=== PATIENT | female | born 1945 | race Two or more races ===

== ENCOUNTER → 2024-07-04 | Outpatient (CLI) | payer MEDICARE, OTHER ==
--- NOTE | 2024-07-04 12:31 | DVH ---
XY CHEST TWO VIEWS ROUTINE CLINICAL HISTORY: SOB COMPARISON: None TECHNIQUE: Frontal and lateral view of the chest was obtained FINDINGS: Lines and Tubes: None Lungs: No focal consolidation. Pleura: Small right pleural effusion. Cardiomediastinal contours: Unremarkable Bones: No acute osseous abnormality. IMPRESSION: Small right pleural effusion. Cardiomegaly with mild CHF.
== END | disposition home or self-care (01) ==
LOC: Rad HDHVI 11:09
PROVIDERS: ATTEND Internal Medicine Cardiovascular Disease
DX: I51.7 Cardiomegaly (principal); I50.9 Heart failure, unspecified; J90 Pleural effusion, not elsewhere classified; R06.02 Shortness of breath; R05.9 Cough, unspecified
CPT/HCPCS: 71046

== ENCOUNTER → 2024-07-30 | Outpatient (CLI) | payer MEDICARE, OTHER ==
[~2024-07-30] MED LIST: ACET1CAP14 PO; ALBU108A5 IN; APIX5TAB PO; B-COTAB19 OR; BUDE1AER4 IN; CETI10CA PO; DICY20TA PO; DULO60CA41 PO; EMPA1TAB3 PO; ESOM1CAP38 PO; FENO160T PO; FURO40TA4 PO; GUAI120018 PO; HYDR25TA5 PO; INSLANTI SC; LEV75T PO; LOSA-533 PO; PIOG1TAB36 PO; POTA-215 PO; PREG75CA PO; ROSU5TAB5 PO; TADA20TA33 PO; TRAM50TA2 PO; ZOLP5TAB5 PO
--- NOTE | 2024-07-30 12:16 | DVH ---
XY CHEST TWO VIEWS ROUTINE INDICATION: PRE OP TECHNIQUE: Two views of the chest COMPARISON: XY CHEST TWO VIEWS ROUTINE on DOS: 07/04/24 FINDINGS: LUNGS: Small right-sided pleural effusion. MEDIASTINUM: Unremarkable BONES: No acute osseous abnormality OTHER: None IMPRESSION: 1. Small right-sided pleural effusion.
--- NOTE | 2024-08-02 08:35 | DVHHP ---
ADMIT DATE: 08/01/2024 HISTORY OF PRESENT ILLNESS: The patient is a 78-year-old with history of: * Hypertension. * Hyperlipidemia. * History of tobacco use, quit in 1991 when she was discovered with a possible lung CA. She had right upper lobe resection. The patient now having lower extremity swelling. She has strong family history of coronary artery disease. No history of CVA. No history of peripheral vascular disease has been identified. No history of any renal insufficiency. Positive for heart failure and also positive for diabetes with diabetic neuropathy, vasculopathy, and nephropathy. Surgical history is also significant for one broken left ankle in 2006. CURRENT MEDICATIONS: Include Jardiance, losartan, lovastatin, hydrochlorothiazide, Eliquis, Lantus insulin, fenofibrate as well as Bumex. REVIEW OF SYSTEMS: She denies any syncopal episode. No melena or hematochezia. No bleeding diathesis. No hematemesis or hemoptysis. No hematuria. Denies any history of CVA. No any history of irritable bowel syndrome, mixed connective tissue, inflammatory bowel disease. PHYSICAL EXAMINATION: VITAL SIGNS: Blood pressure is 117/74, pulse 70, O2 saturation 98% on room air. HEENT: Pupils are reactive. Funduscopic exam shows no AV nicking, no exudates, no papilledema. Sclerae anicteric. Extraocular muscles are intact. Tympanic membranes negative. Oral mucosa moist. Posterior pharynx without exudate. NECK: No cervical adenopathy. No supraclavicular adenopathy. No axillary adenopathy. Carotid pulses are 2+ symmetrical. Normal upstroke and contour. PULMONARY: Some scattered rhonchi. Otherwise unremarkable. CARDIOVASCULAR: Regular rate without S3, without S4. PMI is nondisplaced. There is a 2/6 systolic murmur along the left sternal border. ABDOMEN: Soft. Nontender. Normal bowel sounds. Obese. Unable to appreciate organomegaly. Stool guaiac is negative. EXTREMITIES: 1+ edema. NEUROLOGIC: The patient is intact. Thus, the patient with hypertension, hyperlipidemia, now lower extremity swelling. Classic manifestation for possible diastolic heart failure. The patient is now to undergo coronary angiography to define coronary anatomy. Right and left heart catheterization will be performed as well. Further recommendations after the angiogram. Alin Guerra MD SA/BELEN TID: [id number] RECEIPT: [id number]
== END | disposition home or self-care (01) ==
LOC: Rad HDHVI 08:50
PROVIDERS: ATTEND Internal Medicine Cardiovascular Disease
DX: Z01.818 Encounter for other preprocedural examination (principal); J90 Pleural effusion, not elsewhere classified
CPT/HCPCS: 71046

== ENCOUNTER 2024-08-02 06:43 | Day surgery (SDC) | payer MEDICARE, OTHER ==
[2024-07-30 11:42] LABS: Basophils # (auto) 0.1 10 ^3/uL (0-0.2); Basophils % (auto) 0.6 % (0.0-2.0); Eosinophils # (auto) 0.2 10 ^3/uL (0-0.8); Hematocrit 26.7 % (36.0-46.0); Hemoglobin 8.2 g/dL (12.2-16.2); Lymphocytes # (auto) 2.3 10 ^3/uL (0.4-5.4); Lymphocytes % (auto) 29.1 % (10.0-50.0); Mean Corpuscular Hemoglobin 21.7 pg (28.0-32.0); Mean Corpuscular Hgb Conc. 30.9 g/dL (32.0-36.0); Mean Corpuscular Volume 70.2 fL (80.0-100.0); Monocytes # (auto) 0.7 10 ^3/uL (0-1.3); Monocytes % (auto) 9.3 % (0.0-12.0); Neutrophils # (auto) 4.7 10 ^3/uL (1.6-8.6); Platelet Count (auto) 358 10^3/uL (140-450); Red Blood Cells 3.81 10^6/uL (4.0-5.20); Red Cell Distribution Width 19.4 % (11.8-14.3)
[2024-07-30 12:10] LABS: INR 1.13 (0.9-1.15); Partial Thromboplastin Time 27.8 SEC (24.5-34.5); Prothrombin Time 11.8 sec (9.3-11.8)
[2024-07-30 12:20] LABS: Alanine Aminotransferase 16 U/L (7-40); Albumin 4.5 g/dL (3.2-4.8); Alkaline Phosphatase 69 U/L (46-116); Anion Gap 10 (5-15); Aspartate Aminotransferase 14 U/L (13-40); BUN/Creatinine Ratio 19.3 (10.0-20.0); Blood Urea Nitrogen 22 mg/dL (9-23); Calcium 10.2 mg/dL (8.7-10.4); Carbon Dioxide 28 mmol/L (20-31); Chloride 104 mmol/L (98-107); Potassium 3.6 mmol/L (3.5-5.1); Sodium 142 mmol/L (136-145); Total Protein 6.9 g/dL (5.7-8.2)
[2024-07-30 12:22] LABS: Bilirubin, Total 0.3 mg/dL (0.2-1.0); Glucose 140 mg/dL (74-106)
[~2024-08-02] VITALS: Ht 170.2 cm; Wt 102.1 kg
[2024-08-02] MEDS ORDERED: HEPARIN IN NS 1000Units/500mL 1,500 ML ONE (07:25)
[2024-08-02] MEDS ORDERED: IODIXANOL 320MG/ML 100ML BTL IV ONE (07:25)
[2024-08-02] MEDS ORDERED: IOHEXOL 350 MG/ML 100ML IJ ONE (07:49)
[2024-08-02] MEDS ORDERED: SODIUM CHL 0.9% 0 ML ONE (07:53)
[2024-08-02] MEDS ORDERED: MIDAZOLAM HCL 2MG/2ML 2ml VIAL (1mg/ml) ONE (07:53)
[2024-08-02] MEDS ORDERED: LIDOCAINE 2%HCL (LOCAL ANESTH.) INJ 20ML MDV ONE (07:53)
[2024-08-02] MEDS ORDERED: ANGIOMAX 250 MG VIAL IV ONE (07:53)
[2024-08-02] MEDS ORDERED: fentaNYL CITRATE 100 MCG/2 ML VL ONE (07:53)
--- NOTE | 2024-08-02 08:57 | DVHOP ---
DATE OF SURGERY: 08/02/2024 PROCEDURES PERFORMED: * Selective left and right coronary angiography. * Ventriculogram. * Right heart catheterization. * Westfir-Catrina catheterization. * Right iliac angiography. * Conscious sedation was given. DESCRIPTION OF PROCEDURE: The patient was prepped and draped in a sterile condition. A 1% Xylocaine was used to anesthetize the right groin. Using a Cook needle, right femoral artery was engaged with Seldinger technique, a 6-English sheath in the right femoral artery. Similarly, a 6-English sheath was introduced in the right femoral vein. Using 6-English balloon-tipped thermodilutional catheter, right-sided pressure tracings and cardiac output was performed. Westfir-Catrina bleeding was done as well. Using 6-English JL4 catheter and 6-English JR4 catheter, selective left and right coronary angiography was performed. Using 6-English pigtail catheter, ventriculogram was done. No complication. The patient tolerated the procedure well. Right femoral arteriotomy site was closed using the Angio-Seal device. RESULTS: * Left main normal. * Left anterior descending artery without any flow restrictive lesion. * Circumflex nondominant vessel without any flow restrictive lesion. * Right coronary artery, large dominant vessel without any flow restrictive lesion. * Left ventricular function was preserved with an estimated EF of greater than 65% with an LVEDP of 15 mmHg with no gradient across the aortic valve. Right heart catheterization showed LUIS F pressure of 10, RV pressure of 45/15, PA pressure of 45/12 and capillary wedge pressure of 15. The patient thus with mild pulmonary hypertension. However, no significant coronary artery disease nor any left ventricular dysfunction other than diastolic issues. The patient's blood pressure, however, was normal. There is no gradient across the aortic valve. At this time, the patient's lower extremity swelling is more consistent with mild diastolic dysfunction, mild pulmonary hypertension and possible venous insufficiency. There is no evidence of coronary artery disease or systolic heart failure or any valvular abnormality. We will continue to follow the patient. Alin Guerra MD SA/ROBERT TID: [id number] RECEIPT: [id number]
--- NOTE | 2024-08-02 09:25 | DVHDS ---
DATE OF DISCHARGE: 08/02/2024 DISCHARGE DIAGNOSES: * The patient with mild diastolic dysfunction. * Mild pulmonary hypertension, but there is no systolic dysfunction. HOSPITAL COURSE: The patient's coronary anatomy is within normal limits at this time. Aggressive risk modification, antihypertensive therapy should be considered. If the patient continues to experience lower extremity swelling, anti-pulmonary hypertension medication may be helpful. Low doses may be adequate. be initiated. Stable at the time of discharge. DISPOSITION: Home. ACTIVITY: As instructed. DIET: Will be 2 gram sodium diet. Alin Guerra MD SA/ROBERT/CHUYITA TID: [id number] RECEIPT: [id number]
== END 2024-08-02 10:50 | disposition home or self-care (01) ==
LOC: CATH 06:43
PROVIDERS: ATTEND Internal Medicine Cardiovascular Disease
DX: I25.10 Atherosclerotic heart disease of native coronary artery without angina pectoris (principal); I27.20 Pulmonary hypertension, unspecified; Z79.899 Other long term (current) drug therapy; Z88.2 Allergy status to sulfonamides
CPT/HCPCS: 36415; 80053; 85025; 85610; 85730; 93460; C1760; C1769; C1894; J1644; J2250; J3010; Q9967; 99152

== ENCOUNTER 2024-09-26 13:42 | Inpatient (IN) | payer MEDICARE, OTHER ==
[~2024-09-26] VITALS: Ht 170.2 cm; Wt 115.3 kg
--- NOTE | 2024-09-26 14:17 | ED.PDOC ---
GI ASSESSMENT HPI Comments 78 y/o F, with PMHx of lung cancer, HTN, CHF, DM and neuropathy presents to the ED for CC of abdominal pain. Patient states, she has been experiencing diffuse abdominal pain with associated diarrhea x4days. Patient reports, symptoms may be d/t possible spoiled food while eating out. Patient describes diarrhea to be water and mucousy in appearance. Patient relays, diarrhea to be so sever she has developed new onset bowel incontinence. Patient denies blood in stool, fever, nausea, or vomiting. No other symptoms or modifying factors present at this time. Time Seen by MD: 14:30 Reviewed Notes: Nurses Notes, Medications, Allergies Allergies: Coded Allergies: Sulfa Antibiotics (Verified Allergy, Unknown, itching, 07/30/24) Home Meds Reported Medications B-Complex Vitamins (Vitamin B Complex) Complex Tab, 1 OR DAILY for VITAMIN B50, TAB 08/01/24 Zolpidem Tartrate (Zolpidem Tartrate) 5 Mg Tab, 1 TAB PO HSPRN PRN for FOR INSOMNIA, #30 TAB 2 Refills 08/01/24 Fenofibrate (Fenofibrate) 160 Mg Tab, 1 TAB PO DAILY for HIGH CHOLESTEROL, #30 TAB 5 Refills 08/01/24 Tadalafil (Adcirca) 20 Mg Tab, 20 MG PO BID, TAB 08/01/24 Dicyclomine Hcl (Dicyclomine Hcl) 20 Mg Tab, 20 MG PO TID, MG 08/01/24 Furosemide (Furosemide) 40 Mg Tab, 40 MG PO DAILYP PRN for EDEMA 08/01/24 Budesonide-Formoterol Fumarate (Budesonide/Formoterol Fum 160-4.5 Mcg/Act) 1 Aer Aer, 2 AER IN BID for SOB, AER 08/01/24 Insulin Glargine (Lantus) 100 Unit/Ml Inj, 5 UNIT SC QPM for DIABETES, INJ 07/31/24 Insulin Glargine (Lantus) 100 Unit/Ml Inj, 10 UNIT SC QAM for DIABETES, INJ 07/31/24 Apixaban Base (ELIQUIS) 5 Mg Tab, 5 MG PO BID for PREVENT BLOOD CLOTS, TAB 07/31/24 Potassium Chloride (Klor-Con M10) 10 Meq Tab, 1 TAB PO DAILY for SUPPLEMENT, #30 TAB 5 Refills 07/31/24 Albuterol Sulfate (Albuterol Sulfate Hfa) 108 Mcg/Act Aer, 90 MCG IN PRN for SOB, AER 07/31/24 Guaifenesin (Mucinex Maximum Strength) 1,200 Mg Tab, 1200 MG PO 4-5X PER WEEK, TAB 07/31/24 Acetaminophen (Tylenol) 325 Mg Cap, 325 MG PO PRN for PAIN, CAP 07/31/24 Pioglitazone Hydrochloride (PIOGLITAZONE HCL) 15 Mg Tab, 15 MG PO BID for DIABETES, TAB 07/31/24 Rosuvastatin Calcium (Crestor) 5 Mg Tab, 1 TAB PO DAILY for HIGH CHOLESTEROL, #30 TAB 5 Refills 07/31/24 Esomeprazole Magnesium (Esomeprazole Magnesium) 40 Mg Cap, 40 MG PO DAILY for GERD, CAP 07/31/24 Losartan Potassium (Losartan Potassium) 25 Mg Tab, 25 MG PO DAILY for HTN for 30 Days, MG 07/31/24 Levothyroxine Sodium (Synthroid) 75 Mcg Tab, 1 TAB PO DAILY for LOW THYROID, #30 TAB 5 Refills 07/31/24 Hctz (Hydrochlorothiazide) 25 Mg Tab, 12.5 MG PO DAILY for EDEMA/HTN, TAB 07/31/24 Empagliflozin (Jardiance) 25 Mg Tab, 25 MG PO DAILY for DIABETES, TAB 07/31/24 Tramadol Hcl (Tramadol Hcl) 50 Mg Tab, 50 MG PO DAILY PRN for PAIN SCALE 7 THRU 10, MG 07/31/24 Pregabalin (Lyrica) 75 Mg Cap, 3 CAP PO BID for NERVE PAIN, #60 CAP 1 Refill 07/31/24 Duloxetine Hcl (Cymbalta) 60 Mg Cap, 1 CAP PO BID for DEPRESSION, #90 CAP 3 Refills 07/31/24 Cetirizine Hcl (Zyrtec Allergy) 10 Mg Cap, 10 MG PO HS for ALLERGIES, CAP 07/31/24 Information Source: Patient Mode of Arrival: Wheelchair Timing: Days Duration: Since onset Prehospital treatment: None Quality: None Vomitus: None Stool: Watery Severity: Moderate Recent: Possible spoiled food Recent Hx of: None Pain Location: Diffuse Modifying Factors: Nothing Associated sign and symptoms: Diarrhea, Abdominal Pain Past Medical History PAST MEDICAL HISTORY: Cancer, CHF, DM, HTN Past Medical History (Other): neuropathy Surgical History: Hysterectomy Surgical History (Other): left lobectomy 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 Hx Family History Family History: Unknown Social History Smoker: Non-Smoker Alcohol: Denies ETOH Use Drugs: Denies Drug Use Lives In: Home Constitutional: reports: chills; denies: diaphoresis, fatigue, fever, malaise, sweats, weakness, others EENTM: denies: blurred vision, double vision, ear bleeding, ear discharge, ear drainage, ear pain, ear ringing, eye pain, eye redness, hearing loss, mouth pain, mouth swelling, nasal discharge, nose bleeding, nose congestion, nose pain, photophobia, tearing, throat pain, throat swelling, voice changes, others Respiratory: denies: cough, hemoptysis, orthopnea, SOB at rest, shortness of breath, SOB with excertion, stridor, wheezing, others Cardiovascular: denies: chest pain, dizzy spells, diaphoresis, Dyspnea on exertion, edema, irregular heart beat, left arm pain, lightheadedness, palpitations, PND, syncope, others Gastrointestinal: reports: abdominal pain, diarrhea; denies: abdomen distended, blood streaked bowels, constipated, dysphagia, difficulty swallowing, hematemesis, melena, nausea, poor appetite, poor fluid intake, rectal bleeding, rectal pain, vomiting, others Genitourinary: denies: abnormal vagina bleeding, burning, dyspareunia, dysuria, flank pain, frequency, hematuria, incontinence, pain, , vagina discharge, urgency, others Neurological: denies: dizziness, fainting, headache, left sided numbness, left sided weakness, numbness, paresthesia, pre-existing deficit, right sided numbness, right sided weakness, seizure, speech problems, tingling, tremors, weakness, others Musculoskeletal: denies: back pain, gout, joint pain, joint swelling, muscle pain, muscle stiffness, neck pain, others Integumetry: denies: bruises, change in color, change in hair/nails, dryness, laceration, lesions, lumps, rash, wounds, others Allergic/Immunocompromised: denies: Difficulty Healing, Frequent Infections, Hives, Itching, others Hematologic/Lymphatic: denies: anemia, blood clots, easy bleeding, easy bruising, swollen glands, others Endocrine: denies: excessive hunger, excessive sweating, excessive thirst, excessive urination, flushing, intolerance to cold, intolerance to heat, unexplained weight gain, unexplained weight loss, others Psychiatric: denies: anxiety, bipolar disorder, depression, hopeless, panic disorder, schizophrenia, sleepless, suicidal, others All Other Systems: Reviewed and Negative Physical Exam General Appearance: Moderate Distress, Obese HEENT: Normal ENT Inspection, Pharynx Normal, TMs Normal Neck: Full Range of Motion, Non-Tender, Normal, Normal Inspection Respiratory: Chest Non-Tender, Lungs Clear, No Accessory Muscle Use, No Respiratory Distress, Normal Breath Sounds Cardiovascular: No Edema, No JVD, No Murmur, No Gallop, Normal Peripheral Pulses, Regular Rate/Rhythm Breast Exam: Deferred Gastrointestinal: No Organomegaly, Non Tender, No Pulsatile Mass, Normal Bowel Sounds, Soft Genitalia: Deferred Pelvic: Deferred Rectal: Deferred Extremities: Pedal edema, Swelling (Bilateral lower extremity) Musculoskeletal : Apperance: Normal Neurologic: Alert, No Motor Deficits, No Sensory Deficits Cerebellar Function: NOT DONE Reflexes: NOT DONE Skin: Normal Color Peripheral Pulses: 3+ Radial (R), 3+ Radial (L) Lymphatic: No Adenopathy EKG EKG : Pulse Rate (adult): 63 [place]: Normal Cardiac Rhythm: NSR Block: None Hypertrophy: None ST: Normal Was a procedure done? Was a procedure done?: No GI differential Dx Differential Diagnosis: Constipation, Diverticular disease, Esophagitis, Gastritis/PUD, Gastroenteritis, Inflammatory BD, Electrolyte Imbalance, Food Poisoning, Bacterial, Viral X-Ray, Labs, Meds, VS Vital Signs Date Time Temp Pulse Resp B/P (MAP) Pulse Ox O2 Delivery O2 Flow Rate FiO2 09/26/24 15:17 97.9 61 20 110/44 (66) 97 97.9 09/26/24 15:17 61 20 97 Nasal Cannula* 2 28 09/26/24 15:03 63 09/26/24 14:21 63 09/26/24 14:05 97.8 69 18 108/41 (63) 95 97.8 Lab Test 09/26/24 15:08 09/26/24 14:14 Range/Units White Blood Count 8.2 4.4-10.8 10^3/uL Red Blood Count 3.72 L 4.0-5.20 10^6/uL Hemoglobin 8.9 L 12.2-16.2 g/dL Hematocrit 27.8 L 36.0-46.0 % Mean Corpuscular Volume 74.6 L 80.0-100.0 fL Mean Corpuscular Hemoglobin 23.8 L 28.0-32.0 pg Mean Corpuscular Hemoglobin Concent 31.9 L 32.0-36.0 g/dL Red Cell Distribution Width 26.4 H 11.8-14.3 % Platelet Count 317 140-450 10^3/uL Mean Platelet Volume 8.3 6.9-10.8 fL Neutrophils (%) (Auto) 70.1 37.0-80.0 % Lymphocytes (%) (Auto) 19.5 10.0-50.0 % Monocytes (%) (Auto) 7.9 0.0-12.0 % Eosinophils (%) (Auto) 1.9 0.0-7.0 % Basophils (%) (Auto) 0.6 0.0-2.0 % Neutrophils # (Auto) 5.8 1.6-8.6 10 ^3/uL Lymphocytes # (Auto) 1.6 0.4-5.4 10 ^3/uL Monocytes # (Auto) 0.7 0-1.3 10 ^3/uL Eosinophils # (Auto) 0.2 0-0.8 10 ^3/uL Basophils # (Auto) 0.1 0-0.2 10 ^3/uL Nucleated Red Blood Cells 0.1 % Sodium Level 138 136-145 mmol/L Potassium Level 4.1 3.5-5.1 mmol/L Chloride Level 104 98-107 mmol/L Carbon Dioxide Level 25 20-31 mmol/L Anion Gap 9 5-15 Blood Urea Nitrogen 22 9-23 mg/dL Creatinine 1.15 H 0.550-1.02 mg/dL Glomerular Filtration Rate Calc 48 >90 mL/min BUN/Creatinine Ratio 19.1 10.0-20.0 Serum Glucose 130 H 74-106 mg/dL Calcium Level 9.7 8.7-10.4 mg/dL POC Glucose 130 H 70-106 mg/dl Current Medications Medications (Trade) Dose Ordered Sig/Layo Route Start Time Stop Time Status Last Admin Sodium Chloride 1,000 ml @ 1,000 mls/hr Q1H ONCE IVB 09/26/24 15:00 09/26/24 15:59 DC 09/26/24 15:29 [facility] [id number] [facility] [address] Ph: [phone] DIAGNOSTIC IMAGING Diagnostic Imaging Report : [id number] Signed PATIENT: VIRI HEAD ACCT: [id number] UNIT: [id number] : 1945 LOC: ER ROOM / BED: / AGE / SEX: 78 / F ADM STATUS: REG ER SERVICE 1500 ORDERING PHYSICIAN: LORRAINE OLIVERA MD PROCEDURE(s): ABPL - CT AB PEL WO CON-NO ORAL OR IV REASON: colitis ORDER NUMBER(s): [id number], ACCESSION NUMBER(s): [id number] Indication: colitis Technique: CT axial images of the abdomen and pelvis are obtained without contrast. Coronal and sagittal reformats were obtained. Radiation Dose Information: CTDI volume is 23 mGy. Dose-length product is 1284 mGy*cm Comparison: None FINDINGS: There is limited interpretation of the abdomen and pelvis without administration of intravenous contrast. The lung bases demonstrate atelectasis. Right lower lobe atelectasis and tiny right pleural effusion. Adrenal glands, spleen unremarkable in shape. Pancreatic calcifications. Liver unremarkable in shape. Possible cholelithiasis/sludge.. No hydronephrosis. Nonobstructing left renal calculi up to 2 mm. Stomach is partially distended. Small bowel loops are normal in caliber. Extensive colonic wall thickening of the descending and rectosigmoid colon most pronounced in the descending colon. Postsurgical changes of the descending colon. Surrounding inflammatory stranding. Moderate to large volume stool within the ascending and transverse colon. Colonic diverticular disease. Abdominal aortic atherosclerotic disease. Retroperitoneal lymph nodes measuring up to 13 mm. Bladder partially distended. Trace free pelvic fluid. Mild presacral edema. No inguinal lymphadenopathy. [id number] bilateral sacroiliac degenerative joint disease. Moderate to severe lumbar degenerative disc disease. IMPRESSION: Extensive bowel wall thickening of the descending and rectosigmoid colon most pronounced in the descending colon region. There is surrounding inflammatory stranding. Differential considerations include colitis, inflammatory bowel disease. Recommend colonoscopy once acute symptoms resolve exclude any type of colonic mass/ neoplasm especially in the descending colon region. Moderate to large volume stool within the ascending and transverse colon secondary to the underlying process within the descending and rectosigmoid colon. Right lower lobe atelectasis and tiny right pleural effusion. Atherosclerotic disease. Retroperitoneal lymphadenopathy. Other findings as described. ATED BY: CASIE GORDON MD DICTATED DATE/TIME: 09/26/241601 SIGNED BY: CASIE GORDON MD SIGNED DATE/TIME: 09/26/241601 CC: Patient alert. Complaining of diarrhea. Vitals stable. Answering questions. She is obese. CT scan of the abdomen does show colitis. She will need colonoscopy. GI consultation. Establish intravenous access. Was given fluids. Was given Zosyn. Was given Flagyl. Explained to the patient. Continue monitoring. Time of 1ST Reevaluation: 15:00 Reevaluation 1ST: Unchanged Patient Education/Counseling: Diagnosis, Treatment Family Education/Counseling: No Family Present SEPSIS Sepsis Screen Physician Orders Urinalysis (09/26/24 14:59) Sodium Chloride 0.9% (09/26/24 15:00) Ct Ab Pel Wo Con-No Oral Or Iv (09/26/24 15:00) Vital Signs Date Time Temp Pulse Resp B/P (MAP) Pulse Ox O2 Delivery O2 Flow Rate FiO2 09/26/24 15:17 97.9 61 20 110/44 (66) 97 97.9 09/26/24 15:17 61 20 97 Nasal Cannula* 2 28 09/26/24 15:03 63 09/26/24 14:21 63 09/26/24 14:05 97.8 69 18 108/41 (63) 95 97.8 Laboratory Tests Test 09/26/24 15:08 White Blood Count 8.2 10^3/uL (4.4-10.8) Medications Medications Dose Ordered Sig/Layo Route Start Time Stop Time Status Last Admin Dose Admin Sodium Chloride 1,000 ml @ 1,000 mls/hr Q1H ONCE IVB 09/26/24 15:00 09/26/24 15:59 DC 09/26/24 15:29 Departure 1 Departure Time of Disposition: 16:57 Impression: Primary Impression: Uncontrolled diabetes mellitus Qualified Codes: E13.65 - Other specified diabetes mellitus with hy perglycemia Additional Impression: Non-specific colitis Disposition: ADMITTED INPATIENT Admit to: Med Surg Condition: Guarded Critical Care Note Critical Care Time?: No Stability Stability form required: No Heart Score Heart Score: Heart Score Response (Comments) Value History N/A 0 EKG N/A 0 Age N/A 0 Risk Factors N/A 0 Troponin N/A 0 Total 0 I personally scribed for LORRAINE OLIVERA MD ([email or web address]) on 09/26/24 at 14:17. Electronically submitted by Ana Paula Winchester ([email or web address]). I personally scribed for LORRAINE OLIVERA MD ([email or web address]) on 09/26/24 at 15:01. Electronically submitted by Ana Paula Winchester ([email or web address]). I personally scribed for LORRAINE OLIVERA MD ([email or web address]) on 09/26/24 at 15:03. Electronically submitted by Ana Paula Winchester ([email or web address]). I personally scribed for LORRAINE OLIVERA MD ([email or web address]) on 09/26/24 at 16:21. Electronically submitted by Ana Paula Winchester ([email or web address]). LORRAINE OLIVERA MD Sep 26, 2024 14:17
[2024-09-26 15:17] VITALS: PULSE 61; RESP 20; O2SAT 97
[2024-09-26 15:24] LABS: Chloride 104 mmol/L (98-107); Hemoglobin 8.9 g/dL (12.2-16.2); Potassium 4.1 mmol/L (3.5-5.1); Sodium 138 mmol/L (136-145)
[2024-09-26 15:25] LABS: Anion Gap 9 (5-15); Carbon Dioxide 25 mmol/L (20-31)
[2024-09-26 15:26] LABS: Calcium 9.7 mg/dL (8.7-10.4); Hematocrit 27.8 % (36.0-46.0); Mean Corpuscular Hemoglobin 23.8 pg (28.0-32.0); Mean Corpuscular Volume 74.6 fL (80.0-100.0); Nucleated Red Blood Cells % 0.1 %
[2024-09-26] MEDS: SODIUM CHLORIDE 0.9% 1,000 ML IV ONE (15:29)
[2024-09-26] MEDS: SODIUM CHLORIDE 0.9% 1,000 ML IVB ONE (15:29)
[2024-09-26 15:31] LABS: BUN/Creatinine Ratio 19.1 (10.0-20.0); Blood Urea Nitrogen 22 mg/dL (9-23)
[2024-09-26 15:33] LABS: Glucose 130 mg/dL (74-106)
--- NOTE | 2024-09-26 16:04 | DVH ---
Indication: colitis Technique: CT axial images of the abdomen and pelvis are obtained without contrast. Coronal and sagit fay reformats were obtained. Radiation Dose Information: CTDI volume is 23 mGy. Dose-length product is 1284 mGy*cm Comparison: None FINDINGS: There is limited interpretation of the abdomen and pelvis without administration of intravenous contr ast. The lung bases demonstrate atelectasis. Right lower lobe atelectasis and tiny right pleural effusion. Adrenal glands, spleen unremarkable in shape. Pancreatic calcifications. Liver unremarkable in shap e. Possible cholelithiasis/sludge.. No hydronephrosis. Nonobstructing left renal calculi up to 2 mm. Stomach is partially distended. Small bowel loops are normal in caliber. Extensive colonic wall thickening of the descending and rectosigmoid colon most pronounced in the donovan cending colon. Postsurgical changes of the descending colon. Surrounding inflammatory stranding. Mo derate to large volume stool within the ascending and transverse colon. Colonic diverticular disease. Abdominal aortic atherosclerotic disease. Retroperitoneal lymph nodes measuring up to 13 mm. Bladder partially distended. Trace free pelvic fluid. Mild presacral edema. No inguinal lymphadenopathy. [id number] bilateral sacroiliac degenerative joint disease. Moderate to severe lumbar degenerat misti disc disease. IMPRESSION: Extensive bowel wall thickening of the descending and rectosigmoid colon most pronounced in the desce nding colon region. There is surrounding inflammatory stranding. Differential considerations includ e colitis, inflammatory bowel disease. Recommend colonoscopy once acute symptoms resolve exclude any type of colonic mass/ neoplasm especially in the descending colon region. Moderate to large volume stool within the ascending and transverse colon secondary to the underlying process within the descending and rectosigmoid colon. Right lower lobe atelectasis and tiny right pleural effusion. Atherosclerotic disease. Retroperitoneal lymphadenopathy. Other findings as described.
--- NOTE | 2024-09-26 16:16 | ECG ---
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
[2024-09-26 20:03] LABS: Urine Protein, UAD Negative (Negative)
[2024-09-27] VITALS (13 sets, daily range): BP systolic 94–156; BP diastolic 37–66; PULSE 55–95; RESP 16–20; TEMP 96.9–98.9; O2SAT 93–99
[2024-09-27] MEDS ORDERED: ALBUTEROL SULF 2.5 MG/0.5ML(0.5%) NEB SOLN NEB PRN
[2024-09-27] MEDS ORDERED: DEXTROSE (50%) 50ML SYRG IV PRN
[2024-09-27] MEDS ORDERED: ONDANSETRON HCL 4 MG/2 ML VIAL IV PRN
--- NOTE | 2024-09-27 00:17 | DVHHP2 ---
History of Present Illness Reason for Visit: Abdominal pain History of Present Illness 78-year-old female presents for evaluation of abdominal pain. Patient reports a four day history of diffuse abdominal pain with associated watery diarrhea. Denies fever or chills. No cardiac or respiratory symptoms. Review of Systems Review of Systems Review of systems are currently negative otherwise addressed in HPI. Allergies: Coded Allergies: Sulfa Antibiotics (Verified Allergy, Unknown, itching, 07/30/24) Medications Current Medications Medications Dose Ordered Sig/Layo Route Start Time Stop Time Status Last Admin Dose Admin Albuterol 2.5 mg Q6HPRN PRN NEB 09/27/24 00:00 Levothyroxine Sodium 75 mcg QAM@0600 PO 09/27/24 06:00 Empaglifozin 10 mg DAILY PO 09/27/24 10:00 Apixaban 5 mg BID PO 09/27/24 10:00 Losartan Potassium 25 mg DAILY PO 09/27/24 10:00 Furosemide 40 mg DAILY PO 09/27/24 10:00 Hydrochlorothiazide 12.5 mg DAILY PO 09/27/24 10:00 Ceftriaxone Sodium 50 ml @ 100 mls/hr DAILY@09 IV 09/27/24 09:00 Metronidazole 100 ml @ 100 mls/hr Q8HR IV 09/27/24 06:00 Diagnostic Test (Pha) 1 strip ACHS 09/27/24 07:00 Insulin Human Regular ACHS SC 09/27/24 07:00 UNV Dextrose 50 ml UD PRN IV 09/27/24 00:00 UNV Acetaminophen/ Hydrocodone Bitart 1 tab Q4HP PRN PO 09/27/24 00:00 UNV Ondansetron HCl 4 mg Q4HP PRN IV 09/27/24 00:00 UNV Acetaminophen 650 mg Q6HP PRN PO 09/27/24 00:00 UNV Exam Vital Signs Vital Signs Date Time Temp Pulse Resp B/P (MAP) Pulse Ox O2 Delivery O2 Flow Rate FiO2 09/26/24 22:58 97.5 64 16 118/60 (79) 95 97.5 09/26/24 15:17 Nasal Cannula* 2 28 Exam Gen: 78-year-old female in mild distress, obese Skin: Warm, dry, normal color and texture, no rash. HEENT: Normocephalic atraumatic, mucous membranes moist and pink. Neck: Cervical and supraclavicular nodes normal without enlargement, trachea is midline, thyroid gland is normal without masses. Pulmonary: Clear to auscultation and percussion bilaterally. Cardiac: Regular rate and rhythm. No murmur Abdomen: Soft, diffuse tenderness, nondistended, bowel sounds present all 4 quadrants, no guarding, no rigidity, no organomegaly. Extremities: No cyanosis, clubbing, no edema Neuro: Cranial nerves II through XII grossly intact, normal affect and speech, no focal motor deficits. Labs/Xrays ORDERING PHYSICIAN: LORRAINE OLIVERA MD PROCEDURE(s): ABPL - CT AB PEL WO CON-NO ORAL OR IV REASON: colitis ORDER NUMBER(s): [id number], ACCESSION NUMBER(s): [id number] Indication: colitis Technique: CT axial images of the abdomen and pelvis are obtained without contrast. Coronal and sagittal reformats were obtained. Radiation Dose Information: CTDI volume is 23 mGy. Dose-length product is 1284 mGy*cm Comparison: None FINDINGS: There is limited interpretation of the abdomen and pelvis without administration of intravenous contrast. The lung bases demonstrate atelectasis. Right lower lobe atelectasis and tiny right pleural effusion. Adrenal glands, spleen unremarkable in shape. Pancreatic calcifications. Liver unremarkable in shape. Possible cholelithiasis/sludge.. No hydronephrosis. Nonobstructing left renal calculi up to 2 mm. Stomach is partially distended. Small bowel loops are normal in caliber. Extensive colonic wall thickening of the descending and rectosigmoid colon most pronounced in the descending colon. Postsurgical changes of the descending colon. Surrounding inflammatory stranding. Moderate to large volume stool within the ascending and transverse colon. Colonic diverticular disease. Abdominal aortic atherosclerotic disease. Retroperitoneal lymph nodes measuring up to 13 mm. Bladder partially distended. Trace free pelvic fluid. Mild pres acral edema. No inguinal lymphadenopathy. [id number] bilateral sacroiliac degenerative joint disease. Moderate to severe lumbar degenerative disc disease. IMPRESSION: Extensive bowel wall thickening of the descending and rectosigmoid colon most p ronounced in the descending colon region. There is surrounding inflammatory stranding. Differential considerations include colitis, inflammatory bowel disease. Recommend colonoscopy once acute symptoms resolve exclude any type of colonic mass/ neoplasm especially in the descending colon region. Moderate to large volume stool within the ascending and transverse colon secondary to the underlying process within the descending and rectosigmoid colon. Right lower lobe atelectasis and tiny right pleural effusion. Atherosclerotic disease. Retroperitoneal lymphadenopathy. Other findings as described. Labs Test 09/26/24 20:18 09/26/24 15:08 09/26/24 14:11 Range/Units POC Glucose 129 H 70-106 mg/dl White Blood Count 8.2 4.4-10.8 10^3/uL Red Blood Count 3.72 L 4.0-5.20 10^6/uL Hemoglobin 8.9 L 12.2-16.2 g/dL Hematocrit 27.8 L 36.0-46.0 % Mean Corpuscular Volume 74.6 L 80.0-100.0 fL Mean Corpuscular Hemoglobin 23.8 L 28.0-32.0 pg Mean Corpuscular Hemoglobin Concent 31.9 L 32.0-36.0 g/dL Red Cell Distribution Width 26.4 H 11.8-14.3 % Platelet Count 317 140-450 10^3/uL Mean Platelet Volume 8.3 6.9-10.8 fL Neutrophils (%) (Auto) 70.1 37.0-80.0 % Lymphocytes (%) (Auto) 19.5 10.0-50.0 % Monocytes (%) (Auto) 7.9 0.0-12.0 % Eosinophils (%) (Auto) 1.9 0.0-7.0 % Basophils (%) (Auto) 0.6 0.0-2.0 % Neutrophils # (Auto) 5.8 1.6-8.6 10 ^3/uL Lymphocytes # (Auto) 1.6 0.4-5.4 10 ^3/uL Monocytes # (Auto) 0.7 0-1.3 10 ^3/uL Eosinophils # (Auto) 0.2 0-0.8 10 ^3/uL Basophils # (Auto) 0.1 0-0.2 10 ^3/uL Nucleated Red Blood Cells 0.1 % Sodium Level 138 136-145 mmol/L Potassium Level 4.1 3.5-5.1 mmol/L Chloride Level 104 98-107 mmol/L Carbon Dioxide Level 25 20-31 mmol/L Anion Gap 9 5-15 Blood Urea Nitrogen 22 9-23 mg/dL Creatinine 1.15 H 0.550-1.02 mg/dL Glomerular Filtration Rate Calc 48 >90 mL/min BUN/Creatinine Ratio 19.1 10.0-20.0 Serum Glucose 130 H 74-106 mg/dL Calcium Level 9.7 8.7-10.4 mg/dL Urine Color Light-yellow Yellow Urine Clarity Clear Clear Urine pH 5.0 5.0-9.0 Urine Specific [place] 1.012 1.001-1.035 Urine Protein Negative Negative Urine Ketones Negative Negative Urine Blood Negative Negative /uL Urine Nitrite Negative Negative Urine Bilirubin Negative Negative Urine Urobilinogen Normal Negative mg/dL Urine Leukocyte Esterase Negative Negative /uL Urine RBC None seen 0 - 4 /hpf Urine Microscopic WBC 2 0-5 /HPF Urine Squamous Epithelial Cells Few <5 /hpf Urine Bacteria Few H None Seen /hpf Urine Glucose 4+ H Normal mg/dL Assessment/Plan Assessment/Plan Assessment Acute abdominal pain Acute colitis Diabetes mellitus Hypertension Mild anemia Morbid obesity Chronic kidney disease Plan Admit the patient to [facility] to the hospitalist Sybil/Flagyl Stool bacterial culture pending GI consultation Clear liquid diet Pain management Continue treatment per orders. Plan discussed with: Patient My Orders Orders - RADHA HART Procedure Category Date Status Time Admit ADMIT 09/26/24 Transmitted 23:55 Stool Bacterial FREDRICK 09/26/24 Uncollected Culture 23:57 Clostridium Difficile FREDRICK 09/26/24 Uncollected Toxin 23:57 Albuterol Medneb PHA 09/27/24 In Process (Ventolin Medneb) 00:00 Levothyroxine Tablet PHA 09/27/24 In Process (Synthroid Tablet) 06:00 Empagliflozin PHA 09/27/24 In Process (Jardiance) 10:00 Apixaban (Eliquis) PHA 09/27/24 In Process 10:00 Losartan Tablet PHA 09/27/24 In Process (Cozaar Tablet) 10:00 Furosemide Tablet PHA 09/27/24 In Process (Lasix Tablet) 10:00 Hydrochlorothiazide PHA 09/27/24 In Process Tablet (Hydrochlorot 10:00 Ceftriaxone 1gm/50ml PHA 09/27/24 In Process D5w (Rocephin) 09:00 Metronidazole PHA 09/27/24 In Process 500mg/100ml (Flagyl 06:00 Glucose Blood PHA 09/27/24 In Process (Accu-Chek Comfort 07:00 Insulin R (Human) PHA 09/27/24 In Process (Insulin R) 07:00 Dextrose 50% Syringe PHA 09/27/24 Logged 00:00 Hydrocodone-Acet PHA 09/27/24 Logged 5/325mg Tab ([place] 00:00 Ondansetron Hcl PHA 09/27/24 Logged (Zofran) 00:00 Complete Blood Count LAB 09/27/24 Logged 04:00 Comprehensive LAB 09/27/24 Logged Metabolic Panel 04:00 Condition: Stable KEVIN 09/26/24 In Process 23:57 Acetaminophen Tablet PHA 09/27/24 Logged (Tylenol Tablet) 00:00 Clear Liq Diet DIET 09/27/24 Transmitted Breakfast Bedrest With Bathroom KEVIN 09/26/24 In Process Privileg 23:57 * Gi Dvh Trial Judge CONS 09/26/24 Transmitted 23:57 Date of Service: Sep 26, 2024 Billing Provider: RADHA HART Common Visit Codes: [id number] INP/OBS CARE (HIGH) RADHA HART Sep 27, 2024 00:17
[2024-09-27] MEDS: PIPERACILLIN-TAZOB 3.375GM 100 ML IV ONE ×2 (04:16→10:11)
[2024-09-27] MEDS: ACCU-CHEK COMFORT CURVE STRIP VI SCH (06:09)
[2024-09-27] MEDS: InsuLIN REG 1unit/0.01ml Soln (100units/ml) SC SCH (06:09)
[2024-09-27] MEDS: ACETAMINOPHEN 325 MG TAB PO PRN (06:10)
[2024-09-27] MEDS: LEVOTHYROXINE SODIUM 25 MCG TAB PO SCH (06:10)
[2024-09-27] MEDS: LOSARTAN POTASSIUM 25 MG TAB PO SCH (10:00)
[2024-09-27] MEDS: hydroCHLOROthiazide 25 MG TAB PO SCH (10:00)
[2024-09-27] MEDS: EMPAGLIFLOZIN 10 MG TAB PO SCH (10:11)
[2024-09-27] MEDS: APIXABAN 5 MG TAB PO SCH (10:11)
[2024-09-27] MEDS: cefTRIAXone 1GM/50ML D5W 50 ML IV SCH (10:11)
[2024-09-27] MEDS: FUROSEMIDE 40 MG TAB PO SCH (10:12)
[2024-09-27 10:58] LABS: Hemoglobin 10.1 g/dL (12.2-16.2)
--- NOTE | 2024-09-27 10:59 | DVHPN2 ---
Progress Note Date Seen: Sep 27, 2024 Medical Necessity Reason Pt with a Central, PICC or Fol: No Subjective Patient reports: No new complaints Review of Systems: HEENT:Normal, CVS:Normal, RESPIRATORY:Normal, GI:Normal, :Normal, MSK:Normal, NEURO:Normal Objective vital signs Vital Sign Date Time Temp Pulse Resp B/P (MAP) Pulse Ox O2 Delivery O2 Flow Rate FiO2 09/27/24 10:12 94/42 09/27/24 08:40 96.9 55 16 94 96.9 09/27/24 04:49 Nasal Cannula* 2 28 Total Intake and Output 09/26/24 09/26/24 09/27/24 15:00 23:00 07:00 Intake Total 0 ml Output Total 0 ml Balance 0 ml medications Current Medications Medications Dose Ordered Sig/Layo Route Start Time Stop Time Status Last Admin Dose Admin Albuterol 2.5 mg Q6HPRN PRN NEB 09/27/24 00:00 Levothyroxine Sodium 75 mcg QAM@0600 PO 09/27/24 06:00 09/27/24 06:10 75 MCG Empaglifozin 10 mg DAILY PO 09/27/24 10:00 09/27/24 10:11 10 MG Ceftriaxone Sodium 50 ml @ 100 mls/hr DAILY@09 IV 09/27/24 09:00 09/27/24 10:11 100 MLS/HR Metronidazole 100 ml @ 100 mls/hr Q8HR IV 09/27/24 06:00 09/27/24 06:10 100 MLS/HR Diagnostic Test (Pha) 1 strip ACHS 09/27/24 07:00 09/27/24 06:09 1 STRIP Insulin Human Regular ACHS SC 09/27/24 07:00 Dextrose 50 ml UD PRN IV 09/27/24 00:00 Acetaminophen/ Hydrocodone Bitart 1 tab Q4HP PRN PO 09/27/24 00:00 Ondansetron HCl 4 mg Q4HP PRN IV 09/27/24 00:00 Acetaminophen 650 mg Q6HP PRN PO 09/27/24 00:00 09/27/24 06:10 650 MG Bumetanide 1 mg DAILY PO 09/28/24 10:00 UNV Examination: GENERAL:Normal, HEENT:Normal, NECK:Normal, LUNGS:Normal, LUNGS:Abnormal (on oxygen), CVS:Normal, ABDOMEN:Normal, MSK:Normal, MSK:Abnormal (edema++), SKIN:Normal, NEURO:Normal, :Normal laboratory and microbiology Test 09/27/24 10:35 Range/Units Serum Glucose Pending Problem List/Assessment/Plan Problem List/Assessment/Plan #1 diarrhea/colitis: gi eval, stool study, iv antibiotics #2 acute on chronic diastolic heart failure: cont meds #3 severe PAH #4 chronic resp failure #5 dm: ssi #6 htn #7 obesity #8 hypothyroidism #9 anemia: hold eliquis advance care planning- full code- time spent 19 mins Plan discussed with: Patient My Orders My Orders Orders - RADHA RUTHERFORD MD Procedure Category Date Status Time * Cardiology Consult CONS 09/27/24 Transmitted 10:53 Bumetanide Tablet PHA 09/28/24 Transmitted (Bumex Tablet) 10:00 Complete Blood Count LAB 09/28/24 Verified 06:00 Comprehensive LAB 09/28/24 Verified Metabolic Panel 06:00 Thyroid Stimulating LAB 09/28/24 Verified Hormone 05:00 Hemoglobin A1c LAB 09/28/24 Verified 06:00 Chest Portable XY 09/27/24 Transmitted 10:53 Date of Service: Sep 27, 2024 Billing Provider: RADHA RUTHERFORD MD Common Visit Codes: [id number] INP/OBS CARE(HIGH) Secondary Visit Codes: [id number] CARE PLAN 30 MINUTES RADHA RUTHERFORD MD Sep 27, 2024 10:59
[2024-09-27 11:01] LABS: Hematocrit 32.6 % (36.0-46.0); Mean Corpuscular Hemoglobin 23.4 pg (28.0-32.0); Mean Corpuscular Volume 75.4 fL (80.0-100.0); Nucleated Red Blood Cells % 0.0 %
[2024-09-27 11:11] LABS: Alanine Aminotransferase 12 U/L (7-40); Albumin 4.4 g/dL (3.2-4.8); Alkaline Phosphatase 91 U/L (46-116); Anion Gap 11 (5-15); BUN/Creatinine Ratio 16.8 (10.0-20.0); Blood Urea Nitrogen 17 mg/dL (9-23); Calcium 9.9 mg/dL (8.7-10.4); Carbon Dioxide 22 mmol/L (20-31); Potassium 3.9 mmol/L (3.5-5.1); Sodium 141 mmol/L (136-145); Total Protein 6.9 g/dL (5.7-8.2)
[2024-09-27 11:15] LABS: Bilirubin, Total 0.2 mg/dL (0.2-1.0); Chloride 108 mmol/L (98-107); Glucose 113 mg/dL (74-106)
--- NOTE | 2024-09-27 12:03 | DVH ---
CHEST RADIOGRAPH Indication: CHF Technique: Single frontal view of the chest was obtained COMPARISON: None FINDINGS: Lines and Tubes: None Lungs: Increased interstitial prominence Pleura: No effusion. No pneumothorax. Cardiomediastinal contours: Cardiomegaly Bones: Unremarkable IMPRESSION: Pulmonary vascular congestion
[2024-09-27] MEDS ORDERED: FUROSEMIDE INJECTION 100 MG in SODIUM CHL 0.9% 100 ML IV SCH (12:15)
--- NOTE | 2024-09-27 12:26 | DVHPN2 ---
Progress Note - Dictate Date Seen: Sep 26, 2024 Medical Necessity Reason Pt with a Central, PICC or Fol: No Subjective PT WELL KNOWN TO ME WITH DIABETES VASCULOPATHY NEPHROPATHY NEUROPATHY SEVERE PAH SEVERE TR RIGHT SIDED HEART FAILURE NOW WITH SEVERE ABD PAIN CT CONSISTENT WITH COLITIS DIARRHEA ACUTE ONSET CONSISTENT WITH INFECTIOUS ETIOLOGY vital signs Vital Sign Date Time Temp Pulse Resp B/P (MAP) Pulse Ox O2 Delivery O2 Flow Rate FiO2 09/27/24 10:12 94/42 09/27/24 08:40 96.9 55 16 94 96.9 09/27/24 04:49 Nasal Cannula* 2 28 Total Intake and Output 09/26/24 09/26/24 09/27/24 15:00 23:00 07:00 Intake Total 0 ml Output Total 0 ml Balance 0 ml medications Current Medications Medications Dose Ordered Sig/Layo Route Start Time Stop Time Status Last Admin Dose Admin Albuterol 2.5 mg Q6HPRN PRN NEB 09/27/24 00:00 Levothyroxine Sodium 75 mcg QAM@0600 PO 09/27/24 06:00 09/27/24 06:10 75 MCG Empaglifozin 10 mg DAILY PO 09/27/24 10:00 09/27/24 10:11 10 MG Ceftriaxone Sodium 50 ml @ 100 mls/hr DAILY@09 IV 09/27/24 09:00 09/27/24 10:11 100 MLS/HR Metronidazole 100 ml @ 100 mls/hr Q8HR IV 09/27/24 06:00 09/27/24 06:10 100 MLS/HR Diagnostic Test (Pha) 1 strip ACHS 09/27/24 07:00 09/27/24 06:09 1 STRIP Insulin Human Regular ACHS SC 09/27/24 07:00 Dextrose 50 ml UD PRN IV 09/27/24 00:00 Acetaminophen/ Hydrocodone Bitart 1 tab Q4HP PRN PO 09/27/24 00:00 Ondansetron HCl 4 mg Q4HP PRN IV 09/27/24 00:00 Acetaminophen 650 mg Q6HP PRN PO 09/27/24 00:00 09/27/24 06:10 650 MG Bumetanide 1 mg DAILY PO 09/28/24 10:00 laboratory and microbiology Laboratory Tests 09/27/24 10:35 Test 09/27/24 10:35 Range/Units Serum Glucose 113 H 74-106 mg/dL Problem List DIABETES VASCULOPATHY NEPHROPATHY NEUROPATHY SEVERE PAH SEVERE TR RIGHT SIDED HEART FAILURE ANASARCA NOW WITH SEVERE ABD PAIN CT CONSISTENT WITH COLITIS DIARRHEA ACUTE ONSET CONSISTENT WITH INFECTIOUS ETIOLOGY Assessment/Plan LASIX DRIP DOBUTAMINE FOR AFTERLOAD AND PRELOAD REDUCTION TITRATE ON REVATIO CHOLESTYRAMINE ABX FOR COLITIS DC ROCEPHINE ZOSYN WITH FLAGYL FOR ENTEROCOCCUS AND ANAEROBIC COVERAGE Plan discussed with: Patient, Daughter, Son GLADYS BENSON MD Sep 27, 2024 12:26
--- NOTE | 2024-09-27 13:56 | DVHINCON2 ---
GI Consult Consult Note GI consult note Date of Consultation: 09/27/2024 Chief Complaint: Colitis Referring Physician: Ajith SHAH H&P: 78-year-old female presented for evaluation of abdominal pain. Patient was complaining of diffuse abdominal pain, now mostly pain in the lower abdomen. Also having watery diarrhea, which has been less frequent since being in the hospital. Patient has these symptoms start him on one-week ago. Now only having mucousy diarrhea. No melena. Admits to having some red blood with bowel movements. Status post colonoscopy 5-6 years ago with polyps removed, and was recommended to follow-up in three year for colonoscopy Patient was hospitalized twice at [facility] for pneumonia, and has been on multiple antibiotics Past Medical History: Cancer, CHF, DM, HTN neuropathy Past Surgical History: Hysterectomy, left lobectomy Social History: NO smoking, drinking ETOH and use of illegal drugs. Family History: Unknown per chart Review of Systems: Constitutional: no fever, chill, weight loss HEENT: no eye pain, no hearing loss, no oral lesion, no scleral icterus Heart: no chest pain, no chest pressure Lung: no cough, no dyspnea with exertion Abdomen: see HPI Physical exam: General: NAD, AAOX3 Chest: lung butts clear to auscultation Heart: RRR, no murmur Abdomen: non-distended, no tenderness to palpation, +BS Labs: Labs Test 09/27/24 10:35 09/26/24 20:18 09/26/24 14:11 Range/Units White Blood Count 6.2 4.4-10.8 10^3/uL Red Blood Count 4.33 4.0-5.20 10^6/uL Hemoglobin 10.1 L 12.2-16.2 g/dL Hematocrit 32.6 #L 36.0-46.0 % Mean Corpuscular Volume 75.4 L 80.0-100.0 fL Mean Corpuscular Hemoglobin 23.4 L 28.0-32.0 pg Mean Corpuscular Hemoglobin Concent 31.0 L 32.0-36.0 g/dL Red Cell Distribution Width 26.8 H 11.8-14.3 % Platelet Count 301 140-450 10^3/uL Mean Platelet Volume 8.3 6.9-10.8 fL Neutrophils (%) (Auto) 69.3 37.0-80.0 % Lymphocytes (%) (Auto) 20.1 10.0-50.0 % Monocytes (%) (Auto) 7.4 0.0-12.0 % Eosinophils (%) (Auto) 2.7 0.0-7.0 % Basophils (%) (Auto) 0.5 0.0-2.0 % Neutrophils # (Auto) 4.3 1.6-8.6 10 ^3/uL Lymphocytes # (Auto) 1.2 0.4-5.4 10 ^3/uL Monocytes # (Auto) 0.5 0-1.3 10 ^3/uL Eosinophils # (Auto) 0.2 0-0.8 10 ^3/uL Basophils # (Auto) 0 0-0.2 10 ^3/uL Nucleated Red Blood Cells 0.0 % Sodium Level 141 136-145 mmol/L Potassium Level 3.9 3.5-5.1 mmol/L Chloride Level 108 H 98-107 mmol/L Carbon Dioxide Level 22 20-31 mmol/L Anion Gap 11 5-15 Blood Urea Nitrogen 17 9-23 mg/dL Creatinine 1.01 0.550-1.02 mg/dL Glomerular Filtration Rate Calc 57 >90 mL/min BUN/Creatinine Ratio 16.8 10.0-20.0 Serum Glucose 113 H 74-106 mg/dL Calcium Level 9.9 8.7-10.4 mg/dL Total Bilirubin 0.2 0.2-1.0 mg/dL Aspartate Amino Transferase (AST) 25 <34 U/L Alanine Aminotransferase (ALT) 12 7-40 U/L Alkaline Phosphatase 91 46-116 U/L Total Protein 6.9 5.7-8.2 g/dL Albumin 4.4 3.2-4.8 g/dL POC Glucose 129 H 70-106 mg/dl Urine Color Light-yellow Yellow Urine Clarity Clear Clear Urine pH 5.0 5.0-9.0 Urine Specific [place] 1.012 1.001-1.035 Urine Protein Negative Negative Urine Ketones Negative Negative Urine Blood Negative Negative /uL Urine Nitrite Negative Negative Urine Bilirubin Negative Negative Urine Urobilinogen Normal Negative mg/dL Urine Leukocyte Esterase Negative Negative /uL Urine RBC None seen 0 - 4 /hpf Urine Microscopic WBC 2 0-5 /HPF Urine Squamous Epithelial Cells Few <5 /hpf Urine Bacteria Few H None Seen /hpf Urine Glucose 4+ H Normal mg/dL Imaging: CT abdomen pelvis IMPRESSION: Extensive bowel wall thickening of the descending and rectosigmoid colon most pronounced in the descending colon region. There is surrounding inflammatory stranding. Differential considerations include colitis, inflammatory bowel dis ease. Recommend colonoscopy once acute symptoms resolve exclude any type of colonic mass/ neoplasm especially in the descending colon region. Moderate to large volume stool within the ascending and transverse colon secondary to the underlying process within the descending and rectosigmoid colon. Right lower lobe atelectasis and tiny right pleural effusion. Atherosclerotic disease. Retroperitoneal lymphadenopathy. Assessment: Diarrhea Colitis Anemia Plan: Discussed with Dr. Bates Stool for C diff, bacterial culture and WBC Continue antibiotic treated Full liquid diet if tolerating We will continue to monitor patient Discussed plan with patient and family at bedside Thank you for this consult Date of Service: Sep 27, 2024 Billing Provider: GONZALO DIETRICH Common Visit Codes: CONSULT ONLY Consultation Codes: [id number] CONSULT <60MIN GONZALO DIETRICH Sep 27, 2024 13:56
[2024-09-27] MEDS: SILDENAFIL CITRATE 20 MG TAB PO SCH (14:06)
[2024-09-27] MEDS: DOBUTamine 1000MCG/ML 250 ML IV SCH (16:42)
[2024-09-27] MEDS: PIPERACILLIN-TAZOB 3.375GM 100 ML IV SCH (20:47)
[2024-09-27] MEDS: PREGABALIN CAPSULE 75 MG CAP ONE (22:28)
[2024-09-27] MEDS: PREGABALIN CAPSULE 75 MG CAP PO SCH (22:28)
[2024-09-27] MEDS: HYDROcodone-ACET 5/325MG TAB PO PRN (23:43)
[2024-09-28] VITALS (11 sets, daily range): BP systolic 109–134; BP diastolic 30–63; PULSE 77–87; RESP 16–20; TEMP 97.6–99; O2SAT 88–99
[2024-09-28 06:47] LABS: Hemoglobin 8.1 g/dL (12.2-16.2); Mean Corpuscular Volume 75.1 fL (80.0-100.0)
[2024-09-28 06:50] LABS: Hematocrit 25.8 % (36.0-46.0); Mean Corpuscular Hemoglobin 23.7 pg (28.0-32.0); Nucleated Red Blood Cells % 0.1 %
[2024-09-28 07:01] LABS: Alanine Aminotransferase < 9 U/L (7-40); Albumin 3.7 g/dL (3.2-4.8); Alkaline Phosphatase 80 U/L (46-116); Anion Gap 10 (5-15); BUN/Creatinine Ratio 15.7 (10.0-20.0); Bilirubin, Total 0.2 mg/dL (0.2-1.0); Blood Urea Nitrogen 18 mg/dL (9-23); Calcium 9.6 mg/dL (8.7-10.4); Carbon Dioxide 25 mmol/L (20-31); Chloride 105 mmol/L (98-107); Glucose 134 mg/dL (74-106); Potassium 3.4 mmol/L (3.5-5.1); Sodium 140 mmol/L (136-145); Total Protein 5.7 g/dL (5.7-8.2)
[2024-09-28] MEDS: BUMETANIDE 1 MG TAB PO SCH (08:55)
[2024-09-28] MEDS: POTASSIUM EFFERVESENT TAB 25 MEQ PO SCH (08:56)
[2024-09-28] MEDS: CHOLESTYRAMINE 4 GM POWDER GT SCH (11:22)
--- NOTE | 2024-09-28 13:42 | DVHPN2 ---
Reviewed: Care Plan, H&P, Labs, Medications, Previous Orders, Radiology Changes from previous H/P or p: No Changes Objective Vitals Vital Signs Date Time Temp Pulse Resp B/P (MAP) Pulse Ox O2 Delivery O2 Flow Rate FiO2 09/28/24 10:00 97 Nasal Cannula 2.0 09/28/24 10:00 28 09/28/24 08:55 119/30 09/28/24 08:00 78 20 09/28/24 05:00 98.3 98.3 Intake/Output Intake and Output 09/28/24 07:00 Intake Total 1500 ml Balance 1500 ml Intake Oral 1100 ml IV Total 400 ml # Voids 3 # Bowel Movements 2 Medications Current Medications Medications Dose Ordered Sig/Layo Route Start Time Stop Time Status Last Admin Dose Admin Albuterol 2.5 mg Q6HPRN PRN NEB 09/27/24 00:00 Levothyroxine Sodium 75 mcg QAM@0600 PO 09/27/24 06:00 09/28/24 05:38 75 MCG Empaglifozin 10 mg DAILY PO 09/27/24 10:00 09/28/24 08:55 10 MG Metronidazole 100 ml @ 100 mls/hr Q8HR IV 09/27/24 06:00 09/28/24 08:51 100 MLS/HR Diagnostic Test (Pha) 1 strip ACHS 09/27/24 07:00 09/28/24 11:30 1 STRIP Insulin Human Regular ACHS SC 09/27/24 07:00 09/28/24 06:14 2 UNITS Dextrose 50 ml UD PRN IV 09/27/24 00:00 Acetaminophen/ Hydrocodone Bitart 1 tab Q4HP PRN PO 09/27/24 00:00 09/28/24 11:18 1 TAB Ondansetron HCl 4 mg Q4HP PRN IV 09/27/24 00:00 Acetaminophen 650 mg Q6HP PRN PO 09/27/24 00:00 09/27/24 06:10 650 MG Bumetanide 1 mg DAILY PO 09/28/24 10:00 09/28/24 08:55 1 MG Dobutamine HCl/ Dextrose 250 ml @ 15.99 mls/ hr [id number] IV 09/27/24 12:15 09/27/24 16:42 15.99 MLS/HR Furosemide 100 mg/ Sodium Chloride 110 ml @ 11 mls/hr Q10H IV 09/27/24 12:15 Hold Sildenafil Citrate 40 mg TID@08,14,20 PO 09/27/24 14:00 09/28/24 08:52 40 MG Potassium Bicarbonate 50 meq DAILY PO 09/28/24 10:00 09/28/24 08:56 50 MEQ Cholestyramine Resin 4 gm DAILY@11 GT 09/28/24 11:00 09/28/24 11:22 4 GM Piperacillin Sod/ Tazobactam Sod 100 ml @ 25 mls/hr Q8H IV 09/27/24 18:00 09/28/24 08:51 25 MLS/HR Pregabalin 225 mg BID PO 09/27/24 22:00 09/28/24 08:52 225 MG Duloxetine HCl 60 mg DAILY PO 09/28/24 10:00 09/27/24 22:28 60 MG Laboratory Results Laboratory Tests 09/28/24 05:54 Chemistry Test 09/28/24 05:54 Albumin 3.7 g/dL (3.2-4.8) Calcium Level 9.6 mg/dL (8.7-10.4) Total Protein 5.7 g/dL (5.7-8.2) LFT Test 09/28/24 05:54 Alanine Aminotransferase (ALT) < 9 U/L (7-40) Alkaline Phosphatase 80 U/L (46-116) Aspartate Amino Transferase (AST) 14 U/L (<34) Total Bilirubin 0.2 mg/dL (0.2-1.0) HgA1c, TSH Test 09/28/24 05:54 Hemoglobin A1c 8.2 % A1C (<5.7) H Thyroid Stimulating Hormone (TSH) 2.63 uIU/mL (0.55-4.78) Urinalysis Test 09/26/24 14:11 Urine Color Light-yellow (Yellow) Urine Clarity Clear (Clear) Urine pH 5.0 (5.0-9.0) Urine Specific [place] 1.012 (1.001-1.035) Urine Protein Negative (Negative) Urine Ketones Negative (Negative) Urine Blood Negative /uL (Negative) Urine Nitrite Negative (Negative) Urine Bilirubin Negative (Negative) Urine Urobilinogen Normal mg/dL (Negative) Urine Leukocyte Esterase Negative /uL (Negative) Urine RBC None seen /hpf (0 - 4) Urine Microscopic WBC 2 /HPF (0-5) Urine Squamous Epithelial Cells Few /hpf (<5) Urine Bacteria Few /hpf (None Seen) H Urine Glucose 4+ mg/dL (Normal) H Microbiology Microbiology Date/Time Source Procedure Growth Status 09/27/24 12:19 Stool Stool Culture - Preliminary Resulted 09/27/24 12:19 Stool Shiga Toxin I & II - Final Resulted Labs and/or images reviewed: Labs reviewed by me, Image(s) reviewed by me Assessment/Plan Assessment/Plan Covering for Dr. Moreno #1 diarrhea/colitis: gi eval, stool study, iv antibiotics Zosyn Flagyl #2 acute on chronic diastolic heart failure: cont meds, Dr. John following , dobutamine #3 severe PAH #4 chronic resp failure #5 dm: ssi #6 htn #7 obesity #8 hypothyroidism #9 anemia: hold eliquis Time spent 55 minutes Plan discussed with: Patient Date of Service: Sep 28, 2024 Billing Provider: CHRIS DIETRICH MD Common Visit Codes: [id number] INP/OBS CARE(HIGH) Secondary Visit Codes: [id number] CARE PLAN 30 MINUTES CHRIS DIETRICH MD Sep 28, 2024 13:41
--- NOTE | 2024-09-28 14:04 | DVHPN2 ---
Progress Note - Dictate Date Seen: Sep 28, 2024 Medical Necessity Reason Pt with a Central, PICC or Fol: No Subjective PT WELL KNOWN TO ME WITH DIABETES VASCULOPATHY NEPHROPATHY NEUROPATHY SEVERE PAH SEVERE TR RIGHT SIDED HEART FAILURE NOW WITH SEVERE ABD PAIN CT CONSISTENT WITH COLITIS DIARRHEA ACUTE ONSET CONSISTENT WITH INFECTIOUS ETIOLOGY vital signs Vital Sign Date Time Temp Pulse Resp B/P (MAP) Pulse Ox O2 Delivery O2 Flow Rate FiO2 09/28/24 10:00 97 Nasal Cannula 2.0 09/28/24 10:00 28 09/28/24 08:55 119/30 09/28/24 08:00 78 20 09/28/24 05:00 98.3 98.3 Total Intake and Output 09/27/24 09/27/24 09/28/24 15:00 23:00 07:00 Intake Total 100 ml 400 ml 1000 ml Balance 100 ml 400 ml 1000 ml medications Current Medications Medications Dose Ordered Sig/Layo Route Start Time Stop Time Status Last Admin Dose Admin Albuterol 2.5 mg Q6HPRN PRN NEB 09/27/24 00:00 Levothyroxine Sodium 75 mcg QAM@0600 PO 09/27/24 06:00 09/28/24 05:38 75 MCG Empaglifozin 10 mg DAILY PO 09/27/24 10:00 09/28/24 08:55 10 MG Metronidazole 100 ml @ 100 mls/hr Q8HR IV 09/27/24 06:00 09/28/24 08:51 100 MLS/HR Diagnostic Test (Pha) 1 strip ACHS 09/27/24 07:00 09/28/24 13:57 1 STRIP Insulin Human Regular ACHS SC 09/27/24 07:00 09/28/24 06:14 2 UNITS Dextrose 50 ml UD PRN IV 09/27/24 00:00 Acetaminophen/ Hydrocodone Bitart 1 tab Q4HP PRN PO 09/27/24 00:00 09/28/24 11:18 1 TAB Ondansetron HCl 4 mg Q4HP PRN IV 09/27/24 00:00 Acetaminophen 650 mg Q6HP PRN PO 09/27/24 00:00 09/27/24 06:10 650 MG Bumetanide 1 mg DAILY PO 09/28/24 10:00 09/28/24 08:55 1 MG Dobutamine HCl/ Dextrose 250 ml @ 15.99 mls/ hr [id number] IV 09/27/24 12:15 09/27/24 16:42 15.99 MLS/HR Furosemide 100 mg/ Sodium Chloride 110 ml @ 11 mls/hr Q10H IV 09/27/24 12:15 Hold Sildenafil Citrate 40 mg TID@08,14,20 PO 09/27/24 14:00 09/28/24 08:52 40 MG Potassium Bicarbonate 50 meq DAILY PO 09/28/24 10:00 09/28/24 08:56 50 MEQ Cholestyramine Resin 4 gm DAILY@11 GT 09/28/24 11:00 09/28/24 11:22 4 GM Piperacillin Sod/ Tazobactam Sod 100 ml @ 25 mls/hr Q8H IV 09/27/24 18:00 09/28/24 08:51 25 MLS/HR Pregabalin 225 mg BID PO 09/27/24 22:00 09/28/24 08:52 225 MG Duloxetine HCl 60 mg DAILY PO 09/28/24 22:00 laboratory and microbiology Laboratory Tests 09/28/24 05:54 Test 09/28/24 05:54 Range/Units Serum Glucose 134 H 74-106 mg/dL Problem List DIABETES VASCULOPATHY NEPHROPATHY NEUROPATHY SEVERE PAH SEVERE TR RIGHT SIDED HEART FAILURE ANASARCA NOW WITH SEVERE ABD PAIN CT CONSISTENT WITH COLITIS DIARRHEA ACUTE ONSET CONSISTENT WITH INFECTIOUS ETIOLOGY Assessment/Plan LASIX DRIP DOBUTAMINE FOR AFTERLOAD AND PRELOAD REDUCTION TITRATE ON REVATIO CHOLESTYRAMINE FOR DIARRHEA ABX FOR COLITIS DC ROCEPHINE ZOSYN WITH FLAGYL FOR ENTEROCOCCUS AND ANAEROBIC COVERAGE PT IS DOWN BY 5 lbs Plan discussed with: Patient Critical Care Time(min): 35 GLADYS BENSON MD Sep 28, 2024 14:04
[2024-09-28] MEDS ORDERED: LOPERAMIDE HCL 2 MG CAP/TAB PO PRN (14:30)
--- NOTE | 2024-09-28 19:15 | DVHPN2 ---
Progress Note - Dictate Date Seen: Sep 28, 2024 Medical Necessity Reason Pt with a Central, PICC or Fol: No Subjective Patient seen at bedside complaints of ongoing diffuse abdominal cramping She is still had two loose bowel movements today Stool for C diff came back positive Bacterial culture was negative Stool for WBC showed many WBCs vital signs Vital Sign Date Time Temp Pulse Resp B/P (MAP) Pulse Ox O2 Delivery O2 Flow Rate FiO2 09/28/24 17:00 99.0 77 18 134/63 (86) 96 99.0 09/28/24 10:00 Nasal Cannula 2.0 09/28/24 10:00 28 Total Intake and Output 09/27/24 09/27/24 09/28/24 15:00 23:00 07:00 Intake Total 100 ml 400 ml 1000 ml Balance 100 ml 400 ml 1000 ml medications Current Medications Medications Dose Ordered Sig/Layo Route Start Time Stop Time Status Last Admin Dose Admin Albuterol 2.5 mg Q6HPRN PRN NEB 09/27/24 00:00 Levothyroxine Sodium 75 mcg QAM@0600 PO 09/27/24 06:00 09/28/24 05:38 75 MCG Empaglifozin 10 mg DAILY PO 09/27/24 10:00 09/28/24 08:55 10 MG Metronidazole 100 ml @ 100 mls/hr Q8HR IV 09/27/24 06:00 09/28/24 14:38 100 MLS/HR Diagnostic Test (Pha) 1 strip ACHS 09/27/24 07:00 09/28/24 13:57 1 STRIP Insulin Human Regular ACHS SC 09/27/24 07:00 09/28/24 18:07 2 UNITS Dextrose 50 ml UD PRN IV 09/27/24 00:00 Acetaminophen/ Hydrocodone Bitart 1 tab Q4HP PRN PO 09/27/24 00:00 09/28/24 11:18 1 TAB Ondansetron HCl 4 mg Q4HP PRN IV 09/27/24 00:00 Acetaminophen 650 mg Q6HP PRN PO 09/27/24 00:00 09/27/24 06:10 650 MG Bumetanide 1 mg DAILY PO 09/28/24 10:00 09/28/24 08:55 1 MG Dobutamine HCl/ Dextrose 250 ml @ 15.99 mls/ hr [id number] IV 09/27/24 12:15 09/27/24 16:42 15.99 MLS/HR Furosemide 100 mg/ Sodium Chloride 110 ml @ 11 mls/hr Q10H IV 09/27/24 12:15 Hold Sildenafil Citrate 40 mg TID@08,14,20 PO 09/27/24 14:00 09/28/24 14:15 40 MG Potassium Bicarbonate 50 meq DAILY PO 09/28/24 10:00 09/28/24 08:56 50 MEQ Cholestyramine Resin 4 gm DAILY@11 GT 09/28/24 11:00 09/28/24 11:22 4 GM Piperacillin Sod/ Tazobactam Sod 100 ml @ 25 mls/hr Q8H IV 09/27/24 18:00 09/28/24 17:58 25 MLS/HR Pregabalin 225 mg BID PO 09/27/24 22:00 09/28/24 08:52 225 MG Duloxetine HCl 60 mg DAILY PO 09/28/24 22:00 Loperamide HCl 2 mg PRN PRN PO 09/28/24 14:30 objective General: NAD, AAOX3 Chest: lung butts clear to auscultation Heart: RRR, no murmur Abdomen: non-distended, no tenderness to palpation, +BS laboratory and microbiology Laboratory Tests 09/28/24 05:54 Test 09/28/24 05:54 Range/Units Serum Glucose 134 H 74-106 mg/dL Problems(with codes): (1) C. difficile colitis (2) Uncontrolled diabetes mellitus (3) Non-specific colitis Prognosis Plan Patient will be started on vancomycin 125 mg p.o. q.6 hours Continue IV Flagyl but we may consider discontinuing the IV Zosyn Full liquid diet advance as tolerated Probiotics Imodium or Questran as needed Outpatient elective colonoscopy once C diff clears, patient has prior history of colon polyps and last colonoscopy was over five years ago Plan discussed with: Patient, Other (Darcy Hull) NOMAN OZUNA MD Sep 28, 2024 19:15
[2024-09-28] MEDS: VANCOMYCIN HCL 125 MG CAP PO SCH (22:00)
[2024-09-29] VITALS (12 sets, daily range): BP systolic 107–143; BP diastolic 43–59; PULSE 75–85; RESP 16–19; TEMP 97.6–98.8; O2SAT 95–99
[2024-09-29] MEDS: FLORASTOR (S. BOULARDII) 250 MG CAP PO SCH (08:58)
--- NOTE | 2024-09-29 09:59 | DVHPN2 ---
Reviewed: Care Plan, H&P, Labs, Medications, Previous Orders, Radiology Changes from previous H/P or p: No Changes Objective Vitals Vital Signs Date Time Temp Pulse Resp B/P (MAP) Pulse Ox O2 Delivery O2 Flow Rate FiO2 09/29/24 09:00 98.1 75 16 128/52 (77) 98 98.1 09/28/24 20:00 Nasal Cannula* 2 28 Intake/Output Intake and Output 09/29/24 07:00 Intake Total 2390 ml Balance 2390 ml Intake Oral 1640 ml IV Total 750 ml # Voids 2 # Bowel Movements 1 Medications Current Medications Medications Dose Ordered Sig/Layo Route Start Time Stop Time Status Last Admin Dose Admin Albuterol 2.5 mg Q6HPRN PRN NEB 09/27/24 00:00 Levothyroxine Sodium 75 mcg QAM@0600 PO 09/27/24 06:00 09/29/24 06:26 75 MCG Empaglifozin 10 mg DAILY PO 09/27/24 10:00 09/29/24 08:58 10 MG Metronidazole 100 ml @ 100 mls/hr Q8HR IV 09/27/24 06:00 09/29/24 06:24 100 MLS/HR Diagnostic Test (Pha) 1 strip ACHS 09/27/24 07:00 09/29/24 06:16 1 STRIP Insulin Human Regular ACHS SC 09/27/24 07:00 09/29/24 06:18 3 UNITS Dextrose 50 ml UD PRN IV 09/27/24 00:00 Acetaminophen/ Hydrocodone Bitart 1 tab Q4HP PRN PO 09/27/24 00:00 09/29/24 09:09 1 TAB Ondansetron HCl 4 mg Q4HP PRN IV 09/27/24 00:00 Acetaminophen 650 mg Q6HP PRN PO 09/27/24 00:00 09/27/24 06:10 650 MG Bumetanide 1 mg DAILY PO 09/28/24 10:00 09/29/24 08:57 1 MG Dobutamine HCl/ Dextrose 250 ml @ 15.99 mls/ hr [id number] IV 09/27/24 12:15 09/28/24 23:20 15.99 MLS/HR Furosemide 100 mg/ Sodium Chloride 110 ml @ 11 mls/hr Q10H IV 09/27/24 12:15 Hold Sildenafil Citrate 40 mg TID@08,14,20 PO 09/27/24 14:00 09/29/24 08:59 40 MG Potassium Bicarbonate 50 meq DAILY PO 09/28/24 10:00 09/29/24 08:58 50 MEQ Cholestyramine Resin 4 gm DAILY@11 GT 09/28/24 11:00 09/28/24 11:22 4 GM Piperacillin Sod/ Tazobactam Sod 100 ml @ 25 mls/hr Q8H IV 09/27/24 18:00 09/29/24 09:04 25 MLS/HR Pregabalin 225 mg BID PO 09/27/24 22:00 09/29/24 08:57 225 MG Loperamide HCl 2 mg PRN PRN PO 09/28/24 14:30 Vancomycin HCl 125 mg QID PO 09/28/24 22:00 09/29/24 06:26 125 MG Saccharomyces Boulardii 250 mg DAILY PO 09/29/24 10:00 09/29/24 08:58 250 MG Duloxetine HCl 60 mg HS PO 09/29/24 22:00 Laboratory Results Laboratory Tests 09/28/24 05:54 Urinalysis Test 09/26/24 14:11 Urine Color Light-yellow (Yellow) Urine Clarity Clear (Clear) Urine pH 5.0 (5.0-9.0) Urine Specific [place] 1.012 (1.001-1.035) Urine Protein Negative (Negative) Urine Ketones Negative (Negative) Urine Blood Negative /uL (Negative) Urine Nitrite Negative (Negative) Urine Bilirubin Negative (Negative) Urine Urobilinogen Normal mg/dL (Negative) Urine Leukocyte Esterase Negative /uL (Negative) Urine RBC None seen /hpf (0 - 4) Urine Microscopic WBC 2 /HPF (0-5) Urine Squamous Epithelial Cells Few /hpf (<5) Urine Bacteria Few /hpf (None Seen) H Urine Glucose 4+ mg/dL (Normal) H Microbiology Microbiology Date/Time Source Procedure Growth Status 09/27/24 12:19 Stool Clostridium difficile Toxin Assay - Final Complete Labs and/or images reviewed: Labs reviewed by me, Image(s) reviewed by me Assessment/Plan Assessment/Plan Covering for Dr. Moreno #1 diarrhea/colitis: gi eval, stool study, iv antibiotics continue Zosyn yl #2 acute on chronic diastolic heart failure: cont meds, John following , dobutamine #3 severe PAH #4 chronic resp failure #5 dm: ssi #6 htn #7 obesity #8 hypothyroidism #9 anemia: hold eliquis # 10. Positive C diff: Continue Flagyl IV add p.o. vancomycin Time spent 55 minutes Plan discussed with: Patient My Orders Orders - CHRIS DIETRICH MD Procedure Category Date Status Time Loperamide Capsule PHA 09/28/24 In Process (Imodium Capsule) 14:30 Duloxetine Hcl PHA 09/29/24 In Process Capsule (Cymbalta 22:00 Date of Service: Sep 29, 2024 Billing Provider: CHRIS DIETRICH MD Common Visit Codes: [id number] INP/OBS CARE(HIGH) CHRIS DIETRICH MD Sep 29, 2024 09:59
[2024-09-29] MEDS: PREGABALIN CAPSULE 75 MG CAP PO SCH (21:59)
[2024-09-30] VITALS (11 sets, daily range): BP systolic 113–149; BP diastolic 50–65; PULSE 74–93; RESP 17–18; TEMP 97–98.2; O2SAT 91–96
--- NOTE | 2024-09-30 09:48 | DVHPN2 ---
Reviewed: Care Plan, H&P, Labs, Medications, Previous Orders, Radiology Changes from previous H/P or p: No Changes Objective Vitals Vital Signs Date Time Temp Pulse Resp B/P (MAP) Pulse Ox O2 Delivery O2 Flow Rate FiO2 09/30/24 08:51 97.0 74 17 113/56 (75) 95 97.0 09/30/24 00:05 2.0 09/29/24 21:30 Nasal Cannula* 28 Intake/Output Intake and Output 09/30/24 07:00 Intake Total 1920 ml Balance 1920 ml Intake Oral 1620 ml IV Total 300 ml # Voids 7 # Bowel Movements 1 Medications Current Medications Medications Dose Ordered Sig/Layo Route Start Time Stop Time Status Last Admin Dose Admin Albuterol 2.5 mg Q6HPRN PRN NEB 09/27/24 00:00 Levothyroxine Sodium 75 mcg QAM@0600 PO 09/27/24 06:00 09/30/24 06:15 75 MCG Empaglifozin 10 mg DAILY PO 09/27/24 10:00 09/29/24 08:58 10 MG Metronidazole 100 ml @ 100 mls/hr Q8HR IV 09/27/24 06:00 09/30/24 06:13 100 MLS/HR Diagnostic Test (Pha) 1 strip ACHS 09/27/24 07:00 09/30/24 06:08 1 STRIP Insulin Human Regular ACHS SC 09/27/24 07:00 09/30/24 06:13 2 UNITS Dextrose 50 ml UD PRN IV 09/27/24 00:00 Acetaminophen/ Hydrocodone Bitart 1 tab Q4HP PRN PO 09/27/24 00:00 09/30/24 06:20 1 TAB Ondansetron HCl 4 mg Q4HP PRN IV 09/27/24 00:00 Acetaminophen 650 mg Q6HP PRN PO 09/27/24 00:00 09/27/24 06:10 650 MG Bumetanide 1 mg DAILY PO 09/28/24 10:00 09/29/24 08:57 1 MG Dobutamine HCl/ Dextrose 250 ml @ 15.99 mls/ hr [id number] IV 09/27/24 12:15 09/30/24 03:04 15.99 MLS/HR Furosemide 100 mg/ Sodium Chloride 110 ml @ 11 mls/hr Q10H IV 09/27/24 12:15 Hold Sildenafil Citrate 40 mg TID@08,14,20 PO 09/27/24 14:00 09/29/24 20:21 40 MG Potassium Bicarbonate 50 meq DAILY PO 09/28/24 10:00 09/29/24 08:58 50 MEQ Cholestyramine Resin 4 gm DAILY@11 GT 09/28/24 11:00 09/28/24 11:22 4 GM Piperacillin Sod/ Tazobactam Sod 100 ml @ 25 mls/hr Q8H IV 09/27/24 18:00 09/30/24 01:09 25 MLS/HR Loperamide HCl 2 mg PRN PRN PO 09/28/24 14:30 Vancomycin HCl 125 mg QID PO 09/28/24 22:00 09/30/24 06:15 125 MG Saccharomyces Boulardii 250 mg DAILY PO 09/29/24 10:00 09/29/24 08:58 250 MG Duloxetine HCl 60 mg HS PO 09/29/24 22:00 09/29/24 21:58 60 MG Pregabalin 150 mg BID PO 09/29/24 22:00 09/29/24 21:59 150 MG Laboratory Results Laboratory Tests 09/28/24 05:54 Urinalysis Test 09/26/24 14:11 Urine Color Light-yellow (Yellow) Urine Clarity Clear (Clear) Urine pH 5.0 (5.0-9.0) Urine Specific [place] 1.012 (1.001-1.035) Urine Protein Negative (Negative) Urine Ketones Negative (Negative) Urine Blood Negative /uL (Negative) Urine Nitrite Negative (Negative) Urine Bilirubin Negative (Negative) Urine Urobilinogen Normal mg/dL (Negative) Urine Leukocyte Esterase Negative /uL (Negative) Urine RBC None seen /hpf (0 - 4) Urine Microscopic WBC 2 /HPF (0-5) Urine Squamous Epithelial Cells Few /hpf (<5) Urine Bacteria Few /hpf (None Seen) H Urine Glucose 4+ mg/dL (Normal) H Microbiology Microbiology Date/Time Source Procedure Growth Status 09/27/24 12:19 Stool Clostridium difficile Toxin Assay - Final Complete Labs and/or images reviewed: Labs reviewed by me, Image(s) reviewed by me Assessment/Plan Assessment/Plan Covering for Dr. Moreno #1 diarrhea/colitis: gi eval, stool study, iv antibiotics continue Zosyn Flagyl #2 acute on chronic diastolic heart failure: cont meds, Dr. John following , dobutamine #3 severe PAH #4 chronic resp failure #5 dm: ssi #6 htn #7 obesity #8 hypothyroidism #9 anemia: hold eliquis # 10. Positive C diff: Continue Flagyl IV add p.o. vancomycin Time spent 55 minutes Plan discussed with: Patient Date of Service: Sep 30, 2024 Billing Provider: CHRIS DIETRICH MD Common Visit Codes: [id number] INP/OBS CARE(HIGH) CHRIS DIETRICH MD Sep 30, 2024 09:47
--- NOTE | 2024-09-30 23:56 | DVHPN2 ---
Progress Note - Dictate Date Seen: Sep 30, 2024 Medical Necessity Reason Pt with a Central, PICC or Fol: No Subjective Patient seen at bedside She had one or two loose bowel movements since yesteday Stool for C diff came back positive Patient had been on multiple antibiotics recently Bacterial culture was negative Stool for WBC showed many WBCs vital signs Vital Sign Date Time Temp Pulse Resp B/P (MAP) Pulse Ox O2 Delivery O2 Flow Rate FiO2 09/30/24 22:45 125/61 09/30/24 21:03 96 Nasal Cannula 2.0 09/30/24 21:03 28 09/30/24 21:00 98.2 80 18 98.2 Total Intake and Output 09/29/24 09/29/24 09/30/24 15:00 23:00 07:00 Intake Total 100 ml 620 ml 1200 ml Balance 100 ml 620 ml 1200 ml medications Current Medications Medications Dose Ordered Sig/Layo Route Start Time Stop Time Status Last Admin Dose Admin Albuterol 2.5 mg Q6HPRN PRN NEB 09/27/24 00:00 Levothyroxine Sodium 75 mcg QAM@0600 PO 09/27/24 06:00 09/30/24 06:15 75 MCG Empaglifozin 10 mg DAILY PO 09/27/24 10:00 09/30/24 10:01 10 MG Metronidazole 100 ml @ 100 mls/hr Q8HR IV 09/27/24 06:00 09/30/24 21:32 100 MLS/HR Diagnostic Test (Pha) 1 strip ACHS 09/27/24 07:00 09/30/24 21:24 1 STRIP Insulin Human Regular ACHS SC 09/27/24 07:00 09/30/24 21:27 4 UNITS Dextrose 50 ml UD PRN IV 09/27/24 00:00 Acetaminophen/ Hydrocodone Bitart 1 tab Q4HP PRN PO 09/27/24 00:00 09/30/24 18:02 1 TAB Ondansetron HCl 4 mg Q4HP PRN IV 09/27/24 00:00 Acetaminophen 650 mg Q6HP PRN PO 09/27/24 00:00 09/27/24 06:10 650 MG Bumetanide 1 mg DAILY PO 09/28/24 10:00 09/30/24 10:00 1 MG Dobutamine HCl/ Dextrose 250 ml @ 15.99 mls/ hr [id number] IV 09/27/24 12:15 09/30/24 22:45 15.99 MLS/HR Furosemide 100 mg/ Sodium Chloride 110 ml @ 11 mls/hr Q10H IV 09/27/24 12:15 Hold Sildenafil Citrate 40 mg TID@08,14,20 PO 09/27/24 14:00 09/30/24 19:47 40 MG Potassium Bicarbonate 50 meq DAILY PO 09/28/24 10:00 09/30/24 10:02 50 MEQ Cholestyramine Resin 4 gm DAILY@11 GT 09/28/24 11:00 09/30/24 18:03 4 GM Piperacillin Sod/ Tazobactam Sod 100 ml @ 25 mls/hr Q8H IV 09/27/24 18:00 09/30/24 19:47 25 MLS/HR Loperamide HCl 2 mg PRN PRN PO 09/28/24 14:30 Vancomycin HCl 125 mg QID PO 09/28/24 22:00 09/30/24 21:32 125 MG Saccharomyces Boulardii 250 mg DAILY PO 09/29/24 10:00 09/30/24 10:02 250 MG Duloxetine HCl 60 mg HS PO 09/29/24 22:00 09/30/24 21:31 60 MG Pregabalin 150 mg BID PO 09/29/24 22:00 09/30/24 21:32 150 MG objective General: NAD, AAOX3 Chest: lung butts clear to auscultation Heart: RRR, no murmur Abdomen: non-distended, no tenderness to palpation, +BS laboratory and microbiology Laboratory Tests 09/28/24 05:54 Test 09/28/24 05:54 Range/Units Serum Glucose 134 H 74-106 mg/dL Problems(with codes): (1) C. difficile colitis (2) Non-specific colitis (3) Uncontrolled diabetes mellitus Prognosis Plan Continue vancomycin 125 mg p.o. q.6 hours Continue probiotics, patient has Align at home She was encouraged to take her Questran 4 g packet p.o. with applesauce or apple juice There was no plan for an inpatient colonoscopy at this time Patient is stable for discharge from a GI point of view She will follow up in my office in 4-6 weeks to discuss elective colonoscopy once C diff is cleared Patient is concerned about family members getting exposed to C diff and hygienic precautions were discussed Dietary Evaluation Review Recommendations by RD: Dietary education by RD Comments: 1) Encourage optimal PO intake 2) Advance to 60g CCHO cardiac diet when medically feasible, pending ST approval 3) Refer to outpatient RD/[facility] for diabetes education 4) Follow-up with gastroenterology, cardiology, and pulmonology 5) Continue to monitor I&O, labs, and skin integrity Expected Outcomes/Goals: 1) appetite and labs to improve 2) diet to advance 3) GI symptoms to improve 4) f/u in 3-5 days Plan discussed with: Patient, Other (Nurse) NOMAN OZUNA MD Sep 30, 2024 23:56
[2024-10-01] VITALS (10 sets, daily range): BP systolic 117–128; BP diastolic 53–65; PULSE 70–81; RESP 16–18; TEMP 97.9–98.6; O2SAT 93–98
[2024-10-01 06:36] LABS: Hemoglobin 7.8 g/dL (12.2-16.2)
[2024-10-01 06:39] LABS: Hematocrit 24.3 % (36.0-46.0); Mean Corpuscular Hemoglobin 23.9 pg (28.0-32.0); Mean Corpuscular Volume 74.9 fL (80.0-100.0); Nucleated Red Blood Cells % 0.1 %
[2024-10-01 06:49] LABS: Anion Gap 10 (5-15); Carbon Dioxide 24 mmol/L (20-31); Chloride 102 mmol/L (98-107); Potassium 3.8 mmol/L (3.5-5.1)
[2024-10-01 06:50] LABS: Calcium 9.5 mg/dL (8.7-10.4)
[2024-10-01 06:53] LABS: Sodium 136 mmol/L (136-145)
[2024-10-01 06:55] LABS: BUN/Creatinine Ratio 13.0 (10.0-20.0); Blood Urea Nitrogen 13 mg/dL (9-23)
[2024-10-01 07:00] LABS: Glucose 161 mg/dL (74-106)
--- NOTE | 2024-10-01 10:54 | DVHPN2 ---
Progress Note Date Seen: Oct 01, 2024 Medical Necessity Reason Pt with a Central, PICC or Fol: No Subjective Patient reports: No new complaints Review of Systems: HEENT:Normal, CVS:Normal, RESPIRATORY:Normal, GI:Normal, :Normal, MSK:Normal, NEURO:Normal Objective vital signs Vital Sign Date Time Temp Pulse Resp B/P (MAP) Pulse Ox O2 Delivery O2 Flow Rate FiO2 10/01/24 09:20 128/58 10/01/24 09:00 97.9 78 18 98 97.9 10/01/24 08:07 Nasal Cannula 2.0 10/01/24 08:07 28 Total Intake and Output 09/30/24 09/30/24 10/01/24 15:00 23:00 07:00 Intake Total 200 ml 1350 ml 1000 ml Balance 200 ml 1350 ml 1000 ml medications Current Medications Medications Dose Ordered Sig/Layo Route Start Time Stop Time Status Last Admin Dose Admin Albuterol 2.5 mg Q6HPRN PRN NEB 09/27/24 00:00 Levothyroxine Sodium 75 mcg QAM@0600 PO 09/27/24 06:00 10/01/24 06:09 75 MCG Empaglifozin 10 mg DAILY PO 09/27/24 10:00 10/01/24 09:22 10 MG Metronidazole 100 ml @ 100 mls/hr Q8HR IV 09/27/24 06:00 10/01/24 06:08 100 MLS/HR Diagnostic Test (Pha) 1 strip ACHS 09/27/24 07:00 10/01/24 06:08 1 STRIP Insulin Human Regular ACHS SC 09/27/24 07:00 10/01/24 06:09 3 UNITS Dextrose 50 ml UD PRN IV 09/27/24 00:00 Acetaminophen/ Hydrocodone Bitart 1 tab Q4HP PRN PO 09/27/24 00:00 10/01/24 01:14 1 TAB Ondansetron HCl 4 mg Q4HP PRN IV 09/27/24 00:00 Acetaminophen 650 mg Q6HP PRN PO 09/27/24 00:00 09/27/24 06:10 650 MG Bumetanide 1 mg DAILY PO 09/28/24 10:00 10/01/24 09:20 1 MG Dobutamine HCl/ Dextrose 250 ml @ 15.99 mls/ hr [id number] IV 09/27/24 12:15 09/30/24 22:45 15.99 MLS/HR Furosemide 100 mg/ Sodium Chloride 110 ml @ 11 mls/hr Q10H IV 09/27/24 12:15 Hold Sildenafil Citrate 40 mg TID@08,14,20 PO 09/27/24 14:00 10/01/24 09:20 40 MG Potassium Bicarbonate 50 meq DAILY PO 09/28/24 10:00 10/01/24 09:20 50 MEQ Cholestyramine Resin 4 gm DAILY@11 GT 09/28/24 11:00 09/30/24 18:03 4 GM Piperacillin Sod/ Tazobactam Sod 100 ml @ 25 mls/hr Q8H IV 09/27/24 18:00 10/01/24 09:21 25 MLS/HR Loperamide HCl 2 mg PRN PRN PO 09/28/24 14:30 Vancomycin HCl 125 mg QID PO 09/28/24 22:00 10/01/24 06:08 125 MG Saccharomyces Boulardii 250 mg DAILY PO 09/29/24 10:00 10/01/24 09:22 250 MG Duloxetine HCl 60 mg HS PO 09/29/24 22:00 09/30/24 21:31 60 MG Pregabalin 150 mg BID PO 09/29/24 22:00 10/01/24 09:22 150 MG Examination: GENERAL:Normal, HEENT:Normal, NECK:Normal, LUNGS:Normal, CVS:Normal, ABDOMEN:Normal, MSK:Normal, MSK:Abnormal (edema++), SKIN:Normal, NEURO:Normal, :Normal laboratory and microbiology Laboratory Tests 10/01/24 06:06 Test 10/01/24 06:06 Range/Units Serum Glucose 161 H 74-106 mg/dL Microbiology Date/Time Source Procedure Growth Status 09/27/24 12:19 Stool Clostridium difficile Toxin Assay - Final Complete Problem List/Assessment/Plan Problem List/Assessment/Plan #1 diarrhea/colitis- c diff: flagyl, vanc #2 acute on chronic diastolic heart failure: cont meds #3 severe PAH #4 chronic resp failure #5 dm: ssi #6 htn #7 obesity #8 hypothyroidism #9 anemia: eliquis, iv iron advance care planning- full code- time spent 19 mins Plan discussed with: Patient Dietary Evaluation Review Recommendations by RD: Dietary education by RD Comments: 1) Encourage optimal PO intake 2) Advance to 60g CCHO cardiac diet when medically feasible, pending ST approval 3) Refer to outpatient RD/[facility] for diabetes education 4) Follow-up with gastroenterology, cardiology, and pulmonology 5) Continue to monitor I&O, labs, and skin integrity Expected Outcomes/Goals: 1) appetite and labs to improve 2) diet to advance 3) GI symptoms to improve 4) f/u in 3-5 days Date of Service: Oct 01, 2024 Billing Provider: RADHA RUTHERFORD MD Common Visit Codes: [id number] INP/OBS CARE(HIGH) RADHA RUTHERFORD MD Oct 01, 2024 10:54
[2024-10-01 11:32] LABS: Total Iron Binding Capacity 343.0 ug/dL (250-425)
[2024-10-01 11:39] LABS: Iron 18.0 ug/dL (50-170)
--- NOTE | 2024-10-01 11:52 | DVHPN2 ---
Progress Note - Dictate Date Seen: Oct 01, 2024 Medical Necessity Reason Pt with a Central, PICC or Fol: No Subjective PT WELL KNOWN TO ME WITH DIABETES VASCULOPATHY NEPHROPATHY NEUROPATHY SEVERE PAH SEVERE TR RIGHT SIDED HEART FAILURE NOW WITH SEVERE ABD PAIN CT CONSISTENT WITH COLITIS DIARRHEA ACUTE ONSET CONSISTENT WITH INFECTIOUS ETIOLOGY vital signs Vital Sign Date Time Temp Pulse Resp B/P (MAP) Pulse Ox O2 Delivery O2 Flow Rate FiO2 10/01/24 10:00 98 Nasal Cannula* 2 28 10/01/24 09:20 128/58 10/01/24 09:00 97.9 78 18 97.9 Total Intake and Output 09/30/24 09/30/24 10/01/24 15:00 23:00 07:00 Intake Total 200 ml 1350 ml 1000 ml Balance 200 ml 1350 ml 1000 ml medications Current Medications Medications Dose Ordered Sig/Layo Route Start Time Stop Time Status Last Admin Dose Admin Albuterol 2.5 mg Q6HPRN PRN NEB 09/27/24 00:00 Levothyroxine Sodium 75 mcg QAM@0600 PO 09/27/24 06:00 10/01/24 06:09 75 MCG Empaglifozin 10 mg DAILY PO 09/27/24 10:00 10/01/24 09:22 10 MG Diagnostic Test (Pha) 1 strip ACHS 09/27/24 07:00 10/01/24 06:08 1 STRIP Insulin Human Regular ACHS SC 09/27/24 07:00 10/01/24 06:09 3 UNITS Dextrose 50 ml UD PRN IV 09/27/24 00:00 Acetaminophen/ Hydrocodone Bitart 1 tab Q4HP PRN PO 09/27/24 00:00 10/01/24 01:14 1 TAB Ondansetron HCl 4 mg Q4HP PRN IV 09/27/24 00:00 Acetaminophen 650 mg Q6HP PRN PO 09/27/24 00:00 09/27/24 06:10 650 MG Bumetanide 1 mg DAILY PO 09/28/24 10:00 10/01/24 09:20 1 MG Sildenafil Citrate 40 mg TID@08,14,20 PO 09/27/24 14:00 10/01/24 09:20 40 MG Potassium Bicarbonate 50 meq DAILY PO 09/28/24 10:00 10/01/24 09:20 50 MEQ Loperamide HCl 2 mg PRN PRN PO 09/28/24 14:30 Vancomycin HCl 125 mg QID PO 09/28/24 22:00 10/01/24 06:08 125 MG Saccharomyces Boulardii 250 mg DAILY PO 09/29/24 10:00 10/01/24 09:22 250 MG Duloxetine HCl 60 mg HS PO 09/29/24 22:00 09/30/24 21:31 60 MG Pregabalin 150 mg BID PO 09/29/24 22:00 10/01/24 09:22 150 MG Apixaban 5 mg BID PO 10/01/24 22:00 Metronidazole 500 mg Q8HR PO 10/01/24 14:00 Iron Sucrose 110 ml @ 110 mls/hr DAILY@1200 IV 10/01/24 12:00 10/05/24 12:59 Cholestyramine Resin 4 gm DAILY@11 PO 10/01/24 11:30 laboratory and microbiology Laboratory Tests 10/01/24 06:06 Test 10/01/24 06:06 Range/Units Serum Glucose 161 H 74-106 mg/dL Problem List DIABETES VASCULOPATHY NEPHROPATHY NEUROPATHY SEVERE PAH SEVERE TR RIGHT SIDED HEART FAILURE ANASARCA NOW WITH SEVERE ABD PAIN CT CONSISTENT WITH PSEUDOMEMBRANOUS COLOTIS DIARRHEA ACUTE ONSET CONSISTENT WITH INFECTIOUS ETIOLOGY Assessment/Plan LASIX DRIP DOBUTAMINE FOR AFTERLOAD AND PRELOAD REDUCTION TITRATE ON REVATIO CHOLESTYRAMINE FOR DIARRHEA ABX FOR COLITIS DC ROCEPHINE ZOSYN WITH FLAGYL FOR ENTEROCOCCUS AND ANAEROBIC COVERAGE PT IS DOWN BY 5 lbs DC ZOSYN VANCO/ FLAGYL Dietary Evaluation Review Recommendations by RD: Dietary education by RD Comments: 1) Encourage optimal PO intake 2) Advance to 60g CCHO cardiac diet when medically feasible, pending ST approval 3) Refer to outpatient RD/[facility] for diabetes education 4) Follow-up with gastroenterology, cardiology, and pulmonology 5) Continue to monitor I&O, labs, and skin integrity Expected Outcomes/Goals: 1) appetite and labs to improve 2) diet to advance 3) GI symptoms to improve 4) f/u in 3-5 days Plan discussed with: Patient GLADYS BENSON MD Oct 01, 2024 11:52
[2024-10-01] MEDS: IRON SUCROSE COMPLEX 110 ML IV SCH (11:59)
[2024-10-01] MEDS: CHOLESTYRAMINE 4 GM POWDER PO SCH (13:08)
--- NOTE | 2024-10-01 16:33 | DVHPN2 ---
Progress Note - Dictate Date Seen: Oct 01, 2024 Medical Necessity Reason Pt with a Central, PICC or Fol: No Subjective She had one bowel movements since yesteday Stool for C diff came back positive Patient had been on multiple antibiotics recently Bacterial culture was negative Stool for WBC showed many WBCs vital signs Vital Sign Date Time Temp Pulse Resp B/P (MAP) Pulse Ox O2 Delivery O2 Flow Rate FiO2 10/01/24 13:00 98.6 70 16 117/58 (77) 97 98.6 10/01/24 10:00 Nasal Cannula* 2 28 Total Intake and Output 09/30/24 09/30/24 10/01/24 15:00 23:00 07:00 Intake Total 200 ml 1350 ml 1000 ml Balance 200 ml 1350 ml 1000 ml medications Current Medications Medications Dose Ordered Sig/Layo Route Start Time Stop Time Status Last Admin Dose Admin Levothyroxine Sodium 75 mcg QAM@0600 PO 09/27/24 06:00 10/01/24 06:09 75 MCG Empaglifozin 10 mg DAILY PO 09/27/24 10:00 10/01/24 09:22 10 MG Diagnostic Test (Pha) 1 strip ACHS 09/27/24 07:00 10/01/24 11:59 1 STRIP Insulin Human Regular ACHS SC 09/27/24 07:00 10/01/24 12:08 3 UNITS Dextrose 50 ml UD PRN IV 09/27/24 00:00 Acetaminophen/ Hydrocodone Bitart 1 tab Q4HP PRN PO 09/27/24 00:00 10/01/24 01:14 1 TAB Ondansetron HCl 4 mg Q4HP PRN IV 09/27/24 00:00 Acetaminophen 650 mg Q6HP PRN PO 09/27/24 00:00 09/27/24 06:10 650 MG Bumetanide 1 mg DAILY PO 09/28/24 10:00 10/01/24 09:20 1 MG Sildenafil Citrate 40 mg TID@08,,20 PO 09/27/24 14:00 10/01/24 09:20 40 MG Potassium Bicarbonate 50 meq DAILY PO 09/28/24 10:00 10/01/24 09:20 50 MEQ Loperamide HCl 2 mg PRN PRN PO 09/28/24 14:30 Vancomycin HCl 125 mg QID PO 09/28/24 22:00 10/01/24 11:59 125 MG Saccharomyces Boulardii 250 mg DAILY PO 09/29/24 10:00 10/01/24 09:22 250 MG Duloxetine HCl 60 mg HS PO 09/29/24 22:00 09/30/24 21:31 60 MG Pregabalin 150 mg BID PO 09/29/24 22:00 10/01/24 09:22 150 MG Apixaban 5 mg BID PO 10/01/24 22:00 Metronidazole 500 mg Q8HR PO 10/01/24 14:00 Iron Sucrose 110 ml @ 110 mls/hr DAILY@1200 IV 10/01/24 12:00 10/05/24 12:59 10/01/24 11:59 110 MLS/HR Cholestyramine Resin 4 gm DAILY@11 PO 10/01/24 11:30 10/01/24 13:08 4 GM objective General: NAD, AAOX3 Chest: lung butts clear to auscultation Heart: RRR, no murmur Abdomen: non-distended, no tenderness to palpation, +BS laboratory and microbiology Laboratory Tests 10/01/24 06:06 Test 10/01/24 06:06 Range/Units Serum Glucose 161 H 74-106 mg/dL Problems(with codes): (1) C. difficile colitis (2) Non-specific colitis (3) Uncontrolled diabetes mellitus Prognosis Plan Continue vancomycin 125 mg p.o. q.6 hours Continue probiotics, patient has Align at home She was encouraged to take her Questran 4 g packet p.o. with applesauce or apple juice There was no plan for an inpatient colonoscopy at this time Patient is stable for discharge from a GI point of view She will follow up in my office in 4-6 weeks to discuss elective colonoscopy once C diff is cleared Patient is concerned about family members getting exposed to C diff and hygienic precautions were discussed Dietary Evaluation Review Recommendations by RD: Dietary education by RD Comments: 1) Encourage optimal PO intake 2) Advance to 60g CCHO cardiac diet when medically feasible, pending ST approval 3) Refer to outpatient RD/[facility] for diabetes education 4) Follow-up with gastroenterology, cardiology, and pulmonology 5) Continue to monitor I&O, labs, and skin integrity Expected Outcomes/Goals: 1) appetite and labs to improve 2) diet to advance 3) GI symptoms to improve 4) f/u in 3-5 days Plan discussed with: Patient NOMAN OZUNA MD Oct 01, 2024 16:33
[2024-10-01] MEDS: metroNIDAZOLE 500 MG TAB PO SCH (16:41)
[2024-10-01] MEDS: APIXABAN 5 MG TAB PO SCH (21:21)
[2024-10-02] VITALS (7 sets, daily range): BP systolic 119–144; BP diastolic 51–69; PULSE 70–81; RESP 1–18; TEMP 97.9–98.3; O2SAT 95–97
--- NOTE | 2024-10-02 10:34 | DVHPN2 ---
Progress Note Date Seen: Oct 02, 2024 Medical Necessity Reason Pt with a Central, PICC or Fol: No Subjective Patient reports: No new complaints Review of Systems: HEENT:Normal, CVS:Normal, RESPIRATORY:Normal, GI:Normal, :Normal, MSK:Normal, NEURO:Normal Objective vital signs Vital Sign Date Time Temp Pulse Resp B/P (MAP) Pulse Ox O2 Delivery O2 Flow Rate FiO2 10/02/24 09:54 95 Nasal Cannula* 2 28 10/02/24 08:08 132/55 10/02/24 07:48 70 1 10/02/24 05:00 98.3 98.3 Total Intake and Output 10/01/24 10/01/24 10/02/24 15:00 23:00 07:00 Intake Total 436.88 ml 680 ml 1100 ml Output Total 4 ml 950 ml Balance 436.88 ml 676 ml 150 ml medications Current Medications Medications Dose Ordered Sig/Layo Route Start Time Stop Time Status Last Admin Dose Admin Levothyroxine Sodium 75 mcg QAM@0600 PO 09/27/24 06:00 10/02/24 05:53 75 MCG Empaglifozin 10 mg DAILY PO 09/27/24 10:00 10/02/24 08:08 10 MG Diagnostic Test (Pha) 1 strip ACHS 09/27/24 07:00 10/02/24 05:56 1 STRIP Insulin Human Regular ACHS SC 09/27/24 07:00 10/02/24 05:55 3 UNITS Dextrose 50 ml UD PRN IV 09/27/24 00:00 Acetaminophen/ Hydrocodone Bitart 1 tab Q4HP PRN PO 09/27/24 00:00 10/01/24 16:50 1 TAB Ondansetron HCl 4 mg Q4HP PRN IV 09/27/24 00:00 Acetaminophen 650 mg Q6HP PRN PO 09/27/24 00:00 09/27/24 06:10 650 MG Bumetanide 1 mg DAILY PO 09/28/24 10:00 10/02/24 08:08 1 MG Sildenafil Citrate 40 mg TID@08,14,20 PO 09/27/24 14:00 10/02/24 08:08 40 MG Potassium Bicarbonate 50 meq DAILY PO 09/28/24 10:00 10/01/24 09:20 50 MEQ Loperamide HCl 2 mg PRN PRN PO 09/28/24 14:30 Vancomycin HCl 125 mg QID PO 09/28/24 22:00 10/02/24 05:53 125 MG Saccharomyces Boulardii 250 mg DAILY PO 09/29/24 10:00 10/02/24 08:08 250 MG Duloxetine HCl 60 mg HS PO 09/29/24 22:00 10/01/24 21:21 60 MG Pregabalin 150 mg BID PO 09/29/24 22:00 10/02/24 08:08 150 MG Apixaban 5 mg BID PO 10/01/24 22:00 10/02/24 08:08 5 MG Metronidazole 500 mg Q8HR PO 10/01/24 14:00 10/02/24 05:53 500 MG Iron Sucrose 110 ml @ 110 mls/hr DAILY@1200 IV 10/01/24 12:00 10/05/24 12:59 10/01/24 11:59 110 MLS/HR Cholestyramine Resin 4 gm DAILY@11 PO 10/01/24 11:30 10/02/24 09:12 4 GM Examination: GENERAL:Normal, HEENT:Normal, NECK:Normal, LUNGS:Normal, CVS:Normal, ABDOMEN:Normal, MSK:Normal, SKIN:Normal, NEURO:Normal, :Normal laboratory and microbiology Laboratory Tests 10/01/24 06:06 Test 10/01/24 06:06 Range/Units Serum Glucose 161 H 74-106 mg/dL Microbiology Date/Time Source Procedure Growth Status 09/27/24 12:19 Stool Clostridium difficile Toxin Assay - Final Complete Problem List/Assessment/Plan Problem List/Assessment/Plan #1 diarrhea/colitis- c diff: flagyl, vanc #2 acute on chronic diastolic heart failure: cont meds #3 severe PAH/h/o pe #4 chronic resp failure #5 dm: ssi #6 htn #7 obesity #8 hypothyroidism #9 anemia: eliquis, iv iron #10 h/o lung cancer/lymphoma advance care planning- full code- time spent 19 mins Plan discussed with: Patient My Orders My Orders Orders - RADHA RUTHERFORD MD Procedure Category Date Status Time 2 Gm Sodium Diet DIET 10/01/24 Transmitted Lunch Apixaban (Eliquis) PHA 10/01/24 In Process 22:00 Metronidazole Tablet PHA 10/01/24 In Process (Flagyl Tablet) 14:00 Pt Request For Service PT 10/01/24 Logged 10:48 Iron Sucrose Complex PHA 10/01/24 In Process (Venofer) 12:00 Cholestyramine Powder PHA 10/01/24 In Process (Questran Powder) 11:30 Dietary Evaluation Review Recommendations by RD: Dietary education by RD Comments: 1) Encourage optimal PO intake 2) Advance to 60g CCHO cardiac diet when medically feasible, pending ST approval 3) Refer to outpatient RD/[facility] for diabetes education 4) Follow-up with gastroenterology, cardiology, and pulmonology 5) Continue to monitor I&O, labs, and skin integrity Expected Outcomes/Goals: 1) appetite and labs to improve 2) diet to advance 3) GI symptoms to improve 4) f/u in 3-5 days Date of Service: Oct 02, 2024 Billing Provider: RADHA RUTHERFORD MD Common Visit Codes: [id number] INP/OBS CARE(HIGH) RADHA RUTHERFORD MD Oct 02, 2024 10:34
--- NOTE | 2024-10-02 12:16 | DVHPN2 ---
Progress Note - Dictate Date Seen: Oct 02, 2024 Medical Necessity Reason Pt with a Central, PICC or Fol: No Subjective PT WELL KNOWN TO ME WITH DIABETES VASCULOPATHY NEPHROPATHY NEUROPATHY SEVERE PAH SEVERE TR RIGHT SIDED HEART FAILURE NOW WITH SEVERE ABD PAIN CT CONSISTENT WITH COLITIS DIARRHEA ACUTE ONSET CONSISTENT WITH INFECTIOUS ETIOLOGY vital signs Vital Sign Date Time Temp Pulse Resp B/P (MAP) Pulse Ox O2 Delivery O2 Flow Rate FiO2 10/02/24 09:54 95 Nasal Cannula* 2 28 10/02/24 08:08 132/55 10/02/24 07:48 70 1 10/02/24 05:00 98.3 98.3 Total Intake and Output 10/01/24 10/01/24 10/02/24 15:00 23:00 07:00 Intake Total 436.88 ml 680 ml 1100 ml Output Total 4 ml 950 ml Balance 436.88 ml 676 ml 150 ml medications Current Medications Medications Dose Ordered Sig/Layo Route Start Time Stop Time Status Last Admin Dose Admin Levothyroxine Sodium 75 mcg QAM@0600 PO 09/27/24 06:00 10/02/24 05:53 75 MCG Empaglifozin 10 mg DAILY PO 09/27/24 10:00 10/02/24 08:08 10 MG Diagnostic Test (Pha) 1 strip ACHS 09/27/24 07:00 10/02/24 11:07 1 STRIP Insulin Human Regular ACHS SC 09/27/24 07:00 10/02/24 11:23 4 UNITS Dextrose 50 ml UD PRN IV 09/27/24 00:00 Acetaminophen/ Hydrocodone Bitart 1 tab Q4HP PRN PO 09/27/24 00:00 10/02/24 11:07 1 TAB Ondansetron HCl 4 mg Q4HP PRN IV 09/27/24 00:00 Acetaminophen 650 mg Q6HP PRN PO 09/27/24 00:00 09/27/24 06:10 650 MG Bumetanide 1 mg DAILY PO 09/28/24 10:00 10/02/24 08:08 1 MG Sildenafil Citrate 40 mg TID@08,14,20 PO 09/27/24 14:00 10/02/24 08:08 40 MG Loperamide HCl 2 mg PRN PRN PO 09/28/24 14:30 Vancomycin HCl 125 mg QID PO 09/28/24 22:00 10/02/24 11:07 125 MG Saccharomyces Boulardii 250 mg DAILY PO 09/29/24 10:00 10/02/24 08:08 250 MG Duloxetine HCl 60 mg HS PO 09/29/24 22:00 10/01/24 21:21 60 MG Apixaban 5 mg BID PO 10/01/24 22:00 10/02/24 08:08 5 MG Metronidazole 500 mg Q8HR PO 10/01/24 14:00 10/02/24 05:53 500 MG Iron Sucrose 110 ml @ 110 mls/hr DAILY@1200 IV 10/01/24 12:00 10/05/24 12:59 10/02/24 11:07 110 MLS/HR Cholestyramine Resin 4 gm DAILY@11 PO 10/01/24 11:30 10/02/24 09:12 4 GM Pregabalin 225 mg BID PO 10/02/24 22:00 UNV Potassium Chloride 40 meq DAILY PO 10/03/24 10:00 laboratory and microbiology Laboratory Tests 10/01/24 06:06 Test 10/01/24 06:06 Range/Units Serum Glucose 161 H 74-106 mg/dL Problem List DIABETES VASCULOPATHY NEPHROPATHY NEUROPATHY SEVERE PAH SEVERE TR RIGHT SIDED HEART FAILURE ANASARCA NOW WITH SEVERE ABD PAIN CT CONSISTENT WITH PSEUDOMEMBRANOUS COLOTIS DIARRHEA ACUTE ONSET CONSISTENT WITH INFECTIOUS ETIOLOGY Assessment/Plan LASIX DRIP DOBUTAMINE FOR AFTERLOAD AND PRELOAD REDUCTION TITRATE ON REVATIO CHOLESTYRAMINE FOR DIARRHEA ABX FOR COLITIS DC ROCEPHINE ZOSYN WITH FLAGYL FOR ENTEROCOCCUS AND ANAEROBIC COVERAGE PT IS DOWN BY 5 lbs DC ZOSYN VANCO/ FLAGYL Dietary Evaluation Review Recommendations by RD: Dietary education by RD Comments: 1) Encourage optimal PO intake 2) [facility] when medically feasible, pending ST approval 3) Refer to outpatient RD/[facility] for diabetes education 4) Follow-up with gastroenterology, cardiology, and pulmonology 5) Continue to monitor I&O, labs, and skin integrity Expected Outcomes/Goals: 1) appetite and labs to improve 2) diet to advance 3) GI symptoms to improve 4) f/u in 3-5 days Plan discussed with: Patient GLADYS BENSON MD Oct 02, 2024 12:16
--- NOTE | 2024-10-02 13:48 | DVHPN2 ---
Progress Note - Dictate Date Seen: Oct 02, 2024 Medical Necessity Reason Pt with a Central, PICC or Fol: No Subjective No new complaints Patient is sleeping comfortably 1-2 bowel movements recorded vital signs Vital Sign Date Time Temp Pulse Resp B/P (MAP) Pulse Ox O2 Delivery O2 Flow Rate FiO2 10/02/24 09:54 95 Nasal Cannula* 2 28 10/02/24 08:08 132/55 10/02/24 07:48 70 1 10/02/24 05:00 98.3 98.3 Total Intake and Output 10/01/24 10/01/24 10/02/24 14:59 22:59 06:59 Intake Total 436.88 ml 680 ml 1100 ml Output Total 4 ml 950 ml Balance 436.88 ml 676 ml 150 ml medications Current Medications Medications Dose Ordered Sig/Layo Route Start Time Stop Time Status Last Admin Dose Admin Levothyroxine Sodium 75 mcg QAM@0600 PO 09/27/24 06:00 10/02/24 05:53 75 MCG Empaglifozin 10 mg DAILY PO 09/27/24 10:00 10/02/24 08:08 10 MG Diagnostic Test (Pha) 1 strip ACHS 09/27/24 07:00 10/02/24 11:07 1 STRIP Insulin Human Regular ACHS SC 09/27/24 07:00 10/02/24 11:23 4 UNITS Dextrose 50 ml UD PRN IV 09/27/24 00:00 Acetaminophen/ Hydrocodone Bitart 1 tab Q4HP PRN PO 09/27/24 00:00 10/02/24 11:07 1 TAB Ondansetron HCl 4 mg Q4HP PRN IV 09/27/24 00:00 Acetaminophen 650 mg Q6HP PRN PO 09/27/24 00:00 09/27/24 06:10 650 MG Bumetanide 1 mg DAILY PO 09/28/24 10:00 10/02/24 08:08 1 MG Sildenafil Citrate 40 mg TID@08,14,20 PO 09/27/24 14:00 10/02/24 08:08 40 MG Loperamide HCl 2 mg PRN PRN PO 09/28/24 14:30 Vancomycin HCl 125 mg QID PO 09/28/24 22:00 10/02/24 11:07 125 MG Saccharomyces Boulardii 250 mg DAILY PO 09/29/24 10:00 10/02/24 08:08 250 MG Duloxetine HCl 60 mg HS PO 09/29/24 22:00 10/01/24 21:21 60 MG Apixaban 5 mg BID PO 10/01/24 22:00 10/02/24 08:08 5 MG Metronidazole 500 mg Q8HR PO 10/01/24 14:00 10/02/24 05:53 500 MG Iron Sucrose 110 ml @ 110 mls/hr DAILY@1200 IV 10/01/24 12:00 10/05/24 12:59 10/02/24 11:07 110 MLS/HR Cholestyramine Resin 4 gm DAILY@11 PO 10/01/24 11:30 10/02/24 09:12 4 GM Pregabalin 225 mg BID PO 10/02/24 22:00 UNV Potassium Chloride 40 meq DAILY PO 10/03/24 10:00 objective General: NAD, AAOX3 Chest: lung butts clear to auscultation Heart: RRR, no murmur Abdomen: non-distended, no tenderness to palpation, +BS laboratory and microbiology Laboratory Tests 10/01/24 06:06 Test 10/01/24 06:06 Range/Units Serum Glucose 161 H 74-106 mg/dL Problems(with codes): (1) C. difficile colitis (2) Non-specific colitis Prognosis Plan Continue oral vancomycin 125 mg p.o. q.6 hours Add probiotics DC other IV antibiotics Advance diet as tolerated Outpatient follow up with GI Services for elective colonoscopy in 6-8 weeks Once again thank you for allowing me to participate in the care of this patient Dietary Evaluation Review Recommendations by RD: Dietary education by RD Comments: 1) Encourage optimal PO intake 2) Advance to 60g CCHO cardiac diet when medically feasible, pending ST approval 3) Refer to outpatient RD/[facility] for diabetes education 4) Follow-up with gastroenterology, cardiology, and pulmonology 5) Continue to monitor I&O, labs, and skin integrity Expected Outcomes/Goals: 1) appetite and labs to improve 2) diet to advance 3) GI symptoms to improve 4) f/u in 3-5 days Plan discussed with: Patient NOMAN OZUNA MD Oct 02, 2024 13:48
[2024-10-02] MEDS: PREGABALIN CAPSULE 75 MG CAP PO SCH (21:30)
[2024-10-03] VITALS (8 sets, daily range): BP systolic 116–140; BP diastolic 50–59; PULSE 68–73; RESP 15–20; TEMP 97.4–98.1; O2SAT 92–99
[2024-10-03 06:03] LABS: Chloride 104 mmol/L (98-107); Potassium 3.7 mmol/L (3.5-5.1); Sodium 140 mmol/L (136-145)
[2024-10-03 06:04] LABS: Anion Gap 11 (5-15); Carbon Dioxide 25 mmol/L (20-31)
[2024-10-03 06:05] LABS: Calcium 10.0 mg/dL (8.7-10.4)
[2024-10-03 06:10] LABS: BUN/Creatinine Ratio 16.0 (10.0-20.0); Blood Urea Nitrogen 15 mg/dL (9-23)
[2024-10-03 06:19] LABS: Glucose 157 mg/dL (74-106)
[2024-10-03 06:24] LABS: Hematocrit 26.6 % (36.0-46.0); Hemoglobin 8.3 g/dL (12.2-16.2); Mean Corpuscular Hemoglobin 23.7 pg (28.0-32.0); Mean Corpuscular Volume 76.0 fL (80.0-100.0); Nucleated Red Blood Cells % 0.3 %
[2024-10-03 07:53] LABS: Anisocytosis Moderate
[2024-10-03] MEDS: POTASSIUM CHL 20 Meq TABLET PO SCH (10:42)
--- NOTE | 2024-10-03 11:05 | DVHPN2 ---
Progress Note Date Seen: Oct 03, 2024 Medical Necessity Reason Pt with a Central, PICC or Fol: No Subjective Patient reports: No new complaints Review of Systems: HEENT:Normal, CVS:Normal, RESPIRATORY:Normal, GI:Normal, :Normal, MSK:Normal, NEURO:Normal Objective vital signs Vital Sign Date Time Temp Pulse Resp B/P (MAP) Pulse Ox O2 Delivery O2 Flow Rate FiO2 10/03/24 10:43 132/47 10/03/24 10:00 96 Nasal Cannula* 2 10/03/24 09:00 98.1 69 15 98.1 Total Intake and Output 10/02/24 10/02/24 10/03/24 15:00 23:00 07:00 Intake Total 110 ml 720 ml 550 ml Balance 110 ml 720 ml 550 ml medications Current Medications Medications Dose Ordered Sig/Layo Route Start Time Stop Time Status Last Admin Dose Admin Levothyroxine Sodium 75 mcg QAM@0600 PO 09/27/24 06:00 10/03/24 05:52 75 MCG Empaglifozin 10 mg DAILY PO 09/27/24 10:00 10/03/24 10:43 10 MG Diagnostic Test (Pha) 1 strip ACHS 09/27/24 07:00 10/03/24 05:55 1 STRIP Insulin Human Regular ACHS SC 09/27/24 07:00 10/03/24 05:55 3 UNITS Dextrose 50 ml UD PRN IV 09/27/24 00:00 Acetaminophen/ Hydrocodone Bitart 1 tab Q4HP PRN PO 09/27/24 00:00 10/02/24 11:07 1 TAB Ondansetron HCl 4 mg Q4HP PRN IV 09/27/24 00:00 Acetaminophen 650 mg Q6HP PRN PO 09/27/24 00:00 09/27/24 06:10 650 MG Bumetanide 1 mg DAILY PO 09/28/24 10:00 10/03/24 10:43 1 MG Sildenafil Citrate 40 mg TID@08,14,20 PO 09/27/24 14:00 10/03/24 08:09 40 MG Loperamide HCl 2 mg PRN PRN PO 09/28/24 14:30 Vancomycin HCl 125 mg QID PO 09/28/24 22:00 10/03/24 05:53 125 MG Saccharomyces Boulardii 250 mg DAILY PO 09/29/24 10:00 10/03/24 10:43 250 MG Duloxetine HCl 60 mg HS PO 09/29/24 22:00 10/02/24 21:30 60 MG Apixaban 5 mg BID PO 10/01/24 22:00 10/03/24 10:41 5 MG Metronidazole 500 mg Q8HR PO 10/01/24 14:00 10/03/24 05:52 500 MG Iron Sucrose 110 ml @ 110 mls/hr DAILY@1200 IV 10/01/24 12:00 10/05/24 12:59 10/02/24 11:07 110 MLS/HR Cholestyramine Resin 4 gm DAILY@11 PO 10/01/24 11:30 10/02/24 09:12 4 GM Pregabalin 225 mg BID PO 10/02/24 22:00 10/03/24 10:42 225 MG Potassium Chloride 40 meq DAILY PO 10/03/24 10:00 10/03/24 10:42 40 MEQ Examination: GENERAL:Normal, HEENT:Normal, NECK:Normal, LUNGS:Normal, CVS:Normal, ABDOMEN:Normal, MSK:Normal, SKIN:Normal, NEURO:Normal, :Normal laboratory and microbiology Laboratory Tests 10/03/24 05:33 Test 10/03/24 05:33 Range/Units Serum Glucose 157 H 74-106 mg/dL Microbiology Date/Time Source Procedure Growth Status 09/27/24 12:19 Stool Clostridium difficile Toxin Assay - Final Complete Problem List/Assessment/Plan Problem List/Assessment/Plan #1 diarrhea/colitis- c diff: flagyl, vanc #2 acute on chronic diastolic heart failure: cont meds #3 severe PAH/h/o pe #4 chronic resp failure #5 dm: ssi #6 htn #7 obesity #8 hypothyroidism #9 anemia: eliquis, iv iron #10 h/o lung cancer/lymphoma advance care planning- full code- time spent 19 mins Plan discussed with: Patient My Orders My Orders Orders - RADHA RUTHERFORD MD Procedure Category Date Status Time Vancomycin Po PHA 10/03/24 Verified 12:00 Dietary Evaluation Review Recommendations by RD: Dietary education by RD Comments: 1) Encourage optimal PO intake 2) Advance to 60g CCHO cardiac diet when medically feasible, pending ST approval 3) Refer to outpatient RD/[facility] for diabetes education 4) Follow-up with gastroenterology, cardiology, and pulmonology 5) Continue to monitor I&O, labs, and skin integrity Expected Outcomes/Goals: 1) appetite and labs to improve 2) diet to advance 3) GI symptoms to improve 4) f/u in 3-5 days Date of Service: Oct 03, 2024 Billing Provider: RADHA RUTHERFORD MD Common Visit Codes: [id number] INP/OBS CARE(HIGH) RADHA RUTHERFORD MD Oct 03, 2024 11:05
--- NOTE | 2024-10-03 12:12 | DVHPN2 ---
Progress Note - Dictate Date Seen: Oct 03, 2024 Medical Necessity Reason Pt with a Central, PICC or Fol: No Subjective PT WELL KNOWN TO ME WITH DIABETES VASCULOPATHY NEPHROPATHY NEUROPATHY SEVERE PAH SEVERE TR RIGHT SIDED HEART FAILURE NOW WITH SEVERE ABD PAIN CT CONSISTENT WITH COLITIS DIARRHEA ACUTE ONSET CONSISTENT WITH INFECTIOUS ETIOLOGY vital signs Vital Sign Date Time Temp Pulse Resp B/P (MAP) Pulse Ox O2 Delivery O2 Flow Rate FiO2 10/03/24 10:43 132/47 10/03/24 10:00 96 Nasal Cannula* 2 28 10/03/24 09:00 98.1 69 15 98.1 Total Intake and Output 10/02/24 10/02/24 10/03/24 15:00 23:00 07:00 Intake Total 110 ml 720 ml 550 ml Balance 110 ml 720 ml 550 ml medications Current Medications Medications Dose Ordered Sig/Layo Route Start Time Stop Time Status Last Admin Dose Admin Levothyroxine Sodium 75 mcg QAM@0600 PO 09/27/24 06:00 10/03/24 05:52 75 MCG Empaglifozin 10 mg DAILY PO 09/27/24 10:00 10/03/24 10:43 10 MG Diagnostic Test (Pha) 1 strip ACHS 09/27/24 07:00 10/03/24 11:30 1 STRIP Insulin Human Regular ACHS SC 09/27/24 07:00 10/03/24 05:55 3 UNITS Dextrose 50 ml UD PRN IV 09/27/24 00:00 Acetaminophen/ Hydrocodone Bitart 1 tab Q4HP PRN PO 09/27/24 00:00 10/02/24 11:07 1 TAB Ondansetron HCl 4 mg Q4HP PRN IV 09/27/24 00:00 Acetaminophen 650 mg Q6HP PRN PO 09/27/24 00:00 09/27/24 06:10 650 MG Bumetanide 1 mg DAILY PO 09/28/24 10:00 10/03/24 10:43 1 MG Sildenafil Citrate 40 mg TID@08,14,20 PO 09/27/24 14:00 10/03/24 08:09 40 MG Loperamide HCl 2 mg PRN PRN PO 09/28/24 14:30 Saccharomyces Boulardii 250 mg DAILY PO 09/29/24 10:00 10/03/24 10:43 250 MG Duloxetine HCl 60 mg HS PO 09/29/24 22:00 10/02/24 21:30 60 MG Apixaban 5 mg BID PO 10/01/24 22:00 10/03/24 10:41 5 MG Metronidazole 500 mg Q8HR PO 10/01/24 14:00 10/03/24 05:52 500 MG Iron Sucrose 110 ml @ 110 mls/hr DAILY@1200 IV 10/01/24 12:00 10/05/24 12:59 10/02/24 11:07 110 MLS/HR Cholestyramine Resin 4 gm DAILY@11 PO 10/01/24 11:30 10/02/24 09:12 4 GM Pregabalin 225 mg BID PO 10/02/24 22:00 10/03/24 10:42 225 MG Potassium Chloride 40 meq DAILY PO 10/03/24 10:00 10/03/24 10:42 40 MEQ Vancomycin HCl 250 mg QID PO 10/03/24 12:00 UNV laboratory and microbiology Laboratory Tests 10/03/24 05:33 Test 10/03/24 05:33 Range/Units Serum Glucose 157 H 74-106 mg/dL Problem List DIABETES VASCULOPATHY NEPHROPATHY NEUROPATHY SEVERE PAH SEVERE TR RIGHT SIDED HEART FAILURE ANASARCA NOW WITH SEVERE ABD PAIN CT CONSISTENT WITH PSEUDOMEMBRANOUS COLOTIS DIARRHEA ACUTE ONSET CONSISTENT WITH INFECTIOUS ETIOLOGY Assessment/Plan LASIX DRIP DOBUTAMINE FOR AFTERLOAD AND PRELOAD REDUCTION TITRATE ON REVATIO CHOLESTYRAMINE FOR DIARRHEA ABX FOR COLITIS DC ROCEPHINE ZOSYN WITH FLAGYL FOR ENTEROCOCCUS AND ANAEROBIC COVERAGE PT IS DOWN BY 5 lbs DC ZOSYN VANCO/ FLAGYL Dietary Evaluation Review Recommendations by RD: Dietary education by RD Comments: 1) Encourage optimal PO intake 2) [facility] when medically feasible, pending ST approval 3) Refer to outpatient RD/[facility] for diabetes education 4) Follow-up with gastroenterology, cardiology, and pulmonology 5) Continue to monitor I&O, labs, and skin integrity Expected Outcomes/Goals: 1) appetite and labs to improve 2) diet to advance 3) GI symptoms to improve 4) f/u in 3-5 days Plan discussed with: Patient GLADYS BENSON MD Oct 03, 2024 12:12
[2024-10-03] MEDS: VANCOMYCIN HCL 125 MG CAP PO SCH (12:30)
[2024-10-04 01:00] VITALS: BP 130/55; PULSE 71; RESP 17; TEMP 97.9; O2SAT 95
[2024-10-04 05:00] VITALS: BP 105/54; PULSE 71; RESP 20; TEMP 97.8; O2SAT 97
[2024-10-04 08:37] VITALS: BP 132/45; PULSE 69; RESP 20; TEMP 98.3; O2SAT 96
[2024-10-04 10:00] VITALS: O2SAT 96
[2024-10-04] MEDS ORDERED: MET500T PO (11:22)
[2024-10-04] MEDS ORDERED: VANC250PO PO (11:22)
--- NOTE | 2024-10-04 11:23 | DVHDS2 ---
Discharge Summary Date of Admission Sep 26, 2024 at 23:55 Date of Discharge: Oct 04, 2024 Labs/Diagnostic Data: Laboratory Results Test 10/03/24 17:55 10/03/24 05:33 10/01/24 06:06 09/28/24 05:54 POC Glucose 220 mg/dl (70-106) White Blood Count 9.0 10^3/uL (4.4-10.8) Red Blood Count 3.50 10^6/uL (4.0-5.20) Hemoglobin 8.3 g/dL (12.2-16.2) Hematocrit 26.6 % (36.0-46.0) Mean Corpuscular Volume 76.0 fL (80.0-100.0) Mean Corpuscular Hemoglobin 23.7 pg (28.0-32.0) Mean Corpuscular Hemoglobin Concent 31.1 g/dL (32.0-36.0) Red Cell Distribution Width 25.9 % (11.8-14.3) Platelet Count 362 10^3/uL (140-450) Mean Platelet Volume 8.3 fL (6.9-10.8) Neutrophils (%) (Auto) 73.6 % (37.0-80.0) Lymphocytes (%) (Auto) 14.8 % (10.0-50.0) Monocytes (%) (Auto) 8.1 % (0.0-12.0) Eosinophils (%) (Auto) 2.9 % (0.0-7.0) Basophils (%) (Auto) 0.6 % (0.0-2.0) Neutrophils # (Auto) 6.6 10 ^3/uL (1.6-8.6) Lymphocytes # (Auto) 1.3 10 ^3/uL (0.4-5.4) Monocytes # (Auto) 0.7 10 ^3/uL (0-1.3) Eosinophils # (Auto) 0.3 10 ^3/uL (0-0.8) Basophils # (Auto) 0.1 10 ^3/uL (0-0.2) Nucleated Red Blood Cells 0.3 % Platelet Estimate Adequate Hypochromasia (manual) Slight Anisocytosis (manual) Moderate Microcytosis Slight Sodium Level 140 mmol/L (136-145) Potassium Level 3.7 mmol/L (3.5-5.1) Chloride Level 104 mmol/L (98-107) Carbon Dioxide Level 25 mmol/L (20-31) Anion Gap 11 (5-15) Blood Urea Nitrogen 15 mg/dL (9-23) Creatinine 0.94 mg/dL (0.550-1.02) Glomerular Filtration Rate Calc 62 mL/min (>90) BUN/Creatinine Ratio 16.0 (10.0-20.0) Serum Glucose 157 mg/dL (74-106) Calcium Level 10.0 mg/dL (8.7-10.4) Iron Level 18 ug/dL (50-170) Total Iron Binding Capacity 343 ug/dL (250-425) Percent Iron Saturation 5.2 % (15-50) Hemoglobin A1c 8.2 % A1C (<5.7) Total Bilirubin 0.2 mg/dL (0.2-1.0) Aspartate Amino Transferase (AST) 14 U/L (<34) Alanine Aminotransferase (ALT) < 9 U/L (7-40) Alkaline Phosphatase 80 U/L (46-116) Total Protein 5.7 g/dL (5.7-8.2) Albumin 3.7 g/dL (3.2-4.8) Thyroid Stimulating Hormone (TSH) 2.63 uIU/mL (0.55-4.78) Test 09/27/24 12:19 09/26/24 14:11 Stool for White Cells Many Urine Color Light-yellow (Yellow) Urine Clarity Clear (Clear) Urine pH 5.0 (5.0-9.0) Urine Specific Calmar 1.012 (1.001-1.035) Urine Protein Negative (Negative) Urine Ketones Negative (Negative) Urine Blood Negative /uL (Negative) Urine Nitrite Negative (Negative) Urine Bilirubin Negative (Negative) Urine Urobilinogen Normal mg/dL (Negative) Urine Leukocyte Esterase Negative /uL (Negative) Urine RBC None seen /hpf (0 - 4) Urine Microscopic WBC 2 /HPF (0-5) Urine Squamous Epithelial Cells Few /hpf (<5) Urine Bacteria Few /hpf (None Seen) Urine Glucose 4+ mg/dL (Normal) Other Laboratory Tests 10/03/24 05:33 Brief Hx & Hospital Course: see dictated note Condition at Discharge: Fair Final Diagnosis/Problems List c diff Discharge Disposition: Home Discharge Instruct/Medications Diet: Cardiac 2g Na,low cholest Activity: No Restrictions, As Tolerated Follow Up/Referral: fu with pcp in 1 wk Medications: resume home meds script to pharmacy Scheduled Acetaminophen (Tylenol), 325 MG PO PRN, (Reported) Albuterol Sulfate (Albuterol Sulfate Hfa), 90 MCG IN PRN, (Reported) Apixaban Base (Eliquis), 5 MG PO BID, (Reported) B-Complex Vitamins (Vitamin B Complex), 1 OR DAILY, (Reported) Budesonide-Formoterol Fumarate (Budesonide/Formoterol Fum 160-4.5 Mcg/Act), 2 AER IN BID, (Reported) Cetirizine Hcl (Zyrtec Allergy), 10 MG PO HS, (Reported) Dicyclomine Hcl (Dicyclomine Hcl), 20 MG PO TID, (Reported) Duloxetine Hcl (Cymbalta), 1 CAP PO BID, (Reported) Empagliflozin (Jardiance), 25 MG PO DAILY, (Reported) Esomeprazole Magnesium (Esomeprazole Magnesium), 40 MG PO DAILY, (Reported) Fenofibrate (Fenofibrate), 1 TAB PO DAILY, (Reported) Guaifenesin (Mucinex Maximum Strength), 1,200 MG PO 4-5X PER WEEK, (Reported) Hctz (Hydrochlorothiazide), 12.5 MG PO DAILY, (Reported) Insulin Glargine (Lantus), 10 UNIT SC QAM, (Reported) Insulin Glargine (Lantus), 5 UNIT SC QPM, (Reported) Levothyroxine Sodium (Synthroid), 1 TAB PO DAILY, (Reported) Losartan Potassium (Losartan Potassium), 25 MG PO DAILY, (Reported) Metronidazole (Metronidazole), 500 MG PO TID Pioglitazone Hydrochloride (Pioglitazone Hcl), 15 MG PO BID, (Reported) Potassium Chloride (Klor-Con M10), 1 TAB PO DAILY, (Reported) Pregabalin (Lyrica), 3 CAP PO BID, (Reported) Rosuvastatin Calcium (Crestor), 1 TAB PO DAILY, (Reported) Tadalafil (Adcirca), 20 MG PO BID, (Reported) Vancomycin Hcl (Vancomycin Po), 250 MG PO QID Scheduled PRN Furosemide (Furosemide), 40 MG PO DAILYP PRN for EDEMA, (Reported) Tramadol Hcl (Tramadol Hcl), 50 MG PO DAILY PRN for PAIN SCALE 7 THRU 10, (Reported) Zolpidem Tartrate (Zolpidem Tartrate), 1 TAB PO HSPRN PRN for FOR INSOMNIA, (Reported) Discharge Statement: "Patient was advised to return to the ER or call 911 if any headaches, dizziness, shortness of breath, chest pain, abdominal pain, bleeding, fevers, or worsening of medical condition. Patient was counseled about treatment plan, medications, possible side effects, patientverbalized understanding. All questions were answered to the best of my ability. This discharge took greater then 30 minutes in planning, reviewing documentation, counseling the patient, and discussing with other team members." ASSESSMENT ASSESSMENT Assessment c diff Date of Service: Oct 04, 2024 Billing Provider: RADHA RUTHERFORD MD Common Visit Codes: 98427-ZYD/OBS DISCH DAY >30min RADHA RUTHERFORD MD Oct 04, 2024 11:23
--- NOTE | 2024-10-04 11:41 | DVHDS ---
DATE OF DISCHARGE: 10/04/2024 HISTORY OF PRESENT ILLNESS: The patient is a 78-year-old lady who is admitted with abdominal pain and watery diarrhea and has history of hypertension, diabetes, pulmonary embolism. HOSPITAL COURSE: The patient was seen in cardiology consult by Dr. Ogden. The patient had a CT of the abdomen and pelvis that showed evidence of extensive bowel wall thickening of the descending and rectosigmoid colon. The patient's stool for C. diff was positive. She was seen in GI consult by Dr. Bates. The patient's symptoms are now resolved and she will be discharged home to resume her home medications as well as to be on vancomycin 250 mg p.o. q.i.d. for 7 days and Flagyl 500 mg t.i.d. for 7 days. Follow up with the primary in 1 week. FINAL DIAGNOSES: * C. diff colitis. * Acute on chronic diastolic heart failure. * History of PE with severe pulmonary hypertension. * Chronic respiratory failure. * Diabetes mellitus. * Hypertension. * Obesity. * Hypothyroidism. * Anemia. * History of lung cancer and non-Hodgkin's lymphoma. Time spent in discharge planning and review of plan with the patient and nursing was 39 minutes. MD ALEXUS Altamirano/TOMER TID: [id number] RECEIPT: [id number]
[2024-10-04 12:19] VITALS: BP 120/33
--- NOTE | 2024-10-04 12:41 | DVHPN2 ---
Progress Note - Dictate Date Seen: Oct 04, 2024 Medical Necessity Reason Pt with a Central, PICC or Fol: No Subjective PT WELL KNOWN TO ME WITH DIABETES VASCULOPATHY NEPHROPATHY NEUROPATHY SEVERE PAH SEVERE TR RIGHT SIDED HEART FAILURE NOW WITH SEVERE ABD PAIN CT CONSISTENT WITH COLITIS DIARRHEA ACUTE ONSET CONSISTENT WITH INFECTIOUS ETIOLOGY vital signs Vital Sign Date Time Temp Pulse Resp B/P (MAP) Pulse Ox O2 Delivery O2 Flow Rate FiO2 10/04/24 10:12 120/33 10/04/24 10:00 96 Nasal Cannula 2.0 10/04/24 10:00 28 10/04/24 08:37 98.3 69 20 98.3 Total Intake and Output 10/03/24 10/03/24 10/04/24 15:00 23:00 07:00 Intake Total 110 ml 985 ml 600 ml Balance 110 ml 985 ml 600 ml medications Current Medications Medications Dose Ordered Sig/Layo Route Start Time Stop Time Status Last Admin Dose Admin Levothyroxine Sodium 75 mcg QAM@0600 PO 09/27/24 06:00 10/04/24 06:00 75 MCG Empaglifozin 10 mg DAILY PO 09/27/24 10:00 10/04/24 10:13 10 MG Diagnostic Test (Pha) 1 strip ACHS 09/27/24 07:00 10/04/24 11:30 1 STRIP Insulin Human Regular ACHS SC 09/27/24 07:00 10/04/24 06:06 2 UNITS Dextrose 50 ml UD PRN IV 09/27/24 00:00 Acetaminophen/ Hydrocodone Bitart 1 tab Q4HP PRN PO 09/27/24 00:00 10/02/24 11:07 1 TAB Ondansetron HCl 4 mg Q4HP PRN IV 09/27/24 00:00 Acetaminophen 650 mg Q6HP PRN PO 09/27/24 00:00 09/27/24 06:10 650 MG Bumetanide 1 mg DAILY PO 09/28/24 10:00 10/04/24 10:12 1 MG Sildenafil Citrate 40 mg TID@08,14,20 PO 09/27/24 14:00 10/04/24 08:17 40 MG Loperamide HCl 2 mg PRN PRN PO 09/28/24 14:30 Saccharomyces Boulardii 250 mg DAILY PO 09/29/24 10:00 10/04/24 10:12 250 MG Duloxetine HCl 60 mg HS PO 09/29/24 22:00 10/03/24 21:09 60 MG Apixaban 5 mg BID PO 10/01/24 22:00 10/04/24 10:12 5 MG Metronidazole 500 mg Q8HR PO 10/01/24 14:00 10/04/24 06:00 500 MG Iron Sucrose 110 ml @ 110 mls/hr DAILY@1200 IV 10/01/24 12:00 10/05/24 12:59 10/03/24 12:24 110 MLS/HR Cholestyramine Resin 4 gm DAILY@11 PO 10/01/24 11:30 10/02/24 09:12 4 GM Pregabalin 225 mg BID PO 10/02/24 22:00 10/04/24 10:13 225 MG Potassium Chloride 40 meq DAILY PO 10/03/24 10:00 10/04/24 10:12 40 MEQ Vancomycin HCl 250 mg QID PO 10/03/24 12:00 10/04/24 06:00 250 MG laboratory and microbiology Laboratory Tests 10/03/24 05:33 Test 10/03/24 05:33 Range/Units Serum Glucose 157 H 74-106 mg/dL Problem List DIABETES VASCULOPATHY NEPHROPATHY NEUROPATHY SEVERE PAH SEVERE TR RIGHT SIDED HEART FAILURE ANASARCA NOW WITH SEVERE ABD PAIN CT CONSISTENT WITH PSEUDOMEMBRANOUS COLOTIS DIARRHEA ACUTE ONSET CONSISTENT WITH INFECTIOUS ETIOLOGY Assessment/Plan LASIX DRIP DOBUTAMINE FOR AFTERLOAD AND PRELOAD REDUCTION TITRATE ON REVATIO CHOLESTYRAMINE FOR DIARRHEA ABX FOR COLITIS DC ROCEPHINE ZOSYN WITH FLAGYL FOR ENTEROCOCCUS AND ANAEROBIC COVERAGE PT IS DOWN BY 5 lbs DC ZOSYN VANCO/ FLAGYL DC HOME Dietary Evaluation Review Recommendations by RD: Dietary education by RD Comments: 1) Encourage optimal PO intake 2) Advance to 60g [facility] cardiac diet when medically feasible, pending ST approval 3) Refer to outpatient RD/[facility] for diabetes education 4) Follow-up with gastroenterology, cardiology, and pulmonology 5) Continue to monitor I&O, labs, and skin integrity Expected Outcomes/Goals: 1) appetite and labs to improve 2) diet to advance 3) GI symptoms to improve 4) f/u in 3-5 days Plan discussed with: Patient GLADYS BENSON MD Oct 04, 2024 12:41
[2024-10-04 12:47] VITALS: BP 123/45; PULSE 65; RESP 18; TEMP 97.6; O2SAT 97
== END 2024-10-04 15:55 | disposition home or self-care (01) | DRG 371 ==
LOC: ER 13:42 → OVERFLOW 23:55 → EAST 09-27 04:24
PROVIDERS: ADMIT Internal Medicine; ATTEND Internal Medicine
DX: A04.72 Enterocolitis due to Clostridium difficile, not specified as recurrent (principal); I50.33 Acute on chronic diastolic (congestive) heart failure; J96.10 Chronic respiratory failure, unspecified whether with hypoxia or hypercapnia; I13.0 Hypertensive heart and chronic kidney disease with heart failure and stage 1 through stage 4 chronic kidney disease, or unspecified chronic kidney disease; I27.21 Secondary pulmonary arterial hypertension; D64.9 Anemia, unspecified; E11.22 Type 2 diabetes mellitus with diabetic chronic kidney disease; E66.01 Morbid (severe) obesity due to excess calories; I07.1 Rheumatic tricuspid insufficiency; N18.9 Chronic kidney disease, unspecified; E03.9 Hypothyroidism, unspecified; E11.40 Type 2 diabetes mellitus with diabetic neuropathy, unspecified; Z68.36 Body mass index [BMI] 36.0-36.9, adult; Z86.711 Personal history of pulmonary embolism; Z88.2 Allergy status to sulfonamides; Z90.710 Acquired absence of both cervix and uterus; Z85.72 Personal history of non-Hodgkin lymphomas; Z85.118 Personal history of other malignant neoplasm of bronchus and lung; Z85.89 Personal history of malignant neoplasm of other organs and systems
CPT/HCPCS: 36415; 71045; 74176; 80048; 80053; 81001; 82962; 83036; 83540; 83550; 84443; 85025; 85048; 87045; 87427; 87493; 93005; 96360; G0378; J1756; J1815; J2543; J3490

== ENCOUNTER → 2025-01-04 | Outpatient (CLI) | payer MEDICARE, OTHER ==
[~2025-01-04] MED LIST changes: +MET500T PO; +VANC250PO PO
== END | disposition home or self-care (01) ==
LOC: Rad HDHVI 08:00
PROVIDERS: ATTEND Internal Medicine Cardiovascular Disease
DX: I07.1 Rheumatic tricuspid insufficiency (principal); I11.0 Hypertensive heart disease with heart failure; I50.33 Acute on chronic diastolic (congestive) heart failure
CPT/HCPCS: 93306

== ENCOUNTER 2025-02-18 11:53 | Inpatient (IN) | payer MEDICARE, OTHER ==
[~2025-02-18] VITALS: Ht 170.2 cm; Wt 112.6 kg
--- NOTE | 2025-02-18 12:21 | ED.PDOC ---
SOB-HPI HPI Comments 79 year old female with PMHx COPD, CHF, DM, HTN presents to the ED with a chief complaint of shortness of breath onset 3 days. Patient states she has been experiencing shortness of breath as well as dry cough for the past 3 days, is on home O2. Patient is also experiencing LT arm pain. Denies fever, chills, nausea, vomiting, diarrhea, chest pain, congestion, headache, dizziness, sore throat. No other symptoms or modifying factors present at this time. 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 History: Denies all ENTERPR[employer] ARCHITECT MANAGER Hx Family History Family History: Unknown Social History Smoker: Non-Smoker Alcohol: Denies ETOH Use Drugs: Denies Drug Use Lives In: Home Constitutional: denies: chills, diaphoresis, fatigue, fever, malaise, sweats, weakness, others EENTM: denies: blurred vision, double vision, ear bleeding, ear discharge, ear drainage, ear pain, ear ringing, eye pain, eye redness, hearing loss, mouth pain , mouth swelling, nasal discharge, nose bleeding, nose congestion, nose pain, photophobia, tearing, throat pain, throat swelling, voice changes, others Respiratory: reports: cough, shortness of breath; denies: hemoptysis, orthopnea, SOB at rest, SOB with excertion, stridor, wheezing, others Cardiovascular: denies: chest pain, dizzy spells, diaphoresis, Dyspnea on exertion, edema, irregular heart beat, left arm pain, lightheadedness, palpitations, PND, syncope, others Gastrointestinal: denies: abdomen distended, abdominal pain, blood streaked bowels, constipated, diarrhea, dysphagia, difficulty swallowing, hematemesis, melena, nausea, poor appetite, poor fluid intake, rectal bleeding, rectal pain, vomiting, others Genitourinary: denies: abnormal vagina bleeding, burning, dyspareunia, dysuria, flank pain, frequency, hematuria, incontinence, pain, , vagina discharge, urgency, others Neurological: denies: dizziness, fainting, headache, left sided numbness, left sided weakness, numbness, paresthesia, pre-existing deficit, right sided numbness, right sided weakness, seizure, speech problems, tingling, tremors, weakness, others Musculoskeletal: denies: back pain, gout, joint pain, joint swelling, muscle pain, muscle stiffness, neck pain, others Integumetry: denies: bruises, change in color, change in hair/nails, dryness, laceration, lesions, lumps, rash, wounds, others Allergic/Immunocompromised: denies: Difficulty Healing, Frequent Infections, Hives, Itching, others Hematologic/Lymphatic: denies: anemia, blood clots, easy bleeding, easy bruising, swollen glands, others Endocrine: denies: excessive hunger, excessive sweating, excessive thirst, excessive urination, flushing, intolerance to cold, intolerance to heat, unexplained weight gain, unexplained weight loss, others Psychiatric: denies: anxiety, bipolar disorder, depression, hopeless, panic disorder, schizophrenia, sleepless, suicidal, others All Other Systems: Reviewed and Negative Physical Exam General Appearance: Normal HEENT: Normal ENT Inspection, Pharynx Normal, TMs Normal Neck: Full Range of Motion, Non-Tender, Normal, Normal Inspection Respiratory: Chest Non-Tender, Lungs Clear, No Accessory Muscle Use, No Respiratory Distress, Normal Breath Sounds Cardiovascular: No Edema, No JVD, No Murmur, No Gallop, Normal Peripheral Pulses, Regular Rate/Rhythm Breast Exam: Deferred Gastrointestinal: No Organomegaly, Non Tender, No Pulsatile Mass, Normal Bowel Sounds, Soft Genitalia: Deferred Pelvic: Deferred Rectal: Deferred Extremities: No calf tenderness, Normal capillary refill, Normal inspection, Normal range of motion, Non-tender, No pedal edema Musculoskeletal : Apperance: Normal Neurologic: Alert, call center receptionist II-XII nml as Tested, No Motor Deficits, Normal Affect, Normal Mood, No Sensory Deficits Cerebellar Function: Normal Reflexes: Normal Skin: Dry, Normal Color, Warm Lymphatic: No Adenopathy Was a procedure done? Was a procedure done?: No Differential Dx Differential Diagnosis: Cardiogenic Shock, COPD, Dysrhythmia, Panic Attack, Pneumonia, PSVT X-Ray, Labs, Meds, VS Vital Signs Date Time Temp Pulse Resp B/P (MAP) Pulse Ox O2 Delivery O2 Flow Rate FiO2 02/18/25 13:57 16 100 Room Air* 0 N/A Nasal Cannula* 02/18/25 13:22 Room Air* 0 21 02/18/25 12:11 72 02/18/25 11:56 97.3 74 24 151/55 90 97.3 Lab Test 02/18/25 14:23 02/18/25 13:24 Range/Units Troponin I High Sensitivity 8 11 </=34 ng/L White Blood Count 9.7 4.4-10.8 10^3/uL Red Blood Count 3.44 L 4.0-5.20 10^6/uL Hemoglobin 9.3 L 12.2-16.2 g/dL Hematocrit 28.4 L 36.0-46.0 % Mean Corpuscular Volume 82.6 80.0-100.0 fL Mean Corpuscular Hemoglobin 27.2 L 28.0-32.0 pg Mean Corpuscular Hemoglobin Concent 32.9 32.0-36.0 g/dL Red Cell Distribution Width 19.8 H 11.8-14.3 % Platelet Count 256 140-450 10^3/uL Mean Platelet Volume 8.7 6.9-10.8 fL Neutrophils (%) (Auto) 80.1 H 37.0-80.0 % Lymphocytes (%) (Auto) 9.6 L 10.0-50.0 % Monocytes (%) (Auto) 8.9 0.0-12.0 % Eosinophils (%) (Auto) 1.0 0.0-7.0 % Basophils (%) (Auto) 0.4 0.0-2.0 % Neutrophils # (Auto) 7.8 1.6-8.6 10 ^3/uL Lymphocytes # (Auto) 0.9 0.4-5.4 10 ^3/uL Monocytes # (Auto) 0.9 0-1.3 10 ^3/uL Eosinophils # (Auto) 0.1 0-0.8 10 ^3/uL Basophils # (Auto) 0 0-0.2 10 ^3/uL Nucleated Red Blood Cells 0.1 % Sodium Level 136 136-145 mmol/L Potassium Level 3.5 3.5-5.1 mmol/L Chloride Level 102 98-107 mmol/L Carbon Dioxide Level 24 20-31 mmol/L Anion Gap 10 5-15 Blood Urea Nitrogen 34 H 9-23 mg/dL Creatinine 1.38 H 0.550-1.02 mg/dL Glomerular Filtration Rate Calc 39 >90 mL/min BUN/Creatinine Ratio 24.6 H 10.0-20.0 Serum Glucose 212 H 74-106 mg/dL Calcium Level 8.6 L 8.7-10.4 mg/dL Current Medications Medications (Trade) Dose Ordered Sig/Layo Route Start Time Stop Time Status Last Admin Albuterol (Ventolin Medneb) 5 mg ONCE ONCE NEB 02/18/25 12:45 02/18/25 12:46 DC 02/18/25 13:20 Ipratropium [place] (Atrovent Medneb) 0.5 mg ONCE ONCE NEB 02/18/25 12:45 02/18/25 12:46 DC 02/18/25 13:19 [place] [id number] Ph: [phone] DIAGNOSTIC IMAGING Diagnostic Imaging Report : [id number] Signed PATIENT: VIRI HEAD ACCT: [id number] UNIT: [id number] : 1945 LOC: ER ROOM / BED: / AGE / SEX: 79 / F ADM STATUS: REG ER SERVICE 1242 ORDERING PHYSICIAN: NARGIS PETERSON MD PROCEDURE(s): CXRP - CHEST PORTABLE REASON: cp, sob ORDER NUMBER(s): [id number], ACCESSION NUMBER(s): [id number] CHEST RADIOGRAPH Indication: cp, sob Technique: Single frontal view of the chest was obtained Comparison: XY CHEST PORTABLE on DOS: 09/27/24 FINDINGS: Lines and Tubes: None Lungs: Findings suggest pulmonary vascular congestion.. Pleura: No effusion. No pneumothorax. Cardiomediastinal contours: Marginal cardiomegaly. Bones: No acute osseous abnormality. IMPRESSION: 1. Marginal cardiomegaly with bilateral pulmonary vascular congestion. Correlate with the clinical setting. ATED BY: DELTA DIOR Jr. DO DICTATED DATE/TIME: 11/17/25 1323 SIGNED BY: DELTA DIOR Jr., DO SIGNED DATE/TIME: 02/18/251322 CC: Time of 1ST Reevaluation: 12:45 Reevaluation 1ST: Unchanged Patient Education/Counseling: Diagnosis, Treatment, Prognosis Family Education/Counseling: No Family Present SEPSIS Sepsis Screen Date sepsis recognized/suspect: Feb 18, 2025 Time Sepsis recognized/suspect: 1156 Recent Procedure: No On Antibiotic Therapy: No Respiratory Rate >20: No Heart Rate >90: No Temp<36 C (96.8 F) or >38.3 C: No SBP <90 or MAP <65 mmHG: No New Acute Mental Status Change: No Is the patient on CPAP, BIPAP,: No Physician Orders Electrocardigram (02/18/25 12:42) Chest Portable (02/18/25 12:42) Troponin-I Hs (02/18/25 15:42) Electrocardigram (02/18/25 13:42) Electrocardigram (02/18/25 15:42) Vital Signs Date Time Temp Pulse Resp B/P (MAP) Pulse Ox O2 Delivery O2 Flow Rate FiO2 02/18/25 13:57 16 100 Room Air* 0 N/A Nasal Cannula* 02/18/25 13:22 Room Air* 0 21 02/18/25 12:11 72 02/18/25 11:56 97.3 74 24 151/55 90 97.3 Laboratory Tests Test 02/18/25 13:24 White Blood Count 9.7 10^3/uL (4.4-10.8) Medications Medications Dose Ordered Sig/Layo Route Start Time Stop Time Status Last Admin Dose Admin Albuterol 5 mg ONCE ONCE NEB 02/18/25 12:45 02/18/25 12:46 DC 02/18/25 13:20 Ipratropium [place] 0.5 mg ONCE ONCE NEB 02/18/25 12:45 02/18/25 12:46 DC 02/18/25 13:19 Departure 1 Departure Time of Disposition: 16:06 (Patient presented with acute shortness of breath c oncerning for acute on chronic COPD Exacerbation, Pneumonia, ACS, CHF, Pneumothorax. Less likely PE, Dissection. Data: 1. I ordered and reviewed the result of at least 3 labs including a CBC, BMP, and Troponin. 2. I independently interpreted the following tests: Chest X-ray shows .Risk:This patient has a high risk of morbidity due to further diagnostic testing or tr eatment and may suffer from respiratory or cardiac etiology . Workup reveals a likely COPD Exacerbation and patient should be admitted for further workup. and possible expert consultation.) Impression: Primary Impression: Acute and chronic respiratory failure Additional Impressions: COPD exacerbation Shortness of breath Disposition: ADMITTED INPATIENT Admit to: Tele Condition: Guarded Critical Care Note Critical Care Time?: Yes Critical care comment: Acute on chronic respiratory failure Authorized and Performed by: Nargis Peterson MD Total critical care time: Approximately 39 minutes Due to a high probability of clinically significant, life threatening deterioration, the patient required my highest level of preparedness to intervene emergently and I personally spent this critical care time directly and personally managing the patient. This critical care time included obtaining a history; examining the patient; pulse oximetry; ordering and review of studies; arranging urgent treatment with development of a management plan; evaluation of patient's response to treatment; frequent reassessment; and, discussions with other providers. This critical care time was performed to assess and manage the high probability of imminent, life-threatening deterioration that could result in multi-organ failure. It was exclusive of separately billable procedures and treating other patients and teaching time. Please see my other sections and the rest of the note for further information on patient assessment and treatment. Stability Stability form required: No Heart Score Heart Score: Heart Score Response (Comments) Value History N/A 0 EKG N/A 0 Age N/A 0 Risk Factors N/A 0 Troponin N/A 0 Total 0 I personally scribed for NARGIS PETERSON MD ([email or web address]) on 02/18/25 at 12:21. Electronically submitted by Lianne Wesley ([email or web address]). I personally scribed for NARGIS PETERSON MD ([email or web address]) on 02/18/25 at 14:07. Electronically submitted by Lianne Wesley ([email or web address]). NARGIS PETERSON MD Feb 18, 2025 12:21
--- NOTE | 2025-02-18 12:35 | ECG ---
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
[2025-02-18] MEDS: IPRATROPIUM BROM 0.5 MG/2.5ML INH SOL NEB ONE (13:19)
[2025-02-18] MEDS: ALBUTEROL SULF 2.5 MG/0.5ML(0.5%) NEB SOLN NEB ONE (13:20)
--- NOTE | 2025-02-18 13:26 | DVH ---
CHEST RADIOGRAPH Indication: cp, sob Technique: Single frontal view of the chest was obtained Comparison: XY CHEST PORTABLE on DOS: 09/27/24 FINDINGS: Lines and Tubes: None Lungs: Findings suggest pulmonary vascular congestion.. Pleura: No effusion. No pneumothorax. Cardiomediastinal contours: Marginal cardiomegaly. Bones: No acute osseous abnormality. IMPRESSION: 1. Marginal cardiomegaly with bilateral pulmonary vascular congestion. Correlate with the clinical setting.
[2025-02-18 13:56] LABS: Hematocrit 28.4 % (36.0-46.0); Hemoglobin 9.3 g/dL (12.2-16.2); Mean Corpuscular Hemoglobin 27.2 pg (28.0-32.0); Mean Corpuscular Volume 82.6 fL (80.0-100.0); Nucleated Red Blood Cells % 0.1 %
[2025-02-18 13:58] LABS: Anion Gap 10 (5-15); Carbon Dioxide 24 mmol/L (20-31); Chloride 102 mmol/L (98-107); Potassium 3.5 mmol/L (3.5-5.1)
[2025-02-18 13:59] LABS: Sodium 136 mmol/L (136-145)
[2025-02-18 14:02] LABS: Calcium 8.6 mg/dL (8.7-10.4)
[2025-02-18 14:05] LABS: BUN/Creatinine Ratio 24.6 (10.0-20.0)
[2025-02-18 14:06] LABS: Blood Urea Nitrogen 34 mg/dL (9-23); Glucose 212 mg/dL (74-106)
[2025-02-18] MEDS: FUROSEMIDE 20 MG/2 ML VIAL IV ONE (17:30)
[2025-02-18] MEDS: methylPREDNISolone SOD SUCC 125 MG/2 ML VL IV ONE (17:30)
[2025-02-18] MEDS ORDERED: DEXTROSE (50%) 50ML SYRG IV PRN (19:45)
[2025-02-18] MEDS ORDERED: MORPHINE SULFATE INJ 2 MG/ml SYRG IV PRN (19:45)
[2025-02-18] MEDS ORDERED: NITROGLYCERIN 0.4 MG SL TAB SL PRN (19:45)
--- NOTE | 2025-02-18 20:24 | DVHHPRES ---
History of Present Illness Resident Creating Document: MAXWELLANNKAMRONALONZO RESIDENT History of Present Illness Patient is a 79-year-old female with a medical history of COPD on 2 L oxygen at home, congestive heart failure, insulin-dependent type 2 diabetes mellitus, hypertension, pulmonary artery hypertension, non-Hodgkin's lymphoma in remission since 1987, lung cancer status post right upper lobe resection in 2016 presented to the ED with a chief complaint of worsening shortness of breath for the last 3 days. Patient denied any fever, chills, expectoration, reported dry cough and has had worsening shortness of breath functional class 3-4 which prompted her to present to the hospital for further evaluation. Patient is also reporting lower extremity edema more on the right side. She denied any recent sick contacts, travel. Past Medical History As per HPI Past Surgical History Right upper lobectomy in 2016 Tonsillectomy Review of Systems Constitutional: Yes: Weakness Eyes: No: Pain, Vision change, Conjunctivae inflammation, Eyelid inflammation, Other, Redness ENT: No: Ear pain, Ear discharge, Nose pain, Nose discharge, Nose congestion, Mouth pain, Mouth swelling, Throat pain, Throat swelling, Other Respiratory: Cough, Dry, Shortness of breath, Wheezing Cardiovascular: Orthopnea, Edema Gastrointestinal: No: Nausea, Vomiting, Abdominal Pain, Diarrhea, Constipation, Melena, Hematochezia, Other Genitourinary: No Dysuria, No Frequency, No Incontinence, No Hematuria, No Retention, No Other Musculoskeletal: No: other, neck pain, shoulder pain, arm pain, back pain, hand pain, leg pain, foot pain Skin: No: Rash, Lesions, Jaundice, Bruising, Other Neurological: No: Weakness, Numbness, Incoordination, Change in speech, Confusion, Seizures, Other Allergies: Coded Allergies: Sulfa Antibiotics (Verified Allergy, Unknown, itching, 07/30/24) Exam Vital Signs Vital Signs Date Time Temp Pulse Resp B/P (MAP) Pulse Ox O2 Delivery O2 Flow Rate FiO2 02/18/25 17:31 99.4 79 20 167/61 (96) 95 99.4 02/18/25 13:57 Room Air* 0 N/A Nasal Cannula* Exam Gen - no pallor, no icterus, no cyanosis Skin - Patients skin is warm and dry. HEENT - normocephalic, atraumatic, moist mucous membranes. Neck - full ROM, no LAD, JVD could not be assessed because the patient was sitting in a chair Pulmonary - B/L slightly decreased breath sounds, no wheezing, minimal rales cardiovascular - regular S1,S2 heard, no added sounds, no murmurs heard. GI - soft, nontender abdomen. Bowel sounds normoactive Extremities- left lower extremity chronic swelling, right lower extremity pitting edema 1+ Neurological - Patient is A/O X 4 . Bilateral upper extremity strength 5/5, bilateral lower extremity strength 5/5, no facial droop, normal speech, no tremor, no sensory deficiets. Labs/Xrays Labs Test 02/18/25 14:52 02/18/25 13:24 Range/Units Troponin I High Sensitivity 10 </=34 ng/L White Blood Count 9.7 4.4-10.8 10^3/uL Red Blood Count 3.44 L 4.0-5.20 10^6/uL Hemoglobin 9.3 L 12.2-16.2 g/dL Hematocrit 28.4 L 36.0-46.0 % Mean Corpuscular Volume 82.6 80.0-100.0 fL Mean Corpuscular Hemoglobin 27.2 L 28.0-32.0 pg Mean Corpuscular Hemoglobin Concent 32.9 32.0-36.0 g/dL Red Cell Distribution Width 19.8 H 11.8-14.3 % Platelet Count 256 140-450 10^3/uL Mean Platelet Volume 8.7 6.9-10.8 fL Neutrophils (%) (Auto) 80.1 H 37.0-80.0 % Lymphocytes (%) (Auto) 9.6 L 10.0-50.0 % Monocytes (%) (Auto) 8.9 0.0-12.0 % Eosinophils (%) (Auto) 1.0 0.0-7.0 % Basophils (%) (Auto) 0.4 0.0-2.0 % Neutrophils # (Auto) 7.8 1.6-8.6 10 ^3/uL Lymphocytes # (Auto) 0.9 0.4-5.4 10 ^3/uL Monocytes # (Auto) 0.9 0-1.3 10 ^3/uL Eosinophils # (Auto) 0.1 0-0.8 10 ^3/uL Basophils # (Auto) 0 0-0.2 10 ^3/uL Nucleated Red Blood Cells 0.1 % Sodium Level 136 136-145 mmol/L Potassium Level 3.5 3.5-5.1 mmol/L Chloride Level 102 98-107 mmol/L Carbon Dioxide Level 24 20-31 mmol/L Anion Gap 10 5-15 Blood Urea Nitrogen 34 H 9-23 mg/dL Creatinine 1.38 H 0.550-1.02 mg/dL Glomerular Filtration Rate Calc 39 >90 mL/min BUN/Creatinine Ratio 24.6 H 10.0-20.0 Serum Glucose 212 H 74-106 mg/dL Calcium Level 8.6 L 8.7-10.4 mg/dL SEPSIS Sepsis Screen Date sepsis recognized/suspect: Feb 18, 2025 Time Sepsis recognized/suspect: 1155 Recent Procedure: No On Antibiotic Therapy: No Respiratory Rate >20: No Heart Rate >90: No Temp<36 C (96.8 F) or >38.3 C: No SBP <90 or MAP <65 mmHG: No New Acute Mental Status Change: No Is the patient on CPAP, BIPAP,: No Physician Orders Electrocardigram (02/18/25 12:42) Chest Portable (02/18/25 12:42) Electrocardigram (02/18/25 13:42) Electrocardigram (02/18/25 15:42) Admit (02/18/25 19:40) Nitroglycerin Sublingual (Ntrostat Subli (02/18/25 19:45) Morphine Sulfate Injection (02/18/25 19:45) Oxygen By Nasal Cannula (02/18/25 19:40) Stat Ekg For Chest Pain (02/18/25 19:40) Notify Md Of Changes From Base (02/18/25 19:40) Pt Sitter For 24 Hours (02/18/25 19:40) Emergency Dysrhythmia Protocol (02/18/25 19:40) Rapid Influenza A&B (02/18/25 19:40) Covid19 Antigen Carri (02/18/25 ) Urinalysis (02/18/25 19:40) Furosemide Injection (Lasix Injection) (02/19/25 06:00) Albuterol Medneb (Ventolin Medneb) (02/19/25 00:00) Ipratropium Medneb (Atrovent Medneb) (02/19/25 00:00) Apixaban (Eliquis) (02/18/25 22:00) Glucose Blood (Accu-Chek Comfort Curve T (02/18/25 22:00) Bedtime Insulin Scale (02/18/25 22:00) Moderate Insulin Ss (02/19/25 07:00) Dextrose 50% Syringe (02/18/25 19:45) Methylprednisolone Sod Succ (Solu Medrol (02/19/25 10:00) Acetaminophen Tablet (Tylenol Tablet) (02/18/25 19:45) Levothyroxine Tablet (Synthroid Tablet) (02/19/25 06:00) Empagliflozin (Jardiance) (02/19/25 10:00) Pantoprazole Tablet (Protonix Tablet) (02/19/25 06:00) Atorvastatin (Lipitor) (02/18/25 22:00) Losartan Tablet (Cozaar Tablet) (02/19/25 10:00) Patients Own Medication (02/19/25 10:00) Azithromycin Tablet (Zithromax Tablet) (02/19/25 10:00) Vital Signs Date Time Temp Pulse Resp B/P (MAP) Pulse Ox O2 Delivery O2 Flow Rate FiO2 02/18/25 17:31 99.4 79 20 167/61 (96) 95 99.4 02/18/25 17:30 160/72 02/18/25 17:28 97.9 78 16 160/72 (101) 92 97.9 02/18/25 13:57 16 100 Room Air* 0 N/A Nasal Cannula* 02/18/25 13:22 Room Air* 0 21 Laboratory Tests Test 02/18/25 13:24 White Blood Count 9.7 10^3/uL (4.4-10.8) Medications Medications Dose Ordered Sig/Layo Route Start Time Stop Time Status Last Admin Dose Admin Albuterol 5 mg ONCE ONCE NEB 02/18/25 12:45 02/18/25 12:46 DC 02/18/25 13:20 5 MG Furosemide 20 mg ONCE ONCE IV 02/18/25 16:15 02/18/25 16:16 DC 02/18/25 17:30 20 MG Ipratropium [place] 0.5 mg ONCE ONCE NEB 02/18/25 12:45 02/18/25 12:46 DC 02/18/25 13:19 0.5 MG Methylprednisolone Sodium Succinate 62.5 mg ONCE ONCE IV 02/18/25 12:45 02/18/25 12:46 DC 02/18/25 17:30 62.5 MG Assessment/Plan Assessment/Plan Acute on chronic hypoxic respiratory failure Acute on chronic HFpEF exacerbation COPD exacerbation with a possible viral pneumonia H/o pulmonary artery hypertension H/o PE H/o lung cancer status post right upper lobectomy in 2016 - Chest x-ray reviewed showed bilateral pulmonary vascular congestion - Lasix 40 IV b.i.d. - Duo nebs q.6 hours, Solu-Medrol and azithromycin for COPD exacerbation - Maintain SpO2 88-92% - COVID and influenza pending - Continue on - Continue on Eliquis., Opsumit 10 mg daily, Jardiance, losartan - Strict I&Os CLAUDIA on CKD likely prerenal due to VMN - Monitor urine output and kidney function Uncontrolled type 2 diabetes mellitus with hyperglycemia - Moderate insulin sliding scale a.c. HS Hypothyroidism - Continue on levothyroxine 75 mcg GERD - Continue on pantoprazole 40 mg Goals of care discussed with the patient for over 18 minutes Full code Time spent: 38 minutes Plan discussed with Dr. Mejia Plan discussed with: Patient, Other (RN) My Orders Orders - USMAN FINNEGAN RESIDENT Procedure Category Date Status Time Admit ADMIT 02/18/25 Transmitted 19:40 Nitroglycerin [facility] 02/18/25 Transmitted Sublingual (Ntrostat 19:45 Morphine Sulfate PH[facility] 02/18/25 Transmitted Injection 19:45 Oxygen By Nasal RT 02/18/25 Transmitted Cannula 19:40 Stat Ekg For Chest [facility] 02/18/25 Transmitted Pain 19:40 Notify Of Changes [facility] 02/18/25 Transmitted From Base 19:40 Pt Sitter For [facility] 02/18/25 Transmitted 24 Hours 19:40 Emergency Dysrhythmia [facility] 02/18/25 Transmitted Protocol 19:40 Rapid Influenza A&B LAB 02/18/25 Transmitted 19:40 Covid19 Antigen Carri LAB 02/18/25 Transmitted Urinalysis LAB 02/18/25 Transmitted 19:40 Furosemide Injection [facility] 02/19/25 Transmitted (Lasix Injection) 06:00 Albuterol Medneb PHA 02/19/25 Transmitted (Ventolin Medneb) 00:00 Ipratropium Medneb PHA 02/19/25 Transmitted (Atrovent Medneb) 00:00 Apixaban (Eliquis) PHA 02/18/25 Transmitted 22:00 Glucose Blood [facility] 02/18/25 Transmitted (Accu-Chek Comfort 22:00 Bedtime Insulin Scale PH[facility] 02/18/25 Transmitted 22:00 Moderate Insulin Ss [facility] 02/19/25 Transmitted 07:00 Dextrose 50% Syringe [facility] 02/18/25 Transmitted 19:45 Methylprednisolone PHA 02/19/25 Transmitted Sod Succ (Solu Medrol 10:00 Acetaminophen Tablet [facility] 02/18/25 Transmitted (Tylenol Tablet) 19:45 Levothyroxine Tablet PHA 02/19/25 Transmitted (Synthroid Tablet) 06:00 Empagliflozin PHA 02/19/25 Transmitted (Jardiance) 10:00 Pantoprazole Tablet PHA 02/19/25 Transmitted (Protonix Tablet) 06:00 Atorvastatin (Lipitor) PHA 02/18/25 Transmitted 22:00 Losartan Tablet PHA 02/19/25 Transmitted (Cozaar Tablet) 10:00 Patients Own PHA 02/19/25 Transmitted Medication 10:00 Azithromycin Tablet PHA 02/19/25 Transmitted (Zithromax Tablet) 10:00 Date of Service: Feb 18, 2025 Billing Provider: XENA MEJIA MD Common Visit Codes: [id number] INP/OBS CARE (HIGH) Secondary Visit Codes: [id number] CARE PLAN 30 MINUTES USMAN FINNEGAN RESIDENT Feb 18, 2025 20:24 XENA MEJIA MD Feb 19, 2025 17:35
[2025-02-18] MEDS: ACCU-CHEK COMFORT CURVE STRIP VI SCH (22:00)
[2025-02-18] MEDS: InsuLIN REG 1unit/0.01ml Soln (100units/ml) SC SCH (22:00)
[2025-02-18 23:20] VITALS: BP 160/61; PULSE 79; RESP 18; TEMP 99.4; O2SAT 95
[2025-02-18] MEDS: ALBUTEROL SULF 2.5 MG/0.5ML(0.5%) NEB SOLN NEB SCH (23:53)
[2025-02-18] MEDS: IPRATROPIUM BROM 0.5 MG/2.5ML INH SOL NEB SCH (23:54)
[2025-02-19] VITALS (16 sets, daily range): BP systolic 103–113; BP diastolic 44–60; PULSE 60–82; RESP 14–20; TEMP 97.9–98.1; O2SAT 96–100
[2025-02-19] MEDS: ATORVASTATIN 20 MG TAB PO SCH (02:45)
[2025-02-19] MEDS: APIXABAN 5 MG TAB PO SCH (02:46)
[2025-02-19 04:06] LABS: COVID19 ANTIGEN SOFIA FIA NEGATIVE (NEGATIVE)
[2025-02-19 04:35] LABS: Hematocrit 29.3 % (36.0-46.0); Hemoglobin 9.7 g/dL (12.2-16.2); Mean Corpuscular Hemoglobin 27.4 pg (28.0-32.0); Mean Corpuscular Volume 82.3 fL (80.0-100.0); Nucleated Red Blood Cells % 0.0 %
[2025-02-19 04:57] LABS: Anion Gap 14 (5-15); BUN/Creatinine Ratio 21.3 (10.0-20.0); Calcium 9.1 mg/dL (8.7-10.4); Carbon Dioxide 20 mmol/L (20-31); Chloride 102 mmol/L (98-107); Potassium 4.0 mmol/L (3.5-5.1); Total Protein 6.7 g/dL (5.7-8.2); Triglycerides 123 mg/dL (< 150)
[2025-02-19 04:58] LABS: Albumin 4.0 g/dL (3.2-4.8); Cholesterol 131 mg/dL (< 200)
[2025-02-19 04:59] LABS: Alanine Aminotransferase 53 U/L (7-40); Alkaline Phosphatase 194 U/L (46-116); Bilirubin, Total 0.4 mg/dL (0.2-1.0); Blood Urea Nitrogen 37 mg/dL (9-23); Glucose 268 mg/dL (74-106); HDL Cholesterol 37 mg/dL (40-59); Sodium 136 mmol/L (136-145)
[2025-02-19] MEDS ORDERED: INFLUENZA TRIVALENT 2024-2025 0.5 ML INJ IM ONE (05:15)
[2025-02-19] MEDS ORDERED: PNEUMOCOCCAL VACC POLYS 25 MCG/0.5 ML VIAL IM ONE (05:15)
[2025-02-19] MEDS: InsuLIN REG 1unit/0.01ml Soln (100units/ml) SC SCH (06:07)
[2025-02-19] MEDS: LEVOTHYROXINE SODIUM 25 MCG TAB PO SCH (06:09)
[2025-02-19] MEDS: PANTOPRAZOLE 40 MG TAB PO SCH (06:09)
[2025-02-19] MEDS: FUROSEMIDE 40 MG/4 ML VIAL IV SCH (06:09)
[2025-02-19] MEDS: EMPAGLIFLOZIN 10 MG TAB PO SCH (09:37)
[2025-02-19] MEDS: LOSARTAN POTASSIUM 25 MG TAB PO SCH (09:37)
[2025-02-19] MEDS: OPSUMIT 10 MG PO SCH (09:38)
--- NOTE | 2025-02-19 09:45 | DVH ---
EXAM: XY CHEST XRAY 1 VIEW Indication: SOB Technique: Single frontal view of the chest was obtained Comparison: XY CHEST PORTABLE on DOS: 02/18/25, XY CHEST PORTABLE on DOS: 09/27/24, XY CHEST TWO VIEWS ROUTINE on DOS: 07/30/24, XY CHEST TWO VIEWS ROUTINE on DOS: 07/04/24 FINDINGS: Lines and Tubes: None Lungs: Pulmonary vascular congestion. Pleura: No effusion. No pneumothorax. Cardiomediastinal contours: Cardiomegaly. Bones: No acute osseous abnormality. IMPRESSION: Cardiomegaly. Pulmonary vascular congestion.
[2025-02-19] MEDS ORDERED: methylPREDNISolone SOD SUCC 40 MG/ML VL IV SCH (10:00)
[2025-02-19] MEDS ORDERED: AZITHROMYCIN 250 MG TAB PO SCH (10:00)
[2025-02-19] MEDS ORDERED: ENOXAPARIN SOD 120 MG/0.8 ML SYRINGE SC ONE (10:15)
[2025-02-19] MEDS: INSULIN LANTUS (GLARGINE) 1 /0.01ml (100units/ml) SC ONE (11:57)
[2025-02-19 14:07] LABS: INR 1.19 (0.9-1.15); Partial Thromboplastin Time 39.3 SEC (24.5-34.5); Prothrombin Time 12.4 sec (9.3-11.8)
--- NOTE | 2025-02-19 14:23 | DVHPNRES ---
Progress Note Date Seen: Feb 19, 2025 Resident Creating Document: FINESSE VERMA RESIDENT Medical Necessity Reason Pt with a Central, PICC or Fol: No Subjective Review of Systems Brenda Daily is an 79-year-old female with past medical history of COPD on 2 L oxygen at home, CHF, insulin-dependent type 2 diabetes mellitus, hypertension, pulmonary artery hypertension, non-Hodgkin lymphoma in remission since 1987, lung cancer s/p right upper lobe resection in 2016 presented to the ED with the chief complaint of worsening shortness of breath for the last 3 days along with chills. The patient mentioned she tried to up titrate her oxygen at home, but that did not improve her shortness of breath. She mentioned she also had tightness in the chest along with a dry cough and lower extremity edema. She mentions having similar episodes of shortness of breath 3-4 times in the last 1 year. She denied any fever. Past medical history: COPD on 2 L oxygen at home, CHF, insulin-dependent type 2 diabetes mellitus, hypertension, pulmonary artery hypertension, non-Hodgkin lymphoma in remission since 1987, lung cancer s/p right upper lobe resection Past surgical history: right upper lobectomy in 2016, tonsillectomy Social & Personal history: Lives at home with family, she denies any smoking, alcohol and drugs Allergies: sulfa antibiotics Patient seen and examined at bedside. Patient is alert and oriented to time, place person and responding to all questions. Eyes: No Pain, No Vision change, No Conjunctivae inflammation, No Eyelid inflammation, No Redness ENT: No Ear pain, No Ear discharge, No Nose pain, No Nose discharge, No Nose congestion, No Mouth pain, No Mouth swelling, No Throat pain, No Throat swelling Cardiovascular: No Chest Pain, No Palpitations, Orthopnea, No Paroxysmal No Dyspnea, Edema, No Lt Headedness Respiratory: Cough, Dry, Shortness of breath, No SOB with exertion, No Wheezing, No Hemoptysis, No Pleuritic Pain, No Sputum Gastrointestinal: No Nausea, No Vomiting, No Abdominal Pain, No Diarrhea, No Constipation, No Melena, No Hematochezia Genitourinary: No Dysuria, No Frequency, No Incontinence, No Hematuria, No Retention Objective vital signs Vital Sign Date Time Temp Pulse Resp B/P (MAP) Pulse Ox O2 Delivery O2 Flow Rate FiO2 02/19/25 13:00 98.1 63 20 103/60 (96) 96 98.1 02/19/25 12:03 Nasal Cannula 2.0 02/19/25 12:03 28 medications Current Medications Medications Dose Ordered Sig/Layo Route Start Time Stop Time Status Last Admin Dose Admin Nitroglycerin 0.4 mg Q5MINP PRN SL 02/18/25 19:45 Morphine Sulfate 2 mg Q30M PRN IV 02/18/25 19:45 Furosemide 40 mg BIDD IV 02/19/25 06:00 02/19/25 06:09 40 MG Albuterol 2.5 mg Q6HR NEB 02/19/25 00:00 02/19/25 12:04 2.5 MG Ipratropium [place] 0.5 mg Q6HR NEB 02/19/25 00:00 02/19/25 12:04 0.5 MG Diagnostic Test (Pha) 1 strip ACHS 02/18/25 22:00 02/19/25 11:38 1 STRIP Insulin Human Regular HS SC 02/18/25 22:00 02/18/25 22:00 6 UNITS Insulin Human Regular AC SC 02/19/25 07:00 02/19/25 11:56 6 UNITS Dextrose 50 ml UD PRN IV 02/18/25 19:45 Acetaminophen 650 mg Q6HP PRN PO 02/18/25 19:45 Levothyroxine Sodium 75 mcg QAM@0600 PO 02/19/25 06:00 02/19/25 06:09 75 MCG Empaglifozin 10 mg DAILY PO 02/19/25 10:00 02/19/25 09:37 10 MG Pantoprazole Sodium 40 mg DAILY@0600 PO 02/19/25 06:00 02/19/25 06:09 40 MG Atorvastatin Calcium 40 mg HS PO 02/18/25 22:00 02/19/25 02:45 40 MG Losartan Potassium 25 mg DAILY PO 02/19/25 10:00 02/19/25 09:37 25 MG Patient Own Medication 1 DAILY PO 02/19/25 10:00 Enoxaparin Sodium 110 mg Q12HR SC 02/19/25 22:00 Insulin Glargine 10 units QAM SC 02/20/25 07:00 Examination General Appearance: Cooperative. Well developed. Well nourished. NAD Head Exam: Normal inspection Neck Exam: Normal inspection. Non-tender. Normal alignment Pulmonary/Respiratory: Chest non-tender. mildly reduced breath sounds bilaterally Cardiovascular/Chest: Regular rate and rhythm. No murmurs. No JVD. Peripheral Pulses: 2+ Radial (R). 2+ Radial (L). 2+ Pedal (R). 2+ Pedal (L) Abdominal Exam: Normal bowel sounds. Soft. normal abdomen, no visible veins, Nontender. No hepatospenomegaly. No masses Ankle Exam: Negative ankle edema Lower extremities: 1+ bilateral lower extremity pitting edema Neuro/Mental Status: A&O x4. Coherent. Thoughts/Psych: Normal thought pattern. Appropriate mood and affect. Good judgement and insight Skin Exam: Normal inspection. Normal color. Warm. Dry laboratory and microbiology Laboratory Tests 02/19/25 04:03 Test 02/19/25 04:03 Range/Units Serum Glucose 268 H 74-106 mg/dL Labs and/or images reviewed: Labs reviewed by me, Image(s) reviewed by me Problem List/Assessment/Plan Problem List/Assessment/Plan # Acute on chronic hypoxic respiratory failure # Acute on chronic HFpEF # Possible COPD exacerbation with pssible viral pneumonia # History of PE -Chest xray - Cardiomegaly and Pulmonary vascular congestion -old Echo 01/04- EF >55%, severe PAH -BNP 152.10 -covid, influenza negative -lasix 40mg iv bid -albuterol and ipratropium mednebs every 6 hours # CLAUDIA on CKD, likely due to VMN -avoid nephrotoxic agents -monitor BMP # Uncontrolled type 2 diabetes mellitus with hyperglycemia -HbA1c is 8 -Moderate insulin sliding scale a.c. HS -started lantus 10 units qam # Chronic hypochromic normocytic anemia -monitor H&H -stool occult blood ordered # Mild transmnitis # Hypothyroidism - Continue on levothyroxine 75 mcg # GERD - Continue on protonix 40 mg daily po PUD prophylaxis: Protonix 40 mg DVT prophylaxis: lovenox 110mg q12 hr sc Goals of care discussed with the patient for over 18 minutes ,Full code Plan discussed with Dr. Mejia Plan discussed with: Patient Date of Service: Feb 19, 2025 Billing Provider: XENA MEJIA MD Common Visit Codes: [id number] INP/OBS CARE(HIGH) FINESSE VERMA RESIDENT Feb 19, 2025 14:23 XENA MEJIA MD Feb 19, 2025 17:36
[2025-02-19] MEDS: ACETAMINOPHEN 325 MG TAB PO PRN (21:08)
[2025-02-19] MEDS: ENOXAPARIN SOD 120 MG/0.8 ML SYRINGE SC SCH (21:09)
[2025-02-20] VITALS (18 sets, daily range): BP systolic 96–138; BP diastolic 35–91; PULSE 72–112; RESP 15–24; TEMP 97.7–98.8; O2SAT 90–100
[2025-02-20 01:21] LABS: Urine Budding Yeast MANY /hpf (None Seen); Urine Protein, UAD Negative (Negative)
[2025-02-20] MEDS: INSULIN LANTUS (GLARGINE) 1 /0.01ml (100units/ml) SC SCH (06:31)
[2025-02-20 07:10] LABS: Hematocrit 28.0 % (36.0-46.0); Hemoglobin 9.3 g/dL (12.2-16.2); Mean Corpuscular Hemoglobin 27.2 pg (28.0-32.0); Mean Corpuscular Volume 81.6 fL (80.0-100.0)
[2025-02-20 07:11] LABS: Anion Gap 15 (5-15); Carbon Dioxide 20 mmol/L (20-31); Chloride 103 mmol/L (98-107); Sodium 138 mmol/L (136-145)
[2025-02-20 07:12] LABS: Calcium 9.4 mg/dL (8.7-10.4)
[2025-02-20 07:17] LABS: BUN/Creatinine Ratio 24.9 (10.0-20.0)
[2025-02-20 07:23] LABS: Blood Urea Nitrogen 57 mg/dL (9-23); Glucose 144 mg/dL (74-106); Potassium 3.0 mmol/L (3.5-5.1)
[2025-02-20 07:28] LABS: Giant Platelets Few; Total Cells Counted 100.0 (100)
[2025-02-20] MEDS ORDERED: MEROPENEM 1GM IVPB 50 ML IV SCH (10:00)
[2025-02-20] MEDS: FUROSEMIDE 40 MG/4 ML VIAL IV SCH (10:00)
[2025-02-20] MEDS ORDERED: MEROPENEM 1GM IVPB 50 ML IV ONE (10:00)
--- NOTE | 2025-02-20 11:27 | DVH ---
CHEST RADIOGRAPH Indication: sob Technique: Single frontal view of the chest was obtained Comparison: XY CHEST XRAY 1 VIEW on DOS: 02/19/25, XY CHEST PORTABLE on DOS: 02/18/25, XY CHEST PORTABLE on DOS: 09/27/24 FINDINGS: The cardiac silhouette is enlarged. The lungs demonstrate perihilar airspace opacities. The pulmonary vasculature is prominent. Small right pleural effusion. There is no pneumothorax. IMPRESSION: As above
[2025-02-20] MEDS: POTASSIUM EFFERVESENT TAB 25 MEQ PO ONE ×2 (11:45→15:09)
[2025-02-20] MEDS: SODIUM CHLORIDE 0.9% 250 ML IV ONE ×2 (11:48→13:01)
[2025-02-20] MEDS: HYDROcodone-ACET 5/325MG TAB PO PRN (14:53)
[2025-02-20] MEDS: MEROPENEM 500MG IVPB 50 ML IV ONE (14:53)
[2025-02-20] MEDS: FLUCONAZOLE 200MG/100ML 100 ML IV ONE (14:53)
--- NOTE | 2025-02-20 15:06 | DVH ---
Exam: CT CT AB PEL WO CON-NO ORAL OR IV History: Pyelonephritis Comparison Study: CT CT AB PEL WO CON-NO ORAL OR IV on DOS: 09/26/24 TECHNIQUE: Multidetector CT of the abdomen was performed from lung bases to pubic symphysis. Imaging was performed without IV contrast. Axial, coronal and sagittal multiplanar reformats were obtained from the axial data set by the technologist. Radiation Dose Information: CT Dose: CTDI volume is 23.43 mGy. Dose-length product is 1195.69 mGy*cm FINDINGS: Evaluation of solid organs is limited due to lack of intravenous contrast use. Findings: Lung Bases: Mild increase interstitial markings noted at the lung bases. Liver: The liver is normal in size. No focal lesions. Gallbladder and Biliary Tree: Unremarkable Spleen: Unremarkable Pancreas: The pancreas is grossly normal in appearance. Adrenal Glands: Unremarkable Kidneys: There is a 5 mm obstructing stone present within in the proximal left ureter causing moderate left hydronephrosis. Bladder: Grossly unremarkable for degree of distention. Bowel: The stomach is grossly normal in appearance. Small bowel and colon are normal in caliber and distribution. The appendix is not visualized; however, no secondary findings of acute appendicitis identified. Ascites: Absent Lymphadenopathy: No mesenteric, retroperitoneal or periportal lymphadenopathy. Abdominal Wall and Mesentery: Unremarkable. Vasculature: The visualized abdominal aorta is normal in size and caliber. Evaluation of abdominal and pelvic vessels is limited due to lack of intravenous contrast. Pelvic Organs: Unremarkable Musculoskeletal: No aggressive focal bony lesions, acute fractures or dislocation. Soft tissues: Unremarkable IMPRESSION: 1. Moderate left-sided hydronephrosis with a 5 mm obstructing stone in the proximal left ureter. Air is present within the left collecting system, findings consistent with pyelonephritis 2. Radiation optimization: All CT scans at this facility use at least one of these dose optimization techniques: automated exposure control? mA and/or kV adjustment per patient size (includes targeted exams where dose is matched to clinical indication)? or iterative reconstruction.
[2025-02-20] MEDS: MORPHINE SULFATE INJ 2 MG/ml SYRG IV PRN (17:30)
--- NOTE | 2025-02-20 18:16 | DVHPNRES ---
Progress Note Date Seen: Feb 20, 2025 Resident Creating Document: FINESSE VERMA RESIDENT Medical Necessity Reason Pt with a Central, PICC or Fol: No Subjective Review of Systems Brenda Daily is an 79-year-old female with past medical history of COPD on 2 L oxygen at home, CHF, insulin-dependent type 2 diabetes mellitus, hypertension, pulmonary artery hypertension, non-Hodgkin lymphoma in remission since 1987, lung cancer s/p right upper lobe resection in 2016 presented to the ED with the chief complaint of worsening shortness of breath for the last 3 days along with chills. The patient mentioned she tried to up titrate her oxygen at home, but that did not improve her shortness of breath. She mentioned she also had tightness in the chest along with a dry cough and lower extremity edema. She mentions having similar episodes of shortness of breath 3-4 times in the last 1 year. She denied any fever. Past medical history: COPD on 2 L oxygen at home, CHF, insulin-dependent type 2 diabetes mellitus, hypertension, pulmonary artery hypertension, non-Hodgkin lymphoma in remission since 1987, lung cancer s/p right upper lobe resection Past surgical history: right upper lobectomy in 2016, tonsillectomy Social & Personal history: Lives at home with family, she denies any smoking, alcohol and drugs Allergies: sulfa antibiotics Patient seen and examined at bedside. Patient is alert and oriented to time, place person and responding to all questions. Eyes: No Pain, No Vision change, No Conjunctivae inflammation, No Eyelid inflammation, No Redness ENT: No Ear pain, No Ear discharge, No Nose pain, No Nose discharge, No Nose congestion, No Mouth pain, No Mouth swelling, No Throat pain, No Throat swelling Cardiovascular: No Chest Pain, No Palpitations, Orthopnea, No Paroxysmal No Dyspnea, Edema, No Lt Headedness Respiratory: Cough, Dry, Shortness of breath, No SOB with exertion, No Wheezing, No Hemoptysis, No Pleuritic Pain, No Sputum Gastrointestinal: No Nausea, No Vomiting, No Abdominal Pain, No Diarrhea, No Constipation, No Melena, No Hematochezia Genitourinary: No Dysuria, No Frequency, No Incontinence, No Hematuria, No Retention 02/20/25- the patient was seen at bedside today. The patient complained of intense pain in the left flank radiating to the left groin area and mentioned of her history of kidney stones. Her white count had increased to 19.9 today and urinalysis was positive for UTI. Lactic acid was 1.5. She was started on meropenem and fluconazole for acute complicated cystitis. CT abdomen pelvis showed Moderate left-sided hydronephrosis with a 5 mm obstructing stone in the proximal left ureter. Urology consult was placed. Her potassium today was 3, which was repleted. We also ordered for blood culture and urine culture. We also started her on morphine 2 mg q.12 p.r.n. for severe pain and [place] 5q4 p.r.n.. EKG was done which was normal. A consult for Dr. Ogden was also placed as he is her PCP. Bedside pocus was done which showed a dilated IVC. Objective vital signs Vital Sign Date Time Temp Pulse Resp B/P (MAP) Pulse Ox O2 Delivery O2 Flow Rate FiO2 02/20/25 17:30 76 18 114/55 02/20/25 17:19 97.7 94 97.7 02/20/25 13:00 Nasal Cannula* 3 32 Total Intake and Output 02/19/25 02/19/25 02/20/25 15:00 23:00 07:00 Intake Total 500 ml 800 ml Output Total 2000 ml Balance 500 ml -1200 ml medications Current Medications Medications Dose Ordered Sig/Layo Route Start Time Stop Time Status Last Admin Dose Admin Albuterol 2.5 mg Q6HR NEB 02/19/25 00:00 02/20/25 13:00 2.5 MG Ipratropium [place] 0.5 mg Q6HR NEB 02/19/25 00:00 02/20/25 13:00 0.5 MG Diagnostic Test (Pha) 1 strip ACHS 02/18/25 22:00 02/20/25 17:50 1 STRIP Insulin Human Regular HS SC 02/18/25 22:00 02/19/25 21:20 10 UNITS Insulin Human Regular AC SC 02/19/25 07:00 02/20/25 12:58 6 UNITS Dextrose 50 ml UD PRN IV 02/18/25 19:45 Acetaminophen 650 mg Q6HP PRN PO 02/18/25 19:45 02/20/25 03:12 650 MG Levothyroxine Sodium 75 mcg QAM@0600 PO 02/19/25 06:00 02/20/25 06:09 75 MCG Empaglifozin 10 mg DAILY PO 02/19/25 10:00 02/20/25 11:45 10 MG Pantoprazole Sodium 40 mg DAILY@0600 PO 02/19/25 06:00 02/20/25 06:09 40 MG Atorvastatin Calcium 40 mg HS PO 02/18/25 22:00 02/19/25 21:07 40 MG Patient Own Medication 1 DAILY PO 02/19/25 10:00 Enoxaparin Sodium 110 mg Q12HR SC 02/19/25 22:00 02/20/25 11:47 110 MG Insulin Glargine 10 units QAM SC 02/20/25 07:00 02/20/25 06:31 10 UNITS Fluconazole 100 ml @ 100 mls/hr DAILY IV 02/21/25 10:00 Meropenem 50 ml @ 17 mls/hr Q12HR IV 02/20/25 22:00 Acetaminophen/ Hydrocodone Bitart 1 tab Q6HPRN PRN PO 02/20/25 14:00 02/20/25 14:53 1 TAB Morphine Sulfate 2 mg Q12HP PRN IV 02/20/25 16:30 02/20/25 17:30 2 MG Examination General Appearance: Cooperative. Well developed. Well nourished. NAD Head Exam: Normal inspection Neck Exam: Normal inspection. Non-tender. Normal alignment Pulmonary/Respiratory: Chest non-tender. mildly reduced breath sounds bilaterally Cardiovascular/Chest: Regular rate and rhythm. No murmurs. No JVD. Peripheral Pulses: 2+ Radial (R). 2+ Radial (L). 2+ Pedal (R). 2+ Pedal (L) Abdominal Exam: Normal bowel sounds. Soft. normal abdomen, no visible veins, t enderness in left flank, left CVA tenderness. No hepatospenomegaly. No masses Ankle Exam: Negative ankle edema Lower extremities: 1+ bilateral lower extremity pitting edema Neuro/Mental Status: A&O x4. Coherent. Thoughts/Psych: Normal thought pattern. Appropriate mood and affect. Good judgement and insight Skin Exam: Normal inspection. Normal color. Warm. Dry laboratory and microbiology Laboratory Tests 02/20/25 06:32 Test 02/20/25 06:32 Range/Units Serum Glucose 144 H 74-106 mg/dL Labs and/or images reviewed: Labs reviewed by me, Image(s) reviewed by me Problem List/Assessment/Plan Problem List/Assessment/Plan # Acute on chronic hypoxic respiratory failure # Acute on chronic HFpEF # Possible COPD exacerbation with pssible viral pneumonia # History of PE -Chest xray - Cardiomegaly and Pulmonary vascular congestion -old Echo 01/04- EF >55%, severe PAH -BNP 152.10 -covid, influenza negative -lasix 40mg iv bid -albuterol and ipratropium mednebs every 6 hours # Acute complicated cystitis # Acute left hydronephrosis # Acute left pyelonephritis -white count was 19.9 -UA positive for UTI -abdomen CT pelvis showed a 5 mm obstructive stone in the left ureter with moderate left hydronephrosis -urology consult placed -started on meropenem and fluconazole -blood culture ordered -lactic acid 1.5 -chest x-ray showed cardiomegaly and moderate pleural effusion with prominent pulmonary vasculature # CLAUDIA on CKD, likely due to VMN -avoid nephrotoxic agents -monitor BMP # Uncontrolled type 2 diabetes mellitus with hyperglycemia -HbA1c is 8 -Moderate insulin sliding scale a.c. HS -started lantus 10 units qam # Chronic hypochromic normocytic anemia -monitor H&H -stool occult blood ordered # Mild transmnitis # Hypothyroidism - Continue on levothyroxine 75 mcg # GERD - Continue on protonix 40 mg daily po # Hypokalemia -repleted PUD prophylaxis: Protonix 40 mg DVT prophylaxis: lovenox 110mg q12 hr sc Goals of care discussed with the patient for over 18 minutes ,Full code Plan discussed with Dr. Del Toro Plan discussed with: Patient, Other My Orders My Orders Orders - FINESSE VERMA RESIDENT Procedure Category Date Status Time Hydrocodone-Acet PHA 02/20/25 In Process 5/325mg Tab ([place] 14:00 * Urology Consult CONS 02/20/25 Transmitted 16:06 Morphine Sulfate PHA 02/20/25 In Process Injection 16:30 *Consult Dr. Ogden CONS 02/20/25 Transmitted [place] 16:17 Date of Service: Feb 20, 2025 Billing Provider: XENA DEL TORO MD Common Visit Codes: [id number] INP/OBS CARE(HIGH) FINESSE VERMA RESIDENT Feb 20, 2025 18:16 XENA DEL TORO MD Feb 20, 2025 20:43
--- NOTE | 2025-02-20 18:38 | DVHINCON2 ---
Date of service: Feb 20, 2025 Referring Physician Hospitalist Reason for Consultation Right hydronephrosis History of Present Illness Patient admitted for respiratory distress is noted to have moderate right hydronephrosis, elevated creatinine and rising white count. 79-year-old female with a medical history of COPD on 2 L oxygen at home, congestive heart failure, insulin-dependent type 2 diabetes mellitus, hypertension, pulmonary artery hypertension, non-Hodgkin's lymphoma in remission since 1987, lung cancer status post right upper lobe resection in 2016 presented to the ED with a chief complaint of worsening shortness of breath for the last 3 days. Patient denied any fever, chills, expectoration, reported dry cough and has had worsening shortness of breath functional class 3-4 which prompted her to present to the hospital for further evaluation. Patient is also reporting lower extremity edema more on the right side. She denied any recent sick contacts, travel. Past Surgical History Right upper lobectomy in 2016 Tonsillectomy Family History: Patient reports no known family medical history. Allergies: Coded Allergies: Sulfa Antibiotics (Verified Allergy, Unknown, itching, 07/30/24) Home Meds Active Scripts Vancomycin Hcl (Vancomycin Po) 250 Mg So, 250 MG PO QID for 7 Days, #120 ML Prov:RADHA RUTHERFORD MD 10/04/24 Metronidazole (Metronidazole) 500 Mg Tab, 500 MG PO TID for 7 Days, #21 TAB Prov:RADHA RUTHERFORD MD 10/04/24 Reported Medications B-Complex Vitamins (Vitamin B Complex) Complex Tab, 1 OR DAILY for VITAMIN B50, TAB 08/01/24 Zolpidem Tartrate (Zolpidem Tartrate) 5 Mg Tab, 1 TAB PO HSPRN PRN for FOR INSOMNIA, #30 TAB 2 Refills 08/01/24 Fenofibrate (Fenofibrate) 160 Mg Tab, 1 TAB PO DAILY for HIGH CHOLESTEROL, #30 TAB 5 Refills 08/01/24 Tadalafil (Adcirca) 20 Mg Tab, 20 MG PO BID, TAB 08/01/24 Dicyclomine Hcl (Dicyclomine Hcl) 20 Mg Tab, 20 MG PO TID, MG 08/01/24 Furosemide (Furosemide) 40 Mg Tab, 40 MG PO DAILYP PRN for EDEMA 08/01/24 Budesonide-Formoterol Fumarate (Budesonide/Formoterol Fum 160-4.5 Mcg/Act) 1 Aer Aer, 2 AER IN BID for SOB, AER 08/01/24 Insulin Glargine (Lantus) 100 Unit/Ml Inj, 5 UNIT SC QPM for DIABETES, INJ 07/31/24 Insulin Glargine (Lantus) 100 Unit/Ml Inj, 10 UNIT SC QAM for DIABETES, INJ 07/31/24 Apixaban Base (ELIQUIS) 5 Mg Tab, 5 MG PO BID for PREVENT BLOOD CLOTS, TAB 07/31/24 Potassium Chloride (Klor-Con M10) 10 Meq Tab, 1 TAB PO DAILY for SUPPLEMENT, #30 TAB 5 Refills 07/31/24 Albuterol Sulfate (Albuterol Sulfate Hfa) 108 Mcg/Act Aer, 90 MCG IN PRN for SOB, AER 07/31/24 Guaifenesin (Mucinex Maximum Strength) 1,200 Mg Tab, 1200 MG PO 4-5X PER WEEK, TAB 07/31/24 Acetaminophen (Tylenol) 325 Mg Cap, 325 MG PO PRN for PAIN, CAP 07/31/24 Pioglitazone Hydrochloride (PIOGLITAZONE HCL) 15 Mg Tab, 15 MG PO BID for JS BETES, TAB 07/31/24 Rosuvastatin Calcium (Crestor) 5 Mg Tab, 1 TAB PO DAILY for HIGH CHOLESTEROL, #30 TAB 5 Refills 07/31/24 Esomeprazole Magnesium (Esomeprazole Magnesium) 40 Mg Cap, 40 MG PO DAILY for GERD, CAP 07/31/24 Losartan Potassium (Losartan Potassium) 25 Mg Tab, 25 MG PO DAILY for HTN for 30 Days, MG 07/31/24 Levothyroxine Sodium (Synthroid) 75 Mcg Tab, 1 TAB PO DAILY for LOW THYROID, #30 TAB 5 Refills 07/31/24 Hctz (Hydrochlorothiazide) 25 Mg Tab, 12.5 MG PO DAILY for EDEMA/HTN, TAB 07/31/24 Empagliflozin (Jardiance) 25 Mg Tab, 25 MG PO DAILY for DIABETES, TAB 07/31/24 Tramadol Hcl (Tramadol Hcl) 50 Mg Tab, 50 MG PO DAILY PRN for PAIN SCALE 7 THRU 10, MG 07/31/24 Pregabalin (Lyrica) 75 Mg Cap, 3 CAP PO BID for NERVE PAIN, #60 CAP 1 Refill 07/31/24 Duloxetine Hcl (Cymbalta) 60 Mg Cap, 1 CAP PO BID for DEPRESSION, #90 CAP 3 Refills 07/31/24 Cetirizine Hcl (Zyrtec Allergy) 10 Mg Cap, 10 MG PO HS for ALLERGIES, CAP 07/31/24 Current Medications Current Medications Medications (Trade) Dose Ordered Sig/Layo Route PRN Reason Start Time Stop Time Status Last Admin Enoxaparin Sodium (Lovenox) 110 mg Q12HR SC 02/19/25 22:00 02/20/25 11:47 Insulin Glargine (Lantus) 10 units QAM SC 02/20/25 07:00 02/20/25 06:31 Ceftriaxone Sodium 50 ml @ 100 mls/hr DAILY@09 IV 02/20/25 09:00 02/20/25 10:03 DC Furosemide (Lasix Injection) 40 mg DAILY IV 02/20/25 10:00 02/20/25 13:47 DC Meropenem 50 ml @ 17 mls/hr DAILY IV 02/20/25 10:00 02/20/25 10:49 DC Fluconazole 100 ml @ 100 mls/hr DAILY IV 02/21/25 10:00 Meropenem 50 ml @ 17 mls/hr Q12HR IV 02/20/25 22:00 Acetaminophen/ Hydrocodone Bitart ([place] 5/325MG Tab) 1 tab Q6HPRN PRN PO MODERATE PAIN (4-6 PAIN SCALE) 02/20/25 14:00 02/20/25 14:53 Morphine Sulfate 2 mg Q12HP PRN IV SEVERE PAIN (7-10 PAIN SCALE) 02/20/25 16:30 02/20/25 17:30 Review of Systems Constitutional: Yes: Weakness Eyes: No: Pain, Vision change, Conjunctivae inflammation, Eyelid inflammation, Other, Redness ENT: No: Ear pain, Ear discharge, Nose pain, Nose discharge, Nose congestion, Mouth pain, Mouth swelling, Throat pain, Throat swelling, Other Respiratory: Cough, Dry, Shortness of breath, Wheezing Cardiovascular: Orthopnea, Edema Gastrointestinal: No: Nausea, Vomiting, Abdominal Pain, Diarrhea, Constipation, Melena, Hematochezia, Other Genitourinary: No Dysuria, No Frequency, No Incontinence, No Hematuria, No Retention, No Other Musculoskeletal: No: other, neck pain, shoulder pain, arm pain, back pain, hand pain, leg pain, foot pain Skin: No: Rash, Lesions, Jaundice, Bruising, Other Neurological: No: Weakness, Numbness, Incoordination, Change in speech, Confusion, Seizures, Other Allergies: Coded Allergies: Sulfa Antibiotics (Verified Allergy, Unknown, itching, 07/30/24) Vital Signs Vital Signs Date Time Temp Pulse Resp B/P (MAP) Pulse Ox O2 Delivery O2 Flow Rate FiO2 02/20/25 17:30 76 18 114/55 02/20/25 17:19 97.7 94 97.7 02/20/25 13:00 Nasal Cannula* 3 32 Physical Exam Vital Signs Date Time Temp Pulse Resp B/P (MAP) Pulse Ox O2 Delivery O2 Flow Rate FiO2 02/18/25 17:31 99.4 79 20 167/61 (96) 95 99.4 02/18/25 13:57 Room Air* 0 N/A Nasal Cannula* Exam Gen - no pallor, no icterus, no cyanosis Skin - Patients skin is warm and dry. HEENT - normocephalic, atraumatic, moist mucous membranes. Neck - full ROM, no LAD, JVD could not be assessed because the patient was sitting in a chair Pulmonary - B/L slightly decreased breath sounds, no wheezing, minimal rales cardiovascular - regular S1,S2 heard, no added sounds, no murmurs heard. GI - soft, nontender abdomen. Bowel sounds normoactive Extremities- left lower extremity chronic swelling, right lower extremity pitting edema 1+ Neurological - Patient is A/O X 4 . Bilateral upper extremity strength 5/5, bilateral lower extremity strength 5/5, no facial droop, normal speech, no tremor, no sensory deficiets. Labs/Diagnostic Data Labs Test 02/20/25 17:49 02/20/25 09:10 02/20/25 06:32 02/20/25 00:28 Range/Units POC Glucose 203 H 70-106 mg/dl Lactic Acid Level 1.5 0.4-2.0 mmol/L White Blood Count 19.9 #H 4.4-10.8 10^3/uL Red Blood Count 3.43 L 4.0-5.20 10^6/uL Hemoglobin 9.3 L 12.2-16.2 g/dL Hematocrit 28.0 L 36.0-46.0 % Mean Corpuscular Volume 81.6 80.0-100.0 fL Mean Corpuscular Hemoglobin 27.2 L 28.0-32.0 pg Mean Corpuscular Hemoglobin Concent 33.4 32.0-36.0 g/dL Red Cell Distribution Width 19.3 H 11.8-14.3 % Platelet Count 326 140-450 10^3/uL Mean Platelet Volume 8.8 6.9-10.8 fL Neutrophils (%) (Auto) 37.0-80.0 % Lymphocytes (%) (Auto) 10.0-50.0 % Monocytes (%) (Auto) 0.0-12.0 % Basophils (%) (Auto) 0.0-2.0 % Neutrophils # (Auto) 1.6-8.6 10 ^3/uL Lymphocytes # (Auto) 0.4-5.4 10 ^3/uL Monocytes # (Auto) 0-1.3 10 ^3/uL Differential Total Cells Counted 100.0 100 Neutrophils % (Manual) 82 H 37.0-80.0 Band Neutrophils % (Manual) 5 Lymphocytes % (Manual) 6 L 10.0-50.0 Monocytes % (Manual) 7 0-12 Eosinophils % (Manual) 0 0-7 Basophils % (Manual) 0 0.0-2.0 Metamyelocytes % (manual) 0 Myelocytes % (Manual) 0 Promyelocytes % (Manual) 0 Blast Cells % (Manual) 0 Reactive Lymphocytes 0 Platelet Estimate Adequate Giant Platelets Few Sodium Level 138 136-145 mmol/L Potassium Level 3.0 L 3.5-5.1 mmol/L Chloride Level 103 98-107 mmol/L Carbon Dioxide Level 20 20-31 mmol/L Anion Gap 15 5-15 Blood Urea Nitrogen 57 #H 9-23 mg/dL Creatinine 2.29 #H 0.550-1.02 mg/dL Glomerular Filtration Rate Calc 21 >90 mL/min BUN/Creatinine Ratio 24.9 H 10.0-20.0 Serum Glucose 144 H 74-106 mg/dL Calcium Level 9.4 8.7-10.4 mg/dL Urine Color Colorless Yellow Urine Clarity Clear Clear Urine pH 5.0 5.0-9.0 Urine Specific Guild 1.010 1.001-1.035 Urine Protein Negative Negative Urine Ketones Negative Negative Urine Blood Trace H Negative /uL Urine Nitrite Negative Negative Urine Bilirubin Negative Negative Urine Urobilinogen Normal Negative mg/dL Urine Leukocyte Esterase 2+ Negative /uL Urine RBC 2 0 - 4 /hpf Urine Microscopic WBC 55 H 0-5 /HPF Urine Squamous Epithelial Cells Few <5 /hpf Urine Bacteria None seen None Seen /hpf Urine Yeast (Budding) Many None Seen /hpf Urine Glucose 4+ H Normal mg/dL Test 02/19/25 11:26 02/19/25 04:03 02/19/25 03:20 02/18/25 14:52 Range/Units Prothrombin Time 12.4 H 9.3-11.8 sec Prothrombin Time INR 1.19 H 0.9-1.15 Activated Partial Thromboplast Time 39.3 H 24.5-34.5 SEC Eosinophils (%) (Auto) 0.0 0.0-7.0 % Eosinophils # (Auto) 0 0-0.8 10 ^3/uL Basophils # (Auto) 0 0-0.2 10 ^3/uL Nucleated Red Blood Cells 0.0 % Hemoglobin A1c 8.0 H <5.7 % A1C Total Bilirubin 0.4 0.2-1.0 mg/dL Aspartate Amino Transferase (AST) 54 H 13-40 U/L Alanine Aminotransferase (ALT) 53 H 7-40 U/L Alkaline Phosphatase 194 H 46-116 U/L B-Type Natriuretic Peptide 152.10 0-100 pg/mL Total Protein 6.7 5.7-8.2 g/dL Albumin 4.0 3.2-4.8 g/dL Triglycerides Level 123 < 150 mg/dL Cholesterol Level 131 < 200 mg/dL LDL Cholesterol 69 < 100 mg/dL HDL Cholesterol 37 L 40-59 mg/dL Thyroid Stimulating Hormone (TSH) 0.69 0.55-4.78 uIU/mL Influenza Type A Antigen Negative Negative Influenza Type B Antigen Negative Negative SARS-CoV-2 Antigen (Rapid) Negative NEGATIVE Troponin I High Sensitivity 10 </=34 ng/L PATIENT: VIRI HEAD ACCT: [id number] UNIT: [id number] : 1945 LOC: CENTRAL ROOM / BED: 0209 / A AGE / SEX: 79 / F ADM STATUS: ADM IN SERVICE 1002 ORDERING PHYSICIAN: CHRIS CABALLERO RESIDENT PROCEDURE(s): ABPL - CT AB PEL WO CON-NO ORAL OR IV REASON: Pyelonephritis ORDER NUMBER(s): [id number], ACCESSION NUMBER(s): [id number] Exam: CT CT AB PEL WO CON-NO ORAL OR IV History: Pyelonephritis Comparison Study: CT CT AB PEL WO CON-NO ORAL OR IV on DOS: 09/26/24 TECHNIQUE: Multidetector CT of the abdomen was performed from lung bases to pubic symphysis. Imaging was performed without IV contrast. Axial, coronal and sagittal multiplanar reformats were obtained from the axial data set by the technologist. Radiation Dose Information: CT Dose: CTDI volume is 23.43 mGy. Dose-length product is 1195.69 mGy*cm FINDINGS: Evaluation of solid organs is limited due to lack of intravenous contrast use. Findings: Lung Bases: Mild increase interstitial markings noted at the lung bases. Liver: The liver is normal in size. No focal lesions. Gallbladder and Biliary Tree: Unremarkable Spleen: Unremarkable Pancreas: The pancreas is grossly normal in appearance. Adrenal Glands: Unremarkable Kidneys: There is a 5 mm obstructing stone present within in the proximal left ureter causing moderate left hydronephrosis. Bladder: Grossly unremarkable for degree of distention. Bowel: The stomach is grossly normal in appearance. Small bowel and colon are normal in caliber and distribution. The appendix is not visualized; however, no secondary findings of acute appendicitis identified. Ascites: Absent Lymphadenopathy: No mesenteric, retroperitoneal or periportal lymphadenopathy. Abdominal Wall and Mesentery: Unremarkable. Vasculature: The visualized abdominal aorta is normal in size and caliber. Evaluation of abdominal and pelvic vessels is limited due to lack of intravenous contrast. Pelvic Organs: Unremarkable Musculoskeletal: No aggressive focal bony lesions, acute fractures or dislocation. Soft tissues: Unremarkable IMPRESSION: 1. Moderate left-sided hydronephrosis with a 5 mm obstructing stone in the proximal left ureter. Air is present within the left collecting system, findings consistent with pyelonephritis 2. Radiation optimization: All CT scans at this facility use at least one of these dose optimization techniques: automated exposure control? mA and/or kV adjustment per patient size (includes targeted exams where dose is matched to clinical indication)? or iterative reconstruction. ATED BY: NOMAN MCCAIN MD DICTATED DATE/TIME: 02/20/25 5332 SIGNED BY: NOMAN MCCAIN MD SIGNED DATE/TIME: 02/20/25 1132 CC: Assessment Right hydronephrosis, moderate Azotemia Right ureteral calculus Pyelonephritis Plan/Recommendation Right percutaneous nephrostomy tube placement per Interventional radiology service as soon as feasible Plan discussed with: Patient, Other JAE AMANDA MD Feb 20, 2025 18:38
[2025-02-20] MEDS: MEROPENEM 500MG IVPB 50 ML IV SCH (21:43)
[2025-02-21] VITALS (20 sets, daily range): BP systolic 107–130; BP diastolic 39–86; PULSE 53–94; RESP 15–20; TEMP 97.2–98.5; O2SAT 93–100
[2025-02-21] MEDS: LIDOCAINE 5% TOPICAL PATCH TOP ONE (04:21)
[2025-02-21 06:59] LABS: Anion Gap 13 (5-15); Carbon Dioxide 21 mmol/L (20-31); Chloride 105 mmol/L (98-107); Potassium 4.1 mmol/L (3.5-5.1); Sodium 139 mmol/L (136-145)
[2025-02-21 07:06] LABS: BUN/Creatinine Ratio 30.6 (10.0-20.0); Hematocrit 26.7 % (36.0-46.0); Hemoglobin 8.9 g/dL (12.2-16.2)
[2025-02-21 07:07] LABS: Mean Corpuscular Hemoglobin 27.1 pg (28.0-32.0); Mean Corpuscular Volume 81.5 fL (80.0-100.0)
[2025-02-21 07:10] LABS: Blood Urea Nitrogen 67 mg/dL (9-23); Calcium 8.4 mg/dL (8.7-10.4); Glucose 176 mg/dL (74-106)
[2025-02-21 08:19] LABS: Total Cells Counted 100.0 (100)
[2025-02-21] MEDS ORDERED: VANCOMYCIN PER PHARMACY 0 MG IV SCH (08:30)
[2025-02-21] MEDS: FLUCONAZOLE 200MG/100ML 100 ML IV SCH (09:12)
[2025-02-21] MEDS: SODIUM CHLORIDE 0.9% 250 ML IV ONE (09:14)
[2025-02-21] MEDS: VANCOMYCIN 1GM/250ML KIT 250 ML IV ONE (10:37)
--- NOTE | 2025-02-21 11:58 | ECG ---
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
[2025-02-21] MEDS: fentaNYL CITRATE 100 MCG/2 ML VL ONE (13:12)
[2025-02-21] MEDS: MIDAZOLAM HCL 2MG/2ML 2ml VIAL (1mg/ml) ONE (13:12)
[2025-02-21] MEDS: LIDOCAINE 2%HCL (LOCAL ANESTH.) INJ 20ML MDV ONE (13:12)
--- NOTE | 2025-02-21 16:54 | DVH ---
ULTRASOUND-GUIDED left-sided nephrostomy HISTORY: Nephrostomy PLACEMENT Informed consent was obtained. Risks versus benefits were discussed. Patient consents to the procedure. A time out was conducted confirming lab values, the correct patient, the correct procedure and site of procedure. The patient was prepped and draped in the usual sterile fashion. Local anesthesia was achieved using 1% lidocaine. Following standard prep and under ultrasound guidance a midpole calyx of the left renal collecting system was punctured with an Accustick needle. A guidewire was placed within it. Following serial exchange 8.5 Belgian nephrostomy tube was advanced. Tube was injected with contrast. was terminated. The patient tolerated the procedure well without any immediate complications and recovered for 2 hours. IMPRESSION: 1. Left nephrostomy tube placed as above
--- NOTE | 2025-02-21 17:26 | DVHPNRES ---
Progress Note Date Seen: Feb 21, 2025 Resident Creating Document: FINESSE VERMA RESIDENT Medical Necessity Reason Pt with a Central, PICC or Fol: No Subjective Review of Systems Brenda Daily is an 79-year-old female with past medical history of COPD on 2 L oxygen at home, CHF, insulin-dependent type 2 diabetes mellitus, hypertension, pulmonary artery hypertension, non-Hodgkin lymphoma in remission since 1987, lung cancer s/p right upper lobe resection in 2016 presented to the ED with the chief complaint of worsening shortness of breath for the last 3 days along with chills. The patient mentioned she tried to up titrate her oxygen at home, but that did not improve her shortness of breath. She mentioned she also had tightness in the chest along with a dry cough and lower extremity edema. She mentions having similar episodes of shortness of breath 3-4 times in the last 1 year. She denied any fever. Past medical history: COPD on 2 L oxygen at home, CHF, insulin-dependent type 2 diabetes mellitus, hypertension, pulmonary artery hypertension, non-Hodgkin lymphoma in remission since 1987, lung cancer s/p right upper lobe resection Past surgical history: right upper lobectomy in 2016, tonsillectomy Social & Personal history: Lives at home with family, she denies any smoking, alcohol and drugs Allergies: sulfa antibiotics Patient seen and examined at bedside. Patient is alert and oriented to time, place person and responding to all questions. Eyes: No Pain, No Vision change, No Conjunctivae inflammation, No Eyelid inflammation, No Redness ENT: No Ear pain, No Ear discharge, No Nose pain, No Nose discharge, No Nose congestion, No Mouth pain, No Mouth swelling, No Throat pain, No Throat swelling Cardiovascular: No Chest Pain, No Palpitations, Orthopnea, No Paroxysmal No Dyspnea, Edema, No Lt Headedness Respiratory: Cough, Dry, Shortness of breath, No SOB with exertion, No Wheezing, No Hemoptysis, No Pleuritic Pain, No Sputum Gastrointestinal: No Nausea, No Vomiting, No Abdominal Pain, No Diarrhea, No Constipation, No Melena, No Hematochezia Genitourinary: No Dysuria, No Frequency, No Incontinence, No Hematuria, No Retention 02/20/25- the patient was seen at bedside today. The patient complained of intense pain in the left flank radiating to the left groin area and mentioned of her history of kidney stones. Her white count had increased to 19.9 today and urinalysis was positive for UTI. Lactic acid was 1.5. She was started on meropenem and fluconazole for acute complicated cystitis. CT abdomen pelvis showed Moderate left-sided hydronephrosis with a 5 mm obstructing stone in the proximal left ureter. Urology consult was placed. Her potassium today was 3, which was repleted. We also ordered for blood culture and urine culture. We also started her on morphine 2 mg q.12 p.r.n. for severe pain and Wendell 5q4 p.r.n.. EKG was done which was normal. A consult for Dr. Ogden was also placed as he is her PCP. Bedside pocus was done which showed a dilated IVC. 02/21/25- The patient was seen at bedside today. White count today was 34.8. Lactic acid was 1.3. Patient looked tachypneic. Blood culture showed Gram- negative rods. The patient was started on vancomycin per pharmacy. IR placed left nephrostomy tube without any complications. Objective vital signs Vital Sign Date Time Temp Pulse Resp B/P (MAP) Pulse Ox O2 Delivery O2 Flow Rate FiO2 02/21/25 17:00 97.8 78 19 107/55 (72) 95 97.8 02/21/25 11:46 Nasal Cannula* 3 32 Total Intake and Output 02/20/25 02/20/25 02/21/25 15:00 23:00 07:00 Intake Total 950 ml 250 ml Output Total 350 ml 200 ml Balance 600 ml 50 ml medications Current Medications Medications Dose Ordered Sig/Layo Route Start Time Stop Time Status Last Admin Dose Admin Albuterol 2.5 mg Q6HR NEB 02/19/25 00:00 02/21/25 11:46 2.5 MG Ipratropium Lillie 0.5 mg Q6HR NEB 02/19/25 00:00 02/21/25 11:46 0.5 MG Diagnostic Test (Pha) 1 strip ACHS 02/18/25 22:00 02/21/25 16:24 1 STRIP Insulin Human Regular HS SC 02/18/25 22:00 02/20/25 21:39 2 UNITS Insulin Human Regular AC SC 02/19/25 07:00 02/21/25 16:27 3 UNITS Dextrose 50 ml UD PRN IV 02/18/25 19:45 Acetaminophen 650 mg Q6HP PRN PO 02/18/25 19:45 02/20/25 03:12 650 MG Levothyroxine Sodium 75 mcg QAM@0600 PO 02/19/25 06:00 02/21/25 06:15 75 MCG Empaglifozin 10 mg DAILY PO 02/19/25 10:00 02/21/25 09:10 10 MG Pantoprazole Sodium 40 mg DAILY@0600 PO 02/19/25 06:00 02/21/25 06:15 40 MG Atorvastatin Calcium 40 mg HS PO 02/18/25 22:00 02/20/25 21:10 40 MG Patient Own Medication 1 DAILY PO 02/19/25 10:00 Insulin Glargine 10 units QAM SC 02/20/25 07:00 02/21/25 06:17 10 UNITS Fluconazole 100 ml @ 100 mls/hr DAILY IV 02/21/25 10:00 02/21/25 09:12 100 MLS/HR Meropenem 50 ml @ 17 mls/hr Q12HR IV 02/20/25 22:00 02/21/25 10:01 17 MLS/HR Acetaminophen/ Hydrocodone Bitart 1 tab Q6HPRN PRN PO 02/20/25 14:00 02/21/25 16:13 1 TAB Vancomycin HCl 0 ml @ 0 mls/hr PER PHARMACY IV 02/21/25 08:30 Examination General Appearance: Cooperative. Well developed. Well nourished. NAD Head Exam: Normal inspection Neck Exam: Normal inspection. Non-tender. Normal alignment Pulmonary/Respiratory: Chest non-tender. mildly reduced breath sounds bilaterally Cardiovascular/Chest: Regular rate and rhythm. No murmurs. No JVD. Peripheral Pulses: 2+ Radial (R). 2+ Radial (L). 2+ Pedal (R). 2+ Pedal (L) Abdominal Exam: Normal bowel sounds. Soft. normal abdomen, no visible veins, tenderness in left flank, left CVA tenderness. No hepatospenomegaly. No masses Ankle Exam: Negative ankle edema Lower extremities: 1+ bilateral lower extremity pitting edema Neuro/Mental Status: A&O x4. Coherent. Thoughts/Psych: Normal thought pattern. Appropriate mood and affect. Good judgement and insight Skin Exam: Normal inspection. Normal color. Warm. Dry laboratory and microbiology Laboratory Tests 02/21/25 06:08 Test 02/21/25 06:08 Range/Units Serum Glucose 176 H 74-106 mg/dL Microbiology Date/Time Source Procedure Growth Status 02/21/25 09:30 Nose MRSA Screen - Final Complete 02/20/25 09:21 Blood Blood Culture - Preliminary Resulted 02/20/25 00:28 Voided Urine Urine Culture - Preliminary Resulted Labs and/or images reviewed: Labs reviewed by me, Image(s) reviewed by me Problem List/Assessment/Plan Problem List/Assessment/Plan # Acute on chronic hypoxic respiratory failure # Acute on chronic HFpEF # Possible COPD exacerbation with pssible viral pneumonia # History of PE -Chest xray - Cardiomegaly and Pulmonary vascular congestion -old Echo 01/04- EF >55%, severe PAH -BNP 152.10 -covid, influenza negative -lasix 40mg iv bid -albuterol and ipratropium mednebs every 6 hours # Acute complicated cystitis # Acute left hydronephrosis s/p left nephrostomy tube placement # Acute left pyelonephritis -white count was 34.8 -UA positive for UTI -abdomen CT pelvis showed a 5 mm obstructive stone in the left ureter with moderate left hydronephrosis -urology consult-recommended left nephrostomy tube placement -meropenem and fluconazole -started on vancomycin per pharmacy -blood culture Gram-negative rods -lactic acid 1.5.1.3 -chest x-ray showed cardiomegaly and moderate pleural effusion with prominent pulmonary vasculature # CLAUDIA on CKD, likely due to VMN -avoid nephrotoxic agents -monitor BMP # Uncontrolled type 2 diabetes mellitus with hyperglycemia -HbA1c is 8 -Moderate insulin sliding scale a.c. HS -lantus 10 units qam # Chronic hypochromic normocytic anemia -monitor H&H -stool occult blood ordered # Mild transmnitis # Hypothyroidism - Continue on levothyroxine 75 mcg # GERD - Continue on protonix 40 mg daily po # Hypokalemia -repleted PUD prophylaxis: Protonix 40 mg DVT prophylaxis: lovenox 110mg q12 hr sc Goals of care discussed with the patient for over 18 minutes ,Full code Plan discussed with Dr. Del Toro Plan discussed with: Patient My Orders My Orders Orders - IFNESSE VERMA RESIDENT Procedure Category Date Status Time Vancomycin Per PHA 02/21/25 In Process Pharmacy 08:30 Vancomycin,Random LAB 02/22/25 Verified 04:00 Vancomycin Per KEVIN 02/21/25 In Process Pharmacy Protoc 09:12 Complete Blood Count LAB 02/22/25 Verified 04:00 Creatinine LAB 02/22/25 Verified 04:00 Date of Service: Feb 21, 2025 Billing Provider: XENA DEL TORO MD Common Visit Codes: [id number] INP/OBS CARE(HIGH) FINESSE VERMA RESIDENT Feb 21, 2025 17:26 XENA DEL TORO MD Feb 21, 2025 23:03
--- NOTE | 2025-02-21 17:53 | DVH ---
DATE: 02/2025 PROCEDURE: Left NEPHROSTOMY TUBE PLACEMENT HISTORY: NEPHROTUBE OPERATORS: Dr. Elroy Mccain DOCUMENTATION: Informed consent was obtained and a procedural time out was performed. SEDATION: Moderate sedation was utilized during the procedure. The patient received benzodiazepines and opioids, the dosing of which was documented in the patients permanent medical record. Pre-sedation history and evaluation revealed no contraindications to sedation. The patients level of consciousness and physiologic status was monitored continuously by the physician and nursing staff throughout the procedure. Total intra-service moderate sedation time was 30 minutes. FLUORO TIME: 0.2 minutes TECHNIQUE: The skin over the patient's back was sterilely prepped, draped, and infiltrated with 1% lidocaine. An Accustick needle was advanced into the midpole of the left renal collecting system a wire was coiled within it. Owing serial exchange an 8.5 Bengali nephrostomy tube was placed. Port was tested for function. IMPRESSION: 1. SUCCESSFUL left NEPHROSTOMY TUBE PLACEMENT.
[2025-02-21] MEDS: HYDROcodone-ACET 5/325MG TAB PO PRN (21:03)
[2025-02-22] VITALS (18 sets, daily range): BP systolic 112–139; BP diastolic 49–64; PULSE 61–85; RESP 14–19; TEMP 97.5–98.5; O2SAT 91–100
[2025-02-22 07:09] LABS: Hemoglobin 8.7 g/dL (12.2-16.2)
[2025-02-22 07:11] LABS: Hematocrit 25.6 % (36.0-46.0); Mean Corpuscular Hemoglobin 27.6 pg (28.0-32.0); Mean Corpuscular Volume 81.0 fL (80.0-100.0)
[2025-02-22 07:16] LABS: Chloride 106 mmol/L (98-107); Potassium 4.2 mmol/L (3.5-5.1); Sodium 140 mmol/L (136-145)
[2025-02-22 07:17] LABS: Anion Gap 14 (5-15)
[2025-02-22 07:18] LABS: Calcium 8.3 mg/dL (8.7-10.4); Carbon Dioxide 20 mmol/L (20-31)
[2025-02-22 07:23] LABS: BUN/Creatinine Ratio 37.6 (10.0-20.0)
[2025-02-22 07:26] LABS: Blood Urea Nitrogen 76 mg/dL (9-23); Glucose 158 mg/dL (74-106)
[2025-02-22] MEDS ORDERED: MORPHINE SULFATE INJ 2 MG/ml SYRG IV ONE (07:30)
[2025-02-22] MEDS: MORPHINE SULFATE INJ 2 MG/ml SYRG ONE (08:24)
[2025-02-22] MEDS: MORPHINE SULFATE INJ 2 MG/ml SYRG IM ONE (08:27)
[2025-02-22 08:39] LABS: Anisocytosis Slight; Total Cells Counted 100.0 (100)
[2025-02-22] MEDS: MORPHINE SULFATE INJ 2 MG/ml SYRG IV ONE (08:47)
[2025-02-22] MEDS ORDERED: HYDROmorphone HCL 2 MG/ML VL/or syr IV PRN (14:45)
--- NOTE | 2025-02-22 15:24 | DVHPNRES ---
Progress Note Date Seen: Feb 22, 2025 Resident Creating Document: FINESSE VERMA RESIDENT Medical Necessity Reason Pt with a Central, PICC or Fol: No Subjective Review of Systems Brenda Daily is an 79-year-old female with past medical history of COPD on 2 L oxygen at home, CHF, insulin-dependent type 2 diabetes mellitus, hypertension, pulmonary artery hypertension, non-Hodgkin lymphoma in remission since 1987, lung cancer s/p right upper lobe resection in 2016 presented to the ED with the chief complaint of worsening shortness of breath for the last 3 days along with chills. The patient mentioned she tried to up titrate her oxygen at home, but that did not improve her shortness of breath. She mentioned she also had tightness in the chest along with a dry cough and lower extremity edema. She mentions having similar episodes of shortness of breath 3-4 times in the last 1 year. She denied any fever. Past medical history: COPD on 2 L oxygen at home, CHF, insulin-dependent type 2 diabetes mellitus, hypertension, pulmonary artery hypertension, non-Hodgkin lymphoma in remission since 1987, lung cancer s/p right upper lobe resection Past surgical history: right upper lobectomy in 2016, tonsillectomy Social & Personal history: Lives at home with family, she denies any smoking, alcohol and drugs Allergies: sulfa antibiotics Patient seen and examined at bedside. Patient is alert and oriented to time, place person and responding to all questions. Eyes: No Pain, No Vision change, No Conjunctivae inflammation, No Eyelid inflammation, No Redness ENT: No Ear pain, No Ear discharge, No Nose pain, No Nose discharge, No Nose congestion, No Mouth pain, No Mouth swelling, No Throat pain, No Throat swelling Cardiovascular: No Chest Pain, No Palpitations, Orthopnea, No Paroxysmal No Dyspnea, Edema, No Lt Headedness Respiratory: Cough, Dry, Shortness of breath, No SOB with exertion, No Wheezing, No Hemoptysis, No Pleuritic Pain, No Sputum Gastrointestinal: No Nausea, No Vomiting, No Abdominal Pain, No Diarrhea, No Constipation, No Melena, No Hematochezia Genitourinary: No Dysuria, No Frequency, No Incontinence, No Hematuria, No Retention 02/20/25- the patient was seen at bedside today. The patient complained of intense pain in the left flank radiating to the left groin area and mentioned of her history of kidney stones. Her white count had increased to 19.9 today and urinalysis was positive for UTI. Lactic acid was 1.5. She was started on meropenem and fluconazole for acute complicated cystitis. CT abdomen pelvis showed Moderate left-sided hydronephrosis with a 5 mm obstructing stone in the proximal left ureter. Urology consult was placed. Her potassium today was 3, which was repleted. We also ordered for blood culture and urine culture. We also started her on morphine 2 mg q.12 p.r.n. for severe pain and [place] 5q4 p.r.n.. EKG was done which was normal. A consult for Dr. Ogden was also placed as he is her PCP. Bedside pocus was done which showed a dilated IVC. 02/21/25- The patient was seen at bedside today. White count today was 34.8. Lactic acid was 1.3. Patient looked tachypneic. Blood culture showed Gram- negative rods. The patient was started on vancomycin per pharmacy. IR placed left nephrostomy tube without any complications. 02/22/25- The patient was seen at bedside today. White count today was 27.2. Patient is breathing comfortably on 2L oxygen by nasal canula. Patient complained of intense pain in her back as she has severe degenerative disc disease, for which she was given 1 dose of morphine 2 mg and started on dilaudid 1mg q4 prn. Left nephrostomy tube is in place with minimal drainage and no discharge or redness around the site. Creatinine improved from 2.19 to 2.02 today. Patient started on gabapentin 400 mg t.i.d. for neuropathy. She was started on MiraLax 17 g p.o. b.i.d. for constipation. Objective vital signs Vital Sign Date Time Temp Pulse Resp B/P (MAP) Pulse Ox O2 Delivery O2 Flow Rate FiO2 02/22/25 11:35 70 18 97 02/22/25 11:29 Nasal Cannula* 2 28 02/22/25 09:00 98.1 112/52 (72) 98.1 Total Intake and Output 02/21/25 02/21/25 02/22/25 15:00 23:00 07:00 Intake Total 1400 ml 450 ml 250 ml Output Total 675 ml 150 ml Balance 1400 ml -225 ml 100 ml medications Current Medications Medications Dose Ordered Sig/Layo Route Start Time Stop Time Status Last Admin Dose Admin Morphine Sulfate 2 mg Q30M PRN IV 02/18/25 19:45 Cancel Albuterol 2.5 mg Q6HR NEB 02/19/25 00:00 02/22/25 11:29 2.5 MG Ipratropium [place] 0.5 mg Q6HR NEB 02/19/25 00:00 02/22/25 11:29 0.5 MG Diagnostic Test (Pha) 1 strip ACHS 02/18/25 22:00 02/22/25 11:30 1 STRIP Insulin Human Regular HS SC 02/18/25 22:00 02/21/25 21:22 2 UNITS Insulin Human Regular AC SC 02/19/25 07:00 02/22/25 11:55 2 UNITS Dextrose 50 ml UD PRN IV 02/18/25 19:45 Acetaminophen 650 mg Q6HP PRN PO 02/18/25 19:45 02/20/25 03:12 650 MG Levothyroxine Sodium 75 mcg QAM@0600 PO 02/19/25 06:00 02/22/25 07:06 75 MCG Empaglifozin 10 mg DAILY PO 02/19/25 10:00 02/22/25 10:00 10 MG Pantoprazole Sodium 40 mg DAILY@0600 PO 02/19/25 06:00 02/22/25 07:06 40 MG Atorvastatin Calcium 40 mg HS PO 02/18/25 22:00 02/21/25 21:22 40 MG Patient Own Medication 1 DAILY PO 02/19/25 10:00 Insulin Glargine 10 units QAM SC 02/20/25 07:00 02/22/25 07:08 10 UNITS Fluconazole 100 ml @ 100 mls/hr DAILY IV 02/21/25 10:00 02/22/25 10:33 100 MLS/HR Meropenem 50 ml @ 17 mls/hr Q12HR IV 02/20/25 22:00 02/22/25 10:38 17 MLS/HR Vancomycin HCl 0 ml @ 0 mls/hr PER PHARMACY IV 02/21/25 08:30 Acetaminophen/ Hydrocodone Bitart 1 tab Q4HPRN PRN PO 02/21/25 20:00 Hold 02/22/25 07:07 1 TAB Hydromorphone HCl 0.5 mg Q4HPRN PRN IV 02/22/25 15:15 Examination General Appearance: Cooperative. Well developed. Well nourished. NAD. Left nephrostomy tube in place with no discharge or erythema, draining minima serosanguineous fluid collection. Head Exam: Normal inspectiona Neck Exam: Normal inspection. Non-tender. Normal alignment Pulmonary/Respiratory: Chest non-tender. mildly reduced breath sounds bilaterally Cardiovascular/Chest: Regular rate and rhythm. No murmurs. No JVD. Peripheral Pulses: 2+ Radial (R). 2+ Radial (L). 2+ Pedal (R). 2+ Pedal (L) Abdominal Exam: Normal bowel sounds. Soft. normal abdomen, no visible veins, tenderness in left flank, No hepatospenomegaly. No masses Ankle Exam: Negative ankle edema Lower extremities: 1+ bilateral lower extremity pitting edema Neuro/Mental Status: A&O x4. Coherent. Thoughts/Psych: Normal thought pattern. Appropriate mood and affect. Good judgement and insight Skin Exam: Normal inspection. Normal color. Warm. Dry laboratory and microbiology Laboratory Tests 02/22/25 06:38 Test 02/22/25 06:38 Range/Units Serum Glucose 158 H 74-106 mg/dL Microbiology Date/Time Source Procedure Growth Status 02/21/25 09:30 Nose MRSA Screen - Final Complete 02/20/25 09:21 Blood Blood Culture - Final Citrobacter koseri Complete 02/20/25 00:28 Voided Urine Urine Culture - Final Complete Labs and/or images reviewed: Labs reviewed by me, Image(s) reviewed by me Problem List/Assessment/Plan Problem List/Assessment/Plan # Acute on chronic hypoxic respiratory failure # Acute on chronic HFpEF # Possible COPD exacerbation with pssible viral pneumonia # History of PE -Chest xray - Cardiomegaly and Pulmonary vascular congestion -old Echo 01/04- EF >55%, severe PAH -BNP 152.10 -covid, influenza negative -lasix 40mg iv bid -albuterol and ipratropium mednebs every 6 hours # Acute complicated cystitis # Acute left hydronephrosis s/p left nephrostomy tube placement day 1 # Acute left pyelonephritis -white count was 34.8 -UA positive for UTI -abdomen CT pelvis showed a 5 mm obstructive stone in the left ureter with moderate left hydronephrosis -urology consult-recommended left nephrostomy tube placement -meropenem and fluconazole -started on vancomycin per pharmacy -blood culture Gram-negative rods -lactic acid 1.5.1.3 -chest x-ray showed cardiomegaly and moderate pleural effusion with prominent pulmonary vasculature # CLAUDIA on CKD, likely due to VMN -avoid nephrotoxic agents -monitor BMP # Uncontrolled type 2 diabetes mellitus with hyperglycemia -HbA1c is 8 -Moderate insulin sliding scale a.c. HS -lantus 10 units qam # Chronic back pain, multilevel degenerative disc disease - [place] 10 q.4 hours and Dilaudid 1 mg q.4 - gabapentin 400 mg p.o. t.i.d. # Chronic hypochromic normocytic anemia -monitor H&H -stool occult blood ordered # Mild transmnitis # Hypothyroidism - Continue on levothyroxine 75 mcg # GERD - Continue on protonix 40 mg daily po # Hypokalemia -repleted PUD prophylaxis: Protonix 40 mg DVT prophylaxis: lovenox 110mg q12 hr sc Goals of care discussed with the patient for over 18 minutes ,Full code Plan discussed with Dr. Del Toro Plan discussed with: Patient My Orders My Orders Orders - FINESSE VERMA RESIDENT Procedure Category Date Status Time Complete Blood Count LAB 02/23/25 Verified 04:00 Creatinine LAB 02/23/25 Verified 04:00 Vancomycin,Random LAB 02/23/25 Verified 04:00 Vancomycin Per KEVIN 02/22/25 In Process Pharmacy Protoc 14:00 Hydromorphone Hcl Inj PHA 02/22/25 In Process (Dilaudid Injectio 15:15 Date of Service: Feb 22, 2025 Billing Provider: XENA DEL TORO MD Common Visit Codes: [id number] INP/OBS CARE(HIGH) FINESSE VERMA RESIDENT Feb 22, 2025 15:24 XENA DEL TORO MD Feb 22, 2025 23:19
[2025-02-22] MEDS: HYDROMORPHONE HCL 1 MG/ML INJ IV PRN ×2 (15:25→20:38)
[2025-02-22] MEDS: VANCOMYCIN 1GM/250ML KIT 250 ML IV ONE (16:13)
[2025-02-22] MEDS ORDERED: HYDROMORPHONE HCL 1 MG/ML INJ IV PRN (19:00)
[2025-02-22] MEDS: POLYETHYLENE GLYCOL 17 GM PWDR ONE (19:03)
[2025-02-22] MEDS: GABAPENTIN 400 MG CAP ONE ×2 (19:03→22:48)
[2025-02-22] MEDS: POLYETHYLENE GLYCOL 17 GM PWDR PO ONE (19:05)
[2025-02-22] MEDS: GABAPENTIN 400 MG CAP PO ONE (19:05)
[2025-02-22] MEDS: HYDROMORPHONE HCL 1 MG/ML INJ ONE (20:24)
[2025-02-22] MEDS: GABAPENTIN 400 MG CAP PO SCH (22:00)
[2025-02-23] VITALS (18 sets, daily range): BP systolic 116–166; BP diastolic 61–78; PULSE 72–99; RESP 16–97; TEMP 97.6–98.8; O2SAT 90–100
[2025-02-23 06:45] LABS: Hematocrit 29.2 % (36.0-46.0); Hemoglobin 9.7 g/dL (12.2-16.2); Mean Corpuscular Hemoglobin 27.2 pg (28.0-32.0); Mean Corpuscular Volume 82.0 fL (80.0-100.0); Nucleated Red Blood Cells % 0.1 %
[2025-02-23 06:47] LABS: Anion Gap 13 (5-15); Carbon Dioxide 22 mmol/L (20-31); Chloride 106 mmol/L (98-107); Potassium 4.5 mmol/L (3.5-5.1); Sodium 141 mmol/L (136-145)
[2025-02-23 06:48] LABS: Calcium 9.1 mg/dL (8.7-10.4)
[2025-02-23 06:53] LABS: BUN/Creatinine Ratio 43.2 (10.0-20.0); Blood Urea Nitrogen 67 mg/dL (9-23); Glucose 138 mg/dL (74-106)
--- NOTE | 2025-02-23 12:32 | DVHPNRES ---
Progress Note Date Seen: Feb 23, 2025 Resident Creating Document: FINESSE VERMA RESIDENT Medical Necessity Reason Pt with a Central, PICC or Fol: No Subjective Review of Systems Brenda Daily is an 79-year-old female with past medical history of COPD on 2 L oxygen at home, CHF, insulin-dependent type 2 diabetes mellitus, hypertension, pulmonary artery hypertension, non-Hodgkin lymphoma in remission since 1987, lung cancer s/p right upper lobe resection in 2016 presented to the ED with the chief complaint of worsening shortness of breath for the last 3 days along with chills. The patient mentioned she tried to up titrate her oxygen at home, but that did not improve her shortness of breath. She mentioned she also had tightness in the chest along with a dry cough and lower extremity edema. She mentions having similar episodes of shortness of breath 3-4 times in the last 1 year. She denied any fever. Past medical history: COPD on 2 L oxygen at home, CHF, insulin-dependent type 2 diabetes mellitus, hypertension, pulmonary artery hypertension, non-Hodgkin lymphoma in remission since 1987, lung cancer s/p right upper lobe resection Past surgical history: right upper lobectomy in 2016, tonsillectomy Social & Personal history: Lives at home with family, she denies any smoking, alcohol and drugs Allergies: sulfa antibiotics Patient seen and examined at bedside. Patient is alert and oriented to time, place person and responding to all questions. Eyes: No Pain, No Vision change, No Conjunctivae inflammation, No Eyelid inflammation, No Redness ENT: No Ear pain, No Ear discharge, No Nose pain, No Nose discharge, No Nose congestion, No Mouth pain, No Mouth swelling, No Throat pain, No Throat swelling Cardiovascular: No Chest Pain, No Palpitations, Orthopnea, No Paroxysmal No Dyspnea, Edema, No Lt Headedness Respiratory: Cough, Dry, Shortness of breath, No SOB with exertion, No Wheezing, No Hemoptysis, No Pleuritic Pain, No Sputum Gastrointestinal: No Nausea, No Vomiting, No Abdominal Pain, No Diarrhea, No Constipation, No Melena, No Hematochezia Genitourinary: No Dysuria, No Frequency, No Incontinence, No Hematuria, No Retention 02/20/25- the patient was seen at bedside today. The patient complained of intense pain in the left flank radiating to the left groin area and mentioned of her history of kidney stones. Her white count had increased to 19.9 today and urinalysis was positive for UTI. Lactic acid was 1.5. She was started on meropenem and fluconazole for acute complicated cystitis. CT abdomen pelvis showed Moderate left-sided hydronephrosis with a 5 mm obstructing stone in the proximal left ureter. Urology consult was placed. Her potassium today was 3, which was repleted. We also ordered for blood culture and urine culture. We also started her on morphine 2 mg q.12 p.r.n. for severe pain and [place] 5q4 p.r.n.. EKG was done which was normal. A consult for Dr. Ogden was also placed as he is her PCP. Bedside pocus was done which showed a dilated IVC. 02/21/25- The patient was seen at bedside today. White count today was 34.8. Lactic acid was 1.3. Patient looked tachypneic. Blood culture showed Gram- negative rods. The patient was started on vancomycin per pharmacy. IR placed left nephrostomy tube without any complications. 02/22/25- The patient was seen at bedside today. White count today was 27.2. Patient is breathing comfortably on 2L oxygen by nasal canula. Patient complained of intense pain in her back as she has severe degenerative disc disease, for which she was given 1 dose of morphine 2 mg and started on dilaudid 1mg q4 prn. Left nephrostomy tube is in place with minimal drainage and no discharge or redness around the site. Creatinine improved from 2.19 to 2.02 today. Patient started on gabapentin 400 mg t.i.d. for neuropathy. She was started on MiraLax 17 g p.o. b.i.d. for constipation. 02/23/25- The patient seen at bedside today. She complained of pain in her lower abdomen. She was given 1 time dose of IV mannitol and started on Flomax 0.4 mg PO HS. Order to strain all urine was placed. Patient was started on Senokot q.h.s. and MiraLax p.r.n. for constipation. Repeat blood cultures were ordered. IV antibiotics were changed to IV ceftriaxone 1 g daily. Physical therapy evaluation was requested for the patient. Urology was consulted and they recommended outpatient follow-up in 3-4 weeks once patient is stable for discharge. Objective vital signs Vital Sign Date Time Temp Pulse Resp B/P (MAP) Pulse Ox O2 Delivery O2 Flow Rate FiO2 02/23/25 11:59 78 17 150/78 02/23/25 08:38 98.3 98 98.3 02/23/25 08:19 Room Air* 0 21 Total Intake and Output 02/22/25 02/22/25 02/23/25 15:00 23:00 07:00 Intake Total 150 ml 200 ml 450 ml Output Total 250 ml Balance 150 ml 200 ml 200 ml medications Current Medications Medications Dose Ordered Sig/Layo Route Start Time Stop Time Status Last Admin Dose Admin Morphine Sulfate 2 mg Q30M PRN IV 02/18/25 19:45 Cancel Albuterol 2.5 mg Q6HR NEB 02/19/25 00:00 02/23/25 08:17 2.5 MG Ipratropium [place] 0.5 mg Q6HR NEB 02/19/25 00:00 02/23/25 08:17 0.5 MG Diagnostic Test (Pha) 1 strip ACHS 02/18/25 22:00 02/23/25 11:30 1 STRIP Insulin Human Regular HS SC 02/18/25 22:00 02/22/25 22:50 2 UNITS Insulin Human Regular AC SC 02/19/25 07:00 02/23/25 12:01 3 UNITS Dextrose 50 ml UD PRN IV 02/18/25 19:45 Acetaminophen 650 mg Q6HP PRN PO 02/18/25 19:45 02/20/25 03:12 650 MG Levothyroxine Sodium 75 mcg QAM@0600 PO 02/19/25 06:00 02/23/25 06:40 75 MCG Empaglifozin 10 mg DAILY PO 02/19/25 10:00 02/23/25 09:57 10 MG Pantoprazole Sodium 40 mg DAILY@0600 PO 02/19/25 06:00 02/23/25 06:40 40 MG Atorvastatin Calcium 40 mg HS PO 02/18/25 22:00 02/21/25 21:22 40 MG Patient Own Medication 1 DAILY PO 02/19/25 10:00 Insulin Glargine 10 units QAM SC 02/20/25 07:00 02/23/25 06:39 10 UNITS Fluconazole 100 ml @ 100 mls/hr DAILY IV 02/21/25 10:00 02/23/25 09:57 100 MLS/HR Meropenem 50 ml @ 17 mls/hr Q12HR IV 02/20/25 22:00 02/23/25 09:57 17 MLS/HR Vancomycin HCl 0 ml @ 0 mls/hr PER PHARMACY IV 02/21/25 08:30 Acetaminophen/ Hydrocodone Bitart 1 tab Q4HPRN PRN PO 02/21/25 20:00 02/23/25 06:43 1 TAB Polyethylene Glycol 17 gm BID PO 02/23/25 10:00 Hydromorphone HCl 1 mg Q4HPRN PRN IV 02/22/25 19:00 02/23/25 11:59 1 MG Gabapentin 400 mg BID PO 02/22/25 22:00 Ceftriaxone Sodium 50 ml @ 100 mls/hr DAILY@09 IV 02/24/25 09:00 UNV Examination General Appearance: Cooperative. Well developed. Well nourished. NAD. Left nephrostomy tube in place with no discharge or erythema, draining minimal serosanguineous fluid. Head Exam: Normal inspection Neck Exam: Normal inspection. Non-tender. Normal alignment Pulmonary/Respiratory: Chest non-tender. mildly reduced breath sounds bilaterally Cardiovascular/Chest: Regular rate and rhythm. No murmurs. No JVD. Peripheral Pulses: 2+ Radial (R). 2+ Radial (L). 2+ Pedal (R). 2+ Pedal (L) Abdominal Exam: Normal bowel sounds. Soft. normal abdomen, no visible veins, tenderness in left flank, tenderness in lower abdomen on palpation, No hepatospenomegaly. No masses Ankle Exam: Negative ankle edema Lower extremities: 1+ bilateral lower extremity pitting edema Neuro/Mental Status: A&O x4. Coherent. Thoughts/Psych: Normal thought pattern. Appropriate mood and affect. Good judgement and insight Skin Exam: Normal inspection. Normal color. Warm. Dry laboratory and microbiology Laboratory Tests 02/23/25 05:41 Test 02/23/25 05:41 Range/Units Serum Glucose 138 H 74-106 mg/dL Microbiology Date/Time Source Procedure Growth Status 02/21/25 09:30 Nose MRSA Screen - Final Complete 02/20/25 09:21 Blood Blood Culture - Final Citrobacter koseri Complete 02/20/25 00:28 Voided Urine Urine Culture - Final Complete Labs and/or images reviewed: Labs reviewed by me, Image(s) reviewed by me Problem List/Assessment/Plan Problem List/Assessment/Plan # Acute on chronic hypoxic respiratory failure # Acute on chronic HFpEF # Possible COPD exacerbation with possible viral pneumonia # History of PE -Chest xray - Cardiomegaly and Pulmonary vascular congestion -old Echo 01/04- EF >55%, severe PAH -BNP 152.10 -covid, influenza negative -albuterol and ipratropium mednebs every 6 hours # Acute complicated cystitis # Acute left hydronephrosis s/p left nephrostomy tube placement day 2 # Acute left pyelonephritis -white count was 18.6 -UA positive for UTI -abdomen CT pelvis showed a 5 mm obstructive stone in the left ureter with moderate left hydronephrosis -urology consult-left nephrostomy tube placement- 50 mL output overnight, outpatient follow-up in 3-4 weeks -ceftriaxone 1 g IV daily -repeat blood culture ordered -blood culture Gram-negative rods -lactic acid 1.5>1.3 -chest x-ray showed cardiomegaly and moderate pleural effusion with prominent pulmonary vasculature -strain all urine -Flomax 0.4 mg q.p.m. p.o. -one time dose of IV mannitol # CLAUDIA on CKD, likely due to VMN -avoid nephrotoxic agents -monitor BMP # Uncontrolled type 2 diabetes mellitus with hyperglycemia -HbA1c is 8 -Moderate insulin sliding scale a.c. HS -lantus 10 units qam # Chronic back pain, multilevel degenerative disc disease - [place] 10 q.4 hours and Dilaudid 1 mg q.4 - gabapentin 400 mg p.o. t.i.d. # Chronic hypochromic normocytic anemia -monitor H&H -stool occult blood ordered # Mild transmnitis # Hypothyroidism - Continue on levothyroxine 75 mcg # GERD - Continue on protonix 40 mg daily po # Hypokalemia -repleted # Acute constipation -Senokot 8.6 mg HS p.o. and MiraLax 17 g daily p.r.n. p.o. PUD prophylaxis: Protonix 40 mg DVT prophylaxis: lovenox 110mg q12 hr sc Goals of care discussed with the patient for over 18 minutes ,Full code Plan discussed with Dr. Arango Plan discussed with: Patient My Orders My Orders Orders - FINESSE VERMA RESIDENT Procedure Category Date Status Time Vancomycin Per KEVIN 02/22/25 In Process Pharmacy Protoc 14:00 Hydromorphone Hcl Inj PHA 02/22/25 In Process (Dilaudid Injectio 19:00 Polyethylene Glycol PHA 02/23/25 In Process 17g Powder (Miralax 10:00 Electrocardigram EKG 02/22/25 Logged 20:30 Gabapentin Capsule PHA 02/22/25 In Process (Neurontin Capsule) 22:00 Ceftriaxone 1gm/50ml PHA 02/24/25 Pending (Rocephin) 09:00 Blood Culture FREDRICK 02/23/25 Logged 11:16 Pt Request For Service PT 02/23/25 Logged 11:16 Date of Service: Feb 23, 2025 Billing Provider: YANETH VICK MD Common Visit Codes: [id number] INP/OBS CARE(HIGH) FINESSE VERMA RESIDENT Feb 23, 2025 12:32
[2025-02-23] MEDS: POLYETHYLENE GLYCOL 17 GM PWDR PO SCH (13:51)
[2025-02-23] MEDS: MANNITOL 20% SOLN 100 gm/500ml 100 ML IV ONE (16:00)
[2025-02-23] MEDS: VANCOMYCIN 500mg/100mL 100 ML IV ONE (17:00)
--- NOTE | 2025-02-23 17:49 | ECG ---
[facility] Test Date: 2025-02-20 Test Time: 15:17:10 Pat Name: VIRI HEAD Department: Respiratoy Room: 0219T A Gender: F [employer]: LEAH : 1945 Requested By: FINESSE VERMA Order Number: [id number] Reading MD: Cliff Sanchez Measurements Intervals [place] Rate: 77 P: 47 NE: 157 QRS: 27 QRSD: 95 T: -12 QT: 424 QTc: 480 Interpretive Statements Sinus rhythm Consider anterior infarct Borderline T abnormalities, inferior leads Electronically Signed On 02-24-2025 14:43:15 PST by Cliff Sanchez Please click the below link to view image of tracing.
[2025-02-23] MEDS ORDERED: POLYETHYLENE GLYCOL 17 GM PWDR PO PRN (18:00)
[2025-02-23] MEDS: TAMSULOSIN HYDROCHLORIDE 0.4 MG CAP PO SCH (18:43)
[2025-02-23] MEDS: TAMSULOSIN HYDROCHLORIDE 0.4 MG CAP PO ONE (18:43)
[2025-02-23] MEDS: SENNA 8.6 MG TAB ONE (21:08)
[2025-02-23] MEDS: SENNA 8.6 MG TAB PO SCH (21:16)
[2025-02-23] MEDS ORDERED: MEROPENEM 1GM IVPB 50 ML IV SCH (22:00)
[2025-02-24] VITALS (18 sets, daily range): BP systolic 127–156; BP diastolic 46–155; PULSE 69–96; RESP 17–22; TEMP 97.7–100.1; O2SAT 92–99
[2025-02-24 06:59] LABS: Hematocrit 30.4 % (36.0-46.0); Hemoglobin 10.1 g/dL (12.2-16.2); Mean Corpuscular Hemoglobin 27.6 pg (28.0-32.0); Mean Corpuscular Volume 83.1 fL (80.0-100.0); Nucleated Red Blood Cells % 0.0 %
[2025-02-24 07:16] LABS: Chloride 105 mmol/L (98-107); Potassium 4.7 mmol/L (3.5-5.1); Sodium 143 mmol/L (136-145)
[2025-02-24 07:17] LABS: Anion Gap 16 (5-15); Calcium 9.3 mg/dL (8.7-10.4); Carbon Dioxide 22 mmol/L (20-31)
[2025-02-24 07:22] LABS: BUN/Creatinine Ratio 47.1 (10.0-20.0)
[2025-02-24 07:24] LABS: Blood Urea Nitrogen 56 mg/dL (9-23); Glucose 157 mg/dL (74-106)
[2025-02-24] MEDS: VANCOMYCIN 500mg/100mL 100 ML IV ONE (17:00)
--- NOTE | 2025-02-24 17:34 | DVHPN2 ---
Subjective Patient still complains of intermittent flank pain presumably from nephrostomy tube site with a renal stone. Patient continued to take IV Dilaudid. Patient is with a poor ambulatory status. Her leukocytosis has significantly improved. Changes from previous H/P or p: No Changes Eyes: No Pain, No Vision change, No Conjunctivae inflammation, No Eyelid inflammation, No Other, No Redness ENT: No Ear pain, No Ear discharge, No Nose pain, No Nose discharge, No Nose congestion, No Mouth pain, No Mouth swelling, No Throat pain, No Throat swelling, No Other Cardiovascular: Orthopnea, Edema Respiratory: Cough, Dry, Shortness of breath Gastrointestinal: No Nausea, No Vomiting, No Abdominal Pain, No Diarrhea, No Constipation, No Melena, No Hematochezia, No Other Genitourinary: No Dysuria, No Frequency, No Incontinence, No Hematuria, No Retention, No Other Musculoskeletal: No other, No neck pain, No shoulder pain, No arm pain, No back pain, No hand pain, No leg pain, No foot pain Skin: No Rash, No Lesions, No Jaundice, No Bruising, No Other Objective Vitals Vital Signs Date Time Temp Pulse Resp B/P (MAP) Pulse Ox O2 Delivery O2 Flow Rate FiO2 02/24/25 17:26 97.9 86 22 132/54 (80) 96 97.9 02/24/25 10:00 Room Air 0.0 02/24/25 10:00 21 Intake/Output Intake and Output 02/24/25 07:00 Intake Total 972 ml Output Total 350 ml Balance 622 ml Intake Oral 972 ml Output Urine Total 350 ml # Voids 4 Exam Alert awake oriented to place and person comfortable in bed. However complains of intermittent flank pain. Obese female without distress. HEENT neck supple no JVD. Heart regular rate and rhythm S1-S2. Lungs fair air movement without rales wheezes poor inspiratory effort. Abdomen obese soft positive bowel sounds. Extremities positive pulses. Medications Current Medications Medications Dose Ordered Sig/Layo Route Start Time Stop Time Status Last Admin Dose Admin Morphine Sulfate 2 mg Q30M PRN IV 02/18/25 19:45 Cancel Albuterol 2.5 mg Q6HR NEB 02/19/25 00:00 02/24/25 12:10 2.5 MG Ipratropium [place] 0.5 mg Q6HR NEB 02/19/25 00:00 02/24/25 12:10 0.5 MG Diagnostic Test (Pha) 1 strip ACHS 02/18/25 22:00 02/24/25 11:30 1 STRIP Insulin Human Regular HS SC 02/18/25 22:00 02/23/25 21:25 2 UNITS Insulin Human Regular AC SC 02/19/25 07:00 02/24/25 11:30 2 UNITS Dextrose 50 ml UD PRN IV 02/18/25 19:45 Acetaminophen 650 mg Q6HP PRN PO 02/18/25 19:45 02/20/25 03:12 650 MG Levothyroxine Sodium 75 mcg QAM@0600 PO 02/19/25 06:00 02/24/25 05:39 75 MCG Empaglifozin 10 mg DAILY PO 02/19/25 10:00 02/24/25 10:18 10 MG Pantoprazole Sodium 40 mg DAILY@0600 PO 02/19/25 06:00 02/24/25 05:39 40 MG Atorvastatin Calcium 40 mg HS PO 02/18/25 22:00 02/23/25 21:16 40 MG Patient Own Medication 1 DAILY PO 02/19/25 10:00 Insulin Glargine 10 units QAM SC 02/20/25 07:00 02/24/25 06:43 10 UNITS Vancomycin HCl 0 ml @ 0 mls/hr PER PHARMACY IV 02/21/25 08:30 Acetaminophen/ Hydrocodone Bitart 1 tab Q4HPRN PRN PO 02/21/25 20:00 02/24/25 13:28 1 TAB Hydromorphone HCl 1 mg Q4HPRN PRN IV 02/22/25 19:00 02/24/25 14:42 1 MG Gabapentin 400 mg BID PO 02/22/25 22:00 02/24/25 10:18 400 MG Ceftriaxone Sodium 50 ml @ 100 mls/hr DAILY@09 IV 02/24/25 09:00 02/24/25 09:00 100 MLS/HR Tamsulosin HCl 0.4 mg QPM PO 02/23/25 18:00 02/23/25 18:43 0.4 MG Polyethylene Glycol 17 gm DAILYPRN PRN PO 02/23/25 18:00 Sennosides 8.6 mg HS PO 02/23/25 22:00 02/23/25 21:16 8.6 MG Laboratory Results Laboratory Tests 02/24/25 05:22 Chemistry Test 02/24/25 05:22 Calcium Level 9.3 mg/dL (8.7-10.4) Urinalysis Test 02/20/25 00:28 Urine Color Colorless (Yellow) Urine Clarity Clear (Clear) Urine pH 5.0 (5.0-9.0) Urine Specific [place] 1.010 (1.001-1.035) Urine Protein Negative (Negative) Urine Ketones Negative (Negative) Urine Blood Trace /uL (Negative) H Urine Nitrite Negative (Negative) Urine Bilirubin Negative (Negative) Urine Urobilinogen Normal mg/dL (Negative) Urine Leukocyte Esterase 2+ /uL (Negative) Urine RBC 2 /hpf (0 - 4) Urine Microscopic WBC 55 /HPF (0-5) H Urine Squamous Epithelial Cells Few /hpf (<5) Urine Bacteria None seen /hpf (None Seen) Urine Yeast (Budding) Many /hpf (None Seen) Urine Glucose 4+ mg/dL (Normal) H Microbiology Microbiology Date/Time Source Procedure Growth Status 02/23/25 13:34 Blood Blood Culture - Preliminary NO GROWTH AFTER 24 HOURS OF INCUBATION. Resulted 02/21/25 09:30 Nose MRSA Screen - Final Complete 02/20/25 00:28 Voided Urine Urine Culture - Final Complete Labs and/or images reviewed: Labs reviewed by me Assessment/Plan Assessment/Plan Renal colic pain 5 mm left ureteral stone with hydronephrosis Status post left percutaneous nephrostomy tube placement Patient is clinically stable. Her repeat blood cultures negative for growth. Therefore we will DC the vancomycin. Continue Rocephin based on the sensitivities from prior blood cultures. Otherwise we will get physical therapy evaluation to ambulate her. Continue to strain the urine and pain management. Continue rest of medications and supportive care and treatment she is on. Follow the labs in the morning. Further clinical management per clinical course and recommendations of consultants. Discussed with the nurse regarding care plan at bedside. Plan discussed with: Patient, Other Problem List: (1) Uncontrolled diabetes mellitus (2) COPD exacerbation Date of Service: Feb 24, 2025 Billing Provider: YANETH VICK MD Common Visit Codes: [id number] INP/OBS CARE(MOD) YANETH VICK MD Feb 24, 2025 17:34
[2025-02-25] VITALS (11 sets, daily range): BP systolic 134–163; BP diastolic 44–95; PULSE 75–86; RESP 16–20; TEMP 97.6–98.2; O2SAT 97–99
[2025-02-25 06:20] LABS: Anion Gap 11 (5-15); Carbon Dioxide 24 mmol/L (20-31); Potassium 4.6 mmol/L (3.5-5.1); Sodium 145 mmol/L (136-145)
[2025-02-25 06:21] LABS: Calcium 8.8 mg/dL (8.7-10.4); Chloride 110 mmol/L (98-107)
[2025-02-25 06:26] LABS: BUN/Creatinine Ratio 48.5 (10.0-20.0); Blood Urea Nitrogen 50 mg/dL (9-23); Glucose 165 mg/dL (74-106)
[2025-02-25 06:44] LABS: Hematocrit 29.2 % (36.0-46.0); Hemoglobin 9.5 g/dL (12.2-16.2); Mean Corpuscular Hemoglobin 27.0 pg (28.0-32.0); Mean Corpuscular Volume 82.6 fL (80.0-100.0)
[2025-02-25] MEDS ORDERED: HYDROMORPHONE HCL 1 MG/ML INJ IV PRN (08:15)
[2025-02-25 08:20] LABS: Anisocytosis Slight; Total Cells Counted 100.0 (100)
[2025-02-25] MEDS: MORPHINE SULFATE INJ 2 MG/ml SYRG IV PRN (10:51)
--- NOTE | 2025-02-25 11:06 | DVHPN2 ---
Progress Note - Dictate Date Seen: Feb 21, 2025 Medical Necessity Reason Pt with a Central, PICC or Fol: No Subjective PT WITH SEVERE FLANK PAIN AND SOB OBSTRUCTIVE RENAL CALCULUS HYDRONEPHROSIS UTI S/P NEPHROSTOMY RENAL COLIC HEMATURIA PMH ORGANIC HD HF HTN DIABETES VASCULOPATHY NEPHROPATHY PAH NON HODGKIN LYMPHOMA LUNG CA S/P RIGHT UPPER LOBECTOMY vital signs Vital Sign Date Time Temp Pulse Resp B/P (MAP) Pulse Ox O2 Delivery O2 Flow Rate FiO2 02/25/25 10:51 82 18 136/52 02/25/25 09:00 97.7 97 97.7 02/25/25 06:13 Nasal Cannula* 3 32 Total Intake and Output 02/24/25 02/24/25 02/25/25 15:00 23:00 07:00 Intake Total 50 ml 1580 ml 1200 ml Balance 50 ml 1580 ml 1200 ml medications Current Medications Medications Dose Ordered Sig/Layo Route Start Time Stop Time Status Last Admin Dose Admin Morphine Sulfate 2 mg Q30M PRN IV 02/18/25 19:45 Cancel Albuterol 2.5 mg Q6HR NEB 02/19/25 00:00 02/25/25 06:17 2.5 MG Ipratropium [place] 0.5 mg Q6HR NEB 02/19/25 00:00 02/25/25 06:17 0.5 MG Diagnostic Test (Pha) 1 strip ACHS 02/18/25 22:00 02/25/25 07:18 1 STRIP Insulin Human Regular HS SC 02/18/25 22:00 02/24/25 22:55 3 UNITS Insulin Human Regular AC SC 02/19/25 07:00 02/25/25 07:18 2 UNITS Dextrose 50 ml UD PRN IV 02/18/25 19:45 Acetaminophen 650 mg Q6HP PRN PO 02/18/25 19:45 02/20/25 03:12 650 MG Levothyroxine Sodium 75 mcg QAM@0600 PO 02/19/25 06:00 02/25/25 06:18 75 MCG Empaglifozin 10 mg DAILY PO 02/19/25 10:00 02/25/25 10:22 10 MG Pantoprazole Sodium 40 mg DAILY@0600 PO 02/19/25 06:00 02/25/25 06:18 40 MG Atorvastatin Calcium 40 mg HS PO 02/18/25 22:00 02/24/25 22:39 40 MG Patient Own Medication 1 DAILY PO 02/19/25 10:00 Insulin Glargine 10 units QAM SC 02/20/25 07:00 02/25/25 07:17 10 UNITS Gabapentin 400 mg BID PO 02/22/25 22:00 02/25/25 10:24 400 MG Ceftriaxone Sodium 50 ml @ 100 mls/hr DAILY@09 IV 02/24/25 09:00 02/25/25 10:22 100 MLS/HR Tamsulosin HCl 0.4 mg QPM PO 02/23/25 18:00 02/24/25 18:14 0.4 MG Polyethylene Glycol 17 gm DAILYPRN PRN PO 02/23/25 18:00 Sennosides 8.6 mg HS PO 02/23/25 22:00 02/24/25 22:40 8.6 MG Tramadol HCl 50 mg Q6HP PRN PO 02/25/25 09:45 Morphine Sulfate 2 mg Q6HPRN PRN IV 02/25/25 09:45 02/25/25 10:51 2 MG laboratory and microbiology Laboratory Tests 02/25/25 05:30 Test 02/25/25 05:30 Range/Units Serum Glucose 165 H 74-106 mg/dL Problem List SEVERE FLANK PAIN AND SOB OBSTRUCTIVE RENAL CALCULUS HYDRONEPHROSIS UTI S/P NEPHROSTOMY RENAL COLIC HEMATURIA PMH ORGANIC HD HF HTN DIABETES VASCULOPATHY NEPHROPATHY PAH NON HODGKIN LYMPHOMA LUNG CA S/P RIGHT UPPER LOBECTOMY Assessment/Plan NEPHROSTOMY CARE IV ABC ECHO EF >55% ANISH SEVERE TR SEVERE PAH Dietary Evaluation Review Comments: Nutrition Recommendation: 1) Glucerna 240ml BID 2) Monitor PO intake, lab values, weight trend, and I/O Expected Outcomes/Goals: Intake to meet >75% estimated needs FU 3-5 days Plan discussed with: Patient GLADYS BENSON MD Feb 25, 2025 11:06
--- NOTE | 2025-02-25 11:08 | DVHPN2 ---
Progress Note - Dictate Date Seen: Feb 25, 2025 Medical Necessity Reason Pt with a Central, PICC or Fol: No Subjective PT WITH SEVERE FLANK PAIN AND SOB OBSTRUCTIVE RENAL CALCULUS HYDRONEPHROSIS UTI S/P NEPHROSTOMY RENAL COLIC HEMATURIA LEUKOCYTOSIS PMH ORGANIC HD HF HTN DIABETES VASCULOPATHY NEPHROPATHY PAH NON HODGKIN LYMPHOMA LUNG CA S/P RIGHT UPPER LOBECTOMY vital signs Vital Sign Date Time Temp Pulse Resp B/P (MAP) Pulse Ox O2 Delivery O2 Flow Rate FiO2 02/25/25 10:51 82 18 136/52 02/25/25 09:00 97.7 97 97.7 02/25/25 06:13 Nasal Cannula* 3 32 Total Intake and Output 02/24/25 02/24/25 02/25/25 15:00 23:00 07:00 Intake Total 50 ml 1580 ml 1200 ml Balance 50 ml 1580 ml 1200 ml medications Current Medications Medications Dose Ordered Sig/Layo Route Start Time Stop Time Status Last Admin Dose Admin Morphine Sulfate 2 mg Q30M PRN IV 02/18/25 19:45 Cancel Albuterol 2.5 mg Q6HR NEB 02/19/25 00:00 02/25/25 06:17 2.5 MG Ipratropium [place] 0.5 mg Q6HR NEB 02/19/25 00:00 02/25/25 06:17 0.5 MG Diagnostic Test (Pha) 1 strip ACHS 02/18/25 22:00 02/25/25 07:18 1 STRIP Insulin Human Regular HS SC 02/18/25 22:00 02/24/25 22:55 3 UNITS Insulin Human Regular AC SC 02/19/25 07:00 02/25/25 07:18 2 UNITS Dextrose 50 ml UD PRN IV 02/18/25 19:45 Acetaminophen 650 mg Q6HP PRN PO 02/18/25 19:45 02/20/25 03:12 650 MG Levothyroxine Sodium 75 mcg QAM@0600 PO 02/19/25 06:00 02/25/25 06:18 75 MCG Empaglifozin 10 mg DAILY PO 02/19/25 10:00 02/25/25 10:22 10 MG Pantoprazole Sodium 40 mg DAILY@0600 PO 02/19/25 06:00 02/25/25 06:18 40 MG Atorvastatin Calcium 40 mg HS PO 02/18/25 22:00 02/24/25 22:39 40 MG Patient Own Medication 1 DAILY PO 02/19/25 10:00 Insulin Glargine 10 units QAM SC 02/20/25 07:00 02/25/25 07:17 10 UNITS Gabapentin 400 mg BID PO 02/22/25 22:00 02/25/25 10:24 400 MG Ceftriaxone Sodium 50 ml @ 100 mls/hr DAILY@09 IV 02/24/25 09:00 02/25/25 10:22 100 MLS/HR Tamsulosin HCl 0.4 mg QPM PO 02/23/25 18:00 02/24/25 18:14 0.4 MG Polyethylene Glycol 17 gm DAILYPRN PRN PO 02/23/25 18:00 Sennosides 8.6 mg HS PO 02/23/25 22:00 02/24/25 22:40 8.6 MG Tramadol HCl 50 mg Q6HP PRN PO 02/25/25 09:45 Morphine Sulfate 2 mg Q6HPRN PRN IV 02/25/25 09:45 02/25/25 10:51 2 MG laboratory and microbiology Laboratory Tests 02/25/25 05:30 Test 02/25/25 05:30 Range/Units Serum Glucose 165 H 74-106 mg/dL Problem List SEVERE FLANK PAIN AND SOB OBSTRUCTIVE RENAL CALCULUS HYDRONEPHROSIS UTI S/P NEPHROSTOMY RENAL COLIC HEMATURIA LEUKOCYTOSIS ACUTE RENAL INSUFF PMH ORGANIC HD HF HTN DIABETES VASCULOPATHY NEPHROPATHY PAH NON HODGKIN LYMPHOMA LUNG CA S/P RIGHT UPPER LOBECTOMY Assessment/Plan NEPHROSTOMY CARE IV ABC ECHO EF >55% ANISH SEVERE TR SEVERE PAH LEUKOCYTOSIS RESOLVED RENAL INSUFF RESOLVED MONITOR HYDROMORPHONE HCL 1MG, IV. Dietary Evaluation Review Comments: Nutrition Recommendation: 1) Glucerna 240ml BID 2) Monitor PO intake, lab values, weight trend, and I/O Expected Outcomes/Goals: Intake to meet >75% estimated needs FU 3-5 days Plan discussed with: Patient, Spouse GLADYS BENSON MD Feb 25, 2025 11:08
--- NOTE | 2025-02-25 11:40 | DVHPNRES ---
Progress Note Date Seen: Feb 25, 2025 Resident Creating Document: FINESSE VERMA RESIDENT Medical Necessity Reason Pt with a Central, PICC or Fol: No Subjective Review of Systems Brenda Daily is an 79-year-old female with past medical history of COPD on 2 L oxygen at home, CHF, insulin-dependent type 2 diabetes mellitus, hypertension, pulmonary artery hypertension, non-Hodgkin lymphoma in remission since 1987, lung cancer s/p right upper lobe resection in 2016 presented to the ED with the chief complaint of worsening shortness of breath for the last 3 days along with chills. The patient mentioned she tried to up titrate her oxygen at home, but that did not improve her shortness of breath. She mentioned she also had tightness in the chest along with a dry cough and lower extremity edema. She mentions having similar episodes of shortness of breath 3-4 times in the last 1 year. She denied any fever. Past medical history: COPD on 2 L oxygen at home, CHF, insulin-dependent type 2 diabetes mellitus, hypertension, pulmonary artery hypertension, non-Hodgkin lymphoma in remission since 1987, lung cancer s/p right upper lobe resection Past surgical history: right upper lobectomy in 2016, tonsillectomy Social & Personal history: Lives at home with family, she denies any smoking, alcohol and drugs Allergies: sulfa antibiotics Patient seen and examined at bedside. Patient is alert and oriented to time, place person and responding to all questions. Eyes: No Pain, No Vision change, No Conjunctivae inflammation, No Eyelid inflammation, No Redness ENT: No Ear pain, No Ear discharge, No Nose pain, No Nose discharge, No Nose congestion, No Mouth pain, No Mouth swelling, No Throat pain, No Throat swelling Cardiovascular: No Chest Pain, No Palpitations, Orthopnea, No Paroxysmal No Dyspnea, Edema, No Lt Headedness Respiratory: Cough, Dry, Shortness of breath, No SOB with exertion, No Wheezing, No Hemoptysis, No Pleuritic Pain, No Sputum Gastrointestinal: No Nausea, No Vomiting, No Abdominal Pain, No Diarrhea, No Constipation, No Melena, No Hematochezia Genitourinary: No Dysuria, No Frequency, No Incontinence, No Hematuria, No Retention 02/20/25- the patient was seen at bedside today. The patient complained of intense pain in the left flank radiating to the left groin area and mentioned of her history of kidney stones. Her white count had increased to 19.9 today and urinalysis was positive for UTI. Lactic acid was 1.5. She was started on meropenem and fluconazole for acute complicated cystitis. CT abdomen pelvis showed Moderate left-sided hydronephrosis with a 5 mm obstructing stone in the proximal left ureter. Urology consult was placed. Her potassium today was 3, which was repleted. We also ordered for blood culture and urine culture. We also started her on morphine 2 mg q.12 p.r.n. for severe pain and [place] 5q4 p.r.n.. EKG was done which was normal. A consult for Dr. Ogden was also placed as he is her PCP. Bedside pocus was done which showed a dilated IVC. 02/21/25- The patient was seen at bedside today. White count today was 34.8. Lactic acid was 1.3. Patient looked tachypneic. Blood culture showed Gram- negative rods. The patient was started on vancomycin per pharmacy. IR placed left nephrostomy tube without any complications. 02/22/25- The patient was seen at bedside today. White count today was 27.2. Patient is breathing comfortably on 2L oxygen by nasal canula. Patient complained of intense pain in her back as she has severe degenerative disc disease, for which she was given 1 dose of morphine 2 mg and started on dilaudid 1mg q4 prn. Left nephrostomy tube is in place with minimal drainage and no discharge or redness around the site. Creatinine improved from 2.19 to 2.02 today. Patient started on gabapentin 400 mg t.i.d. for neuropathy. She was started on MiraLax 17 g p.o. b.i.d. for constipation. 02/23/25- The patient seen at bedside today. She complained of pain in her lower abdomen. She was given 1 time dose of IV mannitol and started on Flomax 0.4 mg PO HS. Order to strain all urine was placed. Patient was started on Senokot q.h.s. and MiraLax p.r.n. for constipation. Repeat blood cultures were ordered. IV antibiotics were changed to IV ceftriaxone 1 g daily. Physical therapy evaluation was requested for the patient. Urology was consulted and they recommended outpatient follow-up in 3-4 weeks once patient is stable for discharge. 02/24/25- Patient still complains of intermittent flank pain presumably from nephrostomy tube site with a renal stone. Patient continued to take IV Dilaudid. Patient is with a poor ambulatory status. Her leukocytosis has significantly improved. 02/25/25- Patient still complains of intermittent flank pain. Physical therapy recommended placement in SNF for the patient, which she refused. We will continue to try working with physical therapy to try and get her out of bed into a chair. For pain medication was changed to tramadol 100 mg p.o. q.6 hours Dilaudid 1 mg IV q.6 hours. Objective vital signs Vital Sign Date Time Temp Pulse Resp B/P (MAP) Pulse Ox O2 Delivery O2 Flow Rate FiO2 02/25/25 10:51 82 18 136/52 02/25/25 09:00 97.7 97 97.7 02/25/25 06:13 Nasal Cannula* 3 32 Total Intake and Output 02/24/25 02/24/25 02/25/25 15:00 23:00 07:00 Intake Total 50 ml 1580 ml 1200 ml Balance 50 ml 1580 ml 1200 ml medications Current Medications Medications Dose Ordered Sig/Layo Route Start Time Stop Time Status Last Admin Dose Admin Morphine Sulfate 2 mg Q30M PRN IV 02/18/25 19:45 Cancel Albuterol 2.5 mg Q6HR NEB 02/19/25 00:00 02/25/25 06:17 2.5 MG Ipratropium [place] 0.5 mg Q6HR NEB 02/19/25 00:00 02/25/25 06:17 0.5 MG Diagnostic Test (Pha) 1 strip ACHS 02/18/25 22:00 02/25/25 07:18 1 STRIP Insulin Human Regular HS SC 02/18/25 22:00 02/24/25 22:55 3 UNITS Insulin Human Regular AC SC 02/19/25 07:00 02/25/25 07:18 2 UNITS Dextrose 50 ml UD PRN IV 02/18/25 19:45 Acetaminophen 650 mg Q6HP PRN PO 02/18/25 19:45 02/20/25 03:12 650 MG Levothyroxine Sodium 75 mcg QAM@0600 PO 02/19/25 06:00 02/25/25 06:18 75 MCG Empaglifozin 10 mg DAILY PO 02/19/25 10:00 02/25/25 10:22 10 MG Pantoprazole Sodium 40 mg DAILY@0600 PO 02/19/25 06:00 02/25/25 06:18 40 MG Atorvastatin Calcium 40 mg HS PO 02/18/25 22:00 02/24/25 22:39 40 MG Patient Own Medication 1 DAILY PO 02/19/25 10:00 Insulin Glargine 10 units QAM SC 02/20/25 07:00 02/25/25 07:17 10 UNITS Gabapentin 400 mg BID PO 02/22/25 22:00 02/25/25 10:24 400 MG Ceftriaxone Sodium 50 ml @ 100 mls/hr DAILY@09 IV 02/24/25 09:00 02/25/25 10:22 100 MLS/HR Tamsulosin HCl 0.4 mg QPM PO 02/23/25 18:00 02/24/25 18:14 0.4 MG Polyethylene Glycol 17 gm DAILYPRN PRN PO 02/23/25 18:00 Sennosides 8.6 mg HS PO 02/23/25 22:00 02/24/25 22:40 8.6 MG Tramadol HCl 50 mg Q6HP PRN PO 02/25/25 09:45 Morphine Sulfate 2 mg Q6HPRN PRN IV 02/25/25 09:45 02/25/25 10:51 2 MG Examination General Appearance: Cooperative. Well developed. Well nourished. NAD. Left nephrostomy tube in place with no discharge or erythema, draining minimal serosanguineous fluid. Head Exam: Normal inspection Neck Exam: Normal inspection. Non-tender. Normal alignment Pulmonary/Respiratory: Chest non-tender. mildly reduced breath sounds bilaterally Cardiovascular/Chest: Regular rate and rhythm. No murmurs. No JVD. Peripheral Pulses: 2+ Radial (R). 2+ Radial (L). 2+ Pedal (R). 2+ Pedal (L) Abdominal Exam: Normal bowel sounds. Soft. normal abdomen, no visible veins, t enderness in left flank, tenderness in lower abdomen on palpation, No hepatospenomegaly. No masses Ankle Exam: Negative ankle edema Lower extremities: 1+ bilateral lower extremity pitting edema Neuro/Mental Status: A&O x4. Coherent. Thoughts/Psych: Normal thought pattern. Appropriate mood and affect. Good judgement and insight Skin Exam: Normal inspection. Normal color. Warm. Dry laboratory and microbiology Laboratory Tests 02/25/25 05:30 Test 02/25/25 05:30 Range/Units Serum Glucose 165 H 74-106 mg/dL Microbiology Date/Time Source Procedure Growth Status 02/23/25 13:34 Blood Blood Culture - Preliminary NO GROWTH AFTER 24 HOURS OF INCUBATION. Resulted 02/21/25 09:30 Nose MRSA Screen - Final Complete 02/20/25 00:28 Voided Urine Urine Culture - Final Complete Labs and/or images reviewed: Labs reviewed by me, Image(s) reviewed by me Problem List/Assessment/Plan Problem List/Assessment/Plan # Acute on chronic hypoxic respiratory failure # Acute on chronic HFpEF # Possible COPD exacerbation with possible viral pneumonia # History of PE -Chest xray - Cardiomegaly and Pulmonary vascular congestion -old Echo 01/04- EF >55%, severe PAH -BNP 152.10 -covid, influenza negative -albuterol and ipratropium mednebs every 6 hours # Acute complicated cystitis # Acute left hydronephrosis s/p left nephrostomy tube placement day 2 # Acute left pyelonephritis -white count was 18.6 -UA positive for UTI -abdomen CT pelvis showed a 5 mm obstructive stone in the left ureter with moderate left hydronephrosis -urology consult-left nephrostomy tube placement, outpatient follow-up in 3-4 weeks -ceftriaxone 1 g IV daily -repeat blood culture - for growth after 48 hours -blood culture Gram-negative rods 02/20/25 -lactic acid 1.5>1.3 -chest x-ray showed cardiomegaly and moderate pleural effusion with prominent pulmonary vasculature -strain all urine -Flomax 0.4 mg q.p.m. p.o. # CLAUDIA on CKD, likely due to VMN -avoid nephrotoxic agents -monitor BMP # Uncontrolled type 2 diabetes mellitus with hyperglycemia -HbA1c is 8 -Moderate insulin sliding scale a.c. HS -lantus 10 units qam # Chronic back pain, multilevel degenerative disc disease - tramadol 100 mg p.o. q.6 hours p.r.n. and Dilaudid 1 mg q.6 hours p.r.n. - gabapentin 400 mg p.o. t.i.d. - physical therapy on board, the patient refusing SNF placement, patient refusing to get out of bed onto a chair # Chronic hypochromic normocytic anemia -monitor H&H -stool occult blood ordered # Mild transmnitis # Hypothyroidism - Continue on levothyroxine 75 mcg # GERD - Continue on protonix 40 mg daily po # Hypokalemia -repleted # Acute constipation -Senokot 8.6 mg HS p.o. and MiraLax 17 g daily p.r.n. p.o. PUD prophylaxis: Protonix 40 mg DVT prophylaxis: lovenox 110mg q12 hr sc Goals of care discussed with the patient for over 18 minutes ,Full code Plan discussed with Dr. Del Toro Plan discussed with: Patient My Orders My Orders Orders - FINESSE VERMA Procedure Category Date Status Time * [place] CONS 02/25/25 Transmitted Consult Dietary Evaluation Review Comments: Nutrition Recommendation: 1) Glucerna 240ml BID 2) Monitor PO intake, lab values, weight trend, and I/O Expected Outcomes/Goals: Intake to meet >75% estimated needs FU 3-5 days Date of Service: Feb 25, 2025 Billing Provider: XENA DEL TORO MD Common Visit Codes: [id number] INP/OBS CARE(HIGH) FINESSE VERMA Feb 25, 2025 11:40 XENA DEL TORO MD Feb 25, 2025 17:39
[2025-02-25] MEDS: ACETAMINOPHEN 325 MG TAB PO ONE (13:15)
[2025-02-25] MEDS: HYDROmorphone HCL 2 MG/ML VL/or syr IV PRN (17:18)
[2025-02-26] VITALS (14 sets, daily range): BP systolic 141–166; BP diastolic 61–95; PULSE 75–95; RESP 16–20; TEMP 97.6–98.1; O2SAT 96–100
[2025-02-26 07:22] LABS: Hematocrit 29.6 % (36.0-46.0); Hemoglobin 9.6 g/dL (12.2-16.2); Mean Corpuscular Hemoglobin 27.0 pg (28.0-32.0); Mean Corpuscular Volume 83.1 fL (80.0-100.0); Nucleated Red Blood Cells % 0.0 %
[2025-02-26 07:32] LABS: Anion Gap 12 (5-15); Carbon Dioxide 24 mmol/L (20-31); Potassium 4.5 mmol/L (3.5-5.1); Sodium 144 mmol/L (136-145)
[2025-02-26 07:33] LABS: Calcium 9.0 mg/dL (8.7-10.4); Chloride 108 mmol/L (98-107)
[2025-02-26 07:38] LABS: BUN/Creatinine Ratio 41.1 (10.0-20.0)
[2025-02-26 07:39] LABS: Blood Urea Nitrogen 37 mg/dL (9-23); Glucose 147 mg/dL (74-106)
--- NOTE | 2025-02-26 12:44 | DVHPN2 ---
Progress Note - Dictate Date Seen: Feb 24, 2025 Medical Necessity Reason Pt with a Central, PICC or Fol: No Subjective PT WITH SEVERE FLANK PAIN AND SOB OBSTRUCTIVE RENAL CALCULUS HYDRONEPHROSIS UTI S/P NEPHROSTOMY RENAL COLIC HEMATURIA LEUKOCYTOSIS PMH ORGANIC HD HF HTN DIABETES VASCULOPATHY NEPHROPATHY PAH NON HODGKIN LYMPHOMA LUNG CA S/P RIGHT UPPER LOBECTOMY vital signs Vital Sign Date Time Temp Pulse Resp B/P (MAP) Pulse Ox O2 Delivery O2 Flow Rate FiO2 02/26/25 12:18 79 16 99 02/26/25 10:00 Nasal Cannula* 2 28 02/26/25 08:30 98.1 150/69 (96) 98.1 Total Intake and Output 02/25/25 02/25/25 02/26/25 15:00 23:00 07:00 Intake Total 100 ml 400 ml Output Total 320 ml Balance -220 ml 400 ml medications Current Medications Medications Dose Ordered Sig/Layo Route Start Time Stop Time Status Last Admin Dose Admin Morphine Sulfate 2 mg Q30M PRN IV 02/18/25 19:45 Cancel Albuterol 2.5 mg Q6HR NEB 02/19/25 00:00 02/26/25 12:18 2.5 MG Ipratropium [place] 0.5 mg Q6HR NEB 02/19/25 00:00 02/26/25 12:18 0.5 MG Diagnostic Test (Pha) 1 strip ACHS 02/18/25 22:00 02/26/25 05:53 1 STRIP Insulin Human Regular HS SC 02/18/25 22:00 02/25/25 21:28 2 UNITS Insulin Human Regular AC SC 02/19/25 07:00 02/26/25 05:53 3 UNITS Dextrose 50 ml UD PRN IV 02/18/25 19:45 Acetaminophen 650 mg Q6HP PRN PO 02/18/25 19:45 02/25/25 13:24 650 MG Levothyroxine Sodium 75 mcg QAM@0600 PO 02/19/25 06:00 02/26/25 05:51 75 MCG Empaglifozin 10 mg DAILY PO 02/19/25 10:00 02/26/25 09:24 10 MG Pantoprazole Sodium 40 mg DAILY@0600 PO 02/19/25 06:00 02/26/25 05:51 40 MG Atorvastatin Calcium 40 mg HS PO 02/18/25 22:00 02/25/25 21:24 40 MG Patient Own Medication 1 DAILY PO 02/19/25 10:00 Insulin Glargine 10 units QAM SC 02/20/25 07:00 02/26/25 05:53 10 UNITS Gabapentin 400 mg BID PO 02/22/25 22:00 02/26/25 09:24 400 MG Ceftriaxone Sodium 50 ml @ 100 mls/hr DAILY@09 IV 02/24/25 09:00 02/26/25 09:25 100 MLS/HR Tamsulosin HCl 0.4 mg QPM PO 02/23/25 18:00 02/25/25 17:18 0.4 MG Polyethylene Glycol 17 gm DAILYPRN PRN PO 02/23/25 18:00 Sennosides 8.6 mg HS PO 02/23/25 22:00 02/25/25 21:23 8.6 MG Hydromorphone HCl 1 mg Q6HP PRN IV 02/25/25 13:30 02/26/25 06:53 1 MG Tramadol HCl 100 mg Q6HP PRN PO 02/25/25 17:00 02/26/25 03:44 100 MG laboratory and microbiology Laboratory Tests 02/26/25 06:03 Test 02/26/25 06:03 Range/Units Serum Glucose 147 H 74-106 mg/dL Problem List SEVERE FLANK PAIN AND SOB OBSTRUCTIVE RENAL CALCULUS HYDRONEPHROSIS UTI S/P NEPHROSTOMY RENAL COLIC HEMATURIA LEUKOCYTOSIS ACUTE RENAL INSUFF PMH ORGANIC HD HF HTN DIABETES VASCULOPATHY NEPHROPATHY PAH NON HODGKIN LYMPHOMA LUNG CA S/P RIGHT UPPER LOBECTOMY Assessment/Plan NEPHROSTOMY CARE IV ABC ECHO EF >55% ANISH SEVERE TR SEVERE PAH LEUKOCYTOSIS RESOLVED RENAL INSUFF RESOLVED REVIEWED LABS: MCV, MCHC, AND MPV ARE NORMAL Dietary Evaluation Review Comments: Nutrition Recommendation: 1) Glucerna 240ml BID 2) Monitor PO intake, lab values, weight trend, and I/O Expected Outcomes/Goals: Intake to meet >75% estimated needs FU 3-5 days Plan discussed with: Patient GLADYS BENSON MD Feb 26, 2025 12:44
--- NOTE | 2025-02-26 12:46 | DVHPN2 ---
Progress Note - Dictate Date Seen: Feb 26, 2025 Medical Necessity Reason Pt with a Central, PICC or Fol: No Subjective PT WITH SEVERE FLANK PAIN AND SOB OBSTRUCTIVE RENAL CALCULUS HYDRONEPHROSIS UTI S/P NEPHROSTOMY RENAL COLIC HEMATURIA LEUKOCYTOSIS PMH ORGANIC HD HF HTN DIABETES VASCULOPATHY NEPHROPATHY PAH NON HODGKIN LYMPHOMA LUNG CA S/P RIGHT UPPER LOBECTOMY vital signs Vital Sign Date Time Temp Pulse Resp B/P (MAP) Pulse Ox O2 Delivery O2 Flow Rate FiO2 02/26/25 12:18 79 16 99 02/26/25 10:00 Nasal Cannula* 2 28 02/26/25 08:30 98.1 150/69 (96) 98.1 Total Intake and Output 02/25/25 02/25/25 02/26/25 15:00 23:00 07:00 Intake Total 100 ml 400 ml Output Total 320 ml Balance -220 ml 400 ml medications Current Medications Medications Dose Ordered Sig/Layo Route Start Time Stop Time Status Last Admin Dose Admin Morphine Sulfate 2 mg Q30M PRN IV 02/18/25 19:45 Cancel Albuterol 2.5 mg Q6HR NEB 02/19/25 00:00 02/26/25 12:18 2.5 MG Ipratropium [place] 0.5 mg Q6HR NEB 02/19/25 00:00 02/26/25 12:18 0.5 MG Diagnostic Test (Pha) 1 strip ACHS 02/18/25 22:00 02/26/25 05:53 1 STRIP Insulin Human Regular HS SC 02/18/25 22:00 02/25/25 21:28 2 UNITS Insulin Human Regular AC SC 02/19/25 07:00 02/26/25 05:53 3 UNITS Dextrose 50 ml UD PRN IV 02/18/25 19:45 Acetaminophen 650 mg Q6HP PRN PO 02/18/25 19:45 02/25/25 13:24 650 MG Levothyroxine Sodium 75 mcg QAM@0600 PO 02/19/25 06:00 02/26/25 05:51 75 MCG Empaglifozin 10 mg DAILY PO 02/19/25 10:00 02/26/25 09:24 10 MG Pantoprazole Sodium 40 mg DAILY@0600 PO 02/19/25 06:00 02/26/25 05:51 40 MG Atorvastatin Calcium 40 mg HS PO 02/18/25 22:00 02/25/25 21:24 40 MG Patient Own Medication 1 DAILY PO 02/19/25 10:00 Insulin Glargine 10 units QAM SC 02/20/25 07:00 02/26/25 05:53 10 UNITS Gabapentin 400 mg BID PO 02/22/25 22:00 02/26/25 09:24 400 MG Ceftriaxone Sodium 50 ml @ 100 mls/hr DAILY@09 IV 02/24/25 09:00 02/26/25 09:25 100 MLS/HR Tamsulosin HCl 0.4 mg QPM PO 02/23/25 18:00 02/25/25 17:18 0.4 MG Polyethylene Glycol 17 gm DAILYPRN PRN PO 02/23/25 18:00 Sennosides 8.6 mg HS PO 02/23/25 22:00 02/25/25 21:23 8.6 MG Hydromorphone HCl 1 mg Q6HP PRN IV 02/25/25 13:30 02/26/25 06:53 1 MG Tramadol HCl 100 mg Q6HP PRN PO 02/25/25 17:00 02/26/25 03:44 100 MG laboratory and microbiology Laboratory Tests 02/26/25 06:03 Test 02/26/25 06:03 Range/Units Serum Glucose 147 H 74-106 mg/dL Problem List SEVERE FLANK PAIN AND SOB OBSTRUCTIVE RENAL CALCULUS HYDRONEPHROSIS UTI S/P NEPHROSTOMY RENAL COLIC HEMATURIA LEUKOCYTOSIS ACUTE RENAL INSUFF PMH ORGANIC HD HF HTN DIABETES VASCULOPATHY NEPHROPATHY PAH NON HODGKIN LYMPHOMA LUNG CA S/P RIGHT UPPER LOBECTOMY Assessment/Plan NEPHROSTOMY CARE IV ABC ECHO EF >55% ANISH SEVERE TR SEVERE PAH LEUKOCYTOSIS RESOLVED RENAL INSUFF RESOLVED PT STILL WITH SEVERE FLANK AND SPINE PAIN CT OF ABD PELVIS UA CHANGE ABX SINCE INCREASE IN WBC MONITOR HYDROMORPHONE HCL, 1MG, IV Dietary Evaluation Review Comments: Nutrition Recommendation: 1) Glucerna 240ml BID 2) Monitor PO intake, lab values, weight trend, and I/O Expected Outcomes/Goals: Intake to meet >75% estimated needs FU 3-5 days Plan discussed with: Patient GLADYS BENSON MD Feb 26, 2025 12:46
--- NOTE | 2025-02-26 14:41 | DVHPNRES ---
Progress Note Date Seen: Feb 26, 2025 Resident Creating Document: FINESSE VERMA RESIDENT Medical Necessity Reason Pt with a Central, PICC or Fol: No Subjective Review of Systems Brenda Daily is an 79-year-old female with past medical history of COPD on 2 L oxygen at home, CHF, insulin-dependent type 2 diabetes mellitus, hypertension, pulmonary artery hypertension, non-Hodgkin lymphoma in remission since 1987, lung cancer s/p right upper lobe resection in 2016 presented to the ED with the chief complaint of worsening shortness of breath for the last 3 days along with chills. The patient mentioned she tried to up titrate her oxygen at home, but that did not improve her shortness of breath. She mentioned she also had tightness in the chest along with a dry cough and lower extremity edema. She mentions having similar episodes of shortness of breath 3-4 times in the last 1 year. She denied any fever. Past medical history: COPD on 2 L oxygen at home, CHF, insulin-dependent type 2 diabetes mellitus, hypertension, pulmonary artery hypertension, non-Hodgkin lymphoma in remission since 1987, lung cancer s/p right upper lobe resection Past surgical history: right upper lobectomy in 2016, tonsillectomy Social & Personal history: Lives at home with family, she denies any smoking, alcohol and drugs Allergies: sulfa antibiotics Patient seen and examined at bedside. Patient is alert and oriented to time, place person and responding to all questions. Eyes: No Pain, No Vision change, No Conjunctivae inflammation, No Eyelid inflammation, No Redness ENT: No Ear pain, No Ear discharge, No Nose pain, No Nose discharge, No Nose congestion, No Mouth pain, No Mouth swelling, No Throat pain, No Throat swelling Cardiovascular: No Chest Pain, No Palpitations, Orthopnea, No Paroxysmal No Dyspnea, Edema, No Lt Headedness Respiratory: Cough, Dry, Shortness of breath, No SOB with exertion, No Wheezing, No Hemoptysis, No Pleuritic Pain, No Sputum Gastrointestinal: No Nausea, No Vomiting, No Abdominal Pain, No Diarrhea, No Constipation, No Melena, No Hematochezia Genitourinary: No Dysuria, No Frequency, No Incontinence, No Hematuria, No Retention 02/20/25- the patient was seen at bedside today. The patient complained of intense pain in the left flank radiating to the left groin area and mentioned of her history of kidney stones. Her white count had increased to 19.9 today and urinalysis was positive for UTI. Lactic acid was 1.5. She was started on meropenem and fluconazole for acute complicated cystitis. CT abdomen pelvis showed Moderate left-sided hydronephrosis with a 5 mm obstructing stone in the proximal left ureter. Urology consult was placed. Her potassium today was 3, which was repleted. We also ordered for blood culture and urine culture. We also started her on morphine 2 mg q.12 p.r.n. for severe pain and [place] 5q4 p.r.n.. EKG was done which was normal. A consult for Dr. Ogden was also placed as he is her PCP. Bedside pocus was done which showed a dilated IVC. 02/21/25- The patient was seen at bedside today. White count today was 34.8. Lactic acid was 1.3. Patient looked tachypneic. Blood culture showed Gram- negative rods. The patient was started on vancomycin per pharmacy. IR placed left nephrostomy tube without any complications. 02/22/25- The patient was seen at bedside today. White count today was 27.2. Patient is breathing comfortably on 2L oxygen by nasal canula. Patient complained of intense pain in her back as she has severe degenerative disc disease, for which she was given 1 dose of morphine 2 mg and started on dilaudid 1mg q4 prn. Left nephrostomy tube is in place with minimal drainage and no discharge or redness around the site. Creatinine improved from 2.19 to 2.02 today. Patient started on gabapentin 400 mg t.i.d. for neuropathy. She was started on MiraLax 17 g p.o. b.i.d. for constipation. 02/23/25- The patient seen at bedside today. She complained of pain in her lower abdomen. She was given 1 time dose of IV mannitol and started on Flomax 0.4 mg PO HS. Order to strain all urine was placed. Patient was started on Senokot q.h.s. and MiraLax p.r.n. for constipation. Repeat blood cultures were ordered. IV antibiotics were changed to IV ceftriaxone 1 g daily. Physical therapy evaluation was requested for the patient. Urology was consulted and they recommended outpatient follow-up in 3-4 weeks once patient is stable for discharge. 02/24/25- Patient still complains of intermittent flank pain presumably from nephrostomy tube site with a renal stone. Patient continued to take IV Dilaudid. Patient is with a poor ambulatory status. Her leukocytosis has significantly improved. 02/25/25- Patient still complains of intermittent flank pain. Physical therapy recommended placement in SNF for the patient, which she refused. We will continue to try working with physical therapy to try and get her out of bed into a chair. For pain medication was changed to tramadol 100 mg p.o. q.6 hours Dilaudid 1 mg IV q.6 hours. 02/26/25- patient was seen at bedside today. He continues to complain of abdominal pain. White count today was 12.6. Urine analysis and urine culture was ordered. KUB and x-ray of lumbar spine were ordered. Dr Ogden, who is her PCP and is also following up regularly, continued ceftriaxone and started her on levofloxacin and vancomycin per pharmacy. Patient was encouraged to continue working with physical therapy and try to get out of bed into a chair today. Objective vital signs Vital Sign Date Time Temp Pulse Resp B/P (MAP) Pulse Ox O2 Delivery O2 Flow Rate FiO2 02/26/25 12:56 83 16 160/60 02/26/25 12:28 100 02/26/25 10:00 Nasal Cannula* 2 28 02/26/25 08:30 98.1 98.1 Total Intake and Output 02/25/25 02/25/25 02/26/25 15:00 23:00 07:00 Intake Total 100 ml 400 ml Output Total 320 ml Balance -220 ml 400 ml medications Current Medications Medications Dose Ordered Sig/Layo Route Start Time Stop Time Status Last Admin Dose Admin Morphine Sulfate 2 mg Q30M PRN IV 02/18/25 19:45 Cancel Albuterol 2.5 mg Q6HR NEB 02/19/25 00:00 02/26/25 12:18 2.5 MG Ipratropium [place] 0.5 mg Q6HR NEB 02/19/25 00:00 02/26/25 12:18 0.5 MG Diagnostic Test (Pha) 1 strip ACHS 02/18/25 22:00 02/26/25 12:56 1 STRIP Insulin Human Regular HS SC 02/18/25 22:00 02/25/25 21:28 2 UNITS Insulin Human Regular AC SC 02/19/25 07:00 02/26/25 13:05 3 UNITS Dextrose 50 ml UD PRN IV 02/18/25 19:45 Acetaminophen 650 mg Q6HP PRN PO 02/18/25 19:45 02/25/25 13:24 650 MG Levothyroxine Sodium 75 mcg QAM@0600 PO 02/19/25 06:00 02/26/25 05:51 75 MCG Empaglifozin 10 mg DAILY PO 02/19/25 10:00 02/26/25 09:24 10 MG Pantoprazole Sodium 40 mg DAILY@0600 PO 02/19/25 06:00 02/26/25 05:51 40 MG Atorvastatin Calcium 40 mg HS PO 02/18/25 22:00 02/25/25 21:24 40 MG Patient Own Medication 1 DAILY PO 02/19/25 10:00 Insulin Glargine 10 units QAM SC 02/20/25 07:00 02/26/25 05:53 10 UNITS Gabapentin 400 mg BID PO 02/22/25 22:00 02/26/25 09:24 400 MG Tamsulosin HCl 0.4 mg QPM PO 02/23/25 18:00 02/25/25 17:18 0.4 MG Polyethylene Glycol 17 gm DAILYPRN PRN PO 02/23/25 18:00 Sennosides 8.6 mg HS PO 02/23/25 22:00 02/25/25 21:23 8.6 MG Hydromorphone HCl 1 mg Q6HP PRN IV 02/25/25 13:30 02/26/25 12:56 1 MG Tramadol HCl 100 mg Q6HP PRN PO 02/25/25 17:00 02/26/25 03:44 100 MG Vancomycin HCl 250 ml @ 250 mls/hr DAILY IV 02/27/25 10:00 UNV Levofloxacin/ Dextrose 100 ml @ 100 mls/hr DAILY IV 02/27/25 10:00 Examination General Appearance: Cooperative. Well developed. Well nourished. NAD. Left nephrostomy tube in place with no discharge or erythema, draining minimal serosanguineous fluid. Head Exam: Normal inspection Neck Exam: Normal inspection. Non-tender. Normal alignment Pulmonary/Respiratory: Chest non-tender. mildly reduced breath sounds bilaterally Cardiovascular/Chest: Regular rate and rhythm. No murmurs. No JVD. Peripheral Pulses: 2+ Radial (R). 2+ Radial (L). 2+ Pedal (R). 2+ Pedal (L) Abdominal Exam: Normal bowel sounds. Soft. normal abdomen, no visible veins, tenderness in left flank, tenderness in lower abdomen on palpation, No hepatospenomegaly. No masses Ankle Exam: Negative ankle edema Lower extremities: 1+ bilateral lower extremity pitting edema Neuro/Mental Status: A&O x4. Coherent. Thoughts/Psych: Normal thought pattern. Appropriate mood and affect. Good judgement and insight Skin Exam: Normal inspection. Normal color. Warm. Dry laboratory and microbiology Laboratory Tests 02/26/25 06:03 Test 02/26/25 06:03 Range/Units Serum Glucose 147 H 74-106 mg/dL Microbiology Date/Time Source Procedure Growth Status 02/23/25 13:34 Blood Blood Culture - Preliminary NO GROWTH AFTER 72 HOURS OF INCUBATION. Resulted 02/21/25 09:30 Nose MRSA Screen - Final Complete 02/20/25 00:28 Voided Urine Urine Culture - Final Complete Labs and/or images reviewed: Labs reviewed by me, Image(s) reviewed by me Problem List/Assessment/Plan Problem List/Assessment/Plan # Acute on chronic hypoxic respiratory failure # Acute on chronic HFpEF # Possible COPD exacerbation with possible viral pneumonia # History of PE -Chest xray - Cardiomegaly and Pulmonary vascular congestion -old Echo 01/04- EF >55%, severe PAH -BNP 152.10 -covid, influenza negative -albuterol and ipratropium mednebs every 6 hours # Acute complicated cystitis # Acute left hydronephrosis s/p left nephrostomy tube placement day 2 # Acute left pyelonephritis -white count was 12.6 -UA positive for UTI, UA ordered on 02/26/2025, repeat urine culture ordered -abdomen CT pelvis showed a 5 mm obstructive stone in the left ureter with moderate left hydronephrosis -urology consult-left nephrostomy tube placement, outpatient follow-up in 3-4 weeks -vancomycin per pharmacy and IV levofloxacin -repeat blood culture - for growth after 48 hours -blood culture Gram-negative rods 02/20/25 -lactic acid 1.5>1.3 -chest x-ray showed cardiomegaly and moderate pleural effusion with prominent pulmonary vasculature -strain all urine -Flomax 0.4 mg q.p.m. p.o. -ordered KUB # CLAUDIA on CKD, likely due to VMN -avoid nephrotoxic agents -monitor BMP # Uncontrolled type 2 diabetes mellitus with hyperglycemia -HbA1c is 8 -Moderate insulin sliding scale a.c. HS -lantus 10 units qam # Chronic back pain, multilevel degenerative disc disease - tramadol 100 mg p.o. q.6 hours p.r.n. and Dilaudid 1 mg q.6 hours p.r.n. - gabapentin 400 mg p.o. t.i.d. - physical therapy on board, the patient refusing SNF placement, patient refusing to get out of bed onto a chair - ordered x-ray lumbar spine # Chronic hypochromic normocytic anemia -monitor H&H -stool occult blood ordered # Mild transmnitis # Hypothyroidism - Continue on levothyroxine 75 mcg # GERD - Continue on protonix 40 mg daily po # Hypokalemia -repleted # Acute constipation -Senokot 8.6 mg HS p.o. and MiraLax 17 g daily p.r.n. p.o. PUD prophylaxis: Protonix 40 mg DVT prophylaxis: lovenox 110mg q12 hr sc Goals of care discussed with the patient for over 18 minutes ,Full code Plan discussed with Dr. Del Toro ATTENDING NOTE: LEAH Arrington, Urology service. Per urology, no further urology procedure for now. Nephrostomy tube in, patient should have pain control then dc home. Follow up with urologist as outpatient. Plan discussed with: Patient My Orders My Orders Orders - FINESSE VERMA RESIDENT Procedure Category Date Status Time Discontinue Tele KEVIN 02/25/25 In Process 15:00 Transfer Orders XFER 02/25/25 Transmitted 15:00 Communication Order ORDERS 02/25/25 Transmitted 15:00 Tramadol Hcl (Ultram) PHA 02/25/25 In Process 17:00 Urine Bacterial FREDRICK 02/26/25 In Process Culture 09:27 Dietary Evaluation Review Comments: Nutrition Recommendation: 1) Glucerna 240ml BID 2) Monitor PO intake, lab values, weight trend, and I/O Expected Outcomes/Goals: Intake to meet >75% estimated needs FU 3-5 days Date of Service: Feb 26, 2025 Billing Provider: XENA DEL TORO MD Common Visit Codes: [id number] INP/OBS CARE(HIGH) FINESSE VERMA RESIDENT Feb 26, 2025 14:41 XENA DEL TORO MD Feb 26, 2025 22:08
[2025-02-26] MEDS: IOHEXOL 300 MG/ML 100ML BOTTLE IJ ONE (15:45)
[2025-02-26] MEDS: VANCOMYCIN 1GM/250ML KIT 250 ML IV SCH (17:59)
[2025-02-26] MEDS ORDERED: VANCOMYCIN 1GM/250ML KIT 250 ML IV SCH (18:00)
[2025-02-26] MEDS ORDERED: ZOLPIDEM TARTRATE 5 MG TAB PO PRN (19:00)
[2025-02-26] MEDS: HYDROmorphone HCL 2 MG/ML VL/or syr IV ONE (21:48)
[2025-02-26] MEDS ORDERED: BUDESONIDE FORMOTEROL FUMARATE IN SCH (22:00)
[2025-02-26] MEDS ORDERED: [UNRECOGNIZED DRUG - OTHER] IN SCH (22:00)
[2025-02-27] VITALS (16 sets, daily range): BP systolic 131–175; BP diastolic 53–79; PULSE 68–94; RESP 17–20; TEMP 97.7–98.7; O2SAT 94–100
[2025-02-27] MEDS: ENOXAPARIN SOD 100 MG/1 ML SYRINGE SC SCH (01:43)
[2025-02-27 06:02] LABS: Hematocrit 30.3 % (36.0-46.0); Hemoglobin 9.9 g/dL (12.2-16.2); Mean Corpuscular Hemoglobin 27.2 pg (28.0-32.0); Mean Corpuscular Volume 83.4 fL (80.0-100.0); Nucleated Red Blood Cells % 0.0 %
[2025-02-27] MEDS: hydroCHLOROthiazide 25 MG TAB PO SCH (06:16)
[2025-02-27 06:19] LABS: Anion Gap 16 (5-15); Carbon Dioxide 21 mmol/L (20-31); Chloride 106 mmol/L (98-107); Potassium 4.3 mmol/L (3.5-5.1); Sodium 143 mmol/L (136-145)
[2025-02-27 06:21] LABS: Calcium 9.3 mg/dL (8.7-10.4)
[2025-02-27 06:26] LABS: BUN/Creatinine Ratio 37.7 (10.0-20.0)
[2025-02-27 06:27] LABS: Blood Urea Nitrogen 29 mg/dL (9-23); Glucose 141 mg/dL (74-106)
[2025-02-27] MEDS: IOHEXOL 300 MG/ML 100ML BOTTLE IJ ONE (08:48)
[2025-02-27] MEDS: SODIUM CHLORIDE 0.9% 500 ML IV ONE (09:42)
--- NOTE | 2025-02-27 09:56 | DVH ---
CLINICAL HISTORY: SEVERE PAIN FOLLOWING NEPHROSTOMY TECHNIQUE: CT of the abdomen and pelvis was performed with IV contrast. This exam was performed according to our departmental dose optimization program. Up-to-date CT equipment and radiation dose reduction techniques are utilized as appropriate. CTDI 27 DLP 1400 64 COMPARISON: CT CT AB PEL WO CON-NO ORAL OR IV on DOS: 02/20/25, CT CT AB PEL WO CON-NO ORAL OR IV on DOS: 09/26/24 FINDINGS: Abdomen/Pelvis: The spleen, pancreas, adrenal glands, gallbladder, liver, right kidney, and bladder are unremarkable. The uterus is absent. There has been interval placement of a left nephrostomy tube. The tip appears within the left renal pelvis. There is no concerning fluid collection along its tract. Previous hydronephrosis appears resolved. The abdominal aorta is normal in course and caliber. There are mild aortic atherosclerotic calcifications. There is no free intraperitoneal air or fluid. There is no enlarged abdominal or pelvic lymph node. There is no bowel wall thickening or dilatation. The appendix is normal. There is mild body wall edema. Other: The imaged lower thorax demonstrates a miniscule right pleural effusion. There is mild interstitial edema. No acute osseous abnormality is evident. IMPRESSION: Interval placement of left nephrostomy tube. No hydronephrosis. No fluid collection along its tract. Hysterectomy. Mild interstitial edema. Miniscule right pleural effusion.
[2025-02-27] MEDS ORDERED: hydroCHLOROthiazide 25 MG TAB PO SCH (10:00)
[2025-02-27] MEDS: BUDESONIDE (INHALATION) 0.5 MG/2 ML NEB NEB SCH (11:38)
[2025-02-27] MEDS ORDERED: VANCOMYCIN 1.5GM/250ML 250 ML IV SCH (13:00)
[2025-02-27] MEDS ORDERED: VANCOMYCIN PER PHARMACY 0 MG IV SCH (14:30)
--- NOTE | 2025-02-27 15:14 | DVHPN2 ---
Progress Note - Dictate Date Seen: Feb 27, 2025 Medical Necessity Reason Pt with a Central, PICC or Fol: No Subjective PT WITH SEVERE FLANK PAIN AND SOB OBSTRUCTIVE RENAL CALCULUS HYDRONEPHROSIS UTI S/P NEPHROSTOMY RENAL COLIC HEMATURIA LEUKOCYTOSIS PMH ORGANIC HD HF HTN DIABETES VASCULOPATHY NEPHROPATHY PAH NON HODGKIN LYMPHOMA LUNG CA S/P RIGHT UPPER LOBECTOMY vital signs Vital Sign Date Time Temp Pulse Resp B/P (MAP) Pulse Ox O2 Delivery O2 Flow Rate FiO2 02/27/25 13:13 98.6 80 17 146/57 (86) 97 98.6 02/27/25 11:38 Nasal Cannula 3.0 02/27/25 11:38 32 Total Intake and Output 02/26/25 02/26/25 02/27/25 15:00 23:00 07:00 Intake Total 230 ml 1229 ml 1600 ml Balance 230 ml 1229 ml 1600 ml medications Current Medications Medications Dose Ordered Sig/Layo Route Start Time Stop Time Status Last Admin Dose Admin Morphine Sulfate 2 mg Q30M PRN IV 02/18/25 19:45 Cancel Albuterol 2.5 mg Q6HR NEB 02/19/25 00:00 02/27/25 11:38 2.5 MG Ipratropium [place] 0.5 mg Q6HR NEB 02/19/25 00:00 02/27/25 11:38 0.5 MG Diagnostic Test (Pha) 1 strip ACHS 02/18/25 22:00 02/27/25 12:23 1 STRIP Insulin Human Regular HS SC 02/18/25 22:00 02/26/25 21:22 2 UNITS Insulin Human Regular AC SC 02/19/25 07:00 02/27/25 12:36 2 UNITS Dextrose 50 ml UD PRN IV 02/18/25 19:45 Acetaminophen 650 mg Q6HP PRN PO 02/18/25 19:45 02/25/25 13:24 650 MG Levothyroxine Sodium 75 mcg QAM@0600 PO 02/19/25 06:00 02/27/25 06:09 75 MCG Pantoprazole Sodium 40 mg DAILY@0600 PO 02/19/25 06:00 02/27/25 06:09 40 MG Atorvastatin Calcium 40 mg HS PO 02/18/25 22:00 02/26/25 21:20 40 MG Patient Own Medication 1 DAILY PO 02/19/25 10:00 Insulin Glargine 10 units QAM SC 02/20/25 07:00 02/27/25 06:11 10 UNITS Gabapentin 400 mg BID PO 02/22/25 22:00 02/27/25 09:40 400 MG Tamsulosin HCl 0.4 mg QPM PO 02/23/25 18:00 02/26/25 17:59 0.4 MG Polyethylene Glycol 17 gm DAILYPRN PRN PO 02/23/25 18:00 Sennosides 8.6 mg HS PO 02/23/25 22:00 02/26/25 21:21 8.6 MG Hydromorphone HCl 1 mg Q6HP PRN IV 02/25/25 13:30 02/27/25 12:31 1 MG Tramadol HCl 100 mg Q6HP PRN PO 02/25/25 17:00 02/26/25 03:44 100 MG Levofloxacin/ Dextrose 100 ml @ 100 mls/hr DAILY IV 02/27/25 10:00 02/27/25 09:40 100 MLS/HR Enoxaparin Sodium 100 mg Q12HR SC 02/26/25 22:00 02/27/25 09:45 100 MG Zolpidem Tartrate 5 mg HSPRN PRN PO 02/26/25 19:00 Patient Own Medication 1 tab DAILY PO 02/27/25 10:00 Duloxetine HCl 60 mg BID PO 02/27/25 10:00 02/27/25 09:40 60 MG Patient Own Medication 20 mg BID PO 02/26/25 22:00 Hydrochlorothiazide 25 mg DAILY PO 02/27/25 05:15 02/27/25 06:16 25 MG Budesonide 0.5 mg BID NEB 02/27/25 10:00 02/27/25 11:38 0.5 MG Vancomycin HCl 250 ml @ 166.667 mls/hr Q24H IV 02/27/25 13:00 UNV Vancomycin HCl 0 ml @ 0 mls/hr PER PHARMACY IV 02/27/25 14:30 Vancomycin HCl 250 ml @ 166.667 mls/hr Q24H IV 02/27/25 16:00 Future Hold laboratory and microbiology Laboratory Tests 02/27/25 05:03 Test 02/27/25 05:03 Range/Units Serum Glucose 141 H 74-106 mg/dL Problem List SEVERE FLANK PAIN AND SOB OBSTRUCTIVE RENAL CALCULUS HYDRONEPHROSIS UTI S/P NEPHROSTOMY RENAL COLIC HEMATURIA LEUKOCYTOSIS ACUTE RENAL INSUFF PMH ORGANIC HD HF HTN DIABETES VASCULOPATHY NEPHROPATHY PAH NON HODGKIN LYMPHOMA LUNG CA S/P RIGHT UPPER LOBECTOMY Assessment/Plan NEPHROSTOMY CARE IV ABC ECHO EF >55% ANISH SEVERE TR SEVERE PAH LEUKOCYTOSIS RESOLVED RENAL INSUFF RESOLVED PT STILL WITH SEVERE FLANK AND SPINE PAIN CT OF ABD PELVIS UA CHANGE ABX SINCE INCREASE IN WBC STARTED LEVAQUIN VANCOMYCIN CT OF ABD PELVIS UNREMARKABLE MONITOR HYDROMORPHONE HCL, 1MG, IV Dietary Evaluation Review Comments: Nutrition Recommendation: 1) Glucerna 240ml BID 2) Monitor PO intake, lab values, weight trend, and I/O Expected Outcomes/Goals: Intake to meet >75% estimated needs FU 3-5 days Plan discussed with: Patient GLADYS BENSON MD Feb 27, 2025 15:14
[2025-02-27] MEDS: VANCOMYCIN 1.5GM/250ML 250 ML IV ONE (16:08)
--- NOTE | 2025-02-27 18:25 | DVHPNRES ---
Progress Note Date Seen: Feb 27, 2025 Resident Creating Document: FINESSE VERMA RESIDENT Medical Necessity Reason Pt with a Central, PICC or Fol: No Subjective Review of Systems Brenda Daily is an 79-year-old female with past medical history of COPD on 2 L oxygen at home, CHF, insulin-dependent type 2 diabetes mellitus, hypertension, pulmonary artery hypertension, non-Hodgkin lymphoma in remission since 1987, lung cancer s/p right upper lobe resection in 2016 presented to the ED with the chief complaint of worsening shortness of breath for the last 3 days along with chills. The patient mentioned she tried to up titrate her oxygen at home, but that did not improve her shortness of breath. She mentioned she also had tightness in the chest along with a dry cough and lower extremity edema. She mentions having similar episodes of shortness of breath 3-4 times in the last 1 year. She denied any fever. Past medical history: COPD on 2 L oxygen at home, CHF, insulin-dependent type 2 diabetes mellitus, hypertension, pulmonary artery hypertension, non-Hodgkin lymphoma in remission since 1987, lung cancer s/p right upper lobe resection Past surgical history: right upper lobectomy in 2016, tonsillectomy Social & Personal history: Lives at home with family, she denies any smoking, alcohol and drugs Allergies: sulfa antibiotics Patient seen and examined at bedside. Patient is alert and oriented to time, place person and responding to all questions. Eyes: No Pain, No Vision change, No Conjunctivae inflammation, No Eyelid inflammation, No Redness ENT: No Ear pain, No Ear discharge, No Nose pain, No Nose discharge, No Nose congestion, No Mouth pain, No Mouth swelling, No Throat pain, No Throat swelling Cardiovascular: No Chest Pain, No Palpitations, Orthopnea, No Paroxysmal No Dyspnea, Edema, No Lt Headedness Respiratory: Cough, Dry, Shortness of breath, No SOB with exertion, No Wheezing, No Hemoptysis, No Pleuritic Pain, No Sputum Gastrointestinal: No Nausea, No Vomiting, No Abdominal Pain, No Diarrhea, No Constipation, No Melena, No Hematochezia Genitourinary: No Dysuria, No Frequency, No Incontinence, No Hematuria, No Retention 02/20/25- the patient was seen at bedside today. The patient complained of intense pain in the left flank radiating to the left groin area and mentioned of her history of kidney stones. Her white count had increased to 19.9 today and urinalysis was positive for UTI. Lactic acid was 1.5. She was started on meropenem and fluconazole for acute complicated cystitis. CT abdomen pelvis showed Moderate left-sided hydronephrosis with a 5 mm obstructing stone in the proximal left ureter. Urology consult was placed. Her potassium today was 3, which was repleted. We also ordered for blood culture and urine culture. We also started her on morphine 2 mg q.12 p.r.n. for severe pain and [place] 5q4 p.r.n.. EKG was done which was normal. A consult for Dr. Ogden was also placed as he is her PCP. Bedside pocus was done which showed a dilated IVC. 02/21/25- The patient was seen at bedside today. White count today was 34.8. Lactic acid was 1.3. Patient looked tachypneic. Blood culture showed Gram- negative rods. The patient was started on vancomycin per pharmacy. IR placed left nephrostomy tube without any complications. 02/22/25- The patient was seen at bedside today. White count today was 27.2. Patient is breathing comfortably on 2L oxygen by nasal canula. Patient complained of intense pain in her back as she has severe degenerative disc disease, for which she was given 1 dose of morphine 2 mg and started on dilaudid 1mg q4 prn. Left nephrostomy tube is in place with minimal drainage and no discharge or redness around the site. Creatinine improved from 2.19 to 2.02 today. Patient started on gabapentin 400 mg t.i.d. for neuropathy. She was started on MiraLax 17 g p.o. b.i.d. for constipation. 02/23/25- The patient seen at bedside today. She complained of pain in her lower abdomen. She was given 1 time dose of IV mannitol and started on Flomax 0.4 mg PO HS. Order to strain all urine was placed. Patient was started on Senokot q.h.s. and MiraLax p.r.n. for constipation. Repeat blood cultures were ordered. IV antibiotics were changed to IV ceftriaxone 1 g daily. Physical therapy evaluation was requested for the patient. Urology was consulted and they recommended outpatient follow-up in 3-4 weeks once patient is stable for discharge. 02/24/25- Patient still complains of intermittent flank pain presumably from nephrostomy tube site with a renal stone. Patient continued to take IV Dilaudid. Patient is with a poor ambulatory status. Her leukocytosis has significantly improved. 02/25/25- Patient still complains of intermittent flank pain. Physical therapy recommended placement in SNF for the patient, which she refused. We will continue to try working with physical therapy to try and get her out of bed into a chair. For pain medication was changed to tramadol 100 mg p.o. q.6 hours Dilaudid 1 mg IV q.6 hours. 02/26/25- patient was seen at bedside today. She continues to complain of abdominal pain. White count today was 12.6. Urine analysis and urine culture was ordered. KUB and x-ray of lumbar spine were ordered. Dr Ogden, who is her PCP and is also following up regularly, continued ceftriaxone and started her on levofloxacin and vancomycin per pharmacy. Patient was encouraged to continue working with physical therapy and try to get out of bed into a chair today. 02/27/25- the patient was seen at bedside today. Repeat CT abdomen/pelvis was done today, which was unremarkable. White count today was 16.6. Lactic acid today was 0.7. An Infectious Disease consult was requested, as the white count is trending up again. Patient was encouraged to work with physical therapy. A detailed discussion was held with the patient and family, and our recommendation of sending the patient was SNF on discharge was discussed and they agreed with the same. Objective vital signs Vital Sign Date Time Temp Pulse Resp B/P (MAP) Pulse Ox O2 Delivery O2 Flow Rate FiO2 02/27/25 16:45 97.8 68 18 131/63 (85) 97 97.8 02/27/25 11:38 Nasal Cannula 3.0 02/27/25 11:38 32 Total Intake and Output 02/26/25 02/26/25 02/27/25 15:00 23:00 07:00 Intake Total 230 ml 1229 ml 1600 ml Balance 230 ml 1229 ml 1600 ml medications Current Medications Medications Dose Ordered Sig/Layo Route Start Time Stop Time Status Last Admin Dose Admin Morphine Sulfate 2 mg Q30M PRN IV 02/18/25 19:45 Cancel Albuterol 2.5 mg Q6HR NEB 02/19/25 00:00 02/27/25 11:38 2.5 MG Ipratropium [place] 0.5 mg Q6HR NEB 02/19/25 00:00 02/27/25 11:38 0.5 MG Diagnostic Test (Pha) 1 strip ACHS 02/18/25 22:00 02/27/25 17:00 1 STRIP Insulin Human Regular HS SC 02/18/25 22:00 02/26/25 21:22 2 UNITS Insulin Human Regular AC SC 02/19/25 07:00 02/27/25 17:10 6 UNITS Dextrose 50 ml UD PRN IV 02/18/25 19:45 Acetaminophen 650 mg Q6HP PRN PO 02/18/25 19:45 02/25/25 13:24 650 MG Levothyroxine Sodium 75 mcg QAM@0600 PO 02/19/25 06:00 02/27/25 06:09 75 MCG Pantoprazole Sodium 40 mg DAILY@0600 PO 02/19/25 06:00 02/27/25 06:09 40 MG Atorvastatin Calcium 40 mg HS PO 02/18/25 22:00 02/26/25 21:20 40 MG Patient Own Medication 1 DAILY PO 02/19/25 10:00 Insulin Glargine 10 units QAM SC 02/20/25 07:00 02/27/25 06:11 10 UNITS Gabapentin 400 mg BID PO 02/22/25 22:00 02/27/25 09:40 400 MG Tamsulosin HCl 0.4 mg QPM PO 02/23/25 18:00 02/27/25 17:07 0.4 MG Polyethylene Glycol 17 gm DAILYPRN PRN PO 02/23/25 18:00 Sennosides 8.6 mg HS PO 02/23/25 22:00 02/26/25 21:21 8.6 MG Hydromorphone HCl 1 mg Q6HP PRN IV 02/25/25 13:30 02/27/25 12:31 1 MG Tramadol HCl 100 mg Q6HP PRN PO 02/25/25 17:00 02/26/25 03:44 100 MG Levofloxacin/ Dextrose 100 ml @ 100 mls/hr DAILY IV 02/27/25 10:00 02/27/25 09:40 100 MLS/HR Enoxaparin Sodium 100 mg Q12HR SC 02/26/25 22:00 02/27/25 09:45 100 MG Zolpidem Tartrate 5 mg HSPRN PRN PO 02/26/25 19:00 Patient Own Medication 1 tab DAILY PO 02/27/25 10:00 Duloxetine HCl 60 mg BID PO 02/27/25 10:00 Hold 02/27/25 09:40 60 MG Patient Own Medication 20 mg BID PO 02/26/25 22:00 Hydrochlorothiazide 25 mg DAILY PO 02/27/25 05:15 02/27/25 06:16 25 MG Budesonide 0.5 mg BID NEB 02/27/25 10:00 02/27/25 11:38 0.5 MG Vancomycin HCl 250 ml @ 166.667 mls/hr Q24H IV 02/27/25 13:00 UNV Vancomycin HCl 0 ml @ 0 mls/hr PER PHARMACY IV 02/27/25 14:30 Examination General Appearance: Cooperative. Well developed. Well nourished. NAD. Left nephrostomy tube in place with no discharge or erythema, draining minimal serosanguineous fluid. Head Exam: Normal inspection Neck Exam: Normal inspection. Non-tender. Normal alignment Pulmonary/Respiratory: Chest non-tender. mildly reduced breath sounds bilaterally Cardiovascular/Chest: Regular rate and rhythm. No murmurs. No JVD. Peripheral Pulses: 2+ Radial (R). 2+ Radial (L). 2+ Pedal (R). 2+ Pedal (L) Abdominal Exam: Normal bowel sounds. Soft. normal abdomen, no visible veins, tenderness in left flank, tenderness in lower abdomen on palpation, No hepatospenomegaly. No masses Ankle Exam: Negative ankle edema Lower extremities: 1+ bilateral lower extremity pitting edema Neuro/Mental Status: A&O x4. Coherent. Thoughts/Psych: Normal thought pattern. Appropriate mood and affect. Good judgement and insight Skin Exam: Normal inspection. Normal color. Warm. Dry laboratory and microbiology Laboratory Tests 02/27/25 05:03 Test 02/27/25 05:03 Range/Units Serum Glucose 141 H 74-106 mg/dL Microbiology Date/Time Source Procedure Growth Status 02/26/25 11:30 Voided Urine Urine Culture - Preliminary Resulted 02/23/25 13:34 Blood Blood Culture - Preliminary NO GROWTH AFTER 72 HOURS OF INCUBATION. Resulted 02/21/25 09:30 Nose MRSA Screen - Final Complete Labs and/or images reviewed: Labs reviewed by me, Image(s) reviewed by me Problem List/Assessment/Plan Problem List/Assessment/Plan # Acute on chronic hypoxic respiratory failure # Acute on chronic HFpEF # Possible COPD exacerbation with possible viral pneumonia # History of PE -Chest xray - Cardiomegaly and Pulmonary vascular congestion -old Echo 01/04- EF >55%, severe PAH -BNP 152.10 -covid, influenza negative -albuterol and ipratropium mednebs every 6 hours # Acute complicated cystitis # Acute left hydronephrosis s/p left nephrostomy tube placement day 2 # Acute left pyelonephritis -white count was 16.6, lactic acid today was 0.7 -UA positive for UTI, UA ordered on 02/26/2025, repeat urine culture ordered -abdomen CT pelvis showed a 5 mm obstructive stone in the left ureter with moderate left hydronephrosis -urology consult-left nephrostomy tube placement, outpatient follow-up in 3-4 weeks -vancomycin per pharmacy and IV levofloxacin -repeat blood culture - no growth after 48 hours -blood culture Gram-negative rods 02/20/25 -chest x-ray showed cardiomegaly and moderate pleural effusion with prominent pulmonary vasculature -strain all urine -Flomax 0.4 mg q.p.m. p.o. -CT abdomen/pelvis on 02/27/2025-unremarkable -infectious diseases consult placed # CLAUDIA on CKD, likely due to VMN -avoid nephrotoxic agents -monitor BMP # Uncontrolled type 2 diabetes mellitus with hyperglycemia -HbA1c is 8 -Moderate insulin sliding scale a.c. HS -lantus 10 units qam # Chronic back pain, multilevel degenerative disc disease - tramadol 100 mg p.o. q.6 hours p.r.n. and Dilaudid 1 mg q.6 hours p.r.n. - gabapentin 400 mg p.o. t.i.d. - physical therapy on board, the patient and family agreed to SNF placement # Chronic hypochromic normocytic anemia -monitor H&H -stool occult blood ordered # Mild transmnitis # Hypothyroidism - Continue on levothyroxine 75 mcg # GERD - Continue on protonix 40 mg daily po # Hypokalemia -repleted # Acute constipation -Senokot 8.6 mg HS p.o. and MiraLax 17 g daily p.r.n. p.o. PUD prophylaxis: Protonix 40 mg DVT prophylaxis: lovenox 110mg q12 hr sc Goals of care discussed with the patient for over 18 minutes, Full code Plan discussed with Dr. Del Toro Plan discussed with: Patient, Daughter, Other My Orders My Orders Orders - FINESSE VERMA RESIDENT Procedure Category Date Status Time * Infectious Mary- Dr. ELENA 02/27/25 Transmitted Mayank Wade 11:01 Dietary Evaluation Review Comments: Nutrition Recommendation: 1) Glucerna 240ml BID 2) Monitor PO intake, lab values, weight trend, and I/O Expected Outcomes/Goals: Intake to meet >75% estimated needs FU 3-5 days Date of Service: Feb 27, 2025 Billing Provider: XENA DEL TORO MD Common Visit Codes: [id number] INP/OBS CARE(HIGH) FINESSE VERMA RESIDENT Feb 27, 2025 18:25 XENA DEL TORO MD Feb 27, 2025 22:55
[2025-02-28] VITALS (16 sets, daily range): BP systolic 108–154; BP diastolic 48–63; PULSE 63–92; RESP 16–21; TEMP 97.7–98.6; O2SAT 94–99
[2025-02-28 06:49] LABS: Hematocrit 27.8 % (36.0-46.0); Hemoglobin 9.1 g/dL (12.2-16.2); Mean Corpuscular Hemoglobin 27.5 pg (28.0-32.0); Mean Corpuscular Volume 83.6 fL (80.0-100.0); Nucleated Red Blood Cells % 0.0 %
[2025-02-28 06:52] LABS: Anion Gap 11 (5-15); Calcium 9.0 mg/dL (8.7-10.4); Carbon Dioxide 26 mmol/L (20-31); Chloride 102 mmol/L (98-107); Potassium 3.8 mmol/L (3.5-5.1); Sodium 139 mmol/L (136-145)
[2025-02-28 06:55] LABS: INR 1.09 (0.9-1.15); Partial Thromboplastin Time 33.8 SEC (24.5-34.5); Prothrombin Time 11.5 sec (9.3-11.8)
[2025-02-28 06:58] LABS: BUN/Creatinine Ratio 33.3 (10.0-20.0)
[2025-02-28 07:02] LABS: Blood Urea Nitrogen 28 mg/dL (9-23); Glucose 226 mg/dL (74-106)
[2025-02-28] MEDS: INFLUENZA TRIVALENT 2024-2025 0.5 ML INJ IM ONE (07:15)
[2025-02-28] MEDS: PNEUMOCOCCAL VACC POLYS 25 MCG/0.5 ML VIAL IM ONE (07:16)
[2025-02-28] MEDS: VANCOMYCIN 750MG KIT 100 ML IV SCH (14:31)
[2025-02-28 16:00] LABS: Hemoglobin 8.7 g/dL (12.2-16.2)
[2025-02-28 16:02] LABS: Hematocrit 26.2 % (36.0-46.0)
--- NOTE | 2025-02-28 16:53 | DVHPNRES ---
Progress Note Date Seen: Feb 28, 2025 Resident Creating Document: FINESSE VERMA RESIDENT Medical Necessity Reason Pt with a Central, PICC or Fol: No Subjective Review of Systems Brenda Daily is an 79-year-old female with past medical history of COPD on 2 L oxygen at home, CHF, insulin-dependent type 2 diabetes mellitus, hypertension, pulmonary artery hypertension, non-Hodgkin lymphoma in remission since 1987, lung cancer s/p right upper lobe resection in 2016 presented to the ED with the chief complaint of worsening shortness of breath for the last 3 days along with chills. The patient mentioned she tried to up titrate her oxygen at home, but that did not improve her shortness of breath. She mentioned she also had tightness in the chest along with a dry cough and lower extremity edema. She mentions having similar episodes of shortness of breath 3-4 times in the last 1 year. She denied any fever. Past medical history: COPD on 2 L oxygen at home, CHF, insulin-dependent type 2 diabetes mellitus, hypertension, pulmonary artery hypertension, non-Hodgkin lymphoma in remission since 1987, lung cancer s/p right upper lobe resection Past surgical history: right upper lobectomy in 2016, tonsillectomy Social & Personal history: Lives at home with family, she denies any smoking, alcohol and drugs Allergies: sulfa antibiotics Patient seen and examined at bedside. Patient is alert and oriented to time, place person and responding to all questions. Eyes: No Pain, No Vision change, No Conjunctivae inflammation, No Eyelid inflammation, No Redness ENT: No Ear pain, No Ear discharge, No Nose pain, No Nose discharge, No Nose congestion, No Mouth pain, No Mouth swelling, No Throat pain, No Throat swelling Cardiovascular: No Chest Pain, No Palpitations, Orthopnea, No Paroxysmal No Dyspnea, Edema, No Lt Headedness Respiratory: Cough, Dry, Shortness of breath, No SOB with exertion, No Wheezing, No Hemoptysis, No Pleuritic Pain, No Sputum Gastrointestinal: No Nausea, No Vomiting, No Abdominal Pain, No Diarrhea, No Constipation, No Melena, No Hematochezia Genitourinary: No Dysuria, No Frequency, No Incontinence, No Hematuria, No Retention 02/20/25- the patient was seen at bedside today. The patient complained of intense pain in the left flank radiating to the left groin area and mentioned of her history of kidney stones. Her white count had increased to 19.9 today and urinalysis was positive for UTI. Lactic acid was 1.5. She was started on meropenem and fluconazole for acute complicated cystitis. CT abdomen pelvis showed Moderate left-sided hydronephrosis with a 5 mm obstructing stone in the proximal left ureter. Urology consult was placed. Her potassium today was 3, which was repleted. We also ordered for blood culture and urine culture. We also started her on morphine 2 mg q.12 p.r.n. for severe pain and [place] 5q4 p.r.n.. EKG was done which was normal. A consult for Dr. Ogden was also placed as he is her PCP. Bedside pocus was done which showed a dilated IVC. 02/21/25- The patient was seen at bedside today. White count today was 34.8. Lactic acid was 1.3. Patient looked tachypneic. Blood culture showed Gram- negative rods. The patient was started on vancomycin per pharmacy. IR placed left nephrostomy tube without any complications. 02/22/25- The patient was seen at bedside today. White count today was 27.2. Patient is breathing comfortably on 2L oxygen by nasal canula. Patient complained of intense pain in her back as she has severe degenerative disc disease, for which she was given 1 dose of morphine 2 mg and started on dilaudid 1mg q4 prn. Left nephrostomy tube is in place with minimal drainage and no discharge or redness around the site. Creatinine improved from 2.19 to 2.02 today. Patient started on gabapentin 400 mg t.i.d. for neuropathy. She was started on MiraLax 17 g p.o. b.i.d. for constipation. 02/23/25- The patient seen at bedside today. She complained of pain in her lower abdomen. She was given 1 time dose of IV mannitol and started on Flomax 0.4 mg PO HS. Order to strain all urine was placed. Patient was started on Senokot q.h.s. and MiraLax p.r.n. for constipation. Repeat blood cultures were ordered. IV antibiotics were changed to IV ceftriaxone 1 g daily. Physical therapy evaluation was requested for the patient. Urology was consulted and they recommended outpatient follow-up in 3-4 weeks once patient is stable for discharge. 02/24/25- Patient still complains of intermittent flank pain presumably from nephrostomy tube site with a renal stone. Patient continued to take IV Dilaudid. Patient is with a poor ambulatory status. Her leukocytosis has significantly improved. 02/25/25- Patient still complains of intermittent flank pain. Physical therapy recommended placement in SNF for the patient, which she refused. We will continue to try working with physical therapy to try and get her out of bed into a chair. For pain medication was changed to tramadol 100 mg p.o. q.6 hours Dilaudid 1 mg IV q.6 hours. 02/26/25- patient was seen at bedside today. She continues to complain of abdominal pain. White count today was 12.6. Urine analysis and urine culture was ordered. KUB and x-ray of lumbar spine were ordered. Dr Ogden, who is her PCP and is also following up regularly, continued ceftriaxone and started her on levofloxacin and vancomycin per pharmacy. Patient was encouraged to continue working with physical therapy and try to get out of bed into a chair today. 02/27/25- the patient was seen at bedside today. Repeat CT abdomen/pelvis was done today, which was unremarkable. White count today was 16.6. Lactic acid today was 0.7. An Infectious Disease consult was requested, as the white count is trending up again. Patient was encouraged to work with physical therapy. A detailed discussion was held with the patient and family, and our recommendation of sending the patient was SNF on discharge was discussed and they agreed with the same. 02/28/25- the patient was seen at bedside today. The patient started having rosalee bleeding from the nephrostomy tube last night, Lovenox was stopped. The patient was also having rosalee hematuria from the urethra. Her hemoglobin this morning was 9.1 and repeat in the evening was 8.7. Repeat IR consult was placed for evaluation of the nephrostomy tube. Repeat CT abdomen/pelvis was ordered Objective vital signs Vital Sign Date Time Temp Pulse Resp B/P (MAP) Pulse Ox O2 Delivery O2 Flow Rate FiO2 02/28/25 13:14 72 18 125/65 02/28/25 12:47 97.9 94 97.9 02/28/25 09:57 Nasal Cannula 2.0 02/28/25 09:56 28 Total Intake and Output 02/27/25 02/27/25 02/28/25 15:00 23:00 07:00 Intake Total 600 ml 750 ml 474 ml Output Total 450 ml Balance 600 ml 300 ml 474 ml medications Current Medications Medications Dose Ordered Sig/Layo Route Start Time Stop Time Status Last Admin Dose Admin Morphine Sulfate 2 mg Q30M PRN IV 02/18/25 19:45 Cancel Albuterol 2.5 mg Q6HR NEB 02/19/25 00:00 02/28/25 07:02 2.5 MG Ipratropium [place] 0.5 mg Q6HR NEB 02/19/25 00:00 02/28/25 07:02 0.5 MG Diagnostic Test (Pha) 1 strip ACHS 02/18/25 22:00 02/28/25 12:05 1 STRIP Insulin Human Regular HS SC 02/18/25 22:00 02/27/25 21:35 2 UNITS Insulin Human Regular AC SC 02/19/25 07:00 02/28/25 12:05 3 UNITS Dextrose 50 ml UD PRN IV 02/18/25 19:45 Acetaminophen 650 mg Q6HP PRN PO 02/18/25 19:45 02/25/25 13:24 650 MG Levothyroxine Sodium 75 mcg QAM@0600 PO 02/19/25 06:00 02/28/25 05:56 75 MCG Pantoprazole Sodium 40 mg DAILY@0600 PO 02/19/25 06:00 02/28/25 05:56 40 MG Atorvastatin Calcium 40 mg HS PO 02/18/25 22:00 02/27/25 21:34 40 MG Patient Own Medication 1 DAILY PO 02/19/25 10:00 02/28/25 08:45 1 Insulin Glargine 10 units QAM SC 02/20/25 07:00 02/28/25 05:58 10 UNITS Gabapentin 400 mg BID PO 02/22/25 22:00 02/28/25 10:04 400 MG Tamsulosin HCl 0.4 mg QPM PO 02/23/25 18:00 02/27/25 17:07 0.4 MG Polyethylene Glycol 17 gm DAILYPRN PRN PO 02/23/25 18:00 Sennosides 8.6 mg HS PO 02/23/25 22:00 02/27/25 21:34 8.6 MG Hydromorphone HCl 1 mg Q6HP PRN IV 02/25/25 13:30 02/28/25 12:44 1 MG Tramadol HCl 100 mg Q6HP PRN PO 02/25/25 17:00 02/26/25 03:44 100 MG Levofloxacin/ Dextrose 100 ml @ 100 mls/hr DAILY IV 02/27/25 10:00 02/28/25 10:04 100 MLS/HR Zolpidem Tartrate 5 mg HSPRN PRN PO 02/26/25 19:00 Patient Own Medication 1 tab DAILY PO 02/27/25 10:00 Patient Own Medication 20 mg BID PO 02/26/25 22:00 Hydrochlorothiazide 25 mg DAILY PO 02/27/25 05:15 02/28/25 10:05 25 MG Budesonide 0.5 mg BID NEB 02/27/25 10:00 02/28/25 07:02 0.5 MG Vancomycin HCl 250 ml @ 166.667 mls/hr Q24H IV 02/27/25 13:00 UNV Vancomycin HCl 0 ml @ 0 mls/hr PER PHARMACY IV 02/27/25 14:30 Vancomycin HCl 100 ml @ 100 mls/hr Q8H IV 02/28/25 14:00 02/28/25 14:31 100 MLS/HR Duloxetine HCl 60 mg DAILY PO 03/01/25 10:00 Examination General Appearance: Cooperative. Well developed. Well nourished. NAD. Left nephrostomy tube in place with no discharge or erythema, draining minimal serosanguineous fluid. Head Exam: Normal inspection Neck Exam: Normal inspection. Non-tender. Normal alignment Pulmonary/Respiratory: Chest non-tender. mildly reduced breath sounds bilaterally Cardiovascular/Chest: Regular rate and rhythm. No murmurs. No JVD. Peripheral Pulses: 2+ Radial (R). 2+ Radial (L). 2+ Pedal (R). 2+ Pedal (L) Abdominal Exam: Normal bowel sounds. Soft. normal abdomen, no visible veins, tenderness in left flank, tenderness in lower abdomen on palpation, No hepatospenomegaly. No masses Ankle Exam: Negative ankle edema Lower extremities: 1+ bilateral lower extremity pitting edema Neuro/Mental Status: A&O x4. Coherent. Thoughts/Psych: Normal thought pattern. Appropriate mood and affect. Good judgement and insight Skin Exam: Normal inspection. Normal color. Warm. Dry laboratory and microbiology Laboratory Tests 02/28/25 15:46 02/28/25 05:15 Test 02/28/25 05:15 Range/Units Serum Glucose 226 H 74-106 mg/dL Microbiology Date/Time Source Procedure Growth Status 02/26/25 11:30 Voided Urine Urine Culture - Final Complete 02/23/25 13:34 Blood Blood Culture - Final NO GROWTH AFTER 5 DAYS OF INCUBATION. Complete 02/21/25 09:30 Nose MRSA Screen - Final Complete Labs and/or images reviewed: Labs reviewed by me, Image(s) reviewed by me Problem List/Assessment/Plan Problem List/Assessment/Plan # Acute on chronic hypoxic respiratory failure # Acute on chronic HFpEF # Possible COPD exacerbation with possible viral pneumonia # History of PE -Chest xray - Cardiomegaly and Pulmonary vascular congestion -old Echo 01/04- EF >55%, severe PAH -BNP 152.10 -covid, influenza negative -albuterol and ipratropium mednebs every 6 hours # Acute complicated cystitis # Acute left hydronephrosis s/p left nephrostomy tube placement day 2 # Acute left pyelonephritis # Hematuria -white count was 14.7 -UA positive for UTI, UA ordered on 02/26/2025, repeat urine culture > 07490 CFU, mixed aleksandar -abdomen CT pelvis showed a 5 mm obstructive stone in the left ureter with moderate left hydronephrosis -urology consult-left nephrostomy tube placement, outpatient follow-up in 3-4 weeks -vancomycin per pharmacy and IV levofloxacin -repeat blood culture - no growth after 5 days -blood culture Gram-negative rods 02/20/25 -chest x-ray showed cardiomegaly and moderate pleural effusion with prominent pulmonary vasculature -strain all urine -Flomax 0.4 mg q.p.m. p.o. -CT abdomen/pelvis on 02/27/2025-unremarkable -infectious diseases consult placed -rosalee bleeding from nephrostomy tube and urethra- hemoglobin 8.7, abdomen/pelvic CT ordered, pending report # CLAUDIA on CKD, likely due to VMN -avoid nephrotoxic agents -monitor BMP # Uncontrolled type 2 diabetes mellitus with hyperglycemia -HbA1c is 8 -Moderate insulin sliding scale a.c. HS -lantus 10 units qam # Chronic back pain, multilevel degenerative disc disease - tramadol 100 mg p.o. q.6 hours p.r.n. and Dilaudid 1 mg q.6 hours p.r.n. - gabapentin 400 mg p.o. t.i.d. - physical therapy on board, the patient and family agreed to SNF placement # Chronic hypochromic normocytic anemia -monitor H&H -stool occult blood ordered # Mild transmnitis # Hypothyroidism - Continue on levothyroxine 75 mcg # GERD - Continue on protonix 40 mg daily po # Hypokalemia -repleted # Acute constipation -Senokot 8.6 mg HS p.o. and MiraLax 17 g daily p.r.n. p.o. PUD prophylaxis: Protonix 40 mg DVT prophylaxis: lovenox 110mg q12 hr sc, discontinued due to rosalee hematuria Goals of care discussed with the patient for over 18 minutes, Full code Plan discussed with Dr. Del Toro Plan discussed with: Patient My Orders My Orders Orders - FINESSE VERMA RESIDENT Procedure Category Date Status Time * Radiologist Consult CONS 02/28/25 Transmitted 16:04 Dietary Evaluation Review Comments: Nutrition Recommendation: 1) Glucerna 240ml BID 2) Monitor PO intake, lab values, weight trend, and I/O Expected Outcomes/Goals: Intake to meet >75% estimated needs FU 3-5 days Date of Service: Feb 28, 2025 Billing Provider: XENA DEL TORO MD Common Visit Codes: [id number] INP/OBS CARE(HIGH) FINESSE VERMA RESIDENT Feb 28, 2025 16:52 XENA DEL TORO MD Mar 01, 2025 18:00
[2025-02-28 23:32] LABS: Hematocrit 27.0 % (36.0-46.0); Hemoglobin 8.7 g/dL (12.2-16.2)
[2025-03-01] VITALS (17 sets, daily range): BP systolic 122–162; BP diastolic 54–60; PULSE 72–85; RESP 16–20; TEMP 97.6–98.2; O2SAT 95–99
[2025-03-01 07:07] LABS: Hematocrit 23.5 % (36.0-46.0); Hemoglobin 7.8 g/dL (12.2-16.2)
[2025-03-01 07:11] LABS: Mean Corpuscular Hemoglobin 27.7 pg (28.0-32.0); Mean Corpuscular Volume 83.2 fL (80.0-100.0); Nucleated Red Blood Cells % 0.1 %
[2025-03-01 07:18] LABS: Chloride 104 mmol/L (98-107); Potassium 3.9 mmol/L (3.5-5.1); Sodium 139 mmol/L (136-145)
[2025-03-01 07:19] LABS: Anion Gap 8 (5-15); Calcium 8.8 mg/dL (8.7-10.4); Carbon Dioxide 27 mmol/L (20-31)
[2025-03-01 07:24] LABS: BUN/Creatinine Ratio 29.0 (10.0-20.0)
[2025-03-01 07:27] LABS: Blood Urea Nitrogen 31 mg/dL (9-23); Glucose 191 mg/dL (74-106)
--- NOTE | 2025-03-01 14:44 | DVH ---
INDICATION: bleeding from nephrostomy tube TECHNIQUE: Multiple real-time sonographic images of the kidneys and bladder were obtained. COMPARISON: None FINDINGS: The right kidney measures 11.48 cm in length, which is normal in size. There is normal echogenicity of the right kidney. No hydronephrosis. The left kidney measures 11.93 cm in length, which is normal in size. There is normal echogenicity of the left kidney. No hydronephrosis. Nephrostomy tube is visualized. No large intraluminal masses are seen in the bladder. Prior to voiding the bladder volume measures volume 5 prevoid bladder residual is 596.45 mL cc. Bladder wall measures 1.93 mm. There is echogenic debris in the dependent portion of the bladder measuring 4.6 x 2.7 by 9.7 cm No postvoid bladder residual study received. IMPRESSION: 1. Normal sonographic appearance of the kidneys. No hydronephrosis. 2. Right kidney measures 11.48 cm in length. Left kidney measures 11.93 cm in length. 3. Bladder volume is 596.45mL. No postvoid bladder volume given.
--- NOTE | 2025-03-01 14:50 | DVH ---
Date: 03/01/2025 02:25 PM Examination: XY KUB ABDOMEN SINGLE VIEW History: nephrostomy bleed Comparison: None TECHNIQUE: Frontal views of the abdomen was obtained. FINDINGS: Bowel gas pattern is unremarkable. Left-sided nephrostomy tube visualized. The lung bases are unremarkable. No acute osseous abnormality identified. IMPRESSION: 1. Left-sided nephrostomy tube in place. 2. Nonobstructive bowel gas pattern.
--- NOTE | 2025-03-01 14:52 | DVHPNRES ---
Progress Note Date Seen: Mar 01, 2025 Resident Creating Document: FINESSE VERMA RESIDENT Medical Necessity Reason Pt with a Central, PICC or Fol: No Subjective Review of Systems Brenda Daily is an 79-year-old female with past medical history of COPD on 2 L oxygen at home, CHF, insulin-dependent type 2 diabetes mellitus, hypertension, pulmonary artery hypertension, non-Hodgkin lymphoma in remission since 1987, lung cancer s/p right upper lobe resection in 2016 presented to the ED with the chief complaint of worsening shortness of breath for the last 3 days along with chills. The patient mentioned she tried to up titrate her oxygen at home, but that did not improve her shortness of breath. She mentioned she also had tightness in the chest along with a dry cough and lower extremity edema. She mentions having similar episodes of shortness of breath 3-4 times in the last 1 year. She denied any fever. Past medical history: COPD on 2 L oxygen at home, CHF, insulin-dependent type 2 diabetes mellitus, hypertension, pulmonary artery hypertension, non-Hodgkin lymphoma in remission since 1987, lung cancer s/p right upper lobe resection Past surgical history: right upper lobectomy in 2016, tonsillectomy Social & Personal history: Lives at home with family, she denies any smoking, alcohol and drugs Allergies: sulfa antibiotics Patient seen and examined at bedside. Patient is alert and oriented to time, place person and responding to all questions. Eyes: No Pain, No Vision change, No Conjunctivae inflammation, No Eyelid inflammation, No Redness ENT: No Ear pain, No Ear discharge, No Nose pain, No Nose discharge, No Nose congestion, No Mouth pain, No Mouth swelling, No Throat pain, No Throat swelling Cardiovascular: No Chest Pain, No Palpitations, Orthopnea, No Paroxysmal No Dyspnea, Edema, No Lt Headedness Respiratory: Cough, Dry, Shortness of breath, No SOB with exertion, No Wheezing, No Hemoptysis, No Pleuritic Pain, No Sputum Gastrointestinal: No Nausea, No Vomiting, No Abdominal Pain, No Diarrhea, No Constipation, No Melena, No Hematochezia Genitourinary: No Dysuria, No Frequency, No Incontinence, No Hematuria, No Retention 02/20/25- the patient was seen at bedside today. The patient complained of intense pain in the left flank radiating to the left groin area and mentioned of her history of kidney stones. Her white count had increased to 19.9 today and urinalysis was positive for UTI. Lactic acid was 1.5. She was started on meropenem and fluconazole for acute complicated cystitis. CT abdomen pelvis showed Moderate left-sided hydronephrosis with a 5 mm obstructing stone in the proximal left ureter. Urology consult was placed. Her potassium today was 3, which was repleted. We also ordered for blood culture and urine culture. We also started her on morphine 2 mg q.12 p.r.n. for severe pain and Avinger 5q4 p.r.n.. EKG was done which was normal. A consult for Dr. Ogden was also placed as he is her PCP. Bedside pocus was done which showed a dilated IVC. 02/21/25- The patient was seen at bedside today. White count today was 34.8. Lactic acid was 1.3. Patient looked tachypneic. Blood culture showed Gram- negative rods. The patient was started on vancomycin per pharmacy. IR placed left nephrostomy tube without any complications. 02/22/25- The patient was seen at bedside today. White count today was 27.2. Patient is breathing comfortably on 2L oxygen by nasal canula. Patient complained of intense pain in her back as she has severe degenerative disc disease, for which she was given 1 dose of morphine 2 mg and started on dilaudid 1mg q4 prn. Left nephrostomy tube is in place with minimal drainage and no discharge or redness around the site. Creatinine improved from 2.19 to 2.02 today. Patient started on gabapentin 400 mg t.i.d. for neuropathy. She was started on MiraLax 17 g p.o. b.i.d. for constipation. 02/23/25- The patient seen at bedside today. She complained of pain in her lower abdomen. She was given 1 time dose of IV mannitol and started on Flomax 0.4 mg PO HS. Order to strain all urine was placed. Patient was started on Senokot q.h.s. and MiraLax p.r.n. for constipation. Repeat blood cultures were ordered. IV antibiotics were changed to IV ceftriaxone 1 g daily. Physical therapy evaluation was requested for the patient. Urology was consulted and they recommended outpatient follow-up in 3-4 weeks once patient is stable for discharge. 02/24/25- Patient still complains of intermittent flank pain presumably from nephrostomy tube site with a renal stone. Patient continued to take IV Dilaudid. Patient is with a poor ambulatory status. Her leukocytosis has significantly improved. 02/25/25- Patient still complains of intermittent flank pain. Physical therapy recommended placement in SNF for the patient, which she refused. We will continue to try working with physical therapy to try and get her out of bed into a chair. For pain medication was changed to tramadol 100 mg p.o. q.6 hours Dilaudid 1 mg IV q.6 hours. 02/26/25- patient was seen at bedside today. She continues to complain of abdominal pain. White count today was 12.6. Urine analysis and urine culture was ordered. KUB and x-ray of lumbar spine were ordered. Dr Ogden, who is her PCP and is also following up regularly, continued ceftriaxone and started her on levofloxacin and vancomycin per pharmacy. Patient was encouraged to continue working with physical therapy and try to get out of bed into a chair today. 02/27/25- the patient was seen at bedside today. Repeat CT abdomen/pelvis was done today, which was unremarkable. White count today was 16.6. Lactic acid today was 0.7. An Infectious Disease consult was requested, as the white count is trending up again. Patient was encouraged to work with physical therapy. A detailed discussion was held with the patient and family, and our recommendation of sending the patient was SNF on discharge was discussed and they agreed with the same. 02/28/25- the patient was seen at bedside today. The patient started having rosalee bleeding from the nephrostomy tube last night, Lovenox was stopped. The patient was also having rosalee hematuria from the urethra. Her hemoglobin this morning was 9.1 and repeat in the evening was 8.7. Repeat IR consult was placed for evaluation of the nephrostomy tube. Repeat CT abdomen/pelvis was ordered. 03/01/25- the patient was seen at bedside today. CT abdomen/pelvis was ordered for the patient yesterday to evaluate for bleeding from the nephrostomy tube and urethra, but the patient refused CT yesterday and this morning. The patient's family requested for transfer to [facility], a social science professor request for facilitating the lateral transfer per the family request was placed. The patient and family were explained at length about the evaluation and the need for the CT today and they demonstrated understanding of the same. Renal ultrasound was done which showed echogenic debris in the dependent portion of the bladder measuring 4.6 x 2.7 by 9.7 cm. KUB showed left-sided nephrostomy tube in place and nonobstructive bowel gas pattern. Urology was consulted and they recommended IR evaluation for possible replacement of nephrostomy tube and Jason if patient is unable to void. Objective vital signs Vital Sign Date Time Temp Pulse Resp B/P (MAP) Pulse Ox O2 Delivery O2 Flow Rate FiO2 03/01/25 13:38 70 18 125/65 03/01/25 12:55 98.2 96 98.2 03/01/25 09:36 Nasal Cannula 2.0 03/01/25 09:35 28 Total Intake and Output 02/28/25 02/28/25 03/01/25 15:00 23:00 07:00 Intake Total 0 ml 500 ml 400 ml Balance 0 ml 500 ml 400 ml medications Current Medications Medications Dose Ordered Sig/Layo Route Start Time Stop Time Status Last Admin Dose Admin Morphine Sulfate 2 mg Q30M PRN IV 02/18/25 19:45 Cancel Albuterol 2.5 mg Q6HR NEB 02/19/25 00:00 03/01/25 06:29 2.5 MG Ipratropium [place] 0.5 mg Q6HR NEB 02/19/25 00:00 03/01/25 06:32 0.5 MG Diagnostic Test (Pha) 1 strip ACHS 02/18/25 22:00 03/01/25 11:19 1 STRIP Insulin Human Regular HS SC 02/18/25 22:00 02/28/25 21:52 4 UNITS Insulin Human Regular AC SC 02/19/25 07:00 03/01/25 11:19 6 UNITS Dextrose 50 ml UD PRN IV 02/18/25 19:45 Acetaminophen 650 mg Q6HP PRN PO 02/18/25 19:45 03/01/25 04:40 650 MG Levothyroxine Sodium 75 mcg QAM@0600 PO 02/19/25 06:00 03/01/25 06:16 75 MCG Pantoprazole Sodium 40 mg DAILY@0600 PO 02/19/25 06:00 03/01/25 06:16 40 MG Atorvastatin Calcium 40 mg HS PO 02/18/25 22:00 02/28/25 21:45 40 MG Patient Own Medication 1 DAILY PO 02/19/25 10:00 03/01/25 09:29 1 Insulin Glargine 10 units QAM SC 02/20/25 07:00 03/01/25 06:18 10 UNITS Gabapentin 400 mg BID PO 02/22/25 22:00 03/01/25 10:02 400 MG Tamsulosin HCl 0.4 mg QPM PO 02/23/25 18:00 02/28/25 17:28 0.4 MG Polyethylene Glycol 17 gm DAILYPRN PRN PO 02/23/25 18:00 Sennosides 8.6 mg HS PO 02/23/25 22:00 02/27/25 21:34 8.6 MG Hydromorphone HCl 1 mg Q6HP PRN IV 02/25/25 13:30 03/01/25 13:08 1 MG Tramadol HCl 100 mg Q6HP PRN PO 02/25/25 17:00 02/26/25 03:44 100 MG Levofloxacin/ Dextrose 100 ml @ 100 mls/hr DAILY IV 02/27/25 10:00 03/01/25 10:01 100 MLS/HR Zolpidem Tartrate 5 mg HSPRN PRN PO 02/26/25 19:00 Patient Own Medication 1 tab DAILY PO 02/27/25 10:00 Patient Own Medication 20 mg BID PO 02/26/25 22:00 Hydrochlorothiazide 25 mg DAILY PO 02/27/25 05:15 03/01/25 10:03 25 MG Budesonide 0.5 mg BID NEB 02/27/25 10:00 03/01/25 06:29 0.5 MG Vancomycin HCl 250 ml @ 166.667 mls/hr Q24H IV 02/27/25 13:00 UNV Vancomycin HCl 0 ml @ 0 mls/hr PER PHARMACY IV 02/27/25 14:30 Vancomycin HCl 100 ml @ 100 mls/hr Q8H IV 02/28/25 14:00 03/01/25 06:16 100 MLS/HR Duloxetine HCl 60 mg DAILY PO 03/01/25 10:00 03/01/25 10:02 60 MG Examination General Appearance: Cooperative. Well developed. Well nourished. NAD. Left nephrostomy tube in place with no discharge or erythema, with dark clotted blood. The patient has bleeding from urethra. She is currently on 2 L oxygen via nasal cannula. Head Exam: Normal inspection Neck Exam: Normal inspection. Non-tender. Normal alignment Pulmonary/Respiratory: Chest non-tender. mildly reduced breath sounds bilaterally Cardiovascular/Chest: Regular rate and rhythm. No murmurs. No JVD. Peripheral Pulses: 2+ Radial (R). 2+ Radial (L). 2+ Pedal (R). 2+ Pedal (L) Abdominal Exam: Normal bowel sounds. Soft. normal abdomen, no visible veins, tenderness in left flank, tendernessn all over abdomen on palpation, No hepatospenomegaly. No masses Ankle Exam: Negative ankle edema Lower extremities: 1+ bilateral lower extremity pitting edema Neuro/Mental Status: A&O x4. Coherent. Thoughts/Psych: Normal thought pattern. Appropriate mood and affect. Good judgement and insight Skin Exam: Normal inspection. Normal color. Warm. Dry laboratory and microbiology Laboratory Tests 03/01/25 06:00 Test 03/01/25 06:00 Range/Units Serum Glucose 191 H 74-106 mg/dL Microbiology Date/Time Source Procedure Growth Status 02/26/25 11:30 Voided Urine Urine Culture - Final Complete 02/23/25 13:34 Blood Blood Culture - Final NO GROWTH AFTER 5 DAYS OF INCUBATION. Complete 02/21/25 09:30 Nose MRSA Screen - Final Complete Labs and/or images reviewed: Labs reviewed by me, Image(s) reviewed by me Problem List/Assessment/Plan Problem List/Assessment/Plan # Acute on chronic hypoxic respiratory failure # Acute on chronic HFpEF # Possible COPD exacerbation with possible viral pneumonia # History of PE -Chest xray - Cardiomegaly and Pulmonary vascular congestion -old Echo 01/04- EF >55%, severe PAH -BNP 152.10 -covid, influenza negative -albuterol and ipratropium mednebs every 6 hours # Acute complicated cystitis # Acute left hydronephrosis s/p left nephrostomy tube placement day 2 # Acute left pyelonephritis # Hematuria -white count was 14.0 -UA positive for UTI, UA ordered on 02/26/2025, repeat urine culture > 20215 CFU, mixed aleksandar -abdomen CT pelvis showed a 5 mm obstructive stone in the left ureter with moderate left hydronephrosis -urology consult-left nephrostomy tube placement, outpatient follow-up in 3-4 weeks -vancomycin per pharmacy and IV levofloxacin -repeat blood culture on 02/23/25- no growth after 5 days -blood culture Gram-negative rods 02/20/25 -chest x-ray showed cardiomegaly and moderate pleural effusion with prominent pulmonary vasculature -strain all urine -Flomax 0.4 mg q.p.m. p.o. -CT abdomen/pelvis on 02/27/2025- unremarkable -infectious diseases consult placed, pending -bleeding from nephrostomy tube and urethra- hemoglobin 7.8>7.9, abdomen/pelvic CT ordered, patient refused -Renal US- echogenic debris in the dependent portion of the bladder measuring 4.6 x 2.7 by 9.7 cm -KUB- Left-sided nephrostomy tube in place and nonobstructive bowel gas pattern -pending IR re-evaluation of left nephrostomy tube -place jason if patient is unable to void # CLAUDIA on CKD, likely due to VMN -avoid nephrotoxic agents -monitor BMP # Uncontrolled type 2 diabetes mellitus with hyperglycemia -HbA1c is 8 -Moderate insulin sliding scale a.c. HS -lantus 10 units qam # Chronic back pain, multilevel degenerative disc disease - tramadol 100 mg p.o. q.6 hours p.r.n. and Dilaudid 1 mg q.6 hours p.r.n. - gabapentin 400 mg p.o. t.i.d. - physical therapy on board, the patient and family agreed to SNF placement - duloxetine 60 mg daily # Chronic hypochromic normocytic anemia -monitor H&H -stool occult blood ordered # Mild transmnitis # Hypothyroidism - Continue on levothyroxine 75 mcg # GERD - Continue on protonix 40 mg daily po # Hypokalemia -repleted # Acute constipation -Senokot 8.6 mg HS p.o. and MiraLax 17 g daily p.r.n. p.o. PUD prophylaxis: Protonix 40 mg DVT prophylaxis: lovenox 110mg q12 hr sc, discontinued due to hematuria Goals of care discussed with the patient for over 18 minutes, Full code Plan discussed with Dr. Del Toro Plan discussed with: Patient My Orders My Orders Orders - FINESSE VERMA RESIDENT Procedure Category Date Status Time * Radiologist Consult CONS 02/28/25 Transmitted 16:04 * Diabetes Physician CONS 03/01/25 Transmitted Consult Dietary Evaluation Review Comments: Nutrition Recommendation: 1) Glucerna 240ml BID 2) Monitor PO intake, lab values, weight trend, and I/O Expected Outcomes/Goals: Intake to meet >75% estimated needs FU 3-5 days Date of Service: Mar 01, 2025 Billing Provider: XENA DEL TORO MD Common Visit Codes: [id number] INP/OBS CARE(HIGH) FINESSE VERMA RESIDENT Mar 01, 2025 14:52
[2025-03-01 15:23] LABS: Hematocrit 24.3 % (36.0-46.0); Hemoglobin 7.9 g/dL (12.2-16.2)
[2025-03-02] VITALS (12 sets, daily range): BP systolic 102–132; BP diastolic 42–62; PULSE 78–84; RESP 16–18; TEMP 97–98.1; O2SAT 94–98
[2025-03-02 05:46] LABS: Hematocrit 24.9 % (36.0-46.0); Hemoglobin 8.1 g/dL (12.2-16.2); Mean Corpuscular Hemoglobin 27.1 pg (28.0-32.0); Mean Corpuscular Volume 83.7 fL (80.0-100.0); Nucleated Red Blood Cells % 0.0 %
[2025-03-02 06:03] LABS: Anion Gap 9 (5-15); Carbon Dioxide 27 mmol/L (20-31); Chloride 103 mmol/L (98-107); Potassium 3.9 mmol/L (3.5-5.1); Sodium 139 mmol/L (136-145)
[2025-03-02 06:05] LABS: Calcium 8.7 mg/dL (8.7-10.4)
[2025-03-02 06:10] LABS: BUN/Creatinine Ratio 29.2 (10.0-20.0)
[2025-03-02 06:13] LABS: Blood Urea Nitrogen 31 mg/dL (9-23); Glucose 195 mg/dL (74-106)
--- NOTE | 2025-03-02 13:09 | DVHPN2 ---
Subjective The patient seen and examined at bedside. The patient still complains of pain. Hematuria is minimal. It all dark blood now. Reviewed: Care Plan, H&P, Labs, Medications, Previous Orders, Radiology Changes from previous H/P or p: No Changes Eyes: No Pain, No Vision change, No Conjunctivae inflammation, No Eyelid inflammation, No Other, No Redness ENT: No Ear pain, No Ear discharge, No Nose pain, No Nose discharge, No Nose congestion, No Mouth pain, No Mouth swelling, No Throat pain, No Throat swelling, No Other Cardiovascular: Orthopnea, Edema Respiratory: Cough, Dry, Shortness of breath Gastrointestinal: No Nausea, No Vomiting, No Abdominal Pain, No Diarrhea, No Constipation, No Melena, No Hematochezia, No Other Genitourinary: No Dysuria, No Frequency, No Incontinence, No Hematuria, No Retention, No Other Musculoskeletal: No other, No neck pain, No shoulder pain, No arm pain, No back pain, No hand pain, No leg pain, No foot pain Skin: No Rash, No Lesions, No Jaundice, No Bruising, No Other Objective Vitals Vital Signs Date Time Temp Pulse Resp B/P (MAP) Pulse Ox O2 Delivery O2 Flow Rate FiO2 03/02/25 11:32 82 18 129/62 03/02/25 09:35 96 Nasal Cannula* 2 28 03/02/25 09:00 97.6 97.6 Intake/Output Intake and Output 03/02/25 07:00 Intake Total 886 ml Output Total 450 ml Balance 436 ml Intake Oral 886 ml Output Urine Total 450 ml # Voids 2 General Appearance: Alert, Oriented X3, Cooperative, No acute distress HEENT: Atraumatic, PERRLA, EOMI, Mucous membr. moist/pink Neck: Supple Lungs: Clear to auscultation, Normal air movement Cardiovascular: Regular rate, Normal S1, Normal S2, No murmurs, Gallops, Rubs Abdomen: Normal bowel sounds, Soft, No tenderness Neuro: Cranial nerves 3-12 NL Psych/Mental Status: Mental status NL Medications Current Medications Medications Dose Ordered Sig/Layo Route Start Time Stop Time Status Last Admin Dose Admin Morphine Sulfate 2 mg Q30M PRN IV 02/18/25 19:45 Cancel Albuterol 2.5 mg Q6HR NEB 02/19/25 00:00 03/02/25 07:13 2.5 MG Ipratropium [place] 0.5 mg Q6HR NEB 02/19/25 00:00 03/02/25 07:13 0.5 MG Diagnostic Test (Pha) 1 strip ACHS 02/18/25 22:00 03/02/25 11:10 1 STRIP Insulin Human Regular HS SC 02/18/25 22:00 03/01/25 22:30 3 UNITS Insulin Human Regular AC SC 02/19/25 07:00 03/02/25 11:12 3 UNITS Dextrose 50 ml UD PRN IV 02/18/25 19:45 Acetaminophen 650 mg Q6HP PRN PO 02/18/25 19:45 03/02/25 13:04 650 MG Levothyroxine Sodium 75 mcg QAM@0600 PO 02/19/25 06:00 03/02/25 06:15 75 MCG Pantoprazole Sodium 40 mg DAILY@0600 PO 02/19/25 06:00 03/02/25 06:15 40 MG Atorvastatin Calcium 40 mg HS PO 02/18/25 22:00 03/01/25 22:19 40 MG Patient Own Medication 1 DAILY PO 02/19/25 10:00 03/02/25 10:30 1 Insulin Glargine 10 units QAM SC 02/20/25 07:00 03/02/25 06:21 10 UNITS Gabapentin 400 mg BID PO 02/22/25 22:00 03/02/25 10:34 400 MG Tamsulosin HCl 0.4 mg QPM PO 02/23/25 18:00 03/01/25 17:30 0.4 MG Polyethylene Glycol 17 gm DAILYPRN PRN PO 02/23/25 18:00 Sennosides 8.6 mg HS PO 02/23/25 22:00 02/27/25 21:34 8.6 MG Hydromorphone HCl 1 mg Q6HP PRN IV 02/25/25 13:30 03/02/25 11:02 1 MG Tramadol HCl 100 mg Q6HP PRN PO 02/25/25 17:00 02/26/25 03:44 100 MG Levofloxacin/ Dextrose 100 ml @ 100 mls/hr DAILY IV 02/27/25 10:00 03/02/25 10:37 100 MLS/HR Zolpidem Tartrate 5 mg HSPRN PRN PO 02/26/25 19:00 Patient Own Medication 1 tab DAILY PO 02/27/25 10:00 Patient Own Medication 20 mg BID PO 02/26/25 22:00 Hydrochlorothiazide 25 mg DAILY PO 02/27/25 05:15 03/01/25 10:03 25 MG Budesonide 0.5 mg BID NEB 02/27/25 10:00 03/02/25 07:13 0.5 MG Vancomycin HCl 250 ml @ 166.667 mls/hr Q24H IV 02/27/25 13:00 UNV Vancomycin HCl 0 ml @ 0 mls/hr PER PHARMACY IV 02/27/25 14:30 Duloxetine HCl 60 mg DAILY PO 03/01/25 10:00 03/02/25 10:38 60 MG Laboratory Results Laboratory Tests 03/02/25 05:26 Chemistry Test 03/02/25 05:26 Calcium Level 8.7 mg/dL (8.7-10.4) Urinalysis Test 02/20/25 00:28 Urine Color Colorless (Yellow) Urine Clarity Clear (Clear) Urine pH 5.0 (5.0-9.0) Urine Specific [place] 1.010 (1.001-1.035) Urine Protein Negative (Negative) Urine Ketones Negative (Negative) Urine Blood Trace /uL (Negative) H Urine Nitrite Negative (Negative) Urine Bilirubin Negative (Negative) Urine Urobilinogen Normal mg/dL (Negative) Urine Leukocyte Esterase 2+ /uL (Negative) Urine RBC 2 /hpf (0 - 4) Urine Microscopic WBC 55 /HPF (0-5) H Urine Squamous Epithelial Cells Few /hpf (<5) Urine Bacteria None seen /hpf (None Seen) Urine Yeast (Budding) Many /hpf (None Seen) Urine Glucose 4+ mg/dL (Normal) H Microbiology Microbiology Date/Time Source Procedure Growth Status 02/26/25 11:30 Voided Urine Urine Culture - Final Complete 02/23/25 13:34 Blood Blood Culture - Final NO GROWTH AFTER 5 DAYS OF INCUBATION. Complete 02/21/25 09:30 Nose MRSA Screen - Final Complete Assessment/Plan Assessment/Plan # Acute on chronic hypoxic respiratory failure # Acute on chronic HFpEF # Possible COPD exacerbation with possible viral pneumonia # History of PE -Chest xray - Cardiomegaly and Pulmonary vascular congestion -old Echo 01/04- EF >55%, severe PAH -BNP 152.10 -covid, influenza negative -albuterol and ipratropium mednebs every 6 hours # Acute complicated cystitis # Acute left hydronephrosis s/p left nephrostomy tube placement day 2 # Acute left pyelonephritis # Hematuria -white count was 14.0 -UA positive for UTI, UA ordered on 02/26/2025, repeat urine culture > 03241 CFU, mixed aleksandar -abdomen CT pelvis showed a 5 mm obstructive stone in the left ureter with moderate left hydronephrosis -urology consult-left nephrostomy tube placement, outpatient follow-up in 3-4 weeks -vancomycin per pharmacy and IV levofloxacin -repeat blood culture on 02/23/25- no growth after 5 days -blood culture Gram-negative rods 02/20/25 -chest x-ray showed cardiomegaly and moderate pleural effusion with prominent pulmonary vasculature -strain all urine -Flomax 0.4 mg q.p.m. p.o. -CT abdomen/pelvis on 02/27/2025- unremarkable -infectious diseases consult placed, pending -bleeding from nephrostomy tube and urethra- hemoglobin 7.8>7.9, abdomen/pelvic CT ordered, patient refused -Renal US- echogenic debris in the dependent portion of the bladder measuring 4.6 x 2.7 by 9.7 cm -KUB- Left-sided nephrostomy tube in place and nonobstructive bowel gas pattern -pending IR re-evaluation of left nephrostomy tube -place jason if patient is unable to void # CLAUDIA on CKD, likely due to VMN -avoid nephrotoxic agents -monitor BMP # Uncontrolled type 2 diabetes mellitus with hyperglycemia -HbA1c is 8 -Moderate insulin sliding scale a.c. HS -lantus 10 units qam # Chronic back pain, multilevel degenerative disc disease - tramadol 100 mg p.o. q.6 hours p.r.n. and Dilaudid 1 mg q.6 hours p.r.n. - gabapentin 400 mg p.o. t.i.d. - physical therapy on board, the patient and family agreed to SNF placement - duloxetine 60 mg daily # Chronic hypochromic normocytic anemia -monitor H&H -stool occult blood ordered # Mild transmnitis # Hypothyroidism - Continue on levothyroxine 75 mcg # GERD - Continue on protonix 40 mg daily po # Hypokalemia -repleted # Acute constipation -Senokot 8.6 mg HS p.o. and MiraLax 17 g daily p.r.n. p.o. PUD prophylaxis: Protonix 40 mg DVT prophylaxis: lovenox 110mg q12 hr sc, discontinued due to hematuria Continue current management. The patient complains of diarrhea, and will get immodium 2mg PO q6h PRN for diarrhea Continue pain meds: Dilaudid and norco. waiting for transfer to [facility] per patient request. DW with her regarding to IR evaluation and if Nephrostomy tube intact and hematuria improve, anticipate to DC home. Patient however, adamant that she want to transfer to [facility], where her urologist there. CM already consult for lateral transfer per patient request. No answer from [facility] yet. Plan discussed with: Patient Date of Service: Mar 02, 2025 Billing Provider: XENA DEL TORO MD Common Visit Codes: [id number] INP/OBS CARE(HIGH) XENA DEL TORO MD Mar 02, 2025 13:09
[2025-03-02] MEDS: LOPERAMIDE HCL 2 MG CAP/TAB PO PRN (15:35)
[2025-03-03] VITALS (13 sets, daily range): BP systolic 119–136; BP diastolic 40–60; PULSE 76–94; RESP 16–20; TEMP 97–98.6; O2SAT 95–100
[2025-03-03 06:34] LABS: Hematocrit 22.0 % (36.0-46.0); Hemoglobin 7.2 g/dL (12.2-16.2); Mean Corpuscular Hemoglobin 27.6 pg (28.0-32.0); Mean Corpuscular Volume 83.9 fL (80.0-100.0); Nucleated Red Blood Cells % 0.0 %
--- NOTE | 2025-03-03 08:50 | DVHPN2 ---
Progress Note - Dictate Date Seen: Feb 28, 2025 Medical Necessity Reason Pt with a Central, PICC or Fol: No Subjective PT WITH SEVERE FLANK PAIN AND SOB OBSTRUCTIVE RENAL CALCULUS HYDRONEPHROSIS UTI S/P NEPHROSTOMY RENAL COLIC HEMATURIA LEUKOCYTOSIS PMH ORGANIC HD HF HTN DIABETES VASCULOPATHY NEPHROPATHY PAH NON HODGKIN LYMPHOMA LUNG CA S/P RIGHT UPPER LOBECTOMY vital signs Vital Sign Date Time Temp Pulse Resp B/P (MAP) Pulse Ox O2 Delivery O2 Flow Rate FiO2 03/03/25 06:18 72 18 142/68 03/03/25 05:56 100 03/03/25 05:46 Nasal Cannula* 2 28 03/03/25 05:00 98.1 98.1 Total Intake and Output 03/02/25 03/02/25 03/03/25 15:00 23:00 07:00 Intake Total 480 ml 300 ml Output Total 100 ml Balance -100 ml 480 ml 300 ml medications Current Medications Medications Dose Ordered Sig/Layo Route Start Time Stop Time Status Last Admin Dose Admin Morphine Sulfate 2 mg Q30M PRN IV 02/18/25 19:45 Cancel Albuterol 2.5 mg Q6HR NEB 02/19/25 00:00 03/03/25 05:45 2.5 MG Ipratropium [place] 0.5 mg Q6HR NEB 02/19/25 00:00 03/03/25 05:46 0.5 MG Diagnostic Test (Pha) 1 strip ACHS 02/18/25 22:00 03/03/25 06:25 1 STRIP Insulin Human Regular HS SC 02/18/25 22:00 03/02/25 21:35 3 UNITS Insulin Human Regular AC SC 02/19/25 07:00 03/03/25 06:24 6 UNITS Dextrose 50 ml UD PRN IV 02/18/25 19:45 Acetaminophen 650 mg Q6HP PRN PO 02/18/25 19:45 03/03/25 03:09 650 MG Levothyroxine Sodium 75 mcg QAM@0600 PO 02/19/25 06:00 03/03/25 05:46 75 MCG Pantoprazole Sodium 40 mg DAILY@0600 PO 02/19/25 06:00 03/03/25 05:46 40 MG Atorvastatin Calcium 40 mg HS PO 02/18/25 22:00 03/02/25 21:31 40 MG Patient Own Medication 1 DAILY PO 02/19/25 10:00 03/02/25 10:30 1 Insulin Glargine 10 units QAM SC 02/20/25 07:00 03/03/25 06:23 10 UNITS Gabapentin 400 mg BID PO 02/22/25 22:00 03/02/25 21:31 400 MG Tamsulosin HCl 0.4 mg QPM PO 02/23/25 18:00 03/02/25 18:04 0.4 MG Polyethylene Glycol 17 gm DAILYPRN PRN PO 02/23/25 18:00 Sennosides 8.6 mg HS PO 02/23/25 22:00 02/27/25 21:34 8.6 MG Hydromorphone HCl 1 mg Q6HP PRN IV 02/25/25 13:30 03/03/25 05:48 1 MG Tramadol HCl 100 mg Q6HP PRN PO 02/25/25 17:00 02/26/25 03:44 100 MG Levofloxacin/ Dextrose 100 ml @ 100 mls/hr DAILY IV 02/27/25 10:00 03/02/25 10:37 100 MLS/HR Zolpidem Tartrate 5 mg HSPRN PRN PO 02/26/25 19:00 Patient Own Medication 1 tab DAILY PO 02/27/25 10:00 Patient Own Medication 20 mg BID PO 02/26/25 22:00 Hydrochlorothiazide 25 mg DAILY PO 02/27/25 05:15 03/01/25 10:03 25 MG Budesonide 0.5 mg BID NEB 02/27/25 10:00 03/03/25 05:45 0.5 MG Vancomycin HCl 250 ml @ 166.667 mls/hr Q24H IV 02/27/25 13:00 UNV Duloxetine HCl 60 mg DAILY PO 03/01/25 10:00 03/02/25 10:38 60 MG Loperamide HCl 2 mg PRN PRN PO 03/02/25 15:00 03/02/25 19:27 2 MG laboratory and microbiology Laboratory Tests 03/03/25 06:09 03/02/25 05:26 Test 03/02/25 05:26 Range/Units Serum Glucose 195 H 74-106 mg/dL Problem List SEVERE FLANK PAIN AND SOB OBSTRUCTIVE RENAL CALCULUS HYDRONEPHROSIS UTI S/P NEPHROSTOMY RENAL COLIC HEMATURIA LEUKOCYTOSIS ACUTE RENAL INSUFF PMH ORGANIC HD HF HTN DIABETES VASCULOPATHY NEPHROPATHY PAH NON HODGKIN LYMPHOMA LUNG CA S/P RIGHT UPPER LOBECTOMY Assessment/Plan NEPHROSTOMY CARE IV ABC ECHO EF >55% ANISH SEVERE TR SEVERE PAH LEUKOCYTOSIS RESOLVED RENAL INSUFF RESOLVED PT STILL WITH SEVERE FLANK AND SPINE PAIN CT OF ABD PELVIS UA CHANGE ABX SINCE INCREASE IN WBC STARTED LEVAQUIN VANCOMYCIN CT OF ABD PELVIS UNREMARKABLE LEUKOCYTOSIS RESOLVED STILL WITH SEVERE ANEMIA CHECK RETIC IRON STUDIES IRON REPLACEMENT EPOGEN REVIEWED LAB: MCV, MCHC, AND MPV ARE NORMAL Dietary Evaluation Review Comments: Nutrition Recommendation: 1) Glucerna 240ml BID 2) Monitor PO intake, lab values, weight trend, and I/O Expected Outcomes/Goals: Intake to meet >75% estimated needs FU 3-5 days Plan discussed with: Patient GLADYS BENSON MD Mar 03, 2025 08:50
--- NOTE | 2025-03-03 08:51 | DVHPN2 ---
Progress Note - Dictate Date Seen: Mar 03, 2025 Medical Necessity Reason Pt with a Central, PICC or Fol: No Subjective PT WITH SEVERE FLANK PAIN AND SOB OBSTRUCTIVE RENAL CALCULUS HYDRONEPHROSIS UTI S/P NEPHROSTOMY RENAL COLIC HEMATURIA LEUKOCYTOSIS PMH ORGANIC HD HF HTN DIABETES VASCULOPATHY NEPHROPATHY PAH NON HODGKIN LYMPHOMA LUNG CA S/P RIGHT UPPER LOBECTOMY vital signs Vital Sign Date Time Temp Pulse Resp B/P (MAP) Pulse Ox O2 Delivery O2 Flow Rate FiO2 03/03/25 06:18 72 18 142/68 03/03/25 05:56 100 03/03/25 05:46 Nasal Cannula* 2 28 03/03/25 05:00 98.1 98.1 Total Intake and Output 03/02/25 03/02/25 03/03/25 15:00 23:00 07:00 Intake Total 480 ml 300 ml Output Total 100 ml Balance -100 ml 480 ml 300 ml medications Current Medications Medications Dose Ordered Sig/Layo Route Start Time Stop Time Status Last Admin Dose Admin Morphine Sulfate 2 mg Q30M PRN IV 02/18/25 19:45 Cancel Albuterol 2.5 mg Q6HR NEB 02/19/25 00:00 03/03/25 05:45 2.5 MG Ipratropium [place] 0.5 mg Q6HR NEB 02/19/25 00:00 03/03/25 05:46 0.5 MG Diagnostic Test (Pha) 1 strip ACHS 02/18/25 22:00 03/03/25 06:25 1 STRIP Insulin Human Regular HS SC 02/18/25 22:00 03/02/25 21:35 3 UNITS Insulin Human Regular AC SC 02/19/25 07:00 03/03/25 06:24 6 UNITS Dextrose 50 ml UD PRN IV 02/18/25 19:45 Acetaminophen 650 mg Q6HP PRN PO 02/18/25 19:45 03/03/25 03:09 650 MG Levothyroxine Sodium 75 mcg QAM@0600 PO 02/19/25 06:00 03/03/25 05:46 75 MCG Pantoprazole Sodium 40 mg DAILY@0600 PO 02/19/25 06:00 03/03/25 05:46 40 MG Atorvastatin Calcium 40 mg HS PO 02/18/25 22:00 03/02/25 21:31 40 MG Patient Own Medication 1 DAILY PO 02/19/25 10:00 03/02/25 10:30 1 Insulin Glargine 10 units QAM SC 02/20/25 07:00 03/03/25 06:23 10 UNITS Gabapentin 400 mg BID PO 02/22/25 22:00 03/02/25 21:31 400 MG Tamsulosin HCl 0.4 mg QPM PO 02/23/25 18:00 03/02/25 18:04 0.4 MG Polyethylene Glycol 17 gm DAILYPRN PRN PO 02/23/25 18:00 Sennosides 8.6 mg HS PO 02/23/25 22:00 02/27/25 21:34 8.6 MG Hydromorphone HCl 1 mg Q6HP PRN IV 02/25/25 13:30 03/03/25 05:48 1 MG Tramadol HCl 100 mg Q6HP PRN PO 02/25/25 17:00 02/26/25 03:44 100 MG Levofloxacin/ Dextrose 100 ml @ 100 mls/hr DAILY IV 02/27/25 10:00 03/02/25 10:37 100 MLS/HR Zolpidem Tartrate 5 mg HSPRN PRN PO 02/26/25 19:00 Patient Own Medication 1 tab DAILY PO 02/27/25 10:00 Patient Own Medication 20 mg BID PO 02/26/25 22:00 Hydrochlorothiazide 25 mg DAILY PO 02/27/25 05:15 03/01/25 10:03 25 MG Budesonide 0.5 mg BID NEB 02/27/25 10:00 03/03/25 05:45 0.5 MG Vancomycin HCl 250 ml @ 166.667 mls/hr Q24H IV 02/27/25 13:00 UNV Duloxetine HCl 60 mg DAILY PO 03/01/25 10:00 03/02/25 10:38 60 MG Loperamide HCl 2 mg PRN PRN PO 03/02/25 15:00 03/02/25 19:27 2 MG Iron Sucrose 110 ml @ 110 mls/hr DAILY@1200 IV 03/03/25 12:00 03/07/25 11:59 UNV laboratory and microbiology Laboratory Tests 03/03/25 06:09 03/02/25 05:26 Test 03/02/25 05:26 Range/Units Serum Glucose 195 H 74-106 mg/dL Problem List SEVERE FLANK PAIN AND SOB OBSTRUCTIVE RENAL CALCULUS HYDRONEPHROSIS UTI S/P NEPHROSTOMY RENAL COLIC HEMATURIA LEUKOCYTOSIS ACUTE RENAL INSUFF PMH ORGANIC HD HF HTN DIABETES VASCULOPATHY NEPHROPATHY PAH NON HODGKIN LYMPHOMA LUNG CA S/P RIGHT UPPER LOBECTOMY Assessment/Plan NEPHROSTOMY CARE IV ABC ECHO EF >55% ANISH SEVERE TR SEVERE PAH LEUKOCYTOSIS RESOLVED RENAL INSUFF RESOLVED PT STILL WITH SEVERE FLANK AND SPINE PAIN CT OF ABD PELVIS UA CHANGE ABX SINCE INCREASE IN WBC STARTED LEVAQUIN VANCOMYCIN CT OF ABD PELVIS UNREMARKABLE LEUKOCYTOSIS RESOLVED STILL WITH SEVERE ANEMIA CHECK RETIC IRON STUDIES IRON REPLACEMENT EPOGEN MONITOR HYDROMORPHONE HCL 1MG, IV Dietary Evaluation Review Comments: Nutrition Recommendation: 1) Glucerna 240ml BID 2) Monitor PO intake, lab values, weight trend, and I/O Expected Outcomes/Goals: Intake to meet >75% estimated needs FU 3-5 days Plan discussed with: Patient GLADYS BENSON MD Mar 03, 2025 08:50
[2025-03-03 10:09] LABS: Iron 10.0 ug/dL (50-170); Total Iron Binding Capacity 214.0 ug/dL (250-425)
[2025-03-03] MEDS: EPOETIN ALFA-EPBX 10,000 UNIT/1ML VIAL SC ONE (12:09)
[2025-03-03] MEDS: IRON SUCROSE COMPLEX 110 ML IV SCH (12:10)
--- NOTE | 2025-03-03 15:32 | DVHPNRES ---
Progress Note Date Seen: Mar 03, 2025 Resident Creating Document: FINESSE VERMA RESIDENT Medical Necessity Reason Pt with a Central, PICC or Fol: No Subjective Review of Systems Brenda Daily is an 79-year-old female with past medical history of COPD on 2 L oxygen at home, CHF, insulin-dependent type 2 diabetes mellitus, hypertension, pulmonary artery hypertension, non-Hodgkin lymphoma in remission since 1987, lung cancer s/p right upper lobe resection in 2016 presented to the ED with the chief complaint of worsening shortness of breath for the last 3 days along with chills. The patient mentioned she tried to up titrate her oxygen at home, but that did not improve her shortness of breath. She mentioned she also had tightness in the chest along with a dry cough and lower extremity edema. She mentions having similar episodes of shortness of breath 3-4 times in the last 1 year. She denied any fever. Past medical history: COPD on 2 L oxygen at home, CHF, insulin-dependent type 2 diabetes mellitus, hypertension, pulmonary artery hypertension, non-Hodgkin lymphoma in remission since 1987, lung cancer s/p right upper lobe resection Past surgical history: right upper lobectomy in 2016, tonsillectomy Social & Personal history: Lives at home with family, she denies any smoking, alcohol and drugs Allergies: sulfa antibiotics Patient seen and examined at bedside. Patient is alert and oriented to time, place person and responding to all questions. Eyes: No Pain, No Vision change, No Conjunctivae inflammation, No Eyelid inflammation, No Redness ENT: No Ear pain, No Ear discharge, No Nose pain, No Nose discharge, No Nose congestion, No Mouth pain, No Mouth swelling, No Throat pain, No Throat swelling Cardiovascular: No Chest Pain, No Palpitations, Orthopnea, No Paroxysmal No Dyspnea, Edema, No Lt Headedness Respiratory: Cough, Dry, Shortness of breath, No SOB with exertion, No Wheezing, No Hemoptysis, No Pleuritic Pain, No Sputum Gastrointestinal: No Nausea, No Vomiting, No Abdominal Pain, No Diarrhea, No Constipation, No Melena, No Hematochezia Genitourinary: No Dysuria, No Frequency, No Incontinence, No Hematuria, No Retention 02/20/25- the patient was seen at bedside today. The patient complained of intense pain in the left flank radiating to the left groin area and mentioned of her history of kidney stones. Her white count had increased to 19.9 today and urinalysis was positive for UTI. Lactic acid was 1.5. She was started on meropenem and fluconazole for acute complicated cystitis. CT abdomen pelvis showed Moderate left-sided hydronephrosis with a 5 mm obstructing stone in the proximal left ureter. Urology consult was placed. Her potassium today was 3, which was repleted. We also ordered for blood culture and urine culture. We also started her on morphine 2 mg q.12 p.r.n. for severe pain and [place] 5q4 p.r.n.. EKG was done which was normal. A consult for Dr. Ogden was also placed as he is her PCP. Bedside pocus was done which showed a dilated IVC. 02/21/25- The patient was seen at bedside today. White count today was 34.8. Lactic acid was 1.3. Patient looked tachypneic. Blood culture showed Gram- negative rods. The patient was started on vancomycin per pharmacy. IR placed left nephrostomy tube without any complications. 02/22/25- The patient was seen at bedside today. White count today was 27.2. Patient is breathing comfortably on 2L oxygen by nasal canula. Patient complained of intense pain in her back as she has severe degenerative disc disease, for which she was given 1 dose of morphine 2 mg and started on dilaudid 1mg q4 prn. Left nephrostomy tube is in place with minimal drainage and no discharge or redness around the site. Creatinine improved from 2.19 to 2.02 today. Patient started on gabapentin 400 mg t.i.d. for neuropathy. She was started on MiraLax 17 g p.o. b.i.d. for constipation. 02/23/25- The patient seen at bedside today. She complained of pain in her lower abdomen. She was given 1 time dose of IV mannitol and started on Flomax 0.4 mg PO HS. Order to strain all urine was placed. Patient was started on Senokot q.h.s. and MiraLax p.r.n. for constipation. Repeat blood cultures were ordered. IV antibiotics were changed to IV ceftriaxone 1 g daily. Physical therapy evaluation was requested for the patient. Urology was consulted and they recommended outpatient follow-up in 3-4 weeks once patient is stable for discharge. 02/24/25- Patient still complains of intermittent flank pain presumably from nephrostomy tube site with a renal stone. Patient continued to take IV Dilaudid. Patient is with a poor ambulatory status. Her leukocytosis has significantly improved. 02/25/25- Patient still complains of intermittent flank pain. Physical therapy recommended placement in SNF for the patient, which she refused. We will continue to try working with physical therapy to try and get her out of bed into a chair. For pain medication was changed to tramadol 100 mg p.o. q.6 hours Dilaudid 1 mg IV q.6 hours. 02/26/25- patient was seen at bedside today. She continues to complain of abdominal pain. White count today was 12.6. Urine analysis and urine culture was ordered. KUB and x-ray of lumbar spine were ordered. Dr Ogden, who is her PCP and is also following up regularly, continued ceftriaxone and started her on levofloxacin and vancomycin per pharmacy. Patient was encouraged to continue working with physical therapy and try to get out of bed into a chair today. 02/27/25- the patient was seen at bedside today. Repeat CT abdomen/pelvis was done today, which was unremarkable. White count today was 16.6. Lactic acid today was 0.7. An Infectious Disease consult was requested, as the white count is trending up again. Patient was encouraged to work with physical therapy. A detailed discussion was held with the patient and family, and our recommendation of sending the patient was SNF on discharge was discussed and they agreed with the same. 02/28/25- the patient was seen at bedside today. The patient started having rosalee bleeding from the nephrostomy tube last night, Lovenox was stopped. The patient was also having rosalee hematuria from the urethra. Her hemoglobin this morning was 9.1 and repeat in the evening was 8.7. Repeat IR consult was placed for evaluation of the nephrostomy tube. Repeat CT abdomen/pelvis was ordered. 03/01/25- the patient was seen at bedside today. CT abdomen/pelvis was ordered for the patient yesterday to evaluate for bleeding from the nephrostomy tube and urethra, but the patient refused CT yesterday and this morning. The patient's family requested for transfer to [facility], a social media manager request for facilitating the lateral transfer per the family request was placed. The patient and family were explained at length about the evaluation and the need for the CT today and they demonstrated understanding of the same. Renal ultrasound was done which showed echogenic debris in the dependent portion of the bladder measuring 4.6 x 2.7 by 9.7 cm. KUB showed left-sided nephrostomy tube in place and nonobstructive bowel gas pattern. Urology was consulted and they recommended IR evaluation for possible replacement of nephrostomy tube and Jason if patient is unable to void. 03/02/25- was seen and evaluated at bedside. The patient complained of multiple episodes of diarrhea, for which he was started on Imodium 2 mg p.o. q.6 p.r.n. for diarrhea. Discussion held with her regarding IR evaluation and if Nephrostomy tube intact and hematuria improve, anticipate to DC home. Patient however, adamant that she want to transfer to [facility], where her urologist there. CM already consulted for lateral transfer per patient request. No answer from [facility] yet. 03/03/25- patient was seen and evaluated at bedside today. [facility] mentioned and no longer accepting lateral transfers. This was communicated to the patient and she mentioned that her coupon clerk at that hospital we will send paperwork to facilitate the transfer. Bedside bladder scan was done which revealed postvoid urine volume of 41 mL. Bedside pocus was done, showed more than 50% compressibility of IVC with size of 1.9 cm. 500 cc bolus of NS was given. Nephrology was consulted for up trending creatinine. The patient was started on IV Flagyl. All updates were shared with the patient, her son and daughter and all their questions and concerns were addressed. Objective vital signs Vital Sign Date Time Temp Pulse Resp B/P (MAP) Pulse Ox O2 Delivery O2 Flow Rate FiO2 03/03/25 13:00 98.6 86 16 126/48 (74) 95 98.6 03/03/25 10:00 Nasal Cannula 2.0 03/03/25 10:00 28 Total Intake and Output 03/02/25 03/02/25 03/03/25 15:00 23:00 07:00 Intake Total 480 ml 300 ml Output Total 100 ml Balance -100 ml 480 ml 300 ml medications Current Medications Medications Dose Ordered Sig/Layo Route Start Time Stop Time Status Last Admin Dose Admin Morphine Sulfate 2 mg Q30M PRN IV 02/18/25 19:45 Cancel Albuterol 2.5 mg Q6HR NEB 02/19/25 00:00 03/03/25 12:04 2.5 MG Ipratropium [place] 0.5 mg Q6HR NEB 02/19/25 00:00 03/03/25 12:04 0.5 MG Diagnostic Test (Pha) 1 strip ACHS 02/18/25 22:00 03/03/25 12:09 1 STRIP Insulin Human Regular HS SC 02/18/25 22:00 03/02/25 21:35 3 UNITS Insulin Human Regular AC SC 02/19/25 07:00 03/03/25 12:26 6 UNITS Dextrose 50 ml UD PRN IV 02/18/25 19:45 Acetaminophen 650 mg Q6HP PRN PO 02/18/25 19:45 03/03/25 09:48 650 MG Levothyroxine Sodium 75 mcg QAM@0600 PO 02/19/25 06:00 03/03/25 05:46 75 MCG Pantoprazole Sodium 40 mg DAILY@0600 PO 02/19/25 06:00 03/03/25 05:46 40 MG Atorvastatin Calcium 40 mg HS PO 02/18/25 22:00 03/02/25 21:31 40 MG Patient Own Medication 1 DAILY PO 02/19/25 10:00 03/03/25 12:09 1 Insulin Glargine 10 units QAM SC 02/20/25 07:00 03/03/25 06:23 10 UNITS Gabapentin 400 mg BID PO 02/22/25 22:00 03/02/25 21:31 400 MG Tamsulosin HCl 0.4 mg QPM PO 02/23/25 18:00 03/02/25 18:04 0.4 MG Polyethylene Glycol 17 gm DAILYPRN PRN PO 02/23/25 18:00 Sennosides 8.6 mg HS PO 02/23/25 22:00 02/27/25 21:34 8.6 MG Hydromorphone HCl 1 mg Q6HP PRN IV 02/25/25 13:30 03/03/25 12:14 1 MG Tramadol HCl 100 mg Q6HP PRN PO 02/25/25 17:00 02/26/25 03:44 100 MG Levofloxacin/ Dextrose 100 ml @ 100 mls/hr DAILY IV 02/27/25 10:00 03/03/25 09:52 100 MLS/HR Zolpidem Tartrate 5 mg HSPRN PRN PO 02/26/25 19:00 Patient Own Medication 1 tab DAILY PO 02/27/25 10:00 Patient Own Medication 20 mg BID PO 02/26/25 22:00 Hydrochlorothiazide 25 mg DAILY PO 02/27/25 05:15 03/01/25 10:03 25 MG Budesonide 0.5 mg BID NEB 02/27/25 10:00 03/03/25 05:45 0.5 MG Vancomycin HCl 250 ml @ 166.667 mls/hr Q24H IV 02/27/25 13:00 UNV Duloxetine HCl 60 mg DAILY PO 03/01/25 10:00 03/03/25 09:49 60 MG Iron Sucrose 110 ml @ 110 mls/hr DAILY@1200 IV 03/03/25 12:00 03/07/25 11:59 03/03/25 12:10 110 MLS/HR Metronidazole 100 ml @ 100 mls/hr Q8HR IV 03/03/25 14:00 03/03/25 13:52 100 MLS/HR Examination General Appearance: Cooperative. Well developed. Well nourished. NAD. Left nephrostomy tube in place with no discharge or erythema, with dark clotted blood. She is currently on 2 L oxygen via nasal cannula. Head Exam: Normal inspection Neck Exam: Normal inspection. Non-tender. Normal alignment Pulmonary/Respiratory: Chest non-tender. mildly reduced breath sounds bilaterally Cardiovascular/Chest: Regular rate and rhythm. No murmurs. No JVD. Peripheral Pulses: 2+ Radial (R). 2+ Radial (L). 2+ Pedal (R). 2+ Pedal (L) Abdominal Exam: Normal bowel sounds. Soft. normal abdomen, no visible veins, tenderness in left flank, tendernessn all over abdomen on palpation, No hepatospenomegaly. No masses Ankle Exam: Negative ankle edema Lower extremities: 1+ bilateral lower extremity pitting edema Neuro/Mental Status: A&O x4. Coherent. Thoughts/Psych: Normal thought pattern. Appropriate mood and affect. Good judgement and insight Skin Exam: Normal inspection. Normal color. Warm. Dry laboratory and microbiology Laboratory Tests 03/03/25 06:09 03/02/25 05:26 Test 03/02/25 05:26 Range/Units Serum Glucose 195 H 74-106 mg/dL Microbiology Date/Time Source Procedure Growth Status 02/26/25 11:30 Voided Urine Urine Culture - Final Complete 02/23/25 13:34 Blood Blood Culture - Final NO GROWTH AFTER 5 DAYS OF INCUBATION. Complete 02/21/25 09:30 Nose MRSA Screen - Final Complete Labs and/or images reviewed: Labs reviewed by me, Image(s) reviewed by me Problem List/Assessment/Plan Problem List/Assessment/Plan # Acute on chronic hypoxic respiratory failure # Acute on chronic HFpEF # Possible COPD exacerbation with possible viral pneumonia # History of PE -Chest xray - Cardiomegaly and Pulmonary vascular congestion -old Echo 01/04- EF >55%, severe PAH -BNP 152.10 -covid, influenza negative -albuterol and ipratropium mednebs every 6 hours # Acute complicated cystitis # Acute left hydronephrosis s/p left nephrostomy tube placement day 2 # Acute left pyelonephritis # Hematuria # left obstructive ureteral stone -white count was 13.1 -UA positive for UTI, UA ordered on 02/26/2025, repeat urine culture > 19186 CFU, mixed aleksandar -abdomen CT pelvis showed a 5 mm obstructive stone in the left ureter with moderate left hydronephrosis -urology consult-left nephrostomy tube placement, outpatient follow-up in 3-4 weeks -vancomycin per pharmacy and IV levofloxacin -repeat blood culture on 02/23/25- no growth after 5 days -blood culture Gram-negative rods 02/20/25 -chest x-ray showed cardiomegaly and moderate pleural effusion with prominent pulmonary vasculature -strain all urine -Flomax 0.4 mg q.p.m. p.o. -CT abdomen/pelvis on 02/27/2025- unremarkable -infectious diseases consult placed, pending -bleeding from nephrostomy tube and urethra- hemoglobin 7.8>7.9, abdomen/pelvic CT ordered, patient refused -Renal US- echogenic debris in the dependent portion of the bladder measuring 4.6 x 2.7 by 9.7 cm -KUB- Left-sided nephrostomy tube in place and nonobstructive bowel gas pattern -pending IR re-evaluation of left nephrostomy tube -place jason if patient is unable to void, postvoid volume on bladder scan today 41 mL # CLAUDIA on CKD, likely due to VMN -avoid nephrotoxic agents -monitor BMP -nephrology consult placed, pending evaluation -ordered urine studies -given 500 cc bolus of NS # Uncontrolled type 2 diabetes mellitus with hyperglycemia -HbA1c is 8 -Moderate insulin sliding scale a.c. HS -lantus 10 units qam # Chronic back pain, multilevel degenerative disc disease - tramadol 100 mg p.o. q.6 hours p.r.n. and Dilaudid 1 mg q.6 hours p.r.n. - gabapentin 400 mg p.o. t.i.d. - physical therapy on board, the patient and family agreed to SNF placement - duloxetine 60 mg daily # Chronic hypochromic normocytic anemia -monitor H&H -stool occult blood ordered -transfuse if hemoglobin less than 7 # Mild transmnitis # Hypothyroidism - Continue on levothyroxine 75 mcg # GERD - Continue on protonix 40 mg daily po # Hypokalemia -repleted # Acute constipation -Senokot 8.6 mg HS p.o. and MiraLax 17 g daily p.r.n. p.o. PUD prophylaxis: Protonix 40 mg DVT prophylaxis: lovenox 110mg q12 hr sc, discontinued due to hematuria Goals of care discussed with the patient for over 18 minutes, Full code Plan discussed with Dr. Del Toro Plan discussed with: Patient, Daughter, Son My Orders My Orders Orders - FINESSE VERMA Procedure Category Date Status Time Bladder Scan ORDERS 03/03/25 Transmitted 11:26 Metronidazole PHA 03/03/25 In Process 500mg/100ml (Flagyl 14:00 *Dr. [facility] CONS 03/03/25 Transmitted -[place] 11:53 Dietary Evaluation Review Comments: Nutrition Recommendation: 1) Glucerna 240ml BID 2) Monitor PO intake, lab values, weight trend, and I/O Expected Outcomes/Goals: Intake to meet >75% estimated needs FU 3-5 days Date of Service: Mar 03, 2025 Billing Provider: XENA DEL TORO MD Common Visit Codes: [id number] INP/OBS CARE(HIGH) FINESSE VERMA RESIDENT Mar 03, 2025 15:32 XENA DEL TORO MD Mar 03, 2025 22:07
[2025-03-03] MEDS: SODIUM CHLORIDE 0.9% 500 ML IV ONE (17:00)
[2025-03-03] MEDS: LOPERAMIDE HCL 2 MG CAP/TAB PO PRN (19:38)
[2025-03-04] VITALS (17 sets, daily range): BP systolic 123–158; BP diastolic 47–68; PULSE 74–94; RESP 16–19; TEMP 97.2–101.9; O2SAT 91–100
[2025-03-04] MEDS: LOPERAMIDE HCL 2 MG CAP/TAB PO ONE (00:19)
[2025-03-04 06:35] LABS: Hematocrit 22.0 % (36.0-46.0); Hemoglobin 7.2 g/dL (12.2-16.2); Mean Corpuscular Hemoglobin 27.7 pg (28.0-32.0); Mean Corpuscular Volume 84.2 fL (80.0-100.0); Nucleated Red Blood Cells % 0.0 %
[2025-03-04 06:47] LABS: Anion Gap 6 (5-15); Carbon Dioxide 28 mmol/L (20-31); Chloride 105 mmol/L (98-107); Potassium 4.0 mmol/L (3.5-5.1); Sodium 139 mmol/L (136-145)
[2025-03-04 06:48] LABS: Calcium 9.0 mg/dL (8.7-10.4)
[2025-03-04 06:53] LABS: BUN/Creatinine Ratio 22.9 (10.0-20.0)
[2025-03-04 07:07] LABS: Blood Urea Nitrogen 35 mg/dL (9-23); Glucose 171 mg/dL (74-106)
--- NOTE | 2025-03-04 11:23 | DVH ---
Indication: Evaluate Nephro Tube Placement Technique: CT axial images of the abdomen and pelvis are obtained without contrast. Coronal and sagittal reformats were obtained. Radiation Dose Information: CTDI volume is 25.34 mGy. Dose-length product is 1253.62 mGy*cm Comparison: 02/27/2025 FINDINGS: There is limited interpretation of the abdomen and pelvis without administration of intravenous contrast. Lung bases demonstrate bibasilar atelectasis. Tiny bilateral pleural effusions. Adrenal glands, spleen unremarkable in shape. Pancreatic parenchymal fatty infiltration / atrophy. Liver capsule nodular morphology. No CT evidence for cholelithiasis. Right kidney demonstrates no hydronephrosis, nephrolithiasis. The left kidney demonstrates moderate left hydroureteronephrosis secondary to proximal left ureteral hyperdensity/ calculus 12 mm. There is a left nephrostomy tube which appears to be positioned within a mid to upper pole calyx. Stomach is partially distended. Small bowel loops are normal in caliber. Moderate volume stool in the colon. Postsurgical changes in the region of the hepatic flexure of the colon. Air-fluid level in the large bowel diffusely. Abdominal aortic atherosclerotic disease. Periaortic/retroperitoneal lymph nodes measuring up to 8 mm. Bladder partially distended. Hyperdensity along the dependent bladder. No free pelvic fluid. No inguinal lymphadenopathy. No acute osseous abnormality. Moderate to advanced lumbar degenerative disc disease most pronounced at L5-S1. Endplate irregularity changes at L5-S1. IMPRESSION: Limited evaluation without contrast. Left nephrostomy tube appears to be positioned within a mid to upper pole calyx. There is moderate left hydroureteronephrosis secondary to a proximal left ureteral hyperdensity/ calculus measuring 12 mm. Recommend urology consultation for further evaluation, management. Tiny bilateral pleural effusions. Diffuse colonic distention with air-fluid level may represent ileus, diarrheal state. Soft tissue edema/ anasarca. Hyperdensity in the dependent bladder lateralized towards the left, indeterminate. Recommend urology consultation to further evaluate. Liver capsule nodular morphology may represent sequela of cirrhosis. Correlate clinically. Endplate irregularity changes at L5-S1 which may represent sequela of degenerative disc disease. If there is concern for infection recommend obtaining MRI lumbar spine with and without contrast. Other findings as described.
--- NOTE | 2025-03-04 11:40 | DVHINCON2 ---
Date of service: Mar 04, [address] Robles Reason for Consultation Acute kidney injury History of Present Illness Patient is a 79-year-old obese female with past medical history significant for lungs cancer, non-Hodgkin lymphoma, CHF, COPD, DM, HTN is admitted for shortness of breath. On admission patient found to have elevated BUN creatinine nephrology is consulted for acute kidney injury Past Medical History Lung cancer, non-Hodgkin lymphoma CHF, COPD, DM, HTN Past Surgical History Right lung surgery Hysterectomy Allergies: Coded Allergies: Sulfa Antibiotics (Verified Allergy, Unknown, itching, 07/30/24) Home Meds Active Scripts Vancomycin Hcl (Vancomycin Po) 250 Mg So, 250 MG PO QID for 7 Days, #120 ML Prov:RADHA RUTHERFORD MD 10/04/24 Metronidazole (Metronidazole) 500 Mg Tab, 500 MG PO TID for 7 Days, #21 TAB Prov:RADHA RUTHERFORD MD 10/04/24 Reported Medications Apixaban Base (ELIQUIS) 5 Mg Tab, 5 MG PO BID, TAB 02/25/25 B-Complex Vitamins (Vitamin B Complex) Complex Tab, 1 OR DAILY for VITAMIN B50, TAB 08/01/24 Zolpidem Tartrate (Zolpidem Tartrate) 5 Mg Tab, 1 TAB PO HSPRN PRN for FOR INSOMNIA, #30 TAB 2 Refills 08/01/24 Fenofibrate (Fenofibrate) 160 Mg Tab, 1 TAB PO DAILY for HIGH CHOLESTEROL, #30 TAB 5 Refills 08/01/24 Tadalafil (Adcirca) 20 Mg Tab, 20 MG PO BID, TAB 08/01/24 Dicyclomine Hcl (Dicyclomine Hcl) 20 Mg Tab, 20 MG PO TID, MG 08/01/24 Furosemide (Furosemide) 40 Mg Tab, 40 MG PO DAILYP PRN for EDEMA 08/01/24 Budesonide-Formoterol Fumarate (Budesonide/Formoterol Fum 160-4.5 Mcg/Act) 1 Aer Aer, 2 AER IN BID for SOB, AER 08/01/24 Insulin Glargine (Lantus) 100 Unit/Ml Inj, 5 UNIT SC QPM for DIABETES, INJ 07/31/24 Insulin Glargine (Lantus) 100 Unit/Ml Inj, 10 UNIT SC QAM for DIABETES, INJ 07/31/24 Apixaban Base (ELIQUIS) 5 Mg Tab, 5 MG PO BID for PREVENT BLOOD CLOTS, TAB 07/31/24 Potassium Chloride (Klor-Con M10) 10 Meq Tab, 1 TAB PO DAILY for SUPPLEMENT, #30 TAB 5 Refills 07/31/24 Albuterol Sulfate (Albuterol Sulfate Hfa) 108 Mcg/Act Aer, 90 MCG IN PRN for SOB, AER 07/31/24 Guaifenesin (Mucinex Maximum Strength) 1,200 Mg Tab, 1200 MG PO 4-5X PER WEEK, TAB 07/31/24 Acetaminophen (Tylenol) 325 Mg Cap, 325 MG PO PRN for PAIN, CAP 07/31/24 Pioglitazone Hydrochloride (PIOGLITAZONE HCL) 15 Mg Tab, 15 MG PO BID for DIABETES, TAB 07/31/24 Rosuvastatin Calcium (Crestor) 5 Mg Tab, 1 TAB PO DAILY for HIGH CHOLESTEROL, #30 TAB 5 Refills 07/31/24 Esomeprazole Magnesium (Esomeprazole Magnesium) 40 Mg Cap, 40 MG PO DAILY for GERD, CAP 07/31/24 Losartan Potassium (Losartan Potassium) 25 Mg Tab, 25 MG PO DAILY for HTN for 30 Days, MG 07/31/24 Levothyroxine Sodium (Synthroid) 75 Mcg Tab, 1 TAB PO DAILY for LOW THYROID, #30 TAB 5 Refills 07/31/24 Hctz (Hydrochlorothiazide) 25 Mg Tab, 12.5 MG PO DAILY for EDEMA/HTN, TAB 07/31/24 Empagliflozin (Jardiance) 25 Mg Tab, 25 MG PO DAILY for DIABETES, TAB 07/31/24 Tramadol Hcl (Tramadol Hcl) 50 Mg Tab, 50 MG PO DAILY PRN for PAIN SCALE 7 THRU 10, MG 07/31/24 Pregabalin (Lyrica) 75 Mg Cap, 3 CAP PO BID for NERVE PAIN, #60 CAP 1 Refill 07/31/24 Duloxetine Hcl (Cymbalta) 60 Mg Cap, 1 CAP PO BID for DEPRESSION, #90 CAP 3 Refills 07/31/24 Cetirizine Hcl (Zyrtec Allergy) 10 Mg Cap, 10 MG PO HS for ALLERGIES, CAP 07/31/24 Current Medications Current Medications Medications (Trade) Dose Ordered Sig/Layo Route PRN Reason Start Time Stop Time Status Last Admin Iron Sucrose 110 ml @ 110 mls/hr DAILY@1200 IV 03/03/25 12:00 03/07/25 11:59 03/03/25 12:10 Metronidazole 100 ml @ 100 mls/hr Q8HR IV 03/03/25 14:00 03/04/25 06:30 Loperamide HCl (Imodium Capsule) 2 mg DAILY PRN PO FOR DIARRHEA 03/03/25 19:30 03/03/25 19:38 Albuterol (Ventolin Medneb) 2.5 mg Q8HR NEB 03/04/25 14:00 Budesonide (Pulmicort) 0.5 mg BID NEB 03/04/25 22:00 Ipratropium [place] (Atrovent Medneb) 0.5 mg Q8HR NEB 03/04/25 14:00 Family History: Patient reports no known family medical history. Review of Systems All 12 item review of systems reviewed with the patient nonsignificant except what is mentioned in the history of present illness H&P Exam Vital Signs/I&O Vital Sign Date Time Temp Pulse Resp B/P (MAP) Pulse Ox O2 Delivery O2 Flow Rate FiO2 03/04/25 10:18 97.9 03/04/25 10:00 158/68 03/04/25 09:00 85 19 94 03/04/25 06:43 Nasal Cannula 2.0 03/04/25 06:43 28 Intake and Output 03/03/25 03/04/25 19:00 07:00 Intake Total 830 ml 200 ml Balance 830 ml 200 ml Intake Oral 120 ml 100 ml IV Total 710 ml 100 ml # Voids 4 2 # Bowel Movements 2 2 Physical Exam Patient lying comfortably in bed Lungs clear to auscultation bilaterally Cardiac exam regular rate and rhythm patient can not be Extremities no clubbing cyanosis or edema Neuro nonfocal Labs/Diagnostic Data Labs/Diagnostic Data Laboratory Tests Test 03/04/25 06:37 03/04/25 06:02 03/03/25 22:17 03/03/25 17:43 Range/Units POC Glucose 174 H 224 H 196 H 70-106 mg/dl White Blood Count 10.7 4.4-10.8 10^3/uL Red Blood Count 2.61 L 4.0-5.20 10^6/uL Hemoglobin 7.2 L 12.2-16.2 g/dL Hematocrit 22.0 L 36.0-46.0 % Mean Corpuscular Volume 84.2 80.0-100.0 fL Mean Corpuscular Hemoglobin 27.7 L 28.0-32.0 pg Mean Corpuscular Hemoglobin Concent 32.9 32.0-36.0 g/dL Red Cell Distribution Width 19.5 H 11.8-14.3 % Platelet Count 556 H 140-450 10^3/uL Mean Platelet Volume 7.6 6.9-10.8 fL Neutrophils (%) (Auto) 84.9 H 37.0-80.0 % Lymphocytes (%) (Auto) 5.1 L 10.0-50.0 % Monocytes (%) (Auto) 7.2 0.0-12.0 % Eosinophils (%) (Auto) 2.2 0.0-7.0 % Basophils (%) (Auto) 0.6 0.0-2.0 % Neutrophils # (Auto) 9.1 H 1.6-8.6 10 ^3/uL Lymphocytes # (Auto) 0.5 0.4-5.4 10 ^3/uL Monocytes # (Auto) 0.8 0-1.3 10 ^3/uL Eosinophils # (Auto) 0.2 0-0.8 10 ^3/uL Basophils # (Auto) 0.1 0-0.2 10 ^3/uL Nucleated Red Blood Cells 0.0 % Sodium Level 139 136-145 mmol/L Potassium Level 4.0 3.5-5.1 mmol/L Chloride Level 105 98-107 mmol/L Carbon Dioxide Level 28 20-31 mmol/L Anion Gap 6 5-15 Blood Urea Nitrogen 35 H 9-23 mg/dL Creatinine 1.53 H 0.550-1.02 mg/dL Glomerular Filtration Rate Calc 34 >90 mL/min BUN/Creatinine Ratio 22.9 H 10.0-20.0 Serum Glucose 171 H 74-106 mg/dL Calcium Level 9.0 8.7-10.4 mg/dL Test 03/03/25 12:08 03/03/25 06:12 03/03/25 06:09 03/02/25 21:16 Range/Units POC Glucose 217 H 246 H 192 H 70-106 mg/dl White Blood Count 13.1 H 4.4-10.8 10^3/uL Red Blood Count 2.63 L 4.0-5.20 10^6/uL Hemoglobin 7.2 L 12.2-16.2 g/dL Hematocrit 22.0 #L 36.0-46.0 % Mean Corpuscular Volume 83.9 80.0-100.0 fL Mean Corpuscular Hemoglobin 27.6 L 28.0-32.0 pg Mean Corpuscular Hemoglobin Concent 32.9 32.0-36.0 g/dL Red Cell Distribution Width 19.6 H 11.8-14.3 % Platelet Count 517 H 140-450 10^3/uL Mean Platelet Volume 7.8 6.9-10.8 fL Neutrophils (%) (Auto) 86.2 H 37.0-80.0 % Lymphocytes (%) (Auto) 5.0 L 10.0-50.0 % Monocytes (%) (Auto) 7.4 0.0-12.0 % Eosinophils (%) (Auto) 1.0 0.0-7.0 % Basophils (%) (Auto) 0.4 0.0-2.0 % Neutrophils # (Auto) 11.3 H 1.6-8.6 10 ^3/uL Lymphocytes # (Auto) 0.6 0.4-5.4 10 ^3/uL Monocytes # (Auto) 1.0 0-1.3 10 ^3/uL Eosinophils # (Auto) 0.1 0-0.8 10 ^3/uL Basophils # (Auto) 0.1 0-0.2 10 ^3/uL Nucleated Red Blood Cells 0.0 % Reticulocyte Count (auto) 2.20 H 0.5-1.5 % Creatinine 1.43 #H 0.550-1.02 mg/dL Glomerular Filtration Rate Calc 37 >90 mL/min Iron Level 10 L 50-170 ug/dL Total Iron Binding Capacity 214 L 250-425 ug/dL Percent Iron Saturation 4.7 L 15-50 % Random Vancomycin Level 13.4 H 5-10 ug/mL Test 03/02/25 17:16 03/02/25 11:06 03/02/25 06:05 03/02/25 05:26 Range/Units POC Glucose 203 H 187 H 194 H 70-106 mg/dl White Blood Count 14.1 H 4.4-10.8 10^3/uL Red Blood Count 2.98 L 4.0-5.20 10^6/uL Hemoglobin 8.1 L 12.2-16.2 g/dL Hematocrit 24.9 L 36.0-46.0 % Mean Corpuscular Volume 83.7 80.0-100.0 fL Mean Corpuscular Hemoglobin 27.1 L 28.0-32.0 pg Mean Corpuscular Hemoglobin Concent 32.4 32.0-36.0 g/dL Red Cell Distribution Width 19.6 H 11.8-14.3 % Platelet Count 504 H 140-450 10^3/uL Mean Platelet Volume 7.6 6.9-10.8 fL Neutrophils (%) (Auto) 88.5 H 37.0-80.0 % Lymphocytes (%) (Auto) 5.9 L 10.0-50.0 % Monocytes (%) (Auto) 4.9 0.0-12.0 % Eosinophils (%) (Auto) 0.5 0.0-7.0 % Basophils (%) (Auto) 0.2 0.0-2.0 % Neutrophils # (Auto) 12.4 H 1.6-8.6 10 ^3/uL Lymphocytes # (Auto) 0.8 0.4-5.4 10 ^3/uL Monocytes # (Auto) 0.7 0-1.3 10 ^3/uL Eosinophils # (Auto) 0.1 0-0.8 10 ^3/uL Basophils # (Auto) 0 0-0.2 10 ^3/uL Nucleated Red Blood Cells 0.0 % Sodium Level 139 136-145 mmol/L Potassium Level 3.9 3.5-5.1 mmol/L Chloride Level 103 98-107 mmol/L Carbon Dioxide Level 27 20-31 mmol/L Anion Gap 9 5-15 Blood Urea Nitrogen 31 H 9-23 mg/dL Creatinine 1.06 H 0.550-1.02 mg/dL Glomerular Filtration Rate Calc 53 >90 mL/min BUN/Creatinine Ratio 29.2 H 10.0-20.0 Serum Glucose 195 H 74-106 mg/dL Calcium Level 8.7 8.7-10.4 mg/dL Random Vancomycin Level 20.8 H 5-10 ug/mL Test 03/01/25 22:10 03/01/25 17:08 03/01/25 15:04 03/01/25 12:55 Range/Units POC Glucose 188 H 225 H 70-106 mg/dl Hemoglobin 7.9 L 12.2-16.2 g/dL Hematocrit 24.3 L 36.0-46.0 % Vancomycin Level Trough 29.8 H 5-10 ug/mL Test 03/01/25 11:18 03/01/25 06:04 03/01/25 06:00 02/28/25 23:11 Range/Units POC Glucose 211 H 207 H 70-106 mg/dl White Blood Count 14.0 H 4.4-10.8 10^3/uL Red Blood Count 2.82 L 4.0-5.20 10^6/uL Hemoglobin 7.8 L 8.7 L 12.2-16.2 g/dL Hematocrit 23.5 #L 27.0 L 36.0-46.0 % Mean Corpuscular Volume 83.2 80.0-100.0 fL Mean Corpuscular Hemoglobin 27.7 L 28.0-32.0 pg Mean Corpuscular Hemoglobin Concent 33.3 32.0-36.0 g/dL Red Cell Distribution Width 19.4 H 11.8-14.3 % Platelet Count 489 H 140-450 10^3/uL Mean Platelet Volume 8.0 6.9-10.8 fL Neutrophils (%) (Auto) 86.6 H 37.0-80.0 % Lymphocytes (%) (Auto) 6.3 L 10.0-50.0 % Monocytes (%) (Auto) 6.5 0.0-12.0 % Eosinophils (%) (Auto) 0.4 0.0-7.0 % Basophils (%) (Auto) 0.2 0.0-2.0 % Neutrophils # (Auto) 12.2 H 1.6-8.6 10 ^3/uL Lymphocytes # (Auto) 0.9 0.4-5.4 10 ^3/uL Monocytes # (Auto) 0.9 0-1.3 10 ^3/uL Eosinophils # (Auto) 0.1 0-0.8 10 ^3/uL Basophils # (Auto) 0 0-0.2 10 ^3/uL Nucleated Red Blood Cells 0.1 % Sodium Level 139 136-145 mmol/L Potassium Level 3.9 3.5-5.1 mmol/L Chloride Level 104 98-107 mmol/L Carbon Dioxide Level 27 20-31 mmol/L Anion Gap 8 5-15 Blood Urea Nitrogen 31 H 9-23 mg/dL Creatinine 1.07 H 0.550-1.02 mg/dL Glomerular Filtration Rate Calc 53 >90 mL/min BUN/Creatinine Ratio 29.0 H 10.0-20.0 Serum Glucose 191 H 74-106 mg/dL Calcium Level 8.8 8.7-10.4 mg/dL Test 02/28/25 21:24 02/28/25 17:11 02/28/25 15:46 02/28/25 12:03 Range/Units POC Glucose 237 H 192 H 197 H 70-106 mg/dl Hemoglobin 8.7 L 12.2-16.2 g/dL Hematocrit 26.2 L 36.0-46.0 % Test 02/28/25 05:48 02/28/25 05:15 02/27/25 21:08 02/27/25 16:57 Range/Units POC Glucose 209 H 148 H 222 H 70-106 mg/dl White Blood Count 14.7 H 4.4-10.8 10^3/uL Red Blood Count 3.33 L 4.0-5.20 10^6/uL Hemoglobin 9.1 L 12.2-16.2 g/dL Hematocrit 27.8 L 36.0-46.0 % Mean Corpuscular Volume 83.6 80.0-100.0 fL Mean Corpuscular Hemoglobin 27.5 L 28.0-32.0 pg Mean Corpuscular Hemoglobin Concent 32.9 32.0-36.0 g/dL Red Cell Distribution Width 19.7 H 11.8-14.3 % Platelet Count 495 H 140-450 10^3/uL Mean Platelet Volume 8.3 6.9-10.8 fL Neutrophils (%) (Auto) 87.0 H 37.0-80.0 % Lymphocytes (%) (Auto) 6.3 L 10.0-50.0 % Monocytes (%) (Auto) 5.6 0.0-12.0 % Eosinophils (%) (Auto) 1.0 0.0-7.0 % Basophils (%) (Auto) 0.1 0.0-2.0 % Neutrophils # (Auto) 12.8 H 1.6-8.6 10 ^3/uL Lymphocytes # (Auto) 0.9 0.4-5.4 10 ^3/uL Monocytes # (Auto) 0.8 0-1.3 10 ^3/uL Eosinophils # (Auto) 0.1 0-0.8 10 ^3/uL Basophils # (Auto) 0 0-0.2 10 ^3/uL Nucleated Red Blood Cells 0.0 % Prothrombin Time 11.5 9.3-11.8 sec Prothrombin Time INR 1.09 0.9-1.15 Activated Partial Thromboplast Time 33.8 24.5-34.5 SEC Sodium Level 139 136-145 mmol/L Potassium Level 3.8 3.5-5.1 mmol/L Chloride Level 102 98-107 mmol/L Carbon Dioxide Level 26 20-31 mmol/L Anion Gap 11 5-15 Blood Urea Nitrogen 28 H 9-23 mg/dL Creatinine 0.84 0.550-1.02 mg/dL Glomerular Filtration Rate Calc 70 >90 mL/min BUN/Creatinine Ratio 33.3 H 10.0-20.0 Serum Glucose 226 H 74-106 mg/dL Calcium Level 9.0 8.7-10.4 mg/dL Random Vancomycin Level 17.7 H 5-10 ug/mL Test 02/27/25 12:12 02/27/25 09:13 02/27/25 06:05 02/27/25 05:03 Range/Units POC Glucose 131 H 141 H 70-106 mg/dl Lactic Acid Level 0.7 0.4-2.0 mmol/L White Blood Count 16.6 #H 4.4-10.8 10^3/uL Red Blood Count 3.63 L 4.0-5.20 10^6/uL Hemoglobin 9.9 L 12.2-16.2 g/dL Hematocrit 30.3 L 36.0-46.0 % Mean Corpuscular Volume 83.4 80.0-100.0 fL Mean Corpuscular Hemoglobin 27.2 L 28.0-32.0 pg Mean Corpuscular Hemoglobin Concent 32.7 32.0-36.0 g/dL Red Cell Distribution Width 19.5 H 11.8-14.3 % Platelet Count 436 140-450 10^3/uL Mean Platelet Volume 8.4 6.9-10.8 fL Neutrophils (%) (Auto) 87.0 H 37.0-80.0 % Lymphocytes (%) (Auto) 6.7 L 10.0-50.0 % Monocytes (%) (Auto) 5.5 0.0-12.0 % Eosinophils (%) (Auto) 0.7 0.0-7.0 % Basophils (%) (Auto) 0.1 0.0-2.0 % Neutrophils # (Auto) 14.5 H 1.6-8.6 10 ^3/uL Lymphocytes # (Auto) 1.1 0.4-5.4 10 ^3/uL Monocytes # (Auto) 0.9 0-1.3 10 ^3/uL Eosinophils # (Auto) 0.1 0-0.8 10 ^3/uL Basophils # (Auto) 0 0-0.2 10 ^3/uL Nucleated Red Blood Cells 0.0 % Sodium Level 143 136-145 mmol/L Potassium Level 4.3 3.5-5.1 mmol/L Chloride Level 106 98-107 mmol/L Carbon Dioxide Level 21 20-31 mmol/L Anion Gap 16 H 5-15 Blood Urea Nitrogen 29 H 9-23 mg/dL Creatinine 0.77 0.550-1.02 mg/dL Glomerular Filtration Rate Calc 78 >90 mL/min BUN/Creatinine Ratio 37.7 H 10.0-20.0 Serum Glucose 141 H 74-106 mg/dL Calcium Level 9.3 8.7-10.4 mg/dL Test 02/26/25 20:58 02/26/25 17:44 02/26/25 12:05 02/26/25 06:03 Range/Units POC Glucose 146 H 142 H 164 H 70-106 mg/dl White Blood Count 12.6 #H 4.4-10.8 10^3/uL Red Blood Count 3.56 L 4.0-5.20 10^6/uL Hemoglobin 9.6 L 12.2-16.2 g/dL Hematocrit 29.6 L 36.0-46.0 % Mean Corpuscular Volume 83.1 80.0-100.0 fL Mean Corpuscular Hemoglobin 27.0 L 28.0-32.0 pg Mean Corpuscular Hemoglobin Concent 32.5 32.0-36.0 g/dL Red Cell Distribution Width 19.9 H 11.8-14.3 % Platelet Count 368 140-450 10^3/uL Mean Platelet Volume 8.8 6.9-10.8 fL Neutrophils (%) (Auto) 80.3 H 37.0-80.0 % Lymphocytes (%) (Auto) 8.8 L 10.0-50.0 % Monocytes (%) (Auto) 9.0 0.0-12.0 % Eosinophils (%) (Auto) 1.7 0.0-7.0 % Basophils (%) (Auto) 0.2 0.0-2.0 % Neutrophils # (Auto) 10.1 H 1.6-8.6 10 ^3/uL Lymphocytes # (Auto) 1.1 0.4-5.4 10 ^3/uL Monocytes # (Auto) 1.1 0-1.3 10 ^3/uL Eosinophils # (Auto) 0.2 0-0.8 10 ^3/uL Basophils # (Auto) 0 0-0.2 10 ^3/uL Nucleated Red Blood Cells 0.0 % Sodium Level 144 136-145 mmol/L Potassium Level 4.5 3.5-5.1 mmol/L Chloride Level 108 H 98-107 mmol/L Carbon Dioxide Level 24 20-31 mmol/L Anion Gap 12 5-15 Blood Urea Nitrogen 37 #H 9-23 mg/dL Creatinine 0.90 0.550-1.02 mg/dL Glomerular Filtration Rate Calc 65 >90 mL/min BUN/Creatinine Ratio 41.1 H 10.0-20.0 Serum Glucose 147 H 74-106 mg/dL Calcium Level 9.0 8.7-10.4 mg/dL Test 02/26/25 05:43 02/25/25 21:14 02/25/25 17:21 02/25/25 10:55 Range/Units POC Glucose 169 H 135 H 156 H 142 H 70-106 mg/dl Test 02/25/25 05:50 02/25/25 05:30 02/24/25 22:46 02/24/25 17:45 Range/Units POC Glucose 150 H 174 H 202 H 70-106 mg/dl White Blood Count 8.4 # 4.4-10.8 10^3/uL Red Blood Count 3.53 L 4.0-5.20 10^6/uL Hemoglobin 9.5 L 12.2-16.2 g/dL Hematocrit 29.2 L 36.0-46.0 % Mean Corpuscular Volume 82.6 80.0-100.0 fL Mean Corpuscular Hemoglobin 27.0 L 28.0-32.0 pg Mean Corpuscular Hemoglobin Concent 32.7 32.0-36.0 g/dL Red Cell Distribution Width 19.9 H 11.8-14.3 % Platelet Count 246 140-450 10^3/uL Mean Platelet Volume 9.2 6.9-10.8 fL Neutrophils (%) (Auto) 37.0-80.0 % Lymphocytes (%) (Auto) 10.0-50.0 % Monocytes (%) (Auto) 0.0-12.0 % Basophils (%) (Auto) 0.0-2.0 % Neutrophils # (Auto) 1.6-8.6 10 ^3/uL Lymphocytes # (Auto) 0.4-5.4 10 ^3/uL Monocytes # (Auto) 0-1.3 10 ^3/uL Differential Total Cells Counted 100.0 100 Neutrophils % (Manual) 59 37.0-80.0 Band Neutrophils % (Manual) 9 Lymphocytes % (Manual) 15 10.0-50.0 Monocytes % (Manual) 15 H 0-12 Eosinophils % (Manual) 2 0-7 Basophils % (Manual) 0 0.0-2.0 Metamyelocytes % (manual) 0 Myelocytes % (Manual) 0 Promyelocytes % (Manual) 0 Blast Cells % (Manual) 0 Reactive Lymphocytes 0 Platelet Estimate Adequate Large Platelets Few Anisocytosis (manual) Slight Sodium Level 145 136-145 mmol/L Potassium Level 4.6 3.5-5.1 mmol/L Chloride Level 110 H 98-107 mmol/L Carbon Dioxide Level 24 20-31 mmol/L Anion Gap 11 5-15 Blood Urea Nitrogen 50 H 9-23 mg/dL Creatinine 1.03 H 0.550-1.02 mg/dL Glomerular Filtration Rate Calc 55 >90 mL/min BUN/Creatinine Ratio 48.5 H 10.0-20.0 Serum Glucose 165 H 74-106 mg/dL Calcium Level 8.8 8.7-10.4 mg/dL Test 02/24/25 12:19 02/24/25 05:30 02/24/25 05:22 02/23/25 21:19 Range/Units POC Glucose 144 H 181 H 159 H 70-106 mg/dl White Blood Count 18.0 H 4.4-10.8 10^3/uL Red Blood Count 3.66 L 4.0-5.20 10^6/uL Hemoglobin 10.1 L 12.2-16.2 g/dL Hematocrit 30.4 L 36.0-46.0 % Mean Corpuscular Volume 83.1 80.0-100.0 fL Mean Corpuscular Hemoglobin 27.6 L 28.0-32.0 pg Mean Corpuscular Hemoglobin Concent 33.2 32.0-36.0 g/dL Red Cell Distribution Width 20.4 H 11.8-14.3 % Platelet Count 242 140-450 10^3/uL Mean Platelet Volume 9.2 6.9-10.8 fL Neutrophils (%) (Auto) 85.0 H 37.0-80.0 % Lymphocytes (%) (Auto) 6.3 L 10.0-50.0 % Monocytes (%) (Auto) 6.7 0.0-12.0 % Eosinophils (%) (Auto) 1.7 0.0-7.0 % Basophils (%) (Auto) 0.3 0.0-2.0 % Neutrophils # (Auto) 15.3 H 1.6-8.6 10 ^3/uL Lymphocytes # (Auto) 1.1 0.4-5.4 10 ^3/uL Monocytes # (Auto) 1.2 0-1.3 10 ^3/uL Eosinophils # (Auto) 0.3 0-0.8 10 ^3/uL Basophils # (Auto) 0 0-0.2 10 ^3/uL Nucleated Red Blood Cells 0.0 % Sodium Level 143 136-145 mmol/L Potassium Level 4.7 3.5-5.1 mmol/L Chloride Level 105 98-107 mmol/L Carbon Dioxide Level 22 20-31 mmol/L Anion Gap 16 H 5-15 Blood Urea Nitrogen 56 #H 9-23 mg/dL Creatinine 1.19 H 0.550-1.02 mg/dL Glomerular Filtration Rate Calc 46 >90 mL/min BUN/Creatinine Ratio 47.1 H 10.0-20.0 Serum Glucose 157 H 74-106 mg/dL Calcium Level 9.3 8.7-10.4 mg/dL Random Vancomycin Level 16.2 H 5-10 ug/mL Test 02/23/25 11:32 02/23/25 06:30 02/23/25 05:41 02/22/25 22:40 Range/Units POC Glucose 180 H 146 H 153 H 70-106 mg/dl White Blood Count 18.6 #H 4.4-10.8 10^3/uL Red Blood Count 3.56 L 4.0-5.20 10^6/uL Hemoglobin 9.7 L 12.2-16.2 g/dL Hematocrit 29.2 #L 36.0-46.0 % Mean Corpuscular Volume 82.0 80.0-100.0 fL Mean Corpuscular Hemoglobin 27.2 L 28.0-32.0 pg Mean Corpuscular Hemoglobin Concent 33.1 32.0-36.0 g/dL Red Cell Distribution Width 20.6 H 11.8-14.3 % Platelet Count 220 140-450 10^3/uL Mean Platelet Volume 9.2 6.9-10.8 fL Neutrophils (%) (Auto) 84.5 H 37.0-80.0 % Lymphocytes (%) (Auto) 6.2 L 10.0-50.0 % Monocytes (%) (Auto) 7.5 0.0-12.0 % Eosinophils (%) (Auto) 1.4 0.0-7.0 % Basophils (%) (Auto) 0.4 0.0-2.0 % Neutrophils # (Auto) 15.7 H 1.6-8.6 10 ^3/uL Lymphocytes # (Auto) 1.2 0.4-5.4 10 ^3/uL Monocytes # (Auto) 1.4 H 0-1.3 10 ^3/uL Eosinophils # (Auto) 0.3 0-0.8 10 ^3/uL Basophils # (Auto) 0.1 0-0.2 10 ^3/uL Nucleated Red Blood Cells 0.1 % Sodium Level 141 136-145 mmol/L Potassium Level 4.5 3.5-5.1 mmol/L Chloride Level 106 98-107 mmol/L Carbon Dioxide Level 22 20-31 mmol/L Anion Gap 13 5-15 Blood Urea Nitrogen 67 H 9-23 mg/dL Creatinine 1.55 H 0.550-1.02 mg/dL Glomerular Filtration Rate Calc 34 >90 mL/min BUN/Creatinine Ratio 43.2 H 10.0-20.0 Serum Glucose 138 H 74-106 mg/dL Calcium Level 9.1 8.7-10.4 mg/dL Random Vancomycin Level 17.8 H 5-10 ug/mL Test 02/22/25 17:25 02/22/25 11:32 02/22/25 06:45 02/22/25 06:38 Range/Units POC Glucose 116 H 141 H 165 H 70-106 mg/dl White Blood Count 27.2 H 4.4-10.8 10^3/uL Red Blood Count 3.16 L 4.0-5.20 10^6/uL Hemoglobin 8.7 L 12.2-16.2 g/dL Hematocrit 25.6 L 36.0-46.0 % Mean Corpuscular Volume 81.0 80.0-100.0 fL Mean Corpuscular Hemoglobin 27.6 L 28.0-32.0 pg Mean Corpuscular Hemoglobin Concent 34.1 32.0-36.0 g/dL Red Cell Distribution Width 20.4 H 11.8-14.3 % Platelet Count 193 140-450 10^3/uL Mean Platelet Volume 9.0 6.9-10.8 fL Neutrophils (%) (Auto) 37.0-80.0 % Lymphocytes (%) (Auto) 10.0-50.0 % Monocytes (%) (Auto) 0.0-12.0 % Basophils (%) (Auto) 0.0-2.0 % Neutrophils # (Auto) 1.6-8.6 10 ^3/uL Lymphocytes # (Auto) 0.4-5.4 10 ^3/uL Monocytes # (Auto) 0-1.3 10 ^3/uL Differential Total Cells Counted 100.0 100 Neutrophils % (Manual) 88 H 37.0-80.0 Band Neutrophils % (Manual) 6 Lymphocytes % (Manual) 5 L 10.0-50.0 Monocytes % (Manual) 1 0-12 Eosinophils % (Manual) 0 0-7 Basophils % (Manual) 0 0.0-2.0 Metamyelocytes % (manual) 0 Myelocytes % (Manual) 0 Promyelocytes % (Manual) 0 Blast Cells % (Manual) 0 Reactive Lymphocytes 0 Platelet Estimate Adequate Large Platelets Few Anisocytosis (manual) Slight Sodium Level 140 136-145 mmol/L Potassium Level 4.2 3.5-5.1 mmol/L Chloride Level 106 98-107 mmol/L Carbon Dioxide Level 20 20-31 mmol/L Anion Gap 14 5-15 Blood Urea Nitrogen 76 H 9-23 mg/dL Creatinine 2.02 H 0.550-1.02 mg/dL Glomerular Filtration Rate Calc 25 >90 mL/min BUN/Creatinine Ratio 37.6 H 10.0-20.0 Serum Glucose 158 H 74-106 mg/dL Calcium Level 8.3 L 8.7-10.4 mg/dL Random Vancomycin Level 8.9 5-10 ug/mL Test 02/21/25 20:57 02/21/25 16:43 02/21/25 16:19 02/21/25 11:16 Range/Units POC Glucose 158 H 193 H 200 H 70-106 mg/dl Beta HCG, Quantitative 2.0 1.5-4.2 mIU/mL Test 02/21/25 09:49 02/21/25 06:08 02/21/25 06:04 02/20/25 21:14 Range/Units Lactic Acid Level 1.3 0.4-2.0 mmol/L White Blood Count 34.8 #*H 4.4-10.8 10^3/uL Red Blood Count 3.27 L 4.0-5.20 10^6/uL Hemoglobin 8.9 L 12.2-16.2 g/dL Hematocrit 26.7 L 36.0-46.0 % Mean Corpuscular Volume 81.5 80.0-100.0 fL Mean Corpuscular Hemoglobin 27.1 L 28.0-32.0 pg Mean Corpuscular Hemoglobin Concent 33.2 32.0-36.0 g/dL Red Cell Distribution Width 19.6 H 11.8-14.3 % Platelet Count 217 140-450 10^3/uL Mean Platelet Volume 9.4 6.9-10.8 fL Neutrophils (%) (Auto) 37.0-80.0 % Lymphocytes (%) (Auto) 10.0-50.0 % Monocytes (%) (Auto) 0.0-12.0 % Basophils (%) (Auto) 0.0-2.0 % Neutrophils # (Auto) 1.6-8.6 10 ^3/uL Lymphocytes # (Auto) 0.4-5.4 10 ^3/uL Monocytes # (Auto) 0-1.3 10 ^3/uL Differential Total Cells Counted 100.0 100 Neutrophils % (Manual) 75 37.0-80.0 Band Neutrophils % (Manual) 7 Lymphocytes % (Manual) 6 L 10.0-50.0 Monocytes % (Manual) 11 0-12 Eosinophils % (Manual) 0 0-7 Basophils % (Manual) 0 0.0-2.0 Metamyelocytes % (manual) 0 Myelocytes % (Manual) 0 Promyelocytes % (Manual) 1 Blast Cells % (Manual) 0 Reactive Lymphocytes 0 Platelet Estimate [place] Large Platelets Few Sodium Level 139 136-145 mmol/L Potassium Level 4.1 3.5-5.1 mmol/L Chloride Level 105 98-107 mmol/L Carbon Dioxide Level 21 20-31 mmol/L Anion Gap 13 5-15 Blood Urea Nitrogen 67 #H 9-23 mg/dL Creatinine 2.19 H 0.550-1.02 mg/dL Glomerular Filtration Rate Calc 22 >90 mL/min BUN/Creatinine Ratio 30.6 H 10.0-20.0 Serum Glucose 176 H 74-106 mg/dL Calcium Level 8.4 L 8.7-10.4 mg/dL POC Glucose 182 H 153 H 70-106 mg/dl Test 02/20/25 17:49 02/20/25 12:16 02/20/25 09:10 02/20/25 06:32 Range/Units POC Glucose 203 H 231 H 70-106 mg/dl Lactic Acid Level 1.5 0.4-2.0 mmol/L White Blood Count 19.9 #H 4.4-10.8 10^3/uL Red Blood Count 3.43 L 4.0-5.20 10^6/uL Hemoglobin 9.3 L 12.2-16.2 g/dL Hematocrit 28.0 L 36.0-46.0 % Mean Corpuscular Volume 81.6 80.0-100.0 fL Mean Corpuscular Hemoglobin 27.2 L 28.0-32.0 pg Mean Corpuscular Hemoglobin Concent 33.4 32.0-36.0 g/dL Red Cell Distribution Width 19.3 H 11.8-14.3 % Platelet Count 326 140-450 10^3/uL Mean Platelet Volume 8.8 6.9-10.8 fL Neutrophils (%) (Auto) 37.0-80.0 % Lymphocytes (%) (Auto) 10.0-50.0 % Monocytes (%) (Auto) 0.0-12.0 % Basophils (%) (Auto) 0.0-2.0 % Neutrophils # (Auto) 1.6-8.6 10 ^3/uL Lymphocytes # (Auto) 0.4-5.4 10 ^3/uL Monocytes # (Auto) 0-1.3 10 ^3/uL Differential Total Cells Counted 100.0 100 Neutrophils % (Manual) 82 H 37.0-80.0 Band Neutrophils % (Manual) 5 Lymphocytes % (Manual) 6 L 10.0-50.0 Monocytes % (Manual) 7 0-12 Eosinophils % (Manual) 0 0-7 Basophils % (Manual) 0 0.0-2.0 Metamyelocytes % (manual) 0 Myelocytes % (Manual) 0 Promyelocytes % (Manual) 0 Blast Cells % (Manual) 0 Reactive Lymphocytes 0 Platelet Estimate Adequate Giant Platelets Few Sodium Level 138 136-145 mmol/L Potassium Level 3.0 L 3.5-5.1 mmol/L Chloride Level 103 98-107 mmol/L Carbon Dioxide Level 20 20-31 mmol/L Anion Gap 15 5-15 Blood Urea Nitrogen 57 #H 9-23 mg/dL Creatinine 2.29 #H 0.550-1.02 mg/dL Glomerular Filtration Rate Calc 21 >90 mL/min BUN/Creatinine Ratio 24.9 H 10.0-20.0 Serum Glucose 144 H 74-106 mg/dL Calcium Level 9.4 8.7-10.4 mg/dL Test 02/20/25 06:24 02/20/25 00:28 02/19/25 21:02 02/19/25 16:25 Range/Units POC Glucose 157 H 383 H 353 H 70-106 mg/dl Urine Color Colorless Yellow Urine Clarity Clear Clear Urine pH 5.0 5.0-9.0 Urine Specific [place] 1.010 1.001-1.035 Urine Protein Negative Negative Urine Ketones Negative Negative Urine Blood Trace H Negative /uL Urine Nitrite Negative Negative Urine Bilirubin Negative Negative Urine Urobilinogen Normal Negative mg/dL Urine Leukocyte Esterase 2+ Negative /uL Urine RBC 2 0 - 4 /hpf Urine Microscopic WBC 55 H 0-5 /HPF Urine Squamous Epithelial Cells Few <5 /hpf Urine Bacteria None seen None Seen /hpf Urine Yeast (Budding) Many None Seen /hpf Urine Glucose 4+ H Normal mg/dL Test 02/19/25 11:37 02/19/25 11:26 02/19/25 05:47 02/19/25 04:03 Range/Units POC Glucose 237 H 278 H 70-106 mg/dl Prothrombin Time 12.4 H 9.3-11.8 sec Prothrombin Time INR 1.19 H 0.9-1.15 Activated Partial Thromboplast Time 39.3 H 24.5-34.5 SEC White Blood Count 9.7 4.4-10.8 10^3/uL Red Blood Count 3.56 L 4.0-5.20 10^6/uL Hemoglobin 9.7 L 12.2-16.2 g/dL Hematocrit 29.3 L 36.0-46.0 % Mean Corpuscular Volume 82.3 80.0-100.0 fL Mean Corpuscular Hemoglobin 27.4 L 28.0-32.0 pg Mean Corpuscular Hemoglobin Concent 33.3 32.0-36.0 g/dL Red Cell Distribution Width 19.7 H 11.8-14.3 % Platelet Count 284 140-450 10^3/uL Mean Platelet Volume 8.7 6.9-10.8 fL Neutrophils (%) (Auto) 92.0 H 37.0-80.0 % Lymphocytes (%) (Auto) 5.2 L 10.0-50.0 % Monocytes (%) (Auto) 2.6 0.0-12.0 % Eosinophils (%) (Auto) 0.0 0.0-7.0 % Basophils (%) (Auto) 0.2 0.0-2.0 % Neutrophils # (Auto) 9.0 H 1.6-8.6 10 ^3/uL Lymphocytes # (Auto) 0.5 0.4-5.4 10 ^3/uL Monocytes # (Auto) 0.3 0-1.3 10 ^3/uL Eosinophils # (Auto) 0 0-0.8 10 ^3/uL Basophils # (Auto) 0 0-0.2 10 ^3/uL Nucleated Red Blood Cells 0.0 % Sodium Level 136 136-145 mmol/L Potassium Level 4.0 3.5-5.1 mmol/L Chloride Level 102 98-107 mmol/L Carbon Dioxide Level 20 20-31 mmol/L Anion Gap 14 5-15 Blood Urea Nitrogen 37 H 9-23 mg/dL Creatinine 1.74 H 0.550-1.02 mg/dL Glomerular Filtration Rate Calc 29 >90 mL/min BUN/Creatinine Ratio 21.3 H 10.0-20.0 Serum Glucose 268 H 74-106 mg/dL Hemoglobin A1c 8.0 H <5.7 % A1C Calcium Level 9.1 8.7-10.4 mg/dL Total Bilirubin 0.4 0.2-1.0 mg/dL Aspartate Amino Transferase (AST) 54 H 13-40 U/L Alanine Aminotransferase (ALT) 53 H 7-40 U/L Alkaline Phosphatase 194 H 46-116 U/L B-Type Natriuretic Peptide 152.10 0-100 pg/mL Total Protein 6.7 5.7-8.2 g/dL Albumin 4.0 3.2-4.8 g/dL Triglycerides Level 123 < 150 mg/dL Cholesterol Level 131 < 200 mg/dL LDL Cholesterol 69 < 100 mg/dL HDL Cholesterol 37 L 40-59 mg/dL Thyroid Stimulating Hormone (TSH) 0.69 0.55-4.78 uIU/mL Test 02/19/25 03:20 02/19/25 02:21 02/18/25 14:52 02/18/25 14:23 Range/Units Influenza Type A Antigen Negative Negative Influenza Type B Antigen Negative Negative SARS-CoV-2 Antigen (Rapid) Negative NEGATIVE POC Glucose 270 H 70-106 mg/dl Troponin I High Sensitivity 10 8 </=34 ng/L Test 02/18/25 13:24 Range/Units White Blood Count 9.7 4.4-10.8 10^3/uL Red Blood Count 3.44 L 4.0-5.20 10^6/uL Hemoglobin 9.3 L 12.2-16.2 g/dL Hematocrit 28.4 L 36.0-46.0 % Mean Corpuscular Volume 82.6 80.0-100.0 fL Mean Corpuscular Hemoglobin 27.2 L 28.0-32.0 pg Mean Corpuscular Hemoglobin Concent 32.9 32.0-36.0 g/dL Red Cell Distribution Width 19.8 H 11.8-14.3 % Platelet Count 256 140-450 10^3/uL Mean Platelet Volume 8.7 6.9-10.8 fL Neutrophils (%) (Auto) 80.1 H 37.0-80.0 % Lymphocytes (%) (Auto) 9.6 L 10.0-50.0 % Monocytes (%) (Auto) 8.9 0.0-12.0 % Eosinophils (%) (Auto) 1.0 0.0-7.0 % Basophils (%) (Auto) 0.4 0.0-2.0 % Neutrophils # (Auto) 7.8 1.6-8.6 10 ^3/uL Lymphocytes # (Auto) 0.9 0.4-5.4 10 ^3/uL Monocytes # (Auto) 0.9 0-1.3 10 ^3/uL Eosinophils # (Auto) 0.1 0-0.8 10 ^3/uL Basophils # (Auto) 0 0-0.2 10 ^3/uL Nucleated Red Blood Cells 0.1 % Sodium Level 136 136-145 mmol/L Potassium Level 3.5 3.5-5.1 mmol/L Chloride Level 102 98-107 mmol/L Carbon Dioxide Level 24 20-31 mmol/L Anion Gap 10 5-15 Blood Urea Nitrogen 34 H 9-23 mg/dL Creatinine 1.38 H 0.550-1.02 mg/dL Glomerular Filtration Rate Calc 39 >90 mL/min BUN/Creatinine Ratio 24.6 H 10.0-20.0 Serum Glucose 212 H 74-106 mg/dL Calcium Level 8.6 L 8.7-10.4 mg/dL Troponin I High Sensitivity 11 </=34 ng/L Microbiology Date/Time Source Procedure Growth Status 02/26/25 11:30 Voided Urine Urine Culture - Final Complete 02/23/25 13:34 Blood Blood Culture - Final NO GROWTH AFTER 5 DAYS OF INCUBATION. Complete 02/21/25 09:30 Nose MRSA Screen - Final Complete Assessment Acute kidney injury superimposed Chronic Kidney Disease secondary hemodynamic mediated Urinary retention Vancomycin toxicity Diabetes mellitus type 2 Hypertension Liver cirrhosis Significant anemia rule out GI bleeding Nephrolithiasis Urinary tract infection Left hydronephrosis, status post left nephrostomy tube Diarrhea Recommendations Closely monitor fluid and electrolytes Avoid nephrotoxic medications Discontinue vancomycin Echavarria catheter Strict I&Os IV antibiotics Check urine electrolytes and protein excretion Insulin sliding scale Urology on board Blood pressure control We will continue to follow Patient seen and examined by myself. I discussed my plan of care with the patient, her son and the primary nurse at the bedside I would like to thank for the consult, will follow up Plan discussed with: Patient, Son ALFREDOMICHEALTUAN MD Mar 04, 2025 11:39
--- NOTE | 2025-03-04 13:24 | DVHPN2 ---
Progress Note - Dictate Date Seen: Mar 04, 2025 Medical Necessity Reason Pt with a Central, PICC or Fol: No Subjective PT WITH SEVERE FLANK PAIN AND SOB OBSTRUCTIVE RENAL CALCULUS HYDRONEPHROSIS UTI S/P NEPHROSTOMY RENAL COLIC HEMATURIA LEUKOCYTOSIS PMH ORGANIC HD HF HTN DIABETES VASCULOPATHY NEPHROPATHY PAH NON [place] LYMPHOMA LUNG CA S/P RIGHT UPPER LOBECTOMY vital signs Vital Sign Date Time Temp Pulse Resp B/P (MAP) Pulse Ox O2 Delivery O2 Flow Rate FiO2 03/04/25 10:18 97.9 03/04/25 10:00 158/68 03/04/25 09:00 85 19 94 03/04/25 06:43 Nasal Cannula 2.0 03/04/25 06:43 28 Total Intake and Output 03/03/25 03/03/25 03/04/25 15:00 23:00 07:00 Intake Total 210 ml 620 ml 200 ml Balance 210 ml 620 ml 200 ml medications Current Medications Medications Dose Ordered Sig/Layo Route Start Time Stop Time Status Last Admin Dose Admin Morphine Sulfate 2 mg Q30M PRN IV 02/18/25 19:45 Cancel Diagnostic Test (Pha) 1 strip ACHS 02/18/25 22:00 03/04/25 06:34 1 STRIP Insulin Human Regular HS SC 02/18/25 22:00 03/03/25 22:20 4 UNITS Insulin Human Regular AC SC 02/19/25 07:00 03/04/25 06:39 3 UNITS Dextrose 50 ml UD PRN IV 02/18/25 19:45 Acetaminophen 650 mg Q6HP PRN PO 02/18/25 19:45 03/04/25 10:18 650 MG Levothyroxine Sodium 75 mcg QAM@0600 PO 02/19/25 06:00 03/04/25 06:31 75 MCG Pantoprazole Sodium 40 mg DAILY@0600 PO 02/19/25 06:00 03/04/25 06:31 40 MG Atorvastatin Calcium 40 mg HS PO 02/18/25 22:00 03/03/25 22:12 40 MG Patient Own Medication 1 DAILY PO 02/19/25 10:00 03/03/25 12:09 1 Insulin Glargine 10 units QAM SC 02/20/25 07:00 03/04/25 06:40 10 UNITS Gabapentin 400 mg BID PO 02/22/25 22:00 03/03/25 22:12 400 MG Tamsulosin HCl 0.4 mg QPM PO 02/23/25 18:00 03/03/25 18:15 0.4 MG Polyethylene Glycol 17 gm DAILYPRN PRN PO 02/23/25 18:00 Sennosides 8.6 mg HS PO 02/23/25 22:00 02/27/25 21:34 8.6 MG Hydromorphone HCl 1 mg Q6HP PRN IV 02/25/25 13:30 03/04/25 06:30 1 MG Tramadol HCl 100 mg Q6HP PRN PO 02/25/25 17:00 02/26/25 03:44 100 MG Levofloxacin/ Dextrose 100 ml @ 100 mls/hr DAILY IV 02/27/25 10:00 03/04/25 10:26 100 MLS/HR Zolpidem Tartrate 5 mg HSPRN PRN PO 02/26/25 19:00 Patient Own Medication 1 tab DAILY PO 02/27/25 10:00 Patient Own Medication 20 mg BID PO 02/26/25 22:00 Hydrochlorothiazide 25 mg DAILY PO 02/27/25 05:15 03/01/25 10:03 25 MG Vancomycin HCl 250 ml @ 166.667 mls/hr Q24H IV 02/27/25 13:00 UNV Duloxetine HCl 60 mg DAILY PO 03/01/25 10:00 03/03/25 09:49 60 MG Iron Sucrose 110 ml @ 110 mls/hr DAILY@1200 IV 03/03/25 12:00 03/07/25 11:59 03/03/25 12:10 110 MLS/HR Metronidazole 100 ml @ 100 mls/hr Q8HR IV 03/03/25 14:00 03/04/25 06:30 100 MLS/HR Loperamide HCl 2 mg DAILY PRN PO 03/03/25 19:30 03/03/25 19:38 2 MG Albuterol 2.5 mg Q8HR NEB 03/04/25 14:00 Budesonide 0.5 mg BID NEB 03/04/25 22:00 Ipratropium [place] 0.5 mg Q8HR NEB 03/04/25 14:00 laboratory and microbiology Laboratory Tests 03/04/25 06:02 Test 03/04/25 06:02 Range/Units Serum Glucose 171 H 74-106 mg/dL Problem List SEVERE FLANK PAIN AND SOB OBSTRUCTIVE RENAL CALCULUS HYDRONEPHROSIS UTI S/P NEPHROSTOMY RENAL COLIC HEMATURIA LEUKOCYTOSIS ACUTE RENAL INSUFF PMH ORGANIC HD HF HTN DIABETES VASCULOPATHY NEPHROPATHY PAH NON [place] LYMPHOMA LUNG CA S/P RIGHT UPPER LOBECTOMY Assessment/Plan NEPHROSTOMY CARE IV ABC ECHO EF >55% ANISH SEVERE TR SEVERE PAH LEUKOCYTOSIS RESOLVED RENAL INSUFF RESOLVED PT STILL WITH SEVERE FLANK AND SPINE PAIN CT OF ABD PELVIS UA CHANGE ABX SINCE INCREASE IN WBC STARTED LEVAQUIN VANCOMYCIN CT OF ABD PELVIS UNREMARKABLE LEUKOCYTOSIS RESOLVED STILL WITH SEVERE ANEMIA CHECK RETIC IRON STUDIES IRON REPLACEMENT EPOGEN PT IS MALINGERING NEEDS TO BE OFF PAIN THERAPY AND REQUIREE\S,REHAB MONITOR HYDROMORPHONE HCL 1MG, IV Dietary Evaluation Review Comments: Nutrition Recommendation: 1) Glucerna 240ml BID 2) Monitor PO intake, lab values, weight trend, and I/O Expected Outcomes/Goals: Intake to meet >75% estimated needs FU 3-5 days Plan discussed with: Patient, Son GLADYS BENSON MD Mar 04, 2025 13:24
[2025-03-04 13:31] LABS: Magnesium 1.7 mg/dL (1.6-2.6)
[2025-03-04] MEDS: ALBUTEROL SULF 2.5 MG/0.5ML(0.5%) NEB SOLN NEB SCH (14:09)
[2025-03-04] MEDS: IPRATROPIUM BROM 0.5 MG/2.5ML INH SOL NEB SCH (14:10)
[2025-03-04 14:51] LABS: Alanine Aminotransferase 14.0 U/L (7-40); Alkaline Phosphatase 107.0 U/L (46-116); Bilirubin, Direct 0.1 mg/dL (<0.3); Total Protein 5.7 g/dL (5.7-8.2)
[2025-03-04 14:52] LABS: Albumin 3.1 g/dL (3.2-4.8); Bilirubin, Total 0.3 mg/dL (0.2-1.0)
[2025-03-04] MEDS ORDERED: DEXTROSE (50%) 50ML SYRG IV PRN (16:00)
--- NOTE | 2025-03-04 16:11 | DVHPNRES ---
Progress Note Date Seen: Mar 04, 2025 Resident Creating Document: FINESSE VERMA RESIDENT Medical Necessity Reason Pt with a Central, PICC or Fol: No Subjective Review of Systems Brenda Daily is an 79-year-old female with past medical history of COPD on 2 L oxygen at home, CHF, insulin-dependent type 2 diabetes mellitus, hypertension, pulmonary artery hypertension, non-Hodgkin lymphoma in remission since 1987, lung cancer s/p right upper lobe resection in 2016 presented to the ED with the chief complaint of worsening shortness of breath for the last 3 days along with chills. The patient mentioned she tried to up titrate her oxygen at home, but that did not improve her shortness of breath. She mentioned she also had tightness in the chest along with a dry cough and lower extremity edema. She mentions having similar episodes of shortness of breath 3-4 times in the last 1 year. She denied any fever. Past medical history: COPD on 2 L oxygen at home, CHF, insulin-dependent type 2 diabetes mellitus, hypertension, pulmonary artery hypertension, non-Hodgkin lymphoma in remission since 1987, lung cancer s/p right upper lobe resection Past surgical history: right upper lobectomy in 2016, tonsillectomy Social & Personal history: Lives at home with family, she denies any smoking, alcohol and drugs Allergies: sulfa antibiotics Patient seen and examined at bedside. Patient is alert and oriented to time, place person and responding to all questions. Eyes: No Pain, No Vision change, No Conjunctivae inflammation, No Eyelid inflammation, No Redness ENT: No Ear pain, No Ear discharge, No Nose pain, No Nose discharge, No Nose congestion, No Mouth pain, No Mouth swelling, No Throat pain, No Throat swelling Cardiovascular: No Chest Pain, No Palpitations, Orthopnea, No Paroxysmal No Dyspnea, Edema, No Lt Headedness Respiratory: Cough, Dry, Shortness of breath, No SOB with exertion, No Wheezing, No Hemoptysis, No Pleuritic Pain, No Sputum Gastrointestinal: No Nausea, No Vomiting, No Abdominal Pain, No Diarrhea, No Constipation, No Melena, No Hematochezia Genitourinary: No Dysuria, No Frequency, No Incontinence, No Hematuria, No Retention 02/20/25- the patient was seen at bedside today. The patient complained of intense pain in the left flank radiating to the left groin area and mentioned of her history of kidney stones. Her white count had increased to 19.9 today and urinalysis was positive for UTI. Lactic acid was 1.5. She was started on meropenem and fluconazole for acute complicated cystitis. CT abdomen pelvis showed Moderate left-sided hydronephrosis with a 5 mm obstructing stone in the proximal left ureter. Urology consult was placed. Her potassium today was 3, which was repleted. We also ordered for blood culture and urine culture. We also started her on morphine 2 mg q.12 p.r.n. for severe pain and [place] 5q4 p.r.n.. EKG was done which was normal. A consult for Dr. Ogden was also placed as he is her PCP. Bedside pocus was done which showed a dilated IVC. 02/21/25- The patient was seen at bedside today. White count today was 34.8. Lactic acid was 1.3. Patient looked tachypneic. Blood culture showed Gram- negative rods. The patient was started on vancomycin per pharmacy. IR placed left nephrostomy tube without any complications. 02/22/25- The patient was seen at bedside today. White count today was 27.2. Patient is breathing comfortably on 2L oxygen by nasal canula. Patient complained of intense pain in her back as she has severe degenerative disc disease, for which she was given 1 dose of morphine 2 mg and started on dilaudid 1mg q4 prn. Left nephrostomy tube is in place with minimal drainage and no discharge or redness around the site. Creatinine improved from 2.19 to 2.02 today. Patient started on gabapentin 400 mg t.i.d. for neuropathy. She was started on MiraLax 17 g p.o. b.i.d. for constipation. 02/23/25- The patient seen at bedside today. She complained of pain in her lower abdomen. She was given 1 time dose of IV mannitol and started on Flomax 0.4 mg PO HS. Order to strain all urine was placed. Patient was started on Senokot q.h.s. and MiraLax p.r.n. for constipation. Repeat blood cultures were ordered. IV antibiotics were changed to IV ceftriaxone 1 g daily. Physical therapy evaluation was requested for the patient. Urology was consulted and they recommended outpatient follow-up in 3-4 weeks once patient is stable for discharge. 02/24/25- Patient still complains of intermittent flank pain presumably from nephrostomy tube site with a renal stone. Patient continued to take IV Dilaudid. Patient is with a poor ambulatory status. Her leukocytosis has significantly improved. 02/25/25- Patient still complains of intermittent flank pain. Physical therapy recommended placement in SNF for the patient, which she refused. We will continue to try working with physical therapy to try and get her out of bed into a chair. For pain medication was changed to tramadol 100 mg p.o. q.6 hours Dilaudid 1 mg IV q.6 hours. 02/26/25- patient was seen at bedside today. She continues to complain of abdominal pain. White count today was 12.6. Urine analysis and urine culture was ordered. KUB and x-ray of lumbar spine were ordered. Dr Ogden, who is her PCP and is also following up regularly, continued ceftriaxone and started her on levofloxacin and vancomycin per pharmacy. Patient was encouraged to continue working with physical therapy and try to get out of bed into a chair today. 02/27/25- the patient was seen at bedside today. Repeat CT abdomen/pelvis was done today, which was unremarkable. White count today was 16.6. Lactic acid today was 0.7. An Infectious Disease consult was requested, as the white count is trending up again. Patient was encouraged to work with physical therapy. A detailed discussion was held with the patient and family, and our recommendation of sending the patient was SNF on discharge was discussed and they agreed with the same. 02/28/25- the patient was seen at bedside today. The patient started having rosalee bleeding from the nephrostomy tube last night, Lovenox was stopped. The patient was also having rosalee hematuria from the urethra. Her hemoglobin this morning was 9.1 and repeat in the evening was 8.7. Repeat IR consult was placed for evaluation of the nephrostomy tube. Repeat CT abdomen/pelvis was ordered. 03/01/25- the patient was seen at bedside today. CT abdomen/pelvis was ordered for the patient yesterday to evaluate for bleeding from the nephrostomy tube and urethra, but the patient refused CT yesterday and this morning. The patient's family requested for transfer to [facility], a social science professor request for facilitating the lateral transfer per the family request was placed. The patient and family were explained at length about the evaluation and the need for the CT today and they demonstrated understanding of the same. Renal ultrasound was done which showed echogenic debris in the dependent portion of the bladder measuring 4.6 x 2.7 by 9.7 cm. KUB showed left-sided nephrostomy tube in place and nonobstructive bowel gas pattern. Urology was consulted and they recommended IR evaluation for possible replacement of nephrostomy tube and Jason if patient is unable to void. 03/02/25- was seen and evaluated at bedside. The patient complained of multiple episodes of diarrhea, for which he was started on Imodium 2 mg p.o. q.6 p.r.n. for diarrhea. Discussion held with her regarding IR evaluation and if Nephrostomy tube intact and hematuria improve, anticipate to DC home. Patient however, adamant that she want to transfer to [facility], where her urologist there. CM already consulted for lateral transfer per patient request. No answer from [facility] yet. 03/03/25- patient was seen and evaluated at bedside today. [facility] mentioned and no longer accepting lateral transfers. This was communicated to the patient and she mentioned that her beamer hand at that hospital we will send paperwork to facilitate the transfer. Bedside bladder scan was done which revealed postvoid urine volume of 41 mL. Bedside pocus was done, showed more than 50% compressibility of IVC with size of 1.9 cm. 500 cc bolus of NS was given. Nephrology was consulted for up trending creatinine. The patient was started on IV Flagyl. All updates were shared with the patient, her son and daughter and all their questions and concerns were addressed. 03/04/25- patient was seen and evaluated at bedside today. CT abdomen/pelvis done today revealed that the left nephrostomy tube is in place and moderate left hydroureteronephrosis. There was collection of dark yellow urine in the nephrostomy bag, which could be due to dehydration. Patient was given a 250 cc bolus of NS 250ml. The catheter was inserted for strict I&Os and urine studies. Hydrochlorothiazide dose was reduced to 12.5 mg p.o. b.i.d. Objective vital signs Vital Sign Date Time Temp Pulse Resp B/P (MAP) Pulse Ox O2 Delivery O2 Flow Rate FiO2 03/04/25 14:21 84 18 100 03/04/25 14:14 Nasal Cannula 2.0 03/04/25 14:14 28 03/04/25 13:15 136/60 03/04/25 13:00 101.9 101.9 Total Intake and Output 03/03/25 03/03/25 03/04/25 15:00 23:00 07:00 Intake Total 210 ml 620 ml 200 ml Balance 210 ml 620 ml 200 ml medications Current Medications Medications Dose Ordered Sig/Layo Route Start Time Stop Time Status Last Admin Dose Admin Morphine Sulfate 2 mg Q30M PRN IV 02/18/25 19:45 Cancel Diagnostic Test (Pha) 1 strip ACHS 02/18/25 22:00 03/04/25 11:30 1 STRIP Insulin Human Regular HS SC 02/18/25 22:00 03/03/25 22:20 4 UNITS Insulin Human Regular AC SC 02/19/25 07:00 03/04/25 11:30 9 UNITS Dextrose 50 ml UD PRN IV 02/18/25 19:45 Acetaminophen 650 mg Q6HP PRN PO 02/18/25 19:45 03/04/25 10:18 650 MG Levothyroxine Sodium 75 mcg QAM@0600 PO 02/19/25 06:00 03/04/25 06:31 75 MCG Pantoprazole Sodium 40 mg DAILY@0600 PO 02/19/25 06:00 03/04/25 06:31 40 MG Atorvastatin Calcium 40 mg HS PO 02/18/25 22:00 03/03/25 22:12 40 MG Patient Own Medication 1 DAILY PO 02/19/25 10:00 03/03/25 12:09 1 Insulin Glargine 10 units QAM SC 02/20/25 07:00 03/04/25 06:40 10 UNITS Gabapentin 400 mg BID PO 02/22/25 22:00 03/03/25 22:12 400 MG Tamsulosin HCl 0.4 mg QPM PO 02/23/25 18:00 03/03/25 18:15 0.4 MG Polyethylene Glycol 17 gm DAILYPRN PRN PO 02/23/25 18:00 Sennosides 8.6 mg HS PO 02/23/25 22:00 02/27/25 21:34 8.6 MG Tramadol HCl 100 mg Q6HP PRN PO 02/25/25 17:00 02/26/25 03:44 100 MG Levofloxacin/ Dextrose 100 ml @ 100 mls/hr DAILY IV 02/27/25 10:00 03/04/25 10:26 100 MLS/HR Zolpidem Tartrate 5 mg HSPRN PRN PO 02/26/25 19:00 Patient Own Medication 1 tab DAILY PO 02/27/25 10:00 Patient Own Medication 20 mg BID PO 02/26/25 22:00 Vancomycin HCl 250 ml @ 166.667 mls/hr Q24H IV 02/27/25 13:00 UNV Duloxetine HCl 60 mg DAILY PO 03/01/25 10:00 03/03/25 09:49 60 MG Iron Sucrose 110 ml @ 110 mls/hr DAILY@1200 IV 03/03/25 12:00 03/07/25 11:59 03/04/25 13:16 110 MLS/HR Metronidazole 100 ml @ 100 mls/hr Q8HR IV 03/03/25 14:00 03/04/25 15:20 100 MLS/HR Loperamide HCl 2 mg DAILY PRN PO 03/03/25 19:30 03/03/25 19:38 2 MG Albuterol 2.5 mg Q8HR NEB 03/04/25 14:00 03/04/25 14:09 2.5 MG Budesonide 0.5 mg BID NEB 03/04/25 22:00 Ipratropium [place] 0.5 mg Q8HR NEB 03/04/25 14:00 03/04/25 14:10 0.5 MG Hydrochlorothiazide 12.5 mg DAILY PO 03/05/25 10:00 Future hold Hydromorphone HCl 1 mg Q4HP PRN IV 03/04/25 17:11 Examination General Appearance: Cooperative. Well developed. Well nourished. NAD. Left nephrostomy tube in place with no discharge or erythema, with dark urine. She is currently on 2 L oxygen via nasal cannula. Head Exam: Normal inspection Neck Exam: Normal inspection. Non-tender. Normal alignment Pulmonary/Respiratory: Chest non-tender. mildly reduced breath sounds bilaterally Cardiovascular/Chest: Regular rate and rhythm. No murmurs. No JVD. Peripheral Pulses: 2+ Radial (R). 2+ Radial (L). 2+ Pedal (R). 2+ Pedal (L) Abdominal Exam: Normal bowel sounds. Soft. normal abdomen, no visible veins, tenderness in left flank, tendernessn all over abdomen on palpation, No hepatospenomegaly. No masses Ankle Exam: Negative ankle edema Lower extremities: 1+ bilateral lower extremity pitting edema Neuro/Mental Status: A&O x4. Coherent. Thoughts/Psych: Normal thought pattern. Appropriate mood and affect. Good judgement and insight Skin Exam: Normal inspection. Normal color. Warm. Dry laboratory and microbiology Laboratory Tests 03/04/25 06:02 Test 03/04/25 06:02 Range/Units Serum Glucose 171 H 74-106 mg/dL Microbiology Date/Time Source Procedure Growth Status 02/26/25 11:30 Voided Urine Urine Culture - Final Complete 02/23/25 13:34 Blood Blood Culture - Final NO GROWTH AFTER 5 DAYS OF INCUBATION. Complete 02/21/25 09:30 Nose MRSA Screen - Final Complete Labs and/or images reviewed: Labs reviewed by me, Image(s) reviewed by me Problem List/Assessment/Plan Problem List/Assessment/Plan # Acute on chronic hypoxic respiratory failure # Acute on chronic HFpEF # Possible COPD exacerbation with possible viral pneumonia # History of PE -Chest xray - Cardiomegaly and Pulmonary vascular congestion -old Echo 01/04- EF >55%, severe PAH -BNP 152.10 -covid, influenza negative -albuterol and ipratropium mednebs every 6 hours # Acute complicated cystitis # Acute left hydronephrosis s/p left nephrostomy tube placement day 2 # Acute left pyelonephritis # Hematuria # left obstructive ureteral stone -white count was 13.1 -UA positive for UTI, UA ordered on 02/26/2025, repeat urine culture > 00920 CFU, mixed aleksandar -abdomen CT pelvis showed a 5 mm obstructive stone in the left ureter with moderate left hydronephrosis -urology consult-left nephrostomy tube placement, outpatient follow-up in 3-4 weeks -levofloxacin 250 mg q.i.d. p.o. -repeat blood culture on 02/23/25- no growth after 5 days -blood culture Gram-negative rods 02/20/25 -chest x-ray showed cardiomegaly and moderate pleural effusion with prominent pulmonary vasculature -strain all urine -Flomax 0.4 mg q.p.m. p.o. -CT abdomen/pelvis on 02/27/2025- unremarkable -infectious diseases consult placed, pending -bleeding from nephrostomy tube and urethra- hemoglobin 7.8>7.9, abdomen/pelvic CT ordered, patient refused -Renal US- echogenic debris in the dependent portion of the bladder measuring 4.6 x 2.7 by 9.7 cm -KUB- Left-sided nephrostomy tube in place and nonobstructive bowel gas pattern -pending IR re-evaluation of left nephrostomy tube -place jason if patient is unable to void, postvoid volume on bladder scan today 41 mL - CT abdomen left nephrostomy tube in place # CLAUDIA on CKD, likely due to VMN -avoid nephrotoxic agents -monitor BMP -ordered urine studies -given 250 cc bolus of NS # Uncontrolled type 2 diabetes mellitus with hyperglycemia -HbA1c is 8 -Moderate insulin sliding scale a.c. HS -lantus 10 units qam # Chronic back pain, multilevel degenerative disc disease - Dilaudid 1 mg q.4 hours p.r.n. - gabapentin 400 mg p.o. t.i.d. - physical therapy on board, the patient and family agreed to SNF placement - duloxetine 60 mg daily # Chronic hypochromic normocytic anemia -monitor H&H -stool occult blood ordered -transfuse if hemoglobin less than 7 # Mild transmnitis # Hypothyroidism - Continue on levothyroxine 75 mcg # GERD - Continue on protonix 40 mg daily po # Hypokalemia -repleted # Acute constipation -Senokot 8.6 mg HS p.o. and MiraLax 17 g daily p.r.n. p.o. PUD prophylaxis: Protonix 40 mg DVT prophylaxis: lovenox 110mg q12 hr sc, discontinued due to hematuria Goals of care discussed with the patient for over 18 minutes, Full code Plan discussed with Dr. Del Toro Plan discussed with: Patient Dietary Evaluation Review Comments: Nutrition Recommendation: 1) Glucerna 240ml BID 2) Monitor PO intake, lab values, weight trend, and I/O Expected Outcomes/Goals: Intake to meet >75% estimated needs FU 3-5 days Date of Service: Mar 04, 2025 Billing Provider: XENA DEL TORO MD Common Visit Codes: [id number] INP/OBS CARE(HIGH) FINESSE VERMA RESIDENT Mar 04, 2025 16:11 XENA DEL TORO MD Mar 04, 2025 22:51
[2025-03-04 16:19] LABS: Protein, Urine 110.3 mg/dL (1-14)
[2025-03-04 16:23] LABS: Urine Budding Yeast LOADED /hpf (None Seen); Urine Protein, UAD 1+ (Negative); Urine WBC Clumps PRESENT /hpf (None Seen)
[2025-03-04] MEDS ORDERED: HYDROmorphone HCL 2 MG/ML VL/or syr IV PRN ×2 (17:11)
[2025-03-04] MEDS: ACCU-CHEK COMFORT CURVE STRIP VI SCH (17:26)
[2025-03-04] MEDS: SODIUM CHLORIDE 0.9% 250 ML IV ONE (17:28)
[2025-03-04] MEDS: HYDROmorphone HCL 2 MG/ML VL/or syr IV PRN (17:39)
[2025-03-04] MEDS: InsuLIN REG 1unit/0.01ml Soln (100units/ml) SC SCH (17:53)
[2025-03-04 19:25] LABS: Hematocrit 22.5 % (36.0-46.0); Hemoglobin 7.4 g/dL (12.2-16.2)
[2025-03-04] MEDS ORDERED: BUDESONIDE (INHALATION) 0.5 MG/2 ML NEB NEB SCH (22:00)
[2025-03-04] MEDS: INSULIN LANTUS (GLARGINE) 1 /0.01ml (100units/ml) SC SCH (22:06)
[2025-03-05] VITALS (15 sets, daily range): BP systolic 126–148; BP diastolic 39–88; PULSE 76–93; RESP 16–18; TEMP 97.8–99.6; O2SAT 89–100
--- NOTE | 2025-03-05 05:51 | DVH ---
CHEST RADIOGRAPH Indication: SOB Technique: Single frontal view of the chest was obtained COMPARISON: XY CHEST XRAY 1 VIEW on DOS: 02/20/25, XY CHEST XRAY 1 VIEW on DOS: 02/19/25, XY CHEST PORTABLE on DOS: 02/18/25, XY CHEST PORTABLE on DOS: 09/27/24, XY CHEST TWO VIEWS ROUTINE on DOS: 07/30/24 FINDINGS: Lines and Tubes: None Lungs: Moderate Interval progression in Diffuse increased prominence of the pulmonary vasculature. Small right pleural effusion has slightly increased. Pleura: No effusion. No pneumothorax. Cardiomediastinal contours: Unremarkable Bones: Unremarkable IMPRESSION: 1. Moderate interval progression in diffuse increased prominence of the pulmonary vasculature and right pleural effusion.
[2025-03-05 07:12] LABS: Hematocrit 22.3 % (36.0-46.0); Hemoglobin 7.4 g/dL (12.2-16.2); Nucleated Red Blood Cells % 0.1 %
[2025-03-05 07:14] LABS: Anion Gap 8 (5-15); Carbon Dioxide 24 mmol/L (20-31); Chloride 102 mmol/L (98-107); Mean Corpuscular Hemoglobin 27.9 pg (28.0-32.0); Mean Corpuscular Volume 84.3 fL (80.0-100.0); Potassium 4.2 mmol/L (3.5-5.1)
[2025-03-05 07:15] LABS: Calcium 8.8 mg/dL (8.7-10.4)
[2025-03-05 07:20] LABS: BUN/Creatinine Ratio 21.5 (10.0-20.0)
[2025-03-05 07:22] LABS: Blood Urea Nitrogen 32 mg/dL (9-23); Glucose 159 mg/dL (74-106); Sodium 134 mmol/L (136-145)
[2025-03-05] MEDS ORDERED: hydroCHLOROthiazide 25 MG TAB PO SCH (10:00)
[2025-03-05] MEDS: SODIUM CHLORIDE 0.9% 250 ML IV ONE ×2 (10:44→12:53)
--- NOTE | 2025-03-05 11:57 | DVHPN2 ---
Progress Note Date Seen: Mar 05, 2025 Medical Necessity Reason Pt with a Central, PICC or Fol: No Subjective Patient reports: No new complaints Review of Systems: RESPIRATORY:Abnormal Other Systems: Patient seen and examined by myself today in follow-up, O2 nasal cannula Objective vital signs Vital Sign Date Time Temp Pulse Resp B/P (MAP) Pulse Ox O2 Delivery O2 Flow Rate FiO2 03/05/25 10:40 79 16 148/50 03/05/25 09:00 97.9 96 97.9 03/05/25 08:15 Nasal Cannula* 2 28 Total Intake and Output 03/04/25 03/04/25 03/05/25 15:00 23:00 07:00 Intake Total 100 ml 670 ml 200 ml Output Total 670 ml 350 ml Balance 100 ml 0 ml -150 ml medications Current Medications Medications Dose Ordered Sig/Layo Route Start Time Stop Time Status Last Admin Dose Admin Morphine Sulfate 2 mg Q30M PRN IV 02/18/25 19:45 Cancel Acetaminophen 650 mg Q6HP PRN PO 02/18/25 19:45 03/05/25 08:13 650 MG Levothyroxine Sodium 75 mcg QAM@0600 PO 02/19/25 06:00 03/05/25 06:12 75 MCG Pantoprazole Sodium 40 mg DAILY@0600 PO 02/19/25 06:00 03/05/25 06:12 40 MG Atorvastatin Calcium 40 mg HS PO 02/18/25 22:00 03/04/25 21:54 40 MG Patient Own Medication 1 DAILY PO 02/19/25 10:00 03/05/25 10:00 1 Gabapentin 400 mg BID PO 02/22/25 22:00 03/05/25 10:52 400 MG Tamsulosin HCl 0.4 mg QPM PO 02/23/25 18:00 03/03/25 18:15 0.4 MG Vancomycin HCl 250 ml @ 166.667 mls/hr Q24H IV 02/27/25 13:00 UNV Duloxetine HCl 60 mg DAILY PO 03/01/25 10:00 03/05/25 10:52 60 MG Iron Sucrose 110 ml @ 110 mls/hr DAILY@1200 IV 03/03/25 12:00 03/07/25 11:59 03/04/25 13:16 110 MLS/HR Metronidazole 100 ml @ 100 mls/hr Q8HR IV 03/03/25 14:00 03/05/25 06:12 100 MLS/HR Loperamide HCl 2 mg DAILY PRN PO 03/03/25 19:30 03/05/25 06:12 2 MG Albuterol 2.5 mg Q8HR NEB 03/04/25 14:00 03/05/25 06:02 2.5 MG Ipratropium [place] 0.5 mg Q8HR NEB 03/04/25 14:00 03/05/25 06:02 0.5 MG Insulin Glargine 15 units HS SC 03/04/25 22:00 03/04/25 22:06 15 UNITS Diagnostic Test (Pha) 1 strip ACHS 03/04/25 17:00 03/05/25 11:30 1 STRIP Insulin Human Regular AC SC 03/04/25 17:00 03/05/25 11:38 2 UNITS Dextrose 50 ml UD PRN IV 03/04/25 16:00 Hydromorphone HCl 1 mg Q4HP PRN IV 03/04/25 17:30 03/05/25 10:40 1 MG Levofloxacin 50 ml @ 50 mls/hr DAILY IV 03/05/25 10:00 03/05/25 10:45 50 MLS/HR Examination: CVS:Normal, MSK:Normal laboratory and microbiology Laboratory Tests 03/05/25 06:18 Test 03/05/25 06:18 Range/Units Serum Glucose 159 H 74-106 mg/dL Microbiology Date/Time Source Procedure Growth Status 02/26/25 11:30 Voided Urine Urine Culture - Final Complete 02/23/25 13:34 Blood Blood Culture - Final NO GROWTH AFTER 5 DAYS OF INCUBATION. Complete 02/21/25 09:30 Nose MRSA Screen - Final Complete Problem List/Assessment/Plan Problem List/Assessment/Plan Acute kidney injury superimposed Chronic Kidney Disease secondary hemodynamic mediated, feNa , 1% Urinary retention Vancomycin toxicity Diabetes mellitus type 2 Hypertension Liver cirrhosis Significant anemia rule out GI bleeding Nephrolithiasis Urinary tract infection Left hydronephrosis, status post left nephrostomy tube Diarrhea Recommendations Kidney function slightly worsened today Increased urine output Discontinue vancomycin Echavarria catheter Strict I&Os IV antibiotics Low-dose dopamine Insulin sliding scale Urology on board Blood pressure control We will continue to follow Plan discussed with: Patient Dietary Evaluation Review Comments: Nutrition Recommendation: 1) Glucerna 240ml BID 2) Monitor PO intake, lab values, weight trend, and I/O Expected Outcomes/Goals: Intake to meet >75% estimated needs FU 3-5 days TUAN LUNA MD Mar 05, 2025 11:57
[2025-03-05] MEDS ORDERED: DOPamine 1600MCG/ML D5W 250 ML IV SCH (12:00)
--- NOTE | 2025-03-05 14:13 | DVHPN2 ---
Progress Note - Dictate Date Seen: Mar 05, 2025 Medical Necessity Reason Pt with a Central, PICC or Fol: No Subjective PT WITH SEVERE FLANK PAIN AND SOB OBSTRUCTIVE RENAL CALCULUS HYDRONEPHROSIS UTI S/P NEPHROSTOMY RENAL COLIC HEMATURIA LEUKOCYTOSIS PMH ORGANIC HD HF HTN DIABETES VASCULOPATHY NEPHROPATHY PAH NON HODGKIN LYMPHOMA LUNG CA S/P RIGHT UPPER LOBECTOMY vital signs Vital Sign Date Time Temp Pulse Resp B/P (MAP) Pulse Ox O2 Delivery O2 Flow Rate FiO2 03/05/25 11:10 77 16 109/51 03/05/25 09:00 97.9 96 97.9 03/05/25 08:15 Nasal Cannula* 2 28 Total Intake and Output 03/04/25 03/04/25 03/05/25 14:59 22:59 06:59 Intake Total 100 ml 670 ml 200 ml Output Total 150 ml 670 ml 350 ml Balance -50 ml 0 ml -150 ml medications Current Medications Medications Dose Ordered Sig/Layo Route Start Time Stop Time Status Last Admin Dose Admin Morphine Sulfate 2 mg Q30M PRN IV 02/18/25 19:45 Cancel Acetaminophen 650 mg Q6HP PRN PO 02/18/25 19:45 03/05/25 08:13 650 MG Levothyroxine Sodium 75 mcg QAM@0600 PO 02/19/25 06:00 03/05/25 06:12 75 MCG Pantoprazole Sodium 40 mg DAILY@0600 PO 02/19/25 06:00 03/05/25 06:12 40 MG Atorvastatin Calcium 40 mg HS PO 02/18/25 22:00 03/04/25 21:54 40 MG Patient Own Medication 1 DAILY PO 02/19/25 10:00 03/05/25 10:00 1 Gabapentin 400 mg BID PO 02/22/25 22:00 03/05/25 10:52 400 MG Tamsulosin HCl 0.4 mg QPM PO 02/23/25 18:00 03/03/25 18:15 0.4 MG Vancomycin HCl 250 ml @ 166.667 mls/hr Q24H IV 02/27/25 13:00 UNV Duloxetine HCl 60 mg DAILY PO 03/01/25 10:00 03/05/25 10:52 60 MG Iron Sucrose 110 ml @ 110 mls/hr DAILY@1200 IV 03/03/25 12:00 03/07/25 11:59 03/05/25 12:37 110 MLS/HR Metronidazole 100 ml @ 100 mls/hr Q8HR IV 03/03/25 14:00 03/05/25 06:12 100 MLS/HR Loperamide HCl 2 mg DAILY PRN PO 03/03/25 19:30 03/05/25 06:12 2 MG Albuterol 2.5 mg Q8HR NEB 03/04/25 14:00 03/05/25 06:02 2.5 MG Ipratropium [place] 0.5 mg Q8HR NEB 03/04/25 14:00 03/05/25 06:02 0.5 MG Insulin Glargine 15 units HS SC 03/04/25 22:00 03/04/25 22:06 15 UNITS Diagnostic Test (Pha) 1 strip ACHS 03/04/25 17:00 03/05/25 11:30 1 STRIP Insulin Human Regular AC SC 03/04/25 17:00 03/05/25 11:38 2 UNITS Dextrose 50 ml UD PRN IV 03/04/25 16:00 Hydromorphone HCl 1 mg Q4HP PRN IV 03/04/25 17:30 03/05/25 10:40 1 MG Levofloxacin 50 ml @ 50 mls/hr DAILY IV 03/05/25 10:00 03/05/25 10:45 50 MLS/HR Dopamine HCl/ Dextrose 250 ml @ 8.288 mls/ hr Q24H IV 03/05/25 12:00 Hold laboratory and microbiology Laboratory Tests 03/05/25 06:18 Test 03/05/25 06:18 Range/Units Serum Glucose 159 H 74-106 mg/dL Problem List SEVERE FLANK PAIN AND SOB OBSTRUCTIVE RENAL CALCULUS HYDRONEPHROSIS UTI S/P NEPHROSTOMY RENAL COLIC HEMATURIA LEUKOCYTOSIS ACUTE RENAL INSUFF PMH ORGANIC HD HF HTN DIABETES VASCULOPATHY NEPHROPATHY PAH NON HODGKIN LYMPHOMA LUNG CA S/P RIGHT UPPER LOBECTOMY Assessment/Plan NEPHROSTOMY CARE IV ABC ECHO EF >55% ANISH SEVERE TR SEVERE PAH LEUKOCYTOSIS RESOLVED RENAL INSUFF RESOLVED PT STILL WITH SEVERE FLANK AND SPINE PAIN CT OF ABD PELVIS UA CHANGE ABX SINCE INCREASE IN WBC STARTED LEVAQUIN VANCOMYCIN CT OF ABD PELVIS UNREMARKABLE LEUKOCYTOSIS RESOLVED STILL WITH SEVERE ANEMIA CHECK RETIC IRON STUDIES IRON REPLACEMENT EPOGEN PT IS MALINGERING NEEDS TO BE OFF PAIN THERAPY AND REQUIRES,REHAB MONITOR HYDROMORPHONE HCL 1MG, IV Dietary Evaluation Review Comments: Nutrition Recommendation: 1) Glucerna 240ml BID 2) Monitor PO intake, lab values, weight trend, and I/O Expected Outcomes/Goals: Intake to meet >75% estimated needs FU 3-5 days Plan discussed with: Patient GLADYS BENSON MD Mar 05, 2025 14:13
--- NOTE | 2025-03-05 18:04 | DVHPNRES ---
Progress Note Date Seen: Mar 05, 2025 Resident Creating Document: FINESSE VERMA RESIDENT Medical Necessity Reason Pt with a Central, PICC or Fol: No Subjective Review of Systems Brenda Daily is an 79-year-old female with past medical history of COPD on 2 L oxygen at home, CHF, insulin-dependent type 2 diabetes mellitus, hypertension, pulmonary artery hypertension, non-Hodgkin lymphoma in remission since 1987, lung cancer s/p right upper lobe resection in 2016 presented to the ED with the chief complaint of worsening shortness of breath for the last 3 days along with chills. The patient mentioned she tried to up titrate her oxygen at home, but that did not improve her shortness of breath. She mentioned she also had tightness in the chest along with a dry cough and lower extremity edema. She mentions having similar episodes of shortness of breath 3-4 times in the last 1 year. She denied any fever. Past medical history: COPD on 2 L oxygen at home, CHF, insulin-dependent type 2 diabetes mellitus, hypertension, pulmonary artery hypertension, non-Hodgkin lymphoma in remission since 1987, lung cancer s/p right upper lobe resection Past surgical history: right upper lobectomy in 2016, tonsillectomy Social & Personal history: Lives at home with family, she denies any smoking, alcohol and drugs Allergies: sulfa antibiotics Patient seen and examined at bedside. Patient is alert and oriented to time, place person and responding to all questions. Eyes: No Pain, No Vision change, No Conjunctivae inflammation, No Eyelid inflammation, No Redness ENT: No Ear pain, No Ear discharge, No Nose pain, No Nose discharge, No Nose congestion, No Mouth pain, No Mouth swelling, No Throat pain, No Throat swelling Cardiovascular: No Chest Pain, No Palpitations, Orthopnea, No Paroxysmal No Dyspnea, Edema, No Lt Headedness Respiratory: Cough, Dry, Shortness of breath, No SOB with exertion, No Wheezing, No Hemoptysis, No Pleuritic Pain, No Sputum Gastrointestinal: No Nausea, No Vomiting, No Abdominal Pain, No Diarrhea, No Constipation, No Melena, No Hematochezia Genitourinary: No Dysuria, No Frequency, No Incontinence, No Hematuria, No Retention 02/20/25- the patient was seen at bedside today. The patient complained of intense pain in the left flank radiating to the left groin area and mentioned of her history of kidney stones. Her white count had increased to 19.9 today and urinalysis was positive for UTI. Lactic acid was 1.5. She was started on meropenem and fluconazole for acute complicated cystitis. CT abdomen pelvis showed Moderate left-sided hydronephrosis with a 5 mm obstructing stone in the proximal left ureter. Urology consult was placed. Her potassium today was 3, which was repleted. We also ordered for blood culture and urine culture. We also started her on morphine 2 mg q.12 p.r.n. for severe pain and [place] 5q4 p.r.n.. EKG was done which was normal. A consult for Dr. Ogden was also placed as he is her PCP. Bedside pocus was done which showed a dilated IVC. 02/21/25- The patient was seen at bedside today. White count today was 34.8. Lactic acid was 1.3. Patient looked tachypneic. Blood culture showed Gram- negative rods. The patient was started on vancomycin per pharmacy. IR placed left nephrostomy tube without any complications. 02/22/25- The patient was seen at bedside today. White count today was 27.2. Patient is breathing comfortably on 2L oxygen by nasal canula. Patient complained of intense pain in her back as she has severe degenerative disc disease, for which she was given 1 dose of morphine 2 mg and started on dilaudid 1mg q4 prn. Left nephrostomy tube is in place with minimal drainage and no discharge or redness around the site. Creatinine improved from 2.19 to 2.02 today. Patient started on gabapentin 400 mg t.i.d. for neuropathy. She was started on MiraLax 17 g p.o. b.i.d. for constipation. 02/23/25- The patient seen at bedside today. She complained of pain in her lower abdomen. She was given 1 time dose of IV mannitol and started on Flomax 0.4 mg PO HS. Order to strain all urine was placed. Patient was started on Senokot q.h.s. and MiraLax p.r.n. for constipation. Repeat blood cultures were ordered. IV antibiotics were changed to IV ceftriaxone 1 g daily. Physical therapy evaluation was requested for the patient. Urology was consulted and they recommended outpatient follow-up in 3-4 weeks once patient is stable for discharge. 02/24/25- Patient still complains of intermittent flank pain presumably from nephrostomy tube site with a renal stone. Patient continued to take IV Dilaudid. Patient is with a poor ambulatory status. Her leukocytosis has significantly improved. 02/25/25- Patient still complains of intermittent flank pain. Physical therapy recommended placement in SNF for the patient, which she refused. We will continue to try working with physical therapy to try and get her out of bed into a chair. For pain medication was changed to tramadol 100 mg p.o. q.6 hours Dilaudid 1 mg IV q.6 hours. 02/26/25- patient was seen at bedside today. She continues to complain of abdominal pain. White count today was 12.6. Urine analysis and urine culture was ordered. KUB and x-ray of lumbar spine were ordered. Dr Ogden, who is her PCP and is also following up regularly, continued ceftriaxone and started her on levofloxacin and vancomycin per pharmacy. Patient was encouraged to continue working with physical therapy and try to get out of bed into a chair today. 02/27/25- the patient was seen at bedside today. Repeat CT abdomen/pelvis was done today, which was unremarkable. White count today was 16.6. Lactic acid today was 0.7. An Infectious Disease consult was requested, as the white count is trending up again. Patient was encouraged to work with physical therapy. A detailed discussion was held with the patient and family, and our recommendation of sending the patient was SNF on discharge was discussed and they agreed with the same. 02/28/25- the patient was seen at bedside today. The patient started having rosalee bleeding from the nephrostomy tube last night, Lovenox was stopped. The patient was also having rosalee hematuria from the urethra. Her hemoglobin this morning was 9.1 and repeat in the evening was 8.7. Repeat IR consult was placed for evaluation of the nephrostomy tube. Repeat CT abdomen/pelvis was ordered. 03/01/25- the patient was seen at bedside today. CT abdomen/pelvis was ordered for the patient yesterday to evaluate for bleeding from the nephrostomy tube and urethra, but the patient refused CT yesterday and this morning. The patient's family requested for transfer to [facility], a social services counselor request for facilitating the lateral transfer per the family request was placed. The patient and family were explained at length about the evaluation and the need for the CT today and they demonstrated understanding of the same. Renal ultrasound was done which showed echogenic debris in the dependent portion of the bladder measuring 4.6 x 2.7 by 9.7 cm. KUB showed left-sided nephrostomy tube in place and nonobstructive bowel gas pattern. Urology was consulted and they recommended IR evaluation for possible replacement of nephrostomy tube and Jason if patient is unable to void. 03/02/25- was seen and evaluated at bedside. The patient complained of multiple episodes of diarrhea, for which he was started on Imodium 2 mg p.o. q.6 p.r.n. for diarrhea. Discussion held with her regarding IR evaluation and if Nephrostomy tube intact and hematuria improve, anticipate to DC home. Patient however, adamant that she want to transfer to [facility], where her urologist there. CM already consulted for lateral transfer per patient request. No answer from [facility] yet. 03/03/25- patient was seen and evaluated at bedside today. [facility] mentioned and no longer accepting lateral transfers. This was communicated to the patient and she mentioned that her electric blanket wirer at that hospital we will send paperwork to facilitate the transfer. Bedside bladder scan was done which revealed postvoid urine volume of 41 mL. Bedside pocus was done, showed more than 50% compressibility of IVC with size of 1.9 cm. 500 cc bolus of NS was given. Nephrology was consulted for up trending creatinine. The patient was started on IV Flagyl. All updates were shared with the patient, her son and daughter and all their questions and concerns were addressed. 03/04/25- patient was seen and evaluated at bedside today. CT abdomen/pelvis done today revealed that the left nephrostomy tube is in place and moderate left hydroureteronephrosis. There was collection of dark yellow urine in the nephrostomy bag, which could be due to dehydration. Patient was given a 250 cc bolus of NS 250ml. The catheter was inserted for strict I&Os and urine studies. Hydrochlorothiazide dose was reduced to 12.5 mg p.o. b.i.d. 03/05/25- patient was seen at bedside today. FENA was calculated to be 0.3%, prerenal cause of the CLAUDIA. The patient had fever spikes of 101.8 and 100.4 overnight, she was given 500 cc bolus of NS will be continued on levofloxacin 250 mg IV daily and Flagyl. Nephrology evaluated the patient and started her on low-dose of dobutamine. Objective vital signs Vital Sign Date Time Temp Pulse Resp B/P (MAP) Pulse Ox O2 Delivery O2 Flow Rate FiO2 03/05/25 17:00 97.8 79 18 139/88 (105) 97 97.8 03/05/25 10:00 Nasal Cannula* 2 28 Total Intake and Output 03/04/25 03/04/25 03/05/25 15:00 23:00 07:00 Intake Total 100 ml 670 ml 200 ml Output Total 670 ml 350 ml Balance 100 ml 0 ml -150 ml medications Current Medications Medications Dose Ordered Sig/Layo Route Start Time Stop Time Status Last Admin Dose Admin Morphine Sulfate 2 mg Q30M PRN IV 02/18/25 19:45 Cancel Acetaminophen 650 mg Q6HP PRN PO 02/18/25 19:45 03/05/25 08:13 650 MG Levothyroxine Sodium 75 mcg QAM@0600 PO 02/19/25 06:00 03/05/25 06:12 75 MCG Pantoprazole Sodium 40 mg DAILY@0600 PO 02/19/25 06:00 03/05/25 06:12 40 MG Atorvastatin Calcium 40 mg HS PO 02/18/25 22:00 03/04/25 21:54 40 MG Patient Own Medication 1 DAILY PO 02/19/25 10:00 03/05/25 10:00 1 Gabapentin 400 mg BID PO 02/22/25 22:00 03/05/25 10:52 400 MG Tamsulosin HCl 0.4 mg QPM PO 02/23/25 18:00 03/03/25 18:15 0.4 MG Vancomycin HCl 250 ml @ 166.667 mls/hr Q24H IV 02/27/25 13:00 UNV Duloxetine HCl 60 mg DAILY PO 03/01/25 10:00 03/05/25 10:52 60 MG Iron Sucrose 110 ml @ 110 mls/hr DAILY@1200 IV 03/03/25 12:00 03/07/25 11:59 03/05/25 12:37 110 MLS/HR Metronidazole 100 ml @ 100 mls/hr Q8HR IV 03/03/25 14:00 03/05/25 15:23 100 MLS/HR Loperamide HCl 2 mg DAILY PRN PO 03/03/25 19:30 03/05/25 06:12 2 MG Albuterol 2.5 mg Q8HR NEB 03/04/25 14:00 03/05/25 06:02 2.5 MG Ipratropium [place] 0.5 mg Q8HR NEB 03/04/25 14:00 03/05/25 06:02 0.5 MG Insulin Glargine 15 units HS SC 03/04/25 22:00 03/04/25 22:06 15 UNITS Diagnostic Test (Pha) 1 strip ACHS 03/04/25 17:00 03/05/25 11:30 1 STRIP Insulin Human Regular AC SC 03/04/25 17:00 03/05/25 11:38 2 UNITS Dextrose 50 ml UD PRN IV 03/04/25 16:00 Hydromorphone HCl 1 mg Q4HP PRN IV 03/04/25 17:30 03/05/25 15:10 1 MG Levofloxacin 50 ml @ 50 mls/hr DAILY IV 03/05/25 10:00 03/05/25 10:45 50 MLS/HR Dopamine HCl/ Dextrose 250 ml @ 8.288 mls/ hr Q24H IV 03/05/25 12:00 Hold Examination General Appearance: Cooperative. Well developed. Well nourished. NAD. Left nephrostomy tube in place with no discharge or erythema, with dark yellow urine. She is currently on 2 L oxygen via nasal cannula. Head Exam: Normal inspection Neck Exam: Normal inspection. Non-tender. Normal alignment Pulmonary/Respiratory: Chest non-tender. mildly reduced breath sounds bilaterally Cardiovascular/Chest: Regular rate and rhythm. No murmurs. No JVD. Peripheral Pulses: 2+ Radial (R). 2+ Radial (L). 2+ Pedal (R). 2+ Pedal (L) Abdominal Exam: Normal bowel sounds. Soft. normal abdomen, no visible veins, tenderness in left flank, No hepatospenomegaly. No masses Ankle Exam: Negative ankle edema Lower extremities: 1+ bilateral lower extremity pitting edema Neuro/Mental Status: A&O x4. Coherent. Thoughts/Psych: Normal thought pattern. Appropriate mood and affect. Good judgement and insight Skin Exam: Normal inspection. Normal color. Warm. Dry laboratory and microbiology Laboratory Tests 03/05/25 06:18 Test 03/05/25 06:18 Range/Units Serum Glucose 159 H 74-106 mg/dL Microbiology Date/Time Source Procedure Growth Status 02/26/25 11:30 Voided Urine Urine Culture - Final Complete 02/23/25 13:34 Blood Blood Culture - Final NO GROWTH AFTER 5 DAYS OF INCUBATION. Complete 02/21/25 09:30 Nose MRSA Screen - Final Complete Labs and/or images reviewed: Labs reviewed by me, Image(s) reviewed by me Problem List/Assessment/Plan Problem List/Assessment/Plan # Acute on chronic hypoxic respiratory failure # Acute on chronic HFpEF # Possible COPD exacerbation with possible viral pneumonia # History of PE -Chest xray - Cardiomegaly and Pulmonary vascular congestion -old Echo 01/04- EF >55%, severe PAH -BNP 152.10 -covid, influenza negative -albuterol and ipratropium mednebs every 6 hours # Acute complicated cystitis # Acute left hydronephrosis s/p left nephrostomy tube placement day 2 # Acute left pyelonephritis # Hematuria, resolved # left obstructive ureteral stone -white count was 13.1 -UA positive for UTI, UA ordered on 02/26/2025, repeat urine culture > 46264 CFU, mixed aleksandar -abdomen CT pelvis showed a 5 mm obstructive stone in the left ureter with moderate left hydronephrosis -urology consult-left nephrostomy tube placement, outpatient follow-up in 3-4 weeks -levofloxacin iv -repeat blood culture on 02/23/25- no growth after 5 days -blood culture Gram-negative rods 02/20/25 -chest x-ray showed cardiomegaly and moderate pleural effusion with prominent pulmonary vasculature -strain all urine -Flomax 0.4 mg q.p.m. p.o. -CT abdomen/pelvis on 02/27/2025- unremarkable -infectious diseases consult placed, pending -bleeding from nephrostomy tube and urethra- hemoglobin 7.8>7.9, abdomen/pelvic CT ordered, patient refused -Renal US- echogenic debris in the dependent portion of the bladder measuring 4.6 x 2.7 by 9.7 cm -KUB- Left-sided nephrostomy tube in place and nonobstructive bowel gas pattern -pending IR re-evaluation of left nephrostomy tube -place jason if patient is unable to void, postvoid volume on bladder scan today 41 mL - CT abdomen left nephrostomy tube in place # CLAUDIA on CKD, likely due to VMN -avoid nephrotoxic agents -monitor BMP -urine studies revealed FeNa 0.3%- prerenal cause of CLAUDIA -given 500 cc bolus of NS # Uncontrolled type 2 diabetes mellitus with hyperglycemia -HbA1c is 8 -Moderate insulin sliding scale a.c. HS -lantus 15 units qam # Chronic back pain, multilevel degenerative disc disease - Dilaudid 1 mg q.4 hours p.r.n. - gabapentin 400 mg p.o. t.i.d. - physical therapy on board - duloxetine 60 mg daily # Chronic hypochromic normocytic anemia -monitor H&H -stool occult blood ordered -transfuse if hemoglobin less than 7 # Mild transmnitis # Hypothyroidism - Continue on levothyroxine 75 mcg # GERD - Continue on protonix 40 mg daily po # Hypokalemia -repleted # Acute constipation -Senokot 8.6 mg HS p.o. and MiraLax 17 g daily p.r.n. p.o. PUD prophylaxis: Protonix 40 mg DVT prophylaxis: lovenox 110mg q12 hr sc, discontinued due to hematuria Goals of care discussed with the patient for over 18 minutes, Full code Plan discussed with Dr. Benitez Plan discussed with: Patient Dietary Evaluation Review Comments: Nutrition Recommendation: 1) Glucerna 240ml BID 2) Monitor PO intake, lab values, weight trend, and I/O Expected Outcomes/Goals: Intake to meet >75% estimated needs FU 3-5 days Visit Coding STANDARD RES Billing Provider: MARILYN BENITEZ MD Date of Service if different f: Mar 05, 2025 Common Visit Codes: 92630-[id number] INP/OBS CARE(HIGH) FINESSE VERMA RESIDENT Mar 05, 2025 18:04
[2025-03-06] VITALS (18 sets, daily range): BP systolic 121–137; BP diastolic 43–64; PULSE 75–87; RESP 16–20; TEMP 97.7–98.3; O2SAT 93–99
[2025-03-06 06:05] LABS: Mean Corpuscular Volume 84.3 fL (80.0-100.0)
[2025-03-06 06:07] LABS: Hematocrit 21.4 % (36.0-46.0); Mean Corpuscular Hemoglobin 27.0 pg (28.0-32.0); Nucleated Red Blood Cells % 0.1 %
[2025-03-06 06:14] LABS: Hemoglobin 6.9 g/dL (12.2-16.2)
[2025-03-06 06:18] LABS: Chloride 103 mmol/L (98-107); Potassium 4.1 mmol/L (3.5-5.1)
[2025-03-06 06:19] LABS: Anion Gap 8 (5-15); Carbon Dioxide 22 mmol/L (20-31)
[2025-03-06 06:21] LABS: Calcium 8.5 mg/dL (8.7-10.4); Sodium 133 mmol/L (136-145)
[2025-03-06 06:24] LABS: BUN/Creatinine Ratio 25.0 (10.0-20.0)
[2025-03-06 06:31] LABS: Blood Urea Nitrogen 34 mg/dL (9-23); Glucose 170 mg/dL (74-106)
[2025-03-06] MEDS: FLORASTOR (S. BOULARDII) 250 MG CAP PO SCH (09:36)
--- NOTE | 2025-03-06 12:51 | DVHPN2 ---
Progress Note Date Seen: Mar 06, 2025 Medical Necessity Reason Pt with a Central, PICC or Fol: No Subjective Patient reports: No new complaints Other Systems: Patient seen and examined by myself today in follow-up Objective vital signs Vital Sign Date Time Temp Pulse Resp B/P (MAP) Pulse Ox O2 Delivery O2 Flow Rate FiO2 03/06/25 10:05 79 16 115/67 03/06/25 09:00 98.3 98 98.3 03/06/25 08:00 Nasal Cannula* 2 28 Total Intake and Output 03/05/25 03/05/25 03/06/25 15:00 23:00 07:00 Intake Total 260 ml 700 ml 1524 ml Output Total 500 ml 650 ml Balance 260 ml 200 ml 874 ml medications Current Medications Medications Dose Ordered Sig/Layo Route Start Time Stop Time Status Last Admin Dose Admin Morphine Sulfate 2 mg Q30M PRN IV 02/18/25 19:45 Cancel Acetaminophen 650 mg Q6HP PRN PO 02/18/25 19:45 03/05/25 22:43 650 MG Levothyroxine Sodium 75 mcg QAM@0600 PO 02/19/25 06:00 03/06/25 05:36 75 MCG Pantoprazole Sodium 40 mg DAILY@0600 PO 02/19/25 06:00 03/06/25 05:36 40 MG Atorvastatin Calcium 40 mg HS PO 02/18/25 22:00 03/05/25 22:29 40 MG Patient Own Medication 1 DAILY PO 02/19/25 10:00 03/05/25 10:00 1 Gabapentin 400 mg BID PO 02/22/25 22:00 03/05/25 10:52 400 MG Tamsulosin HCl 0.4 mg QPM PO 02/23/25 18:00 03/05/25 18:29 0.4 MG Vancomycin HCl 250 ml @ 166.667 mls/hr Q24H IV 02/27/25 13:00 UNV Duloxetine HCl 60 mg DAILY PO 03/01/25 10:00 03/06/25 09:36 60 MG Iron Sucrose 110 ml @ 110 mls/hr DAILY@1200 IV 03/03/25 12:00 03/07/25 11:59 03/06/25 11:20 110 MLS/HR Metronidazole 100 ml @ 100 mls/hr Q8HR IV 03/03/25 14:00 03/06/25 05:36 100 MLS/HR Loperamide HCl 2 mg DAILY PRN PO 03/03/25 19:30 03/06/25 04:39 2 MG Albuterol 2.5 mg Q8HR NEB 03/04/25 14:00 03/06/25 06:30 2.5 MG Ipratropium [place] 0.5 mg Q8HR NEB 03/04/25 14:00 03/06/25 06:30 0.5 MG Insulin Glargine 15 units HS SC 03/04/25 22:00 03/05/25 22:30 15 UNITS Diagnostic Test (Pha) 1 strip ACHS 03/04/25 17:00 03/06/25 11:56 1 STRIP Insulin Human Regular AC SC 03/04/25 17:00 03/06/25 11:57 2 UNITS Dextrose 50 ml UD PRN IV 03/04/25 16:00 Hydromorphone HCl 1 mg Q4HP PRN IV 03/04/25 17:30 03/06/25 09:35 1 MG Levofloxacin 50 ml @ 50 mls/hr DAILY IV 03/05/25 10:00 03/06/25 09:36 50 MLS/HR Dopamine HCl/ Dextrose 250 ml @ 8.288 mls/ hr Q24H IV 03/05/25 12:00 Hold Saccharomyces Boulardii 250 mg BID PO 03/06/25 10:00 03/06/25 09:36 250 MG Examination: LUNGS:Normal, CVS:Normal, MSK:Abnormal laboratory and microbiology Laboratory Tests 03/06/25 04:56 Test 03/06/25 04:56 Range/Units Serum Glucose 170 H 74-106 mg/dL Microbiology Date/Time Source Procedure Growth Status 02/26/25 11:30 Voided Urine Urine Culture - Final Complete 02/23/25 13:34 Blood Blood Culture - Final NO GROWTH AFTER 5 DAYS OF INCUBATION. Complete 02/21/25 09:30 Nose MRSA Screen - Final Complete Problem List/Assessment/Plan Problem List/Assessment/Plan Acute kidney injury superimposed Chronic Kidney Disease secondary hemodynamic mediated, feNa , 1% Urinary retention Vancomycin toxicity Diabetes mellitus type 2 Hypertension Liver cirrhosis Significant anemia rule out GI bleeding Nephrolithiasis Urinary tract infection Left hydronephrosis, status post left nephrostomy tube Diarrhea Recommendations Kidney function kidney function is improving Increased urine output Discontinue vancomycin Echavarria catheter Strict I&Os IV antibiotics Low-dose dopamine Insulin sliding scale Urology on board Blood pressure control We will continue to follow Plan discussed with: Patient Dietary Evaluation Review Comments: Nutrition Recommendation: 1) Glucerna 240ml BID 2) Monitor PO intake, lab values, weight trend, and I/O Expected Outcomes/Goals: Intake to meet >75% estimated needs FU 3-5 days TUAN LUNA MD Mar 06, 2025 12:51
--- NOTE | 2025-03-06 14:07 | DVHPN2 ---
Progress Note - Dictate Date Seen: Mar 06, 2025 Medical Necessity Reason Pt with a Central, PICC or Fol: No Subjective PT WITH SEVERE FLANK PAIN AND SOB OBSTRUCTIVE RENAL CALCULUS HYDRONEPHROSIS UTI S/P NEPHROSTOMY RENAL COLIC HEMATURIA LEUKOCYTOSIS PMH ORGANIC HD HF HTN DIABETES VASCULOPATHY NEPHROPATHY PAH NON HODGKIN LYMPHOMA LUNG CA S/P RIGHT UPPER LOBECTOMY vital signs Vital Sign Date Time Temp Pulse Resp B/P (MAP) Pulse Ox O2 Delivery O2 Flow Rate FiO2 03/06/25 13:34 78 16 99 03/06/25 13:28 Nasal Cannula 2.0 03/06/25 13:28 28 03/06/25 12:54 98.0 122/43 (69) 98.0 Total Intake and Output 03/05/25 03/05/25 03/06/25 15:00 23:00 07:00 Intake Total 260 ml 700 ml 1524 ml Output Total 500 ml 650 ml Balance 260 ml 200 ml 874 ml medications Current Medications Medications Dose Ordered Sig/Layo Route Start Time Stop Time Status Last Admin Dose Admin Morphine Sulfate 2 mg Q30M PRN IV 02/18/25 19:45 Cancel Acetaminophen 650 mg Q6HP PRN PO 02/18/25 19:45 03/05/25 22:43 650 MG Levothyroxine Sodium 75 mcg QAM@0600 PO 02/19/25 06:00 03/06/25 05:36 75 MCG Pantoprazole Sodium 40 mg DAILY@0600 PO 02/19/25 06:00 03/06/25 05:36 40 MG Atorvastatin Calcium 40 mg HS PO 02/18/25 22:00 03/05/25 22:29 40 MG Patient Own Medication 1 DAILY PO 02/19/25 10:00 03/05/25 10:00 1 Gabapentin 400 mg BID PO 02/22/25 22:00 03/05/25 10:52 400 MG Tamsulosin HCl 0.4 mg QPM PO 02/23/25 18:00 03/05/25 18:29 0.4 MG Vancomycin HCl 250 ml @ 166.667 mls/hr Q24H IV 02/27/25 13:00 UNV Duloxetine HCl 60 mg DAILY PO 03/01/25 10:00 03/06/25 09:36 60 MG Iron Sucrose 110 ml @ 110 mls/hr DAILY@1200 IV 03/03/25 12:00 12/4/25 11:59 03/06/25 11:20 110 MLS/HR Metronidazole 100 ml @ 100 mls/hr Q8HR IV 03/03/25 14:00 03/06/25 05:36 100 MLS/HR Loperamide HCl 2 mg DAILY PRN PO 03/03/25 19:30 03/06/25 04:39 2 MG Albuterol 2.5 mg Q8HR NEB 03/04/25 14:00 03/06/25 13:28 2.5 MG Ipratropium [place] 0.5 mg Q8HR NEB 03/04/25 14:00 03/06/25 13:27 0.5 MG Insulin Glargine 15 units HS SC 03/04/25 22:00 03/05/25 22:30 15 UNITS Diagnostic Test (Pha) 1 strip ACHS 03/04/25 17:00 03/06/25 11:56 1 STRIP Insulin Human Regular AC SC 03/04/25 17:00 03/06/25 11:57 2 UNITS Dextrose 50 ml UD PRN IV 03/04/25 16:00 Hydromorphone HCl 1 mg Q4HP PRN IV 03/04/25 17:30 03/06/25 09:35 1 MG Levofloxacin 50 ml @ 50 mls/hr DAILY IV 03/05/25 10:00 03/06/25 09:36 50 MLS/HR Dopamine HCl/ Dextrose 250 ml @ 8.288 mls/ hr Q24H IV 03/05/25 12:00 Hold Saccharomyces Boulardii 250 mg BID PO 03/06/25 10:00 03/06/25 09:36 250 MG laboratory and microbiology Laboratory Tests 03/06/25 04:56 Test 03/06/25 04:56 Range/Units Serum Glucose 170 H 74-106 mg/dL Problem List SEVERE FLANK PAIN AND SOB OBSTRUCTIVE RENAL CALCULUS HYDRONEPHROSIS UTI S/P NEPHROSTOMY RENAL COLIC HEMATURIA LEUKOCYTOSIS ACUTE RENAL INSUFF PMH ORGANIC HD HF HTN DIABETES VASCULOPATHY NEPHROPATHY PAH NON HODGKIN LYMPHOMA LUNG CA S/P RIGHT UPPER LOBECTOMY Assessment/Plan NEPHROSTOMY CARE IV ABC ECHO EF >55% ANISH SEVERE TR SEVERE PAH LEUKOCYTOSIS RESOLVED RENAL INSUFF RESOLVED PT STILL WITH SEVERE FLANK AND SPINE PAIN CT OF ABD PELVIS UA CHANGE ABX SINCE INCREASE IN WBC STARTED LEVAQUIN VANCOMYCIN CT OF ABD PELVIS UNREMARKABLE LEUKOCYTOSIS RESOLVED STILL WITH SEVERE ANEMIA CHECK RETIC IRON STUDIES IRON REPLACEMENT EPOGEN PT IS MALINGERING NEEDS TO BE OFF PAIN THERAPY AND REQUIRES,REHAB MONITOR HYDROMORPHONE HCL 1MG, IV Dietary Evaluation Review Comments: Nutrition Recommendation: 1) Glucerna 240ml BID 2) Monitor PO intake, lab values, weight trend, and I/O Expected Outcomes/Goals: Intake to meet >75% estimated needs FU 3-5 days Plan discussed with: Patient GLADYS BENSON MD Mar 06, 2025 14:07
--- NOTE | 2025-03-06 17:34 | DVHPNRES ---
Progress Note Date Seen: Mar 06, 2025 Resident Creating Document: FINESSE VERMA RESIDENT Medical Necessity Reason Pt with a Central, PICC or Fol: No Subjective Review of Systems Brenda Daily is an 79-year-old female with past medical history of COPD on 2 L oxygen at home, CHF, insulin-dependent type 2 diabetes mellitus, hypertension, pulmonary artery hypertension, non-Hodgkin lymphoma in remission since 1987, lung cancer s/p right upper lobe resection in 2016 presented to the ED with the chief complaint of worsening shortness of breath for the last 3 days along with chills. The patient mentioned she tried to up titrate her oxygen at home, but that did not improve her shortness of breath. She mentioned she also had tightness in the chest along with a dry cough and lower extremity edema. She mentions having similar episodes of shortness of breath 3-4 times in the last 1 year. She denied any fever. Past medical history: COPD on 2 L oxygen at home, CHF, insulin-dependent type 2 diabetes mellitus, hypertension, pulmonary artery hypertension, non-Hodgkin lymphoma in remission since 1987, lung cancer s/p right upper lobe resection Past surgical history: right upper lobectomy in 2016, tonsillectomy Social & Personal history: Lives at home with family, she denies any smoking, alcohol and drugs Allergies: sulfa antibiotics Patient seen and examined at bedside. Patient is alert and oriented to time, place person and responding to all questions. Eyes: No Pain, No Vision change, No Conjunctivae inflammation, No Eyelid inflammation, No Redness ENT: No Ear pain, No Ear discharge, No Nose pain, No Nose discharge, No Nose congestion, No Mouth pain, No Mouth swelling, No Throat pain, No Throat swelling Cardiovascular: No Chest Pain, No Palpitations, Orthopnea, No Paroxysmal No Dyspnea, Edema, No Lt Headedness Respiratory: Cough, Dry, Shortness of breath, No SOB with exertion, No Wheezing, No Hemoptysis, No Pleuritic Pain, No Sputum Gastrointestinal: No Nausea, No Vomiting, No Abdominal Pain, No Diarrhea, No Constipation, No Melena, No Hematochezia Genitourinary: No Dysuria, No Frequency, No Incontinence, No Hematuria, No Retention 02/20/25- the patient was seen at bedside today. The patient complained of intense pain in the left flank radiating to the left groin area and mentioned of her history of kidney stones. Her white count had increased to 19.9 today and urinalysis was positive for UTI. Lactic acid was 1.5. She was started on meropenem and fluconazole for acute complicated cystitis. CT abdomen pelvis showed Moderate left-sided hydronephrosis with a 5 mm obstructing stone in the proximal left ureter. Urology consult was placed. Her potassium today was 3, which was repleted. We also ordered for blood culture and urine culture. We also started her on morphine 2 mg q.12 p.r.n. for severe pain and Harvey 5q4 p.r.n.. EKG was done which was normal. A consult for Dr. Ogden was also placed as he is her PCP. Bedside pocus was done which showed a dilated IVC. 02/21/25- The patient was seen at bedside today. White count today was 34.8. Lactic acid was 1.3. Patient looked tachypneic. Blood culture showed Gram- negative rods. The patient was started on vancomycin per pharmacy. IR placed left nephrostomy tube without any complications. 02/22/25- The patient was seen at bedside today. White count today was 27.2. Patient is breathing comfortably on 2L oxygen by nasal canula. Patient complained of intense pain in her back as she has severe degenerative disc disease, for which she was given 1 dose of morphine 2 mg and started on dilaudid 1mg q4 prn. Left nephrostomy tube is in place with minimal drainage and no discharge or redness around the site. Creatinine improved from 2.19 to 2.02 today. Patient started on gabapentin 400 mg t.i.d. for neuropathy. She was started on MiraLax 17 g p.o. b.i.d. for constipation. 02/23/25- The patient seen at bedside today. She complained of pain in her lower abdomen. She was given 1 time dose of IV mannitol and started on Flomax 0.4 mg PO HS. Order to strain all urine was placed. Patient was started on Senokot q.h.s. and MiraLax p.r.n. for constipation. Repeat blood cultures were ordered. IV antibiotics were changed to IV ceftriaxone 1 g daily. Physical therapy evaluation was requested for the patient. Urology was consulted and they recommended outpatient follow-up in 3-4 weeks once patient is stable for discharge. 02/24/25- Patient still complains of intermittent flank pain presumably from nephrostomy tube site with a renal stone. Patient continued to take IV Dilaudid. Patient is with a poor ambulatory status. Her leukocytosis has significantly improved. 02/25/25- Patient still complains of intermittent flank pain. Physical therapy recommended placement in SNF for the patient, which she refused. We will continue to try working with physical therapy to try and get her out of bed into a chair. For pain medication was changed to tramadol 100 mg p.o. q.6 hours Dilaudid 1 mg IV q.6 hours. 02/26/25- patient was seen at bedside today. She continues to complain of abdominal pain. White count today was 12.6. Urine analysis and urine culture was ordered. KUB and x-ray of lumbar spine were ordered. Dr Ogden, who is her PCP and is also following up regularly, continued ceftriaxone and started her on levofloxacin and vancomycin per pharmacy. Patient was encouraged to continue working with physical therapy and try to get out of bed into a chair today. 02/27/25- the patient was seen at bedside today. Repeat CT abdomen/pelvis was done today, which was unremarkable. White count today was 16.6. Lactic acid today was 0.7. An Infectious Disease consult was requested, as the white count is trending up again. Patient was encouraged to work with physical therapy. A detailed discussion was held with the patient and family, and our recommendation of sending the patient was SNF on discharge was discussed and they agreed with the same. 02/28/25- the patient was seen at bedside today. The patient started having rosalee bleeding from the nephrostomy tube last night, Lovenox was stopped. The patient was also having rosalee hematuria from the urethra. Her hemoglobin this morning was 9.1 and repeat in the evening was 8.7. Repeat IR consult was placed for evaluation of the nephrostomy tube. Repeat CT abdomen/pelvis was ordered. 03/01/25- the patient was seen at bedside today. CT abdomen/pelvis was ordered for the patient yesterday to evaluate for bleeding from the nephrostomy tube and urethra, but the patient refused CT yesterday and this morning. The patient's family requested for transfer to [facility], a social media coordinator request for facilitating the lateral transfer per the family request was placed. The patient and family were explained at length about the evaluation and the need for the CT today and they demonstrated understanding of the same. Renal ultrasound was done which showed echogenic debris in the dependent portion of the bladder measuring 4.6 x 2.7 by 9.7 cm. KUB showed left-sided nephrostomy tube in place and nonobstructive bowel gas pattern. Urology was consulted and they recommended IR evaluation for possible replacement of nephrostomy tube and Echavarria if patient is unable to void. 03/02/25- was seen and evaluated at bedside. The patient complained of multiple episodes of diarrhea, for which he was started on Imodium 2 mg p.o. q.6 p.r.n. for diarrhea. Discussion held with her regarding IR evaluation and if Nephrostomy tube intact and hematuria improve, anticipate to DC home. Patient however, adamant that she want to transfer to [facility], where her urologist there. CM already consulted for lateral transfer per patient request. No answer from [facility] yet. 03/03/25- patient was seen and evaluated at bedside today. [facility] mentioned and no longer accepting lateral transfers. This was communicated to the patient and she mentioned that her dumper operator at that hospital we will send paperwork to facilitate the transfer. Bedside bladder scan was done which revealed postvoid urine volume of 41 mL. Bedside pocus was done, showed more than 50% compressibility of IVC with size of 1.9 cm. 500 cc bolus of NS was given. Nephrology was consulted for up trending creatinine. The patient was started on IV Flagyl. All updates were shared with the patient, her son and daughter and all their questions and concerns were addressed. 03/04/25- patient was seen and evaluated at bedside today. CT abdomen/pelvis done today revealed that the left nephrostomy tube is in place and moderate left hydroureteronephrosis. There was collection of dark yellow urine in the nephrostomy bag, which could be due to dehydration. Patient was given a 250 cc bolus of NS 250ml. The catheter was inserted for strict I&Os and urine studies. Hydrochlorothiazide dose was reduced to 12.5 mg p.o. b.i.d. 03/05/25- patient was seen at bedside today. FENA was calculated to be 0.3%, prerenal cause of the CLAUDIA. The patient had fever spikes of 101.8 and 100.4 overnight, she was given 500 cc bolus of NS will be continued on levofloxacin 250 mg IV daily and Flagyl. Nephrology evaluated the patient and started her on low-dose of dobutamine. 03/06/25- patient was seen at bedside today. Her hemoglobin today was 6.9, so she was given 1 transfusion of PRBCs, repeat H and H showed hemoglobin of 7.9 in the evening. Objective vital signs Vital Sign Date Time Temp Pulse Resp B/P (MAP) Pulse Ox O2 Delivery O2 Flow Rate FiO2 03/06/25 17:00 98.1 78 16 134/54 (80) 98 98.1 03/06/25 13:28 Nasal Cannula 2.0 03/06/25 13:28 28 Total Intake and Output 03/05/25 03/05/25 03/06/25 15:00 23:00 07:00 Intake Total 260 ml 700 ml 1524 ml Output Total 500 ml 650 ml Balance 260 ml 200 ml 874 ml medications Current Medications Medications Dose Ordered Sig/Layo Route Start Time Stop Time Status Last Admin Dose Admin Morphine Sulfate 2 mg Q30M PRN IV 02/18/25 19:45 Cancel Acetaminophen 650 mg Q6HP PRN PO 02/18/25 19:45 03/05/25 22:43 650 MG Levothyroxine Sodium 75 mcg QAM@0600 PO 02/19/25 06:00 03/06/25 05:36 75 MCG Pantoprazole Sodium 40 mg DAILY@0600 PO 02/19/25 06:00 03/06/25 05:36 40 MG Atorvastatin Calcium 40 mg HS PO 02/18/25 22:00 03/05/25 22:29 40 MG Patient Own Medication 1 DAILY PO 02/19/25 10:00 03/05/25 10:00 1 Gabapentin 400 mg BID PO 02/22/25 22:00 03/05/25 10:52 400 MG Tamsulosin HCl 0.4 mg QPM PO 02/23/25 18:00 03/05/25 18:29 0.4 MG Vancomycin HCl 250 ml @ 166.667 mls/hr Q24H IV 02/27/25 13:00 UNV Duloxetine HCl 60 mg DAILY PO 03/01/25 10:00 03/06/25 09:36 60 MG Iron Sucrose 110 ml @ 110 mls/hr DAILY@1200 IV 03/03/25 12:00 03/07/25 11:59 03/06/25 11:20 110 MLS/HR Metronidazole 100 ml @ 100 mls/hr Q8HR IV 03/03/25 14:00 03/06/25 14:56 100 MLS/HR Loperamide HCl 2 mg DAILY PRN PO 03/03/25 19:30 03/06/25 04:39 2 MG Albuterol 2.5 mg Q8HR NEB 03/04/25 14:00 03/06/25 13:28 2.5 MG Ipratropium [place] 0.5 mg Q8HR NEB 03/04/25 14:00 03/06/25 13:27 0.5 MG Insulin Glargine 15 units HS SC 03/04/25 22:00 03/05/25 22:30 15 UNITS Diagnostic Test (Pha) 1 strip ACHS 03/04/25 17:00 03/06/25 11:56 1 STRIP Insulin Human Regular AC SC 03/04/25 17:00 03/06/25 11:57 2 UNITS Dextrose 50 ml UD PRN IV 03/04/25 16:00 Hydromorphone HCl 1 mg Q4HP PRN IV 03/04/25 17:30 03/06/25 14:57 1 MG Levofloxacin 50 ml @ 50 mls/hr DAILY IV 03/05/25 10:00 03/06/25 09:36 50 MLS/HR Dopamine HCl/ Dextrose 250 ml @ 8.288 mls/ hr Q24H IV 03/05/25 12:00 Hold Saccharomyces Boulardii 250 mg BID PO 03/06/25 10:00 03/06/25 09:36 250 MG Examination General Appearance: Cooperative. Well developed. Well nourished.Left nephrostomy tube in place with no discharge or erythema, with pale yellow urine. She is currently on 2 L oxygen via nasal cannula. Head Exam: Normal inspection Neck Exam: Normal inspection. Non-tender. Normal alignment Pulmonary/Respiratory: Chest non-tender. mildly reduced breath sounds bilaterally Cardiovascular/Chest: Regular rate and rhythm. No murmurs. No JVD. Peripheral Pulses: 2+ Radial (R). 2+ Radial (L). 2+ Pedal (R). 2+ Pedal (L) Abdominal Exam: Normal bowel sounds. Soft. normal abdomen, no visible veins, tenderness in left flank, No hepatospenomegaly. No masses Ankle Exam: Negative ankle edema Lower extremities: 1+ bilateral lower extremity pitting edema Neuro/Mental Status: A&O x4. Coherent. Thoughts/Psych: Normal thought pattern. Appropriate mood and affect. Good judgement and insight Skin Exam: Normal inspection. Normal color. Warm. Dry laboratory and microbiology Laboratory Tests 03/06/25 04:56 Test 03/06/25 04:56 Range/Units Serum Glucose 170 H 74-106 mg/dL Microbiology Date/Time Source Procedure Growth Status 02/26/25 11:30 Voided Urine Urine Culture - Final Complete 02/23/25 13:34 Blood Blood Culture - Final NO GROWTH AFTER 5 DAYS OF INCUBATION. Complete 02/21/25 09:30 Nose MRSA Screen - Final Complete Labs and/or images reviewed: Labs reviewed by me, Image(s) reviewed by me Problem List/Assessment/Plan Problem List/Assessment/Plan # Acute on chronic hypoxic respiratory failure # Acute on chronic HFpEF # Possible COPD exacerbation with possible viral pneumonia # History of PE -Chest xray - Cardiomegaly and Pulmonary vascular congestion -old Echo 01/04- EF >55%, severe PAH -BNP 152.10 -covid, influenza negative -albuterol and ipratropium mednebs every 6 hours # Acute complicated cystitis # Acute left hydronephrosis s/p left nephrostomy tube placement day 2 # Acute left pyelonephritis # Hematuria, resolved # left obstructive ureteral stone -white count was 11.2 -UA positive for UTI, UA ordered on 02/26/2025, repeat urine culture > 00010 CFU, mixed aleksandar -abdomen CT pelvis showed a 5 mm obstructive stone in the left ureter with moderate left hydronephrosis -urology consult-left nephrostomy tube placement, outpatient follow-up in 3-4 weeks -levofloxacin iv -repeat blood culture on 02/23/25- no growth after 5 days -blood culture Gram-negative rods 02/20/25 -chest x-ray showed cardiomegaly and moderate pleural effusion with prominent pulmonary vasculature -strain all urine -Flomax 0.4 mg q.p.m. p.o. -infectious diseases consult placed, pending -bleeding from nephrostomy tube and urethra- hemoglobin 7.8>7.9, abdomen/pelvic CT ordered, patient refused -Renal US- echogenic debris in the dependent portion of the bladder measuring 4.6 x 2.7 by 9.7 cm -CT abdomen left nephrostomy tube in place # CLAUDIA on CKD, likely due to VMN -avoid nephrotoxic agents -monitor BMP -urine studies revealed FeNa 0.3%- prerenal cause of CLAUDIA -given 500 cc bolus of NS # Uncontrolled type 2 diabetes mellitus with hyperglycemia -HbA1c is 8 -Moderate insulin sliding scale a.c. HS -lantus 15 units qam # Chronic back pain, multilevel degenerative disc disease - Dilaudid 1 mg q.4 hours p.r.n. - gabapentin 400 mg p.o. t.i.d. - physical therapy on board - duloxetine 60 mg daily # Chronic hypochromic normocytic anemia -monitor H&H -stool occult blood ordered -transfuse if hemoglobin less than 7 -hemoglobin today was 6.9, 1 PRBC given # Mild transmnitis # Hypothyroidism - Continue on levothyroxine 75 mcg # GERD - Continue on protonix 40 mg daily po # Hypokalemia -repleted # Acute diarrhea, likely viral -Florastor 250 mg p.o. b.i.d. -collect stool for stool studies PUD prophylaxis: Protonix 40 mg DVT prophylaxis: lovenox 110mg q12 hr sc, discontinued due to hematuria Goals of care discussed with the patient for over 18 minutes, Full code Plan discussed with Dr. Benitez Plan discussed with: Patient Dietary Evaluation Review Comments: Nutrition Recommendation: 1) Glucerna 240ml BID 2) Monitor PO intake, lab values, weight trend, and I/O Expected Outcomes/Goals: Intake to meet >75% estimated needs FU 3-5 days Visit Coding STANDARD RES Billing Provider: MARILYN BENITEZ MD Date of Service if different f: Mar 06, 2025 Common Visit Codes: 24530-[id number] INP/OBS CARE(HIGH) FINESSE VERMA RESIDENT Mar 06, 2025 17:33
[2025-03-06 19:29] LABS: Hemoglobin 7.9 g/dL (12.2-16.2)
[2025-03-06 19:31] LABS: Hematocrit 23.5 % (36.0-46.0)
[2025-03-07] VITALS (10 sets, daily range): BP systolic 123–140; BP diastolic 48–68; PULSE 75–83; RESP 17–20; TEMP 96.8–98.2; O2SAT 94–96
[2025-03-07 06:10] LABS: Chloride 103 mmol/L (98-107); Potassium 4.2 mmol/L (3.5-5.1)
[2025-03-07 06:11] LABS: Anion Gap 8 (5-15); Carbon Dioxide 24 mmol/L (20-31)
[2025-03-07 06:12] LABS: Calcium 8.8 mg/dL (8.7-10.4)
[2025-03-07 06:13] LABS: Sodium 135 mmol/L (136-145)
[2025-03-07 06:16] LABS: Hematocrit 23.7 % (36.0-46.0); Hemoglobin 7.8 g/dL (12.2-16.2); Mean Corpuscular Hemoglobin 27.6 pg (28.0-32.0); Mean Corpuscular Volume 83.9 fL (80.0-100.0); Nucleated Red Blood Cells % 0.0 %
[2025-03-07 06:17] LABS: BUN/Creatinine Ratio 24.8 (10.0-20.0)
[2025-03-07 06:33] LABS: Blood Urea Nitrogen 30 mg/dL (9-23); Glucose 136 mg/dL (74-106)
--- NOTE | 2025-03-07 09:42 | DVHPN2 ---
Progress Note Date Seen: Mar 07, 2025 Medical Necessity Reason Pt with a Central, PICC or Fol: No Subjective Patient reports: No new complaints Review of Systems: RESPIRATORY:Abnormal Other Systems: Patient seen and examined by myself today in follow-up Objective vital signs Vital Sign Date Time Temp Pulse Resp B/P (MAP) Pulse Ox O2 Delivery O2 Flow Rate FiO2 03/07/25 09:20 81 19 124/60 03/07/25 08:49 97.9 94 97.9 03/06/25 22:20 Nasal Cannula 2.0 03/06/25 22:20 28 Total Intake and Output 03/06/25 03/06/25 03/07/25 15:00 23:00 07:00 Intake Total 160 ml 1120 ml 660 ml Output Total 550 ml 400 ml Balance 160 ml 570 ml 260 ml medications Current Medications Medications Dose Ordered Sig/Layo Route Start Time Stop Time Status Last Admin Dose Admin Morphine Sulfate 2 mg Q30M PRN IV 02/18/25 19:45 Cancel Acetaminophen 650 mg Q6HP PRN PO 02/18/25 19:45 03/05/25 22:43 650 MG Levothyroxine Sodium 75 mcg QAM@0600 PO 02/19/25 06:00 03/07/25 06:00 75 MCG Pantoprazole Sodium 40 mg DAILY@0600 PO 02/19/25 06:00 03/07/25 06:00 40 MG Atorvastatin Calcium 40 mg HS PO 02/18/25 22:00 03/06/25 22:05 40 MG Patient Own Medication 1 DAILY PO 02/19/25 10:00 03/05/25 10:00 1 Gabapentin 400 mg BID PO 02/22/25 22:00 03/05/25 10:52 400 MG Tamsulosin HCl 0.4 mg QPM PO 02/23/25 18:00 03/06/25 17:31 0.4 MG Vancomycin HCl 250 ml @ 166.667 mls/hr Q24H IV 02/27/25 13:00 UNV Duloxetine HCl 60 mg DAILY PO 03/01/25 10:00 03/07/25 09:20 60 MG Iron Sucrose 110 ml @ 110 mls/hr DAILY@1200 IV 03/03/25 12:00 03/07/25 11:59 03/06/25 11:20 110 MLS/HR Metronidazole 100 ml @ 100 mls/hr Q8HR IV 03/03/25 14:00 03/07/25 06:00 100 MLS/HR Loperamide HCl 2 mg DAILY PRN PO 03/03/25 19:30 03/06/25 04:39 2 MG Albuterol 2.5 mg Q8HR NEB 03/04/25 14:00 03/07/25 07:48 2.5 MG Ipratropium [place] 0.5 mg Q8HR NEB 03/04/25 14:00 03/07/25 07:48 0.5 MG Insulin Glargine 15 units HS SC 03/04/25 22:00 03/06/25 22:07 15 UNITS Diagnostic Test (Pha) 1 strip ACHS 03/04/25 17:00 03/07/25 06:37 1 STRIP Insulin Human Regular AC SC 03/04/25 17:00 03/07/25 06:39 2 UNITS Dextrose 50 ml UD PRN IV 03/04/25 16:00 Hydromorphone HCl 1 mg Q4HP PRN IV 03/04/25 17:30 03/07/25 09:20 1 MG Levofloxacin 50 ml @ 50 mls/hr DAILY IV 03/05/25 10:00 03/07/25 09:20 50 MLS/HR Dopamine HCl/ Dextrose 250 ml @ 8.288 mls/ hr Q24H IV 03/05/25 12:00 Hold Saccharomyces Boulardii 250 mg BID PO 03/06/25 10:00 03/07/25 09:21 250 MG Examination: LUNGS:Normal, CVS:Normal, MSK:Normal laboratory and microbiology Laboratory Tests 03/07/25 05:23 Test 03/07/25 05:23 Range/Units Serum Glucose 136 H 74-106 mg/dL Microbiology Date/Time Source Procedure Growth Status 03/06/25 17:15 Urine - Echavarria [place] Urine Culture - Preliminary Resulted 02/23/25 13:34 Blood Blood Culture - Final NO GROWTH AFTER 5 DAYS OF INCUBATION. Complete 02/21/25 09:30 Nose MRSA Screen - Final Complete Problem List/Assessment/Plan Problem List/Assessment/Plan Acute kidney injury superimposed Chronic Kidney Disease secondary hemodynamic mediated, feNa , 1% Urinary retention Vancomycin toxicity Diabetes mellitus type 2 Hypertension Liver cirrhosis Significant anemia rule out GI bleeding Nephrolithiasis Urinary tract infection Left hydronephrosis, status post left nephrostomy tube Diarrhea Recommendations Kidney function continues to improve Increased urine output Discontinue vancomycin Echavarria catheter Strict I&Os IV antibiotics Insulin sliding scale Urology on board Blood pressure control We will continue to follow Plan discussed with: Patient Dietary Evaluation Review Comments: Nutrition Recommendation: 1) Glucerna 240ml BID 2) Monitor PO intake, lab values, weight trend, and I/O Expected Outcomes/Goals: Intake to meet >75% estimated needs FU 3-5 days TUAN LUNA MD Mar 07, 2025 09:42
--- NOTE | 2025-03-07 11:19 | DVHPN2 ---
Progress Note - Dictate Date Seen: Mar 07, 2025 Medical Necessity Reason Pt with a Central, PICC or Fol: No Subjective PT WITH SEVERE FLANK PAIN AND SOB OBSTRUCTIVE RENAL CALCULUS HYDRONEPHROSIS UTI S/P NEPHROSTOMY RENAL COLIC HEMATURIA LEUKOCYTOSIS PMH ORGANIC HD HF HTN DIABETES VASCULOPATHY NEPHROPATHY PAH NON HODGKIN LYMPHOMA LUNG CA S/P RIGHT UPPER LOBECTOMY vital signs Vital Sign Date Time Temp Pulse Resp B/P (MAP) Pulse Ox O2 Delivery O2 Flow Rate FiO2 03/07/25 09:20 81 19 124/60 03/07/25 08:49 97.9 94 97.9 03/06/25 22:20 Nasal Cannula 2.0 03/06/25 22:20 28 Total Intake and Output 03/06/25 03/06/25 03/07/25 15:00 23:00 07:00 Intake Total 160 ml 1120 ml 660 ml Output Total 550 ml 400 ml Balance 160 ml 570 ml 260 ml medications Current Medications Medications Dose Ordered Sig/Layo Route Start Time Stop Time Status Last Admin Dose Admin Morphine Sulfate 2 mg Q30M PRN IV 02/18/25 19:45 Cancel Acetaminophen 650 mg Q6HP PRN PO 02/18/25 19:45 03/05/25 22:43 650 MG Levothyroxine Sodium 75 mcg QAM@0600 PO 02/19/25 06:00 03/07/25 06:00 75 MCG Pantoprazole Sodium 40 mg DAILY@0600 PO 02/19/25 06:00 03/07/25 06:00 40 MG Atorvastatin Calcium 40 mg HS PO 02/18/25 22:00 03/06/25 22:05 40 MG Patient Own Medication 1 DAILY PO 02/19/25 10:00 03/05/25 10:00 1 Gabapentin 400 mg BID PO 02/22/25 22:00 03/05/25 10:52 400 MG Tamsulosin HCl 0.4 mg QPM PO 02/23/25 18:00 03/06/25 17:31 0.4 MG Vancomycin HCl 250 ml @ 166.667 mls/hr Q24H IV 02/27/25 13:00 UNV Duloxetine HCl 60 mg DAILY PO 03/01/25 10:00 03/07/25 09:20 60 MG Iron Sucrose 110 ml @ 110 mls/hr DAILY@1200 IV 03/03/25 12:00 03/07/25 11:59 03/06/25 11:20 110 MLS/HR Metronidazole 100 ml @ 100 mls/hr Q8HR IV 03/03/25 14:00 03/07/25 06:00 100 MLS/HR Loperamide HCl 2 mg DAILY PRN PO 03/03/25 19:30 03/06/25 04:39 2 MG Albuterol 2.5 mg Q8HR NEB 03/04/25 14:00 03/07/25 07:48 2.5 MG Ipratropium [place] 0.5 mg Q8HR NEB 03/04/25 14:00 03/07/25 07:48 0.5 MG Insulin Glargine 15 units HS SC 03/04/25 22:00 03/06/25 22:07 15 UNITS Diagnostic Test (Pha) 1 strip ACHS 03/04/25 17:00 03/07/25 06:37 1 STRIP Insulin Human Regular AC SC 03/04/25 17:00 03/07/25 06:39 2 UNITS Dextrose 50 ml UD PRN IV 03/04/25 16:00 Hydromorphone HCl 1 mg Q4HP PRN IV 03/04/25 17:30 03/07/25 09:20 1 MG Levofloxacin 50 ml @ 50 mls/hr DAILY IV 03/05/25 10:00 03/07/25 09:20 50 MLS/HR Saccharomyces Boulardii 250 mg BID PO 03/06/25 10:00 03/07/25 09:21 250 MG laboratory and microbiology Laboratory Tests 03/07/25 05:23 Test 03/07/25 05:23 Range/Units Serum Glucose 136 H 74-106 mg/dL Problem List SEVERE FLANK PAIN AND SOB OBSTRUCTIVE RENAL CALCULUS HYDRONEPHROSIS UTI S/P NEPHROSTOMY RENAL COLIC HEMATURIA LEUKOCYTOSIS ACUTE RENAL INSUFF PMH ORGANIC HD HF HTN DIABETES VASCULOPATHY NEPHROPATHY PAH NON HODGKIN LYMPHOMA LUNG CA S/P RIGHT UPPER LOBECTOMY Assessment/Plan NEPHROSTOMY CARE IV ABC ECHO EF >55% ANISH SEVERE TR SEVERE PAH LEUKOCYTOSIS RESOLVED RENAL INSUFF RESOLVED PT STILL WITH SEVERE FLANK AND SPINE PAIN CT OF ABD PELVIS UA CHANGE ABX SINCE INCREASE IN WBC STARTED LEVAQUIN VANCOMYCIN CT OF ABD PELVIS UNREMARKABLE LEUKOCYTOSIS RESOLVED STILL WITH SEVERE ANEMIA CHECK RETIC IRON STUDIES IRON REPLACEMENT EPOGEN PT IS MALINGERING NEEDS TO BE OFF PAIN THERAPY AND REQUIRES,REHAB RENAL FUNCTION NOW BASELINE H/H STABLE UA NEGATIVE MAY DC TO REHAB COURSE OF ACTION BY UROLOGY? MONITOR HYDROMORPHONE HCL 1MG, IV Dietary Evaluation Review Comments: Nutrition Recommendation: 1) Glucerna 240ml BID 2) Monitor PO intake, lab values, weight trend, and I/O Expected Outcomes/Goals: Intake to meet >75% estimated needs FU 3-5 days Plan discussed with: Patient GLADYS BENSON MD Mar 07, 2025 11:19
--- NOTE | 2025-03-07 11:50 | DVHPNRES ---
Progress Note Date Seen: Mar 07, 2025 Resident Creating Document: FINESSE VERMA RESIDENT Medical Necessity Reason Pt with a Central, PICC or Fol: No Subjective Review of Systems Brenda Daily is an 79-year-old female with past medical history of COPD on 2 L oxygen at home, CHF, insulin-dependent type 2 diabetes mellitus, hypertension, pulmonary artery hypertension, non-Hodgkin lymphoma in remission since 1987, lung cancer s/p right upper lobe resection in 2016 presented to the ED with the chief complaint of worsening shortness of breath for the last 3 days along with chills. The patient mentioned she tried to up titrate her oxygen at home, but that did not improve her shortness of breath. She mentioned she also had tightness in the chest along with a dry cough and lower extremity edema. She mentions having similar episodes of shortness of breath 3-4 times in the last 1 year. She denied any fever. Past medical history: COPD on 2 L oxygen at home, CHF, insulin-dependent type 2 diabetes mellitus, hypertension, pulmonary artery hypertension, non-Hodgkin lymphoma in remission since 1987, lung cancer s/p right upper lobe resection Past surgical history: right upper lobectomy in 2016, tonsillectomy Social & Personal history: Lives at home with family, she denies any smoking, alcohol and drugs Allergies: sulfa antibiotics Patient seen and examined at bedside. Patient is alert and oriented to time, place person and responding to all questions. Eyes: No Pain, No Vision change, No Conjunctivae inflammation, No Eyelid inflammation, No Redness ENT: No Ear pain, No Ear discharge, No Nose pain, No Nose discharge, No Nose congestion, No Mouth pain, No Mouth swelling, No Throat pain, No Throat swelling Cardiovascular: No Chest Pain, No Palpitations, Orthopnea, No Paroxysmal No Dyspnea, Edema, No Lt Headedness Respiratory: Cough, Dry, Shortness of breath, No SOB with exertion, No Wheezing, No Hemoptysis, No Pleuritic Pain, No Sputum Gastrointestinal: No Nausea, No Vomiting, No Abdominal Pain, No Diarrhea, No Constipation, No Melena, No Hematochezia Genitourinary: No Dysuria, No Frequency, No Incontinence, No Hematuria, No Retention 02/20/25- the patient was seen at bedside today. The patient complained of intense pain in the left flank radiating to the left groin area and mentioned of her history of kidney stones. Her white count had increased to 19.9 today and urinalysis was positive for UTI. Lactic acid was 1.5. She was started on meropenem and fluconazole for acute complicated cystitis. CT abdomen pelvis showed Moderate left-sided hydronephrosis with a 5 mm obstructing stone in the proximal left ureter. Urology consult was placed. Her potassium today was 3, which was repleted. We also ordered for blood culture and urine culture. We also started her on morphine 2 mg q.12 p.r.n. for severe pain and [place] 5q4 p.r.n.. EKG was done which was normal. A consult for Dr. Ogden was also placed as he is her PCP. Bedside pocus was done which showed a dilated IVC. 02/21/25- The patient was seen at bedside today. White count today was 34.8. Lactic acid was 1.3. Patient looked tachypneic. Blood culture showed Gram- negative rods. The patient was started on vancomycin per pharmacy. IR placed left nephrostomy tube without any complications. 02/22/25- The patient was seen at bedside today. White count today was 27.2. Patient is breathing comfortably on 2L oxygen by nasal canula. Patient complained of intense pain in her back as she has severe degenerative disc disease, for which she was given 1 dose of morphine 2 mg and started on dilaudid 1mg q4 prn. Left nephrostomy tube is in place with minimal drainage and no discharge or redness around the site. Creatinine improved from 2.19 to 2.02 today. Patient started on gabapentin 400 mg t.i.d. for neuropathy. She was started on MiraLax 17 g p.o. b.i.d. for constipation. 02/23/25- The patient seen at bedside today. She complained of pain in her lower abdomen. She was given 1 time dose of IV mannitol and started on Flomax 0.4 mg PO HS. Order to strain all urine was placed. Patient was started on Senokot q.h.s. and MiraLax p.r.n. for constipation. Repeat blood cultures were ordered. IV antibiotics were changed to IV ceftriaxone 1 g daily. Physical therapy evaluation was requested for the patient. Urology was consulted and they recommended outpatient follow-up in 3-4 weeks once patient is stable for discharge. 02/24/25- Patient still complains of intermittent flank pain presumably from nephrostomy tube site with a renal stone. Patient continued to take IV Dilaudid. Patient is with a poor ambulatory status. Her leukocytosis has significantly improved. 02/25/25- Patient still complains of intermittent flank pain. Physical therapy recommended placement in SNF for the patient, which she refused. We will continue to try working with physical therapy to try and get her out of bed into a chair. For pain medication was changed to tramadol 100 mg p.o. q.6 hours Dilaudid 1 mg IV q.6 hours. 02/26/25- patient was seen at bedside today. She continues to complain of abdominal pain. White count today was 12.6. Urine analysis and urine culture was ordered. KUB and x-ray of lumbar spine were ordered. Dr Ogden, who is her PCP and is also following up regularly, continued ceftriaxone and started her on levofloxacin and vancomycin per pharmacy. Patient was encouraged to continue working with physical therapy and try to get out of bed into a chair today. 02/27/25- the patient was seen at bedside today. Repeat CT abdomen/pelvis was done today, which was unremarkable. White count today was 16.6. Lactic acid today was 0.7. An Infectious Disease consult was requested, as the white count is trending up again. Patient was encouraged to work with physical therapy. A detailed discussion was held with the patient and family, and our recommendation of sending the patient was SNF on discharge was discussed and they agreed with the same. 02/28/25- the patient was seen at bedside today. The patient started having rosalee bleeding from the nephrostomy tube last night, Lovenox was stopped. The patient was also having rosalee hematuria from the urethra. Her hemoglobin this morning was 9.1 and repeat in the evening was 8.7. Repeat IR consult was placed for evaluation of the nephrostomy tube. Repeat CT abdomen/pelvis was ordered. 03/01/25- the patient was seen at bedside today. CT abdomen/pelvis was ordered for the patient yesterday to evaluate for bleeding from the nephrostomy tube and urethra, but the patient refused CT yesterday and this morning. The patient's family requested for transfer to [facility], a social insurance specialist request for facilitating the lateral transfer per the family request was placed. The patient and family were explained at length about the evaluation and the need for the CT today and they demonstrated understanding of the same. Renal ultrasound was done which showed echogenic debris in the dependent portion of the bladder measuring 4.6 x 2.7 by 9.7 cm. KUB showed left-sided nephrostomy tube in place and nonobstructive bowel gas pattern. Urology was consulted and they recommended IR evaluation for possible replacement of nephrostomy tube and [place] if patient is unable to void. 03/02/25- was seen and evaluated at bedside. The patient complained of multiple episodes of diarrhea, for which he was started on Imodium 2 mg p.o. q.6 p.r.n. for diarrhea. Discussion held with her regarding IR evaluation and if Nephrostomy tube intact and hematuria improve, anticipate to DC home. Patient however, adamant that she want to transfer to [facility], where her urologist there. CM already consulted for lateral transfer per patient request. No answer from [facility] yet. 03/03/25- patient was seen and evaluated at bedside today. [facility] mentioned and no longer accepting lateral transfers. This was communicated to the patient and she mentioned that her fire prevention specialist at that hospital we will send paperwork to facilitate the transfer. Bedside bladder scan was done which revealed postvoid urine volume of 41 mL. Bedside pocus was done, showed more than 50% compressibility of IVC with size of 1.9 cm. 500 cc bolus of NS was given. Nephrology was consulted for up trending creatinine. The patient was started on IV Flagyl. All updates were shared with the patient, her son and daughter and all their questions and concerns were addressed. 03/04/25- patient was seen and evaluated at bedside today. CT abdomen/pelvis done today revealed that the left nephrostomy tube is in place and moderate left hydroureteronephrosis. There was collection of dark yellow urine in the nephrostomy bag, which could be due to dehydration. Patient was given a 250 cc bolus of NS 250ml. The catheter was inserted for strict I&Os and urine studies. Hydrochlorothiazide dose was reduced to 12.5 mg p.o. b.i.d. 03/05/25- patient was seen at bedside today. FENA was calculated to be 0.3%, prerenal cause of the CLAUDIA. The patient had fever spikes of 101.8 and 100.4 overnight, she was given 500 cc bolus of NS will be continued on levofloxacin 250 mg IV daily and Flagyl. Nephrology evaluated the patient and started her on low-dose of dobutamine. 03/06/25- patient was seen at bedside today. Her hemoglobin today was 6.9, so she was given 1 transfusion of PRBCs, repeat H and H showed hemoglobin of 7.9 in the evening. 03/07/25- the patient was seen at bedside today. No new complaints. Hemoglobin is stable at 7.8. Pending repeat urine culture report. No fever spikes. Objective vital signs Vital Sign Date Time Temp Pulse Resp B/P (MAP) Pulse Ox O2 Delivery O2 Flow Rate FiO2 03/07/25 09:20 81 19 124/60 03/07/25 08:49 97.9 94 97.9 03/07/25 07:48 Nasal Cannula* 2 28 Total Intake and Output 03/06/25 03/06/25 03/07/25 15:00 23:00 07:00 Intake Total 160 ml 1120 ml 660 ml Output Total 550 ml 400 ml Balance 160 ml 570 ml 260 ml medications Current Medications Medications Dose Ordered Sig/Layo Route Start Time Stop Time Status Last Admin Dose Admin Morphine Sulfate 2 mg Q30M PRN IV 02/18/25 19:45 Cancel Acetaminophen 650 mg Q6HP PRN PO 02/18/25 19:45 03/05/25 22:43 650 MG Levothyroxine Sodium 75 mcg QAM@0600 PO 02/19/25 06:00 03/07/25 06:00 75 MCG Pantoprazole Sodium 40 mg DAILY@0600 PO 02/19/25 06:00 03/07/25 06:00 40 MG Atorvastatin Calcium 40 mg HS PO 02/18/25 22:00 03/06/25 22:05 40 MG Patient Own Medication 1 DAILY PO 02/19/25 10:00 03/05/25 10:00 1 Gabapentin 400 mg BID PO 02/22/25 22:00 03/05/25 10:52 400 MG Tamsulosin HCl 0.4 mg QPM PO 02/23/25 18:00 03/06/25 17:31 0.4 MG Vancomycin HCl 250 ml @ 166.667 mls/hr Q24H IV 02/27/25 13:00 UNV Duloxetine HCl 60 mg DAILY PO 03/01/25 10:00 03/07/25 09:20 60 MG Iron Sucrose 110 ml @ 110 mls/hr DAILY@1200 IV 03/03/25 12:00 03/07/25 11:59 03/06/25 11:20 110 MLS/HR Metronidazole 100 ml @ 100 mls/hr Q8HR IV 03/03/25 14:00 03/07/25 06:00 100 MLS/HR Loperamide HCl 2 mg DAILY PRN PO 03/03/25 19:30 03/06/25 04:39 2 MG Albuterol 2.5 mg Q8HR NEB 03/04/25 14:00 03/07/25 07:48 2.5 MG Ipratropium [place] 0.5 mg Q8HR NEB 03/04/25 14:00 03/07/25 07:48 0.5 MG Insulin Glargine 15 units HS SC 03/04/25 22:00 03/06/25 22:07 15 UNITS Diagnostic Test (Pha) 1 strip ACHS 03/04/25 17:00 03/07/25 11:32 1 STRIP Insulin Human Regular AC SC 03/04/25 17:00 03/07/25 06:39 2 UNITS Dextrose 50 ml UD PRN IV 03/04/25 16:00 Hydromorphone HCl 1 mg Q4HP PRN IV 03/04/25 17:30 03/07/25 09:20 1 MG Levofloxacin 50 ml @ 50 mls/hr DAILY IV 03/05/25 10:00 03/07/25 09:20 50 MLS/HR Saccharomyces Boulardii 250 mg BID PO 03/06/25 10:00 03/07/25 09:21 250 MG Examination General Appearance: Cooperative. Well developed. Well nourished.Left nephrostomy tube in place with no discharge or erythema, with dark yellow urine. She is currently on 2 L oxygen via nasal cannula. Head Exam: Normal inspection Neck Exam: Normal inspection. Non-tender. Normal alignment Pulmonary/Respiratory: Chest non-tender. mildly reduced breath sounds bilaterally Cardiovascular/Chest: Regular rate and rhythm. No murmurs. No JVD. Peripheral Pulses: 2+ Radial (R). 2+ Radial (L). 2+ Pedal (R). 2+ Pedal (L) Abdominal Exam: Normal bowel sounds. Soft. normal abdomen, no visible veins, tenderness in left flank, No hepatospenomegaly. No masses Ankle Exam: Negative ankle edema Lower extremities: 1+ bilateral lower extremity pitting edema Neuro/Mental Status: A&O x4. Coherent. Thoughts/Psych: Normal thought pattern. Appropriate mood and affect. Good judgement and insight Skin Exam: Normal inspection. Normal color. Warm. Dry laboratory and microbiology Laboratory Tests 03/07/25 05:23 Test 03/07/25 05:23 Range/Units Serum Glucose 136 H 74-106 mg/dL Microbiology Date/Time Source Procedure Growth Status 03/06/25 17:15 Urine - [place] Urine Culture - Preliminary Resulted 02/23/25 13:34 Blood Blood Culture - Final NO GROWTH AFTER 5 DAYS OF INCUBATION. Complete 02/21/25 09:30 Nose MRSA Screen - Final Complete Labs and/or images reviewed: Labs reviewed by me, Image(s) reviewed by me Problem List/Assessment/Plan Problem List/Assessment/Plan # Acute on chronic hypoxic respiratory failure # Acute on chronic HFpEF # Possible COPD exacerbation with possible viral pneumonia # History of PE -Chest xray - Cardiomegaly and Pulmonary vascular congestion -old Echo 01/04- EF >55%, severe PAH -BNP 152.10 -covid, influenza negative -albuterol and ipratropium mednebs every 6 hours # Acute complicated cystitis # Acute left hydronephrosis s/p left nephrostomy tube placement day 2 # Acute left pyelonephritis # Hematuria, resolved # left obstructive ureteral stone -white count was 11.2 -UA positive for UTI, UA ordered on 02/26/2025, repeat urine culture > 52535 CFU, mixed aleksandar -abdomen CT pelvis showed a 5 mm obstructive stone in the left ureter with moderate left hydronephrosis -urology consult-left nephrostomy tube placement, outpatient follow-up in 3-4 weeks -levofloxacin iv -repeat blood culture on 02/23/25- no growth after 5 days -blood culture Gram-negative rods 02/20/25 -chest x-ray showed cardiomegaly and moderate pleural effusion with prominent pulmonary vasculature -strain all urine -Flomax 0.4 mg q.p.m. p.o. -infectious diseases consult placed, pending -bleeding from nephrostomy tube and urethra- hemoglobin 7.8>7.9, abdomen/pelvic CT ordered, patient refused -Renal US- echogenic debris in the dependent portion of the bladder measuring 4.6 x 2.7 by 9.7 cm -CT abdomen left nephrostomy tube in place # CLAUDIA on CKD, likely due to VMN -avoid nephrotoxic agents -monitor BMP -urine studies revealed FeNa 0.3%- prerenal cause of CLAUDIA # Uncontrolled type 2 diabetes mellitus with hyperglycemia -HbA1c is 8 -Moderate insulin sliding scale a.c. HS -lantus 15 units qam # Chronic back pain, multilevel degenerative disc disease - Dilaudid 1 mg q.4 hours p.r.n. - gabapentin 400 mg p.o. t.i.d. - physical therapy on board - duloxetine 60 mg daily # Chronic hypochromic normocytic anemia s/p 1 prbc -monitor H&H -stool occult blood ordered -transfuse if hemoglobin less than 7 -hemoglobin today 7.8 # Mild transmnitis # Hypothyroidism - Continue on levothyroxine 75 mcg # GERD - Continue on protonix 40 mg daily po # Hypokalemia -repleted # Acute diarrhea, likely viral -Florastor 250 mg p.o. b.i.d. -collect stool for stool studies PUD prophylaxis: Protonix 40 mg DVT prophylaxis: lovenox 110mg q12 hr sc, discontinued due to hematuria Goals of care discussed with the patient for over 18 minutes, no intubation Plan discussed with Dr. Benitez Plan discussed with: Patient Dietary Evaluation Review Comments: Nutrition Recommendation: 1) Glucerna 240ml BID 2) Monitor PO intake, lab values, weight trend, and I/O Expected Outcomes/Goals: Intake to meet >75% estimated needs FU 3-5 days Visit Coding STANDARD RES Billing Provider: MARILYN BENITEZ MD Date of Service if different f: Mar 07, 2025 Common Visit Codes: 88227-[id number] INP/OBS CARE(HIGH) FINESSE VERMA RESIDENT Mar 07, 2025 11:50
[2025-03-07] MEDS: SODIUM CHLORIDE 0.9% 250 ML IV ONE (16:12)
[2025-03-08] VITALS (16 sets, daily range): BP systolic 126–142; BP diastolic 58–68; PULSE 76–90; RESP 18–22; TEMP 97.5–98.1; O2SAT 94–100
[2025-03-08] MEDS: IPRATROPIUM BROM 0.5 MG/2.5ML INH SOL NEB SCH (00:20)
[2025-03-08] MEDS: ALBUTEROL SULF 2.5 MG/0.5ML(0.5%) NEB SOLN NEB SCH (00:20)
[2025-03-08 06:29] LABS: Hematocrit 24.5 % (36.0-46.0); Hemoglobin 8.2 g/dL (12.2-16.2); Mean Corpuscular Hemoglobin 28.0 pg (28.0-32.0); Mean Corpuscular Volume 84.2 fL (80.0-100.0); Nucleated Red Blood Cells % 0.0 %
[2025-03-08 06:43] LABS: Anion Gap 10 (5-15); Carbon Dioxide 23 mmol/L (20-31); Chloride 104 mmol/L (98-107); Potassium 3.9 mmol/L (3.5-5.1); Sodium 137 mmol/L (136-145)
[2025-03-08 06:45] LABS: Calcium 8.8 mg/dL (8.7-10.4)
[2025-03-08 06:50] LABS: BUN/Creatinine Ratio 28.9 (10.0-20.0)
[2025-03-08 06:56] LABS: Urine Budding Yeast LOADED /hpf (None Seen); Urine Protein, UAD 1+ (Negative); Urine WBC Clumps PRESENT /hpf (None Seen)
[2025-03-08 07:07] LABS: Blood Urea Nitrogen 26 mg/dL (9-23); Glucose 138 mg/dL (74-106)
[2025-03-08] MEDS: SODIUM CHLORIDE 0.9% 500 ML IV ONE (08:49)
--- NOTE | 2025-03-08 10:42 | DVHPN2 ---
Progress Note Date Seen: Mar 08, 2025 Medical Necessity Reason Pt with a Central, PICC or Fol: No Subjective Patient reports: No new complaints Other Systems: Patient seen and examined by myself today in follow-up Objective vital signs Vital Sign Date Time Temp Pulse Resp B/P (MAP) Pulse Ox O2 Delivery O2 Flow Rate FiO2 03/08/25 10:17 82 18 138/60 03/08/25 09:00 97.5 97 97.5 03/08/25 08:14 Nasal Cannula 2.0 03/08/25 08:14 28 Total Intake and Output 03/07/25 03/07/25 03/08/25 15:00 23:00 07:00 Intake Total 50 ml 950 ml 500 ml Output Total 400 ml 775 ml Balance 50 ml 550 ml -275 ml medications Current Medications Medications Dose Ordered Sig/Layo Route Start Time Stop Time Status Last Admin Dose Admin Morphine Sulfate 2 mg Q30M PRN IV 02/18/25 19:45 Cancel Acetaminophen 650 mg Q6HP PRN PO 02/18/25 19:45 03/05/25 22:43 650 MG Levothyroxine Sodium 75 mcg QAM@0600 PO 02/19/25 06:00 03/08/25 05:34 75 MCG Pantoprazole Sodium 40 mg DAILY@0600 PO 02/19/25 06:00 03/08/25 05:34 40 MG Atorvastatin Calcium 40 mg HS PO 02/18/25 22:00 03/07/25 22:16 40 MG Patient Own Medication 1 DAILY PO 02/19/25 10:00 03/05/25 10:00 1 Gabapentin 400 mg BID PO 02/22/25 22:00 03/07/25 22:17 400 MG Tamsulosin HCl 0.4 mg QPM PO 02/23/25 18:00 03/07/25 17:44 0.4 MG Vancomycin HCl 250 ml @ 166.667 mls/hr Q24H IV 02/27/25 13:00 UNV Duloxetine HCl 60 mg DAILY PO 03/01/25 10:00 03/08/25 10:12 60 MG Metronidazole 100 ml @ 100 mls/hr Q8HR IV 03/03/25 14:00 03/08/25 05:34 100 MLS/HR Loperamide HCl 2 mg DAILY PRN PO 03/03/25 19:30 03/07/25 22:16 2 MG Insulin Glargine 15 units HS SC 03/04/25 22:00 03/07/25 22:24 15 UNITS Diagnostic Test (Pha) 1 strip ACHS 03/04/25 17:00 03/08/25 06:17 1 STRIP Insulin Human Regular AC SC 03/04/25 17:00 03/08/25 06:18 2 UNITS Dextrose 50 ml UD PRN IV 03/04/25 16:00 Hydromorphone HCl 1 mg Q4HP PRN IV 03/04/25 17:30 03/08/25 10:17 1 MG Levofloxacin 50 ml @ 50 mls/hr DAILY IV 03/05/25 10:00 03/08/25 10:12 50 MLS/HR Saccharomyces Boulardii 250 mg BID PO 03/06/25 10:00 03/08/25 10:15 250 MG Albuterol 2.5 mg Q12HR NEB 03/07/25 22:00 03/08/25 08:14 2.5 MG Ipratropium [place] 0.5 mg Q12HR NEB 03/07/25 22:00 03/08/25 08:14 0.5 MG Examination: LUNGS:Normal, CVS:Normal, MSK:Normal laboratory and microbiology Laboratory Tests 03/08/25 06:00 Test 03/08/25 06:00 Range/Units Serum Glucose 138 H 74-106 mg/dL Microbiology Date/Time Source Procedure Growth Status 03/06/25 17:15 Urine - [place] Urine Culture - Preliminary Resulted 02/23/25 13:34 Blood Blood Culture - Final NO GROWTH AFTER 5 DAYS OF INCUBATION. Complete 02/21/25 09:30 Nose MRSA Screen - Final Complete Problem List/Assessment/Plan Problem List/Assessment/Plan Acute kidney injury superimposed Chronic Kidney Disease secondary hemodynamic mediated, feNa , 1% Urinary retention Vancomycin toxicity Diabetes mellitus type 2 Hypertension Liver cirrhosis Significant anemia rule out GI bleeding Nephrolithiasis Urinary tract infection Left hydronephrosis, status post left nephrostomy tube Diarrhea Recommendations Kidney function resolved back to normal Increased urine output Discontinue vancomycin [place] catheter Strict I&Os IV antibiotics Insulin sliding scale Urology on board Blood pressure control I will sign off this case, please reconsult as needed Thank you for the consult Plan discussed with: Patient Dietary Evaluation Review Comments: Nutrition Recommendation: 1) Glucerna 240ml BID 2) Monitor PO intake, lab values, weight trend, and I/O Expected Outcomes/Goals: Intake to meet >75% estimated needs FU 3-5 days TUAN LUNA MD Mar 08, 2025 10:42
[2025-03-08] MEDS: FLUCONAZOLE 100 MG TAB PO ONE (12:10)
--- NOTE | 2025-03-08 15:21 | DVHPN2 ---
Progress Note - Dictate Date Seen: Mar 08, 2025 Medical Necessity Reason Pt with a Central, PICC or Fol: No Subjective PT WITH SEVERE FLANK PAIN AND SOB OBSTRUCTIVE RENAL CALCULUS HYDRONEPHROSIS UTI S/P NEPHROSTOMY RENAL COLIC HEMATURIA LEUKOCYTOSIS PMH ORGANIC HD HF HTN DIABETES VASCULOPATHY NEPHROPATHY PAH NON HODGKIN LYMPHOMA LUNG CA S/P RIGHT UPPER LOBECTOMY vital signs Vital Sign Date Time Temp Pulse Resp B/P (MAP) Pulse Ox O2 Delivery O2 Flow Rate FiO2 03/08/25 14:14 79 18 141/61 03/08/25 13:00 97.6 96 97.6 03/08/25 08:14 Nasal Cannula 2.0 03/08/25 08:14 28 Total Intake and Output 03/07/25 03/07/25 03/08/25 15:00 23:00 07:00 Intake Total 50 ml 950 ml 500 ml Output Total 400 ml 775 ml Balance 50 ml 550 ml -275 ml medications Current Medications Medications Dose Ordered Sig/Layo Route Start Time Stop Time Status Last Admin Dose Admin Morphine Sulfate 2 mg Q30M PRN IV 02/18/25 19:45 Cancel Acetaminophen 650 mg Q6HP PRN PO 02/18/25 19:45 03/05/25 22:43 650 MG Levothyroxine Sodium 75 mcg QAM@0600 PO 02/19/25 06:00 03/08/25 05:34 75 MCG Pantoprazole Sodium 40 mg DAILY@0600 PO 02/19/25 06:00 03/08/25 05:34 40 MG Atorvastatin Calcium 40 mg HS PO 02/18/25 22:00 03/07/25 22:16 40 MG Patient Own Medication 1 DAILY PO 02/19/25 10:00 03/05/25 10:00 1 Gabapentin 400 mg BID PO 02/22/25 22:00 03/07/25 22:17 400 MG Tamsulosin HCl 0.4 mg QPM PO 02/23/25 18:00 03/07/25 17:44 0.4 MG Vancomycin HCl 250 ml @ 166.667 mls/hr Q24H IV 02/27/25 13:00 UNV Duloxetine HCl 60 mg DAILY PO 03/01/25 10:00 03/08/25 10:12 60 MG Metronidazole 100 ml @ 100 mls/hr Q8HR IV 03/03/25 14:00 03/08/25 14:13 100 MLS/HR Loperamide HCl 2 mg DAILY PRN PO 03/03/25 19:30 03/07/25 22:16 2 MG Insulin Glargine 15 units HS SC 03/04/25 22:00 03/07/25 22:24 15 UNITS Diagnostic Test (Pha) 1 strip ACHS 03/04/25 17:00 03/08/25 12:59 1 STRIP Insulin Human Regular AC SC 03/04/25 17:00 03/08/25 13:25 2 UNITS Dextrose 50 ml UD PRN IV 03/04/25 16:00 Hydromorphone HCl 1 mg Q4HP PRN IV 03/04/25 17:30 03/08/25 14:14 1 MG Levofloxacin 50 ml @ 50 mls/hr DAILY IV 03/05/25 10:00 03/08/25 10:12 50 MLS/HR Saccharomyces Boulardii 250 mg BID PO 03/06/25 10:00 03/08/25 10:15 250 MG Albuterol 2.5 mg Q12HR NEB 03/07/25 22:00 03/08/25 08:14 2.5 MG Ipratropium [place] 0.5 mg Q12HR NEB 03/07/25 22:00 03/08/25 08:14 0.5 MG Fluconazole 200 mg DAILY PO 03/09/25 10:00 laboratory and microbiology Laboratory Tests 03/08/25 06:00 Test 03/08/25 06:00 Range/Units Serum Glucose 138 H 74-106 mg/dL Problem List SEVERE FLANK PAIN AND SOB OBSTRUCTIVE RENAL CALCULUS HYDRONEPHROSIS UTI S/P NEPHROSTOMY RENAL COLIC HEMATURIA LEUKOCYTOSIS ACUTE RENAL INSUFF PMH ORGANIC HD HF HTN DIABETES VASCULOPATHY NEPHROPATHY PAH NON HODGKIN LYMPHOMA LUNG CA S/P RIGHT UPPER LOBECTOMY Assessment/Plan NEPHROSTOMY CARE IV ABC ECHO EF >55% ANISH SEVERE TR SEVERE PAH LEUKOCYTOSIS RESOLVED RENAL INSUFF RESOLVED PT STILL WITH SEVERE FLANK AND SPINE PAIN CT OF ABD PELVIS UA CHANGE ABX SINCE INCREASE IN WBC STARTED LEVAQUIN VANCOMYCIN CT OF ABD PELVIS UNREMARKABLE LEUKOCYTOSIS RESOLVED STILL WITH SEVERE ANEMIA CHECK RETIC IRON STUDIES IRON REPLACEMENT EPOGEN PT IS MALINGERING NEEDS TO BE OFF PAIN THERAPY AND REQUIRES,REHAB RENAL FUNCTION NOW BASELINE H/H STABLE UA NEGATIVE MAY DC TO REHAB COURSE OF ACTION BY UROLOGY? MONITOR HYDROMORPHONE HCL 1MG, IV Dietary Evaluation Review Comments: Nutrition Recommendation: 1) Glucerna 240ml BID 2) Monitor PO intake, lab values, weight trend, and I/O Expected Outcomes/Goals: Intake to meet >75% estimated needs FU 3-5 days Plan discussed with: Patient GLADYS BENSON MD Mar 08, 2025 15:21
--- NOTE | 2025-03-08 15:32 | DVHPNRES ---
Progress Note Date Seen: Mar 08, 2025 Resident Creating Document: FINESSE VERMA RESIDENT Medical Necessity Reason Pt with a Central, PICC or Fol: No Subjective Review of Systems Brenda Daily is an 79-year-old female with past medical history of COPD on 2 L oxygen at home, CHF, insulin-dependent type 2 diabetes mellitus, hypertension, pulmonary artery hypertension, non-Hodgkin lymphoma in remission since 1987, lung cancer s/p right upper lobe resection in 2016 presented to the ED with the chief complaint of worsening shortness of breath for the last 3 days along with chills. The patient mentioned she tried to up titrate her oxygen at home, but that did not improve her shortness of breath. She mentioned she also had tightness in the chest along with a dry cough and lower extremity edema. She mentions having similar episodes of shortness of breath 3-4 times in the last 1 year. She denied any fever. Past medical history: COPD on 2 L oxygen at home, CHF, insulin-dependent type 2 diabetes mellitus, hypertension, pulmonary artery hypertension, non-Hodgkin lymphoma in remission since 1987, lung cancer s/p right upper lobe resection Past surgical history: right upper lobectomy in 2016, tonsillectomy Social & Personal history: Lives at home with family, she denies any smoking, alcohol and drugs Allergies: sulfa antibiotics Patient seen and examined at bedside. Patient is alert and oriented to time, place person and responding to all questions. Eyes: No Pain, No Vision change, No Conjunctivae inflammation, No Eyelid inflammation, No Redness ENT: No Ear pain, No Ear discharge, No Nose pain, No Nose discharge, No Nose congestion, No Mouth pain, No Mouth swelling, No Throat pain, No Throat swelling Cardiovascular: No Chest Pain, No Palpitations, Orthopnea, No Paroxysmal No Dyspnea, Edema, No Lt Headedness Respiratory: Cough, Dry, Shortness of breath, No SOB with exertion, No Wheezing, No Hemoptysis, No Pleuritic Pain, No Sputum Gastrointestinal: No Nausea, No Vomiting, No Abdominal Pain, No Diarrhea, No Constipation, No Melena, No Hematochezia Genitourinary: No Dysuria, No Frequency, No Incontinence, No Hematuria, No Retention 02/20/25- the patient was seen at bedside today. The patient complained of intense pain in the left flank radiating to the left groin area and mentioned of her history of kidney stones. Her white count had increased to 19.9 today and urinalysis was positive for UTI. Lactic acid was 1.5. She was started on meropenem and fluconazole for acute complicated cystitis. CT abdomen pelvis showed Moderate left-sided hydronephrosis with a 5 mm obstructing stone in the proximal left ureter. Urology consult was placed. Her potassium today was 3, which was repleted. We also ordered for blood culture and urine culture. We also started her on morphine 2 mg q.12 p.r.n. for severe pain and [place] 5q4 p.r.n.. EKG was done which was normal. A consult for Dr. Ogden was also placed as he is her PCP. Bedside pocus was done which showed a dilated IVC. 02/21/25- The patient was seen at bedside today. White count today was 34.8. Lactic acid was 1.3. Patient looked tachypneic. Blood culture showed Gram- negative rods. The patient was started on vancomycin per pharmacy. IR placed left nephrostomy tube without any complications. 02/22/25- The patient was seen at bedside today. White count today was 27.2. Patient is breathing comfortably on 2L oxygen by nasal canula. Patient complained of intense pain in her back as she has severe degenerative disc disease, for which she was given 1 dose of morphine 2 mg and started on dilaudid 1mg q4 prn. Left nephrostomy tube is in place with minimal drainage and no discharge or redness around the site. Creatinine improved from 2.19 to 2.02 today. Patient started on gabapentin 400 mg t.i.d. for neuropathy. She was started on MiraLax 17 g p.o. b.i.d. for constipation. 02/23/25- The patient seen at bedside today. She complained of pain in her lower abdomen. She was given 1 time dose of IV mannitol and started on Flomax 0.4 mg PO HS. Order to strain all urine was placed. Patient was started on Senokot q.h.s. and MiraLax p.r.n. for constipation. Repeat blood cultures were ordered. IV antibiotics were changed to IV ceftriaxone 1 g daily. Physical therapy evaluation was requested for the patient. Urology was consulted and they recommended outpatient follow-up in 3-4 weeks once patient is stable for discharge. 02/24/25- Patient still complains of intermittent flank pain presumably from nephrostomy tube site with a renal stone. Patient continued to take IV Dilaudid. Patient is with a poor ambulatory status. Her leukocytosis has significantly improved. 02/25/25- Patient still complains of intermittent flank pain. Physical therapy recommended placement in SNF for the patient, which she refused. We will continue to try working with physical therapy to try and get her out of bed into a chair. For pain medication was changed to tramadol 100 mg p.o. q.6 hours Dilaudid 1 mg IV q.6 hours. 02/26/25- patient was seen at bedside today. She continues to complain of abdominal pain. White count today was 12.6. Urine analysis and urine culture was ordered. KUB and x-ray of lumbar spine were ordered. Dr Ogden, who is her PCP and is also following up regularly, continued ceftriaxone and started her on levofloxacin and vancomycin per pharmacy. Patient was encouraged to continue working with physical therapy and try to get out of bed into a chair today. 02/27/25- the patient was seen at bedside today. Repeat CT abdomen/pelvis was done today, which was unremarkable. White count today was 16.6. Lactic acid today was 0.7. An Infectious Disease consult was requested, as the white count is trending up again. Patient was encouraged to work with physical therapy. A detailed discussion was held with the patient and family, and our recommendation of sending the patient was SNF on discharge was discussed and they agreed with the same. 02/28/25- the patient was seen at bedside today. The patient started having rosalee bleeding from the nephrostomy tube last night, Lovenox was stopped. The patient was also having rosalee hematuria from the urethra. Her hemoglobin this morning was 9.1 and repeat in the evening was 8.7. Repeat IR consult was placed for evaluation of the nephrostomy tube. Repeat CT abdomen/pelvis was ordered. 03/01/25- the patient was seen at bedside today. CT abdomen/pelvis was ordered for the patient yesterday to evaluate for bleeding from the nephrostomy tube and urethra, but the patient refused CT yesterday and this morning. The patient's family requested for transfer to [facility], a marriage and family social worker request for facilitating the lateral transfer per the family request was placed. The patient and family were explained at length about the evaluation and the need for the CT today and they demonstrated understanding of the same. Renal ultrasound was done which showed echogenic debris in the dependent portion of the bladder measuring 4.6 x 2.7 by 9.7 cm. KUB showed left-sided nephrostomy tube in place and nonobstructive bowel gas pattern. Urology was consulted and they recommended IR evaluation for possible replacement of nephrostomy tube and [place] if patient is unable to void. 03/02/25- was seen and evaluated at bedside. The patient complained of multiple episodes of diarrhea, for which he was started on Imodium 2 mg p.o. q.6 p.r.n. for diarrhea. Discussion held with her regarding IR evaluation and if Nephrostomy tube intact and hematuria improve, anticipate to DC home. Patient however, adamant that she want to transfer to [facility], where her urologist there. CM already consulted for lateral transfer per patient request. No answer from [facility] yet. 03/03/25- patient was seen and evaluated at bedside today. [facility] mentioned and no longer accepting lateral transfers. This was communicated to the patient and she mentioned that her casino host at that hospital we will send paperwork to facilitate the transfer. Bedside bladder scan was done which revealed postvoid urine volume of 41 mL. Bedside pocus was done, showed more than 50% compressibility of IVC with size of 1.9 cm. 500 cc bolus of NS was given. Nephrology was consulted for up trending creatinine. The patient was started on IV Flagyl. All updates were shared with the patient, her son and daughter and all their questions and concerns were addressed. 03/04/25- patient was seen and evaluated at bedside today. CT abdomen/pelvis done today revealed that the left nephrostomy tube is in place and moderate left hydroureteronephrosis. There was collection of dark yellow urine in the nephrostomy bag, which could be due to dehydration. Patient was given a 250 cc bolus of NS 250ml. The catheter was inserted for strict I&Os and urine studies. Hydrochlorothiazide dose was reduced to 12.5 mg p.o. b.i.d. 03/05/25- patient was seen at bedside today. FENA was calculated to be 0.3%, prerenal cause of the CLAUDIA. The patient had fever spikes of 101.8 and 100.4 overnight, she was given 500 cc bolus of NS will be continued on levofloxacin 250 mg IV daily and Flagyl. Nephrology evaluated the patient and started her on low-dose of dobutamine. 03/06/25- patient was seen at bedside today. Her hemoglobin today was 6.9, so she was given 1 transfusion of PRBCs, repeat H and H showed hemoglobin of 7.9 in the evening. 03/07/25- the patient was seen at bedside today. No new complaints. Hemoglobin is stable at 7.8. Pending repeat urine culture report. No fever spikes. 03/08/25- patient was seen at bedside today. No new complaints. Hemoglobin is 8.2. Creatinine level is back to normal today. Recent urinalysis showed high burden of yeast, so she was started on fluconazole 200 mg p.o. daily. She was encouraged to participate with physical therapy. Possible discharge tomorrow if patient is clinically stable. Objective vital signs Vital Sign Date Time Temp Pulse Resp B/P (MAP) Pulse Ox O2 Delivery O2 Flow Rate FiO2 03/08/25 15:21 79 18 141/61 03/08/25 13:00 97.6 96 97.6 03/08/25 08:14 Nasal Cannula 2.0 03/08/25 08:14 28 Total Intake and Output 03/07/25 03/07/25 03/08/25 15:00 23:00 07:00 Intake Total 50 ml 950 ml 500 ml Output Total 400 ml 775 ml Balance 50 ml 550 ml -275 ml medications Current Medications Medications Dose Ordered Sig/Layo Route Start Time Stop Time Status Last Admin Dose Admin Morphine Sulfate 2 mg Q30M PRN IV 02/18/25 19:45 Cancel Acetaminophen 650 mg Q6HP PRN PO 02/18/25 19:45 03/05/25 22:43 650 MG Levothyroxine Sodium 75 mcg QAM@0600 PO 02/19/25 06:00 03/08/25 05:34 75 MCG Pantoprazole Sodium 40 mg DAILY@0600 PO 02/19/25 06:00 03/08/25 05:34 40 MG Atorvastatin Calcium 40 mg HS PO 02/18/25 22:00 03/07/25 22:16 40 MG Patient Own Medication 1 DAILY PO 02/19/25 10:00 03/05/25 10:00 1 Gabapentin 400 mg BID PO 02/22/25 22:00 03/07/25 22:17 400 MG Tamsulosin HCl 0.4 mg QPM PO 02/23/25 18:00 03/07/25 17:44 0.4 MG Vancomycin HCl 250 ml @ 166.667 mls/hr Q24H IV 02/27/25 13:00 UNV Duloxetine HCl 60 mg DAILY PO 03/01/25 10:00 03/08/25 10:12 60 MG Metronidazole 100 ml @ 100 mls/hr Q8HR IV 03/03/25 14:00 03/08/25 14:13 100 MLS/HR Loperamide HCl 2 mg DAILY PRN PO 03/03/25 19:30 03/07/25 22:16 2 MG Insulin Glargine 15 units HS SC 03/04/25 22:00 03/07/25 22:24 15 UNITS Diagnostic Test (Pha) 1 strip ACHS 03/04/25 17:00 03/08/25 12:59 1 STRIP Insulin Human Regular AC SC 03/04/25 17:00 03/08/25 13:25 2 UNITS Dextrose 50 ml UD PRN IV 03/04/25 16:00 Hydromorphone HCl 1 mg Q4HP PRN IV 03/04/25 17:30 03/08/25 14:14 1 MG Levofloxacin 50 ml @ 50 mls/hr DAILY IV 03/05/25 10:00 03/08/25 10:12 50 MLS/HR Saccharomyces Boulardii 250 mg BID PO 03/06/25 10:00 03/08/25 10:15 250 MG Albuterol 2.5 mg Q12HR NEB 03/07/25 22:00 03/08/25 08:14 2.5 MG Ipratropium Apex 0.5 mg Q12HR NEB 03/07/25 22:00 03/08/25 08:14 0.5 MG Fluconazole 200 mg DAILY PO 03/09/25 10:00 Examination General Appearance: Cooperative. Well developed. Well nourished.Left nephrostomy tube in place with no discharge or erythema, with dark yellow urine. She is currently on 2 L oxygen via nasal cannula. Head Exam: Normal inspection Neck Exam: Normal inspection. Non-tender. Normal alignment Pulmonary/Respiratory: Chest non-tender. mildly reduced breath sounds bilaterally Cardiovascular/Chest: Regular rate and rhythm. No murmurs. No JVD. Peripheral Pulses: 2+ Radial (R). 2+ Radial (L). 2+ Pedal (R). 2+ Pedal (L) Abdominal Exam: Normal bowel sounds. Soft. normal abdomen, no visible veins, tenderness in left flank, No hepatospenomegaly. No masses Lower extremities: 1+ bilateral lower extremity pitting edema Neuro/Mental Status: A&O x4. Coherent. Thoughts/Psych: Normal thought pattern. Appropriate mood and affect. Good judgement and insight Skin Exam: Normal inspection. Normal color. Warm. Dry laboratory and microbiology Laboratory Tests 03/08/25 06:00 Test 03/08/25 06:00 Range/Units Serum Glucose 138 H 74-106 mg/dL Microbiology Date/Time Source Procedure Growth Status 03/06/25 17:15 Urine - [place] Urine Culture - Preliminary Resulted 02/23/25 13:34 Blood Blood Culture - Final NO GROWTH AFTER 5 DAYS OF INCUBATION. Complete 02/21/25 09:30 Nose MRSA Screen - Final Complete Labs and/or images reviewed: Labs reviewed by me, Image(s) reviewed by me Problem List/Assessment/Plan Problem List/Assessment/Plan # Acute on chronic hypoxic respiratory failure # Acute on chronic HFpEF # Possible COPD exacerbation with possible viral pneumonia # History of PE -Chest xray - Cardiomegaly and Pulmonary vascular congestion -old Echo 01/04- EF >55%, severe PAH -BNP 152.10 -covid, influenza negative -albuterol and ipratropium mednebs every 6 hours # Acute complicated cystitis # Acute left hydronephrosis s/p left nephrostomy tube placement # Acute left pyelonephritis # Hematuria, resolved # left obstructive ureteral stone -UA positive for UTI, UA ordered on 02/26/2025, repeat urine culture > 10868 CFU, mixed aleksandar -abdomen CT pelvis showed a 5 mm obstructive stone in the left ureter with moderate left hydronephrosis -urology consult-left nephrostomy tube placement, outpatient follow-up in 3-4 weeks -levofloxacin iv -blood culture Gram-negative rods 02/20/25, repeat blood culture on 02/23/25- no growth after 5 days -strain all urine -Flomax 0.4 mg q.p.m. p.o. -infectious diseases consult placed, pending -bleeding from nephrostomy tube and urethra -Renal US- echogenic debris in the dependent portion of the bladder measuring 4.6 x 2.7 by 9.7 cm -CT abdomen left nephrostomy tube in place -UA showed high burden of yeast, added fluconazole 200 mg daily # CLAUDIA on CKD, likely due to VMN -avoid nephrotoxic agents -monitor BMP -urine studies revealed FeNa 0.3%- prerenal cause of CLAUDIA # Uncontrolled type 2 diabetes mellitus with hyperglycemia -HbA1c is 8 -Moderate insulin sliding scale a.c. HS -lantus 15 units qam # Chronic back pain, multilevel degenerative disc disease - Dilaudid 1 mg q.4 hours p.r.n. - gabapentin 400 mg p.o. t.i.d. - physical therapy on board - duloxetine 60 mg daily # Chronic hypochromic normocytic anemia s/p 1 prbc -monitor H&H -stool occult blood ordered -transfuse if hemoglobin less than 7 -hemoglobin today 7.8 # Mild transmnitis # Hypothyroidism - Continue on levothyroxine 75 mcg # GERD - Continue on protonix 40 mg daily po # Hypokalemia -repleted # Acute diarrhea, likely viral -Florastor 250 mg p.o. b.i.d. PUD prophylaxis: Protonix 40 mg DVT prophylaxis: lovenox 110mg q12 hr sc, discontinued due to hematuria Goals of care discussed with the patient for over 18 minutes, no intubation Plan discussed with Dr. Benitez Plan discussed with: Patient My Orders My Orders Orders - FINESSE VERMA RESIDENT Procedure Category Date Status Time Code Status CODE 03/07/25 Transmitted 18:39 Fluconazole Tablet PHA 03/09/25 In Process (Diflucan Tablet) 10:00 Dietary Evaluation Review Comments: Nutrition Recommendation: 1) Glucerna 240ml BID 2) Monitor PO intake, lab values, weight trend, and I/O Expected Outcomes/Goals: Intake to meet >75% estimated needs FU 3-5 days Visit Coding STANDARD RES Billing Provider: MARILYN BENITEZ MD Date of Service if different f: Mar 08, 2025 Common Visit Codes: 78852-NUMTRGOAFB INP/OBS CARE(HIGH) FINESSE VERMA RESIDENT Mar 08, 2025 15:32
--- NOTE | 2025-03-08 22:00 | DVHINCON2 ---
Date of service: Mar 08, 2025 Family History: Patient reports no known family medical history. Allergies: Coded Allergies: Sulfa Antibiotics (Verified Allergy, Unknown, itching, 07/30/24) Home Meds Active Scripts Vancomycin Hcl (Vancomycin Po) 250 Mg So, 250 MG PO QID for 7 Days, #120 ML Prov:RADHA RUTHERFORD MD 10/04/24 Metronidazole (Metronidazole) 500 Mg Tab, 500 MG PO TID for 7 Days, #21 TAB Prov:RADHA RUTHERFORD MD 10/04/24 Reported Medications Apixaban Base (ELIQUIS) 5 Mg Tab, 5 MG PO BID, TAB 02/25/25 B-Complex Vitamins (Vitamin B Complex) Complex Tab, 1 OR DAILY for VITAMIN B50, TAB 08/01/24 Zolpidem Tartrate (Zolpidem Tartrate) 5 Mg Tab, 1 TAB PO HSPRN PRN for FOR INSOMNIA, #30 TAB 2 Refills 08/01/24 Fenofibrate (Fenofibrate) 160 Mg Tab, 1 TAB PO DAILY for HIGH CHOLESTEROL, #30 TAB 5 Refills 08/01/24 Tadalafil (Adcirca) 20 Mg Tab, 20 MG PO BID, TAB 08/01/24 Dicyclomine Hcl (Dicyclomine Hcl) 20 Mg Tab, 20 MG PO TID, MG 08/01/24 Furosemide (Furosemide) 40 Mg Tab, 40 MG PO DAILYP PRN for EDEMA 08/01/24 Budesonide-Formoterol Fumarate (Budesonide/Formoterol Fum 160-4.5 Mcg/Act) 1 Aer Aer, 2 AER IN BID for SOB, AER 08/01/24 Insulin Glargine (Lantus) 100 Unit/Ml Inj, 5 UNIT SC QPM for DIABETES, INJ 07/31/24 Insulin Glargine (Lantus) 100 Unit/Ml Inj, 10 UNIT SC QAM for DIABETES, INJ 07/31/24 Apixaban Base (ELIQUIS) 5 Mg Tab, 5 MG PO BID for PREVENT BLOOD CLOTS, TAB 07/31/24 Potassium Chloride (Klor-Con M10) 10 Meq Tab, 1 TAB PO DAILY for SUPPLEMENT, #30 TAB 5 Refills 07/31/24 Albuterol Sulfate (Albuterol Sulfate Hfa) 108 Mcg/Act Aer, 90 MCG IN PRN for SOB, AER 07/31/24 Guaifenesin (Mucinex Maximum Strength) 1,200 Mg Tab, 1200 MG PO 4-5X PER WEEK, TAB 07/31/24 Acetaminophen (Tylenol) 325 Mg Cap, 325 MG PO PRN for PAIN, CAP 07/31/24 Pioglitazone Hydrochloride (PIOGLITAZONE HCL) 15 Mg Tab, 15 MG PO BID for DIABE JANIE, TAB 07/31/24 Rosuvastatin Calcium (Crestor) 5 Mg Tab, 1 TAB PO DAILY for HIGH CHOLESTEROL, #30 TAB 5 Refills 07/31/24 Esomeprazole Magnesium (Esomeprazole Magnesium) 40 Mg Cap, 40 MG PO DAILY for GERD, CAP 07/31/24 Losartan Potassium (Losartan Potassium) 25 Mg Tab, 25 MG PO DAILY for HTN for 30 Days, MG 07/31/24 Levothyroxine Sodium (Synthroid) 75 Mcg Tab, 1 TAB PO DAILY for LOW THYROID, #30 TAB 5 Refills 07/31/24 Hctz (Hydrochlorothiazide) 25 Mg Tab, 12.5 MG PO DAILY for EDEMA/HTN, TAB 07/31/24 Empagliflozin (Jardiance) 25 Mg Tab, 25 MG PO DAILY for DIABETES, TAB 07/31/24 Tramadol Hcl (Tramadol Hcl) 50 Mg Tab, 50 MG PO DAILY PRN for PAIN SCALE 7 THRU 10, MG 07/31/24 Pregabalin (Lyrica) 75 Mg Cap, 3 CAP PO BID for NERVE PAIN, #60 CAP 1 Refill 07/31/24 Duloxetine Hcl (Cymbalta) 60 Mg Cap, 1 CAP PO BID for DEPRESSION, #90 CAP 3 Refills 07/31/24 Cetirizine Hcl (Zyrtec Allergy) 10 Mg Cap, 10 MG PO HS for ALLERGIES, CAP 07/31/24 Current Medications Current Medications Medications (Trade) Dose Ordered Sig/Layo Route PRN Reason Start Time Stop Time Status Last Admin Fluconazole (Diflucan Tablet) 200 mg DAILY PO 03/09/25 10:00 Levofloxacin/ Dextrose 100 ml @ 100 mls/hr DAILY IV 03/09/25 10:00 Vital Signs Vital Signs Date Time Temp Pulse Resp B/P (MAP) Pulse Ox O2 Delivery O2 Flow Rate FiO2 03/08/25 19:11 78 17 126/68 03/08/25 18:56 96 2.0 28 03/08/25 18:20 Nasal Cannula 03/08/25 17:00 97.6 97.6 Labs/Diagnostic Data Labs Test 03/08/25 21:14 03/08/25 06:30 03/08/25 06:00 03/07/25 05:23 Range/Units POC Glucose 155 H 70-106 mg/dl Urine Color Yellow Yellow Urine Clarity Ex.turbid Clear Urine pH 5.5 5.0-9.0 Urine Specific [place] 1.014 1.001-1.035 Urine Protein 1+ H Negative Urine Ketones Trace Negative Urine Blood 3+ H Negative /uL Urine Nitrite Negative Negative Urine Bilirubin Negative Negative Urine Urobilinogen Normal Negative mg/dL Urine Leukocyte Esterase 3+ Negative /uL Urine RBC 35 0 - 4 /hpf Urine WBC Clumps Present None Seen /hpf Urine Microscopic WBC 401 H 0-5 /HPF Urine Squamous Epithelial Cells Few <5 /hpf Urine Bacteria Few H None Seen /hpf Urine Yeast (Budding) Loaded None Seen /hpf Urine Glucose 3+ H Normal mg/dL White Blood Count 10.3 4.4-10.8 10^3/uL Red Blood Count 2.91 L 4.0-5.20 10^6/uL Hemoglobin 8.2 L 12.2-16.2 g/dL Hematocrit 24.5 L 36.0-46.0 % Mean Corpuscular Volume 84.2 80.0-100.0 fL Mean Corpuscular Hemoglobin 28.0 28.0-32.0 pg Mean Corpuscular Hemoglobin Concent 33.3 32.0-36.0 g/dL Red Cell Distribution Width 19.8 H 11.8-14.3 % Platelet Count 595 H 140-450 10^3/uL Mean Platelet Volume 6.8 L 6.9-10.8 fL Neutrophils (%) (Auto) 77.5 37.0-80.0 % Lymphocytes (%) (Auto) 10.7 10.0-50.0 % Monocytes (%) (Auto) 9.8 0.0-12.0 % Eosinophils (%) (Auto) 1.6 0.0-7.0 % Basophils (%) (Auto) 0.4 0.0-2.0 % Neutrophils # (Auto) 8.0 1.6-8.6 10 ^3/uL Lymphocytes # (Auto) 1.1 0.4-5.4 10 ^3/uL Monocytes # (Auto) 1.0 0-1.3 10 ^3/uL Eosinophils # (Auto) 0.2 0-0.8 10 ^3/uL Basophils # (Auto) 0 0-0.2 10 ^3/uL Nucleated Red Blood Cells 0.0 % Sodium Level 137 136-145 mmol/L Potassium Level 3.9 3.5-5.1 mmol/L Chloride Level 104 98-107 mmol/L Carbon Dioxide Level 23 20-31 mmol/L Anion Gap 10 5-15 Blood Urea Nitrogen 26 H 9-23 mg/dL Creatinine 0.90 0.550-1.02 mg/dL Glomerular Filtration Rate Calc 65 >90 mL/min BUN/Creatinine Ratio 28.9 H 10.0-20.0 Serum Glucose 138 H 74-106 mg/dL Calcium Level 8.8 8.7-10.4 mg/dL Reticulocyte Count (auto) 3.29 H 0.5-1.5 % Test 03/06/25 04:56 03/04/25 15:49 03/04/25 06:02 03/03/25 06:09 Range/Units Creatine Kinase 33 L 34-145 U/L Urine Creatinine 68.58 30.0-125.0 mg/dL Urine Protein/Creatinine Ratio 1.61 Urine Sodium 21 L 40-220 mmol/L Urine Total Protein 110.3 H 1-14 mg/dL Phosphorus Level 5.0 2.4-5.1 mg/dL Magnesium Level 1.7 1.6-2.6 mg/dL Total Bilirubin 0.3 0.2-1.0 mg/dL Direct Bilirubin 0.1 <0.3 mg/dL Aspartate Amino Transferase (AST) 16 13-40 U/L Alanine Aminotransferase (ALT) 14 7-40 U/L Alkaline Phosphatase 107 46-116 U/L Total Protein 5.7 5.7-8.2 g/dL Albumin 3.1 L 3.2-4.8 g/dL Vitamin D 25-Hydroxy 31.6 30.0-100 ng/mL Parathyroid Hormone (Intact) 42.7 18.4-80.1 pg/mL Iron Level 10 L 50-170 ug/dL Total Iron Binding Capacity 214 L 250-425 ug/dL Percent Iron Saturation 4.7 L 15-50 % Random Vancomycin Level 13.4 H 5-10 ug/mL Test 03/01/25 12:55 02/28/25 05:15 02/27/25 09:13 02/25/25 05:30 Range/Units Vancomycin Level Trough 29.8 H 5-10 ug/mL Prothrombin Time 11.5 9.3-11.8 sec Prothrombin Time INR 1.09 0.9-1.15 Activated Partial Thromboplast Time 33.8 24.5-34.5 SEC Lactic Acid Level 0.7 0.4-2.0 mmol/L Differential Total Cells Counted 100.0 100 Neutrophils % (Manual) 59 37.0-80.0 Band Neutrophils % (Manual) 9 Lymphocytes % (Manual) 15 10.0-50.0 Monocytes % (Manual) 15 H 0-12 Eosinophils % (Manual) 2 0-7 Basophils % (Manual) 0 0.0-2.0 Metamyelocytes % (manual) 0 Myelocytes % (Manual) 0 Promyelocytes % (Manual) 0 Blast Cells % (Manual) 0 Reactive Lymphocytes 0 Platelet Estimate Adequate Large Platelets Few Anisocytosis (manual) Slight Test 02/21/25 16:43 02/20/25 06:32 02/19/25 04:03 02/19/25 03:20 Range/Units Beta HCG, Quantitative 2.0 1.5-4.2 mIU/mL Giant Platelets Few Hemoglobin A1c 8.0 H <5.7 % A1C B-Type Natriuretic Peptide 152.10 0-100 pg/mL Triglycerides Level 123 < 150 mg/dL Cholesterol Level 131 < 200 mg/dL LDL Cholesterol 69 < 100 mg/dL HDL Cholesterol 37 L 40-59 mg/dL Thyroid Stimulating Hormone (TSH) 0.69 0.55-4.78 uIU/mL Influenza Type A Antigen Negative Negative Influenza Type B Antigen Negative Negative SARS-CoV-2 Antigen (Rapid) Negative NEGATIVE Test 02/18/25 14:52 Range/Units Troponin I High Sensitivity 10 </=34 ng/L Microbiology Date/Time Source Procedure Growth Status 03/06/25 17:15 Urine - [place] Urine Culture - Preliminary Resulted 02/23/25 13:34 Blood Blood Culture - Final NO GROWTH AFTER 5 DAYS OF INCUBATION. Complete 02/21/25 09:30 Nose MRSA Screen - Final Complete Problems(with codes): (1) COPD exacerbation (2) Acute and chronic respiratory failure (3) Shortness of breath (4) Uncontrolled diabetes mellitus (5) Non-specific colitis Plan/Recommendation ASSESSMENT AND PLAN: ID Problem List: \-- Citrobacter koseri bacteremia (barboza-sensitive) \-- Left-sided pyelonephritis \-- Obstructing proximal left ureteral stone with left hydronephrosis \-- Status post left nephrostomy tube placement \-- CLAUDIA on CKD, improved \-- Severe anemia \-- Thrombocytosis \-- COPD on chronic 2 L oxygen with possible acute exacerbation \-- CHF exacerbation with severe pulmonary hypertension \-- Possible viral pneumonia (respiratory viral panel negative for influenza A/B, COVID-19) \-- Diarrhea likely antibiotic-associated \-- History of pulmonary embolism \-- Liver cirrhosis \-- 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 female with a past medical history of COPD on chronic 2 L oxygen, CHF, insulin-dependent diabetes, hypertension, severe pulmonary hypertension, Non-Hodgkins lymphoma in remission since 1987, lung cancer status post right upper lobectomy in 2016, chronic kidney disease, prior pulmonary embolism, and liver cirrhosis, who initially presented with worsening shortness of breath over 3 days and chronic intermittent dyspnea over the past year. On admission she was hypoxic requiring increased oxygen (34 L) without significant improvement, with 1+ bilateral lower extremity edema and orthopnea. Chest x-ray showed mild cardiomegaly with bilateral pulmonary vascular congestion, and BNP was low. Old echocardiogram showed an EF of 55% with severe pulmonary arterial hypertension. She was treated for CHF exacerbation with possible coexisting COPD exacerbation and possible viral pneumonia (influenza A/B and COVID-19 negative). She has underlying CLAUDIA on CKD, which initially worsened in the setting of diuresis but has since improved (creatinine 1.38 ? 0.90, BUN 38 ? 26). Abdominal/pelvic CT on admission showed moderate left hydronephrosis with a 5 mm obstructing proximal left ureteral stone, air within the left collecting system consistent with pyelonephritis, and findings concerning for liver cirrhosis. She developed left flank pain and was found to have left-sided pyelonephritis and urosepsis. A left nephrostomy tube was placed for source control of the obstru cting stone, with subsequent nephrogram confirming appropriate placement and renal ultrasound showing resolution of hydronephrosis and normal sonographic appearance of the kidneys. Initial blood cultures grew barboza-sensitive Citrobacter koseri, consistent with bacteremia/urosepsis from the urinary source. Repeat blood cultures since 02/20 have been negative for 5 days. Initial urine culture showed no growth to date, while repeat urine cultures later showed >100,000 yeast (species not specified). She has been treated with multiple antibiotics during this hospitalization, including vancomycin and ceftriaxone initially, later transitioned to levofloxacin and metronidazole (Flagyl). Antibiotics have been ongoing since the date of source control (02/21), and by current assessment she has effectively completed an adequate course for pyelonephritis and bacteremia. She remains an immunocompromised host due to advanced age, cirrhosis, advanced COPD, severe pulmonary hypertension, diabetes, CKD, and prior malignancy. She continues to report variable pain (510/10), predominantly in the lower back versus more generalized, but has no focal spinal tenderness over L5S1 on exam. CT abdomen/pelvis shows endplate irregularity and degenerative disc disease at L5S1 with some concern for possible infection; overall clinical suspicion for spinal infection is described as low, but evaluation is ongoing. She also has diarrhea, felt most likely to be antibiotic-related. Plan: \-- Antibiotic management for pyelonephritis and Citrobacter koseri bacteremia: -Antibiotics have been ongoing since source control on 02/21, and she should have completed an adequate course for pyelonephritis and bacteremia at this time. -Given advanced age and severe pulmonary hypertension, would avoid ongoing levofloxacin therapy due to black box warnings (e.g., risk related to aortic aneurysm) and age-related toxicity concerns. -Recommend switching to ceftriaxone 2 g IV once daily while inpatient. -If extended therapy is required (e.g., if vertebral osteomyelitis is confirmed), she can transition to oral cefdinir 300 mg PO BID to complete a 14- day course or longer as clinically indicated, using 02/21 (date of source control) as day 0 for counting duration. \-- Evaluation for possible vertebral osteomyelitis / spread of infection: -Persistent lower back pain with CT findings of endplate irregularity and degenerative disc disease at L5S1 raises concern for possible extension of infection from pyelonephritis to the spine, though overall suspicion is currently low and there is no spinal tenderness on exam. -Recommend MRI of the lumbar spine with and without contrast to evaluate for possible vertebral osteomyelitis or discitis. -If MRI shows no osteomyelitis and pain improves, patient may be discharged without further antibiotics once clinically stable. -If MRI confirms osteomyelitis, a 6-week course of antibiotics (rather than 2 weeks) will be required, with regimen and route tailored to culture data and clinical status. \-- Monitoring of bacteremia and urosepsis: -Blood cultures: initial growth of barboza-sensitive Citrobacter koseri; repeat cultures negative x5 days since 02/20. No further routine blood cultures needed unless new fevers, hemodynamic instability, or other signs of relapse occur. -Urine cultures: initial culture with no growth to date; repeat culture with >100,000 yeast (species not specified). Monitor for urinary symptoms and signs of persistent infection; treat fungal urinary infection only if clinically indicated (not specified in transcript). -Continue to monitor vital signs, WBC trend (9.7 ? 10.3), and clinical status for any evidence of recurrent sepsis. \-- Renal / urologic issues: -Left obstructing proximal ureteral stone with initial moderate left hydronephrosis and pyelonephritis, now status post left nephrostomy tube placement with resolution of hydronephrosis and normal renal ultrasound. -Urology to continue follow-up for management of the percutaneous nephrostomy tube and definitive management of the renal/ureteral stone. -Monitor renal function closely given prior CLAUDIA on CKD and ongoing diuretic use (BUN 38 ? 26, creatinine 1.38 ? 0.90, sodium 018222). \-- Diarrhea and antibiotic-related effects: -Diarrhea is felt to be likely related to antibiotics. -Replenish electrolytes as needed per lab trends. -Defer to primary team to balance fluids carefully in the setting of COPD and CHF exacerbations. \-- Pulmonary / cardiac comorbidities: -COPD on chronic 2 L oxygen with possible acute exacerbation; CHF exacerbation with severe pulmonary hypertension; possible viral pneumonia with negative influenza A/B and COVID-19 testing; low BNP; bilateral crackles and mildly reduced breath sounds on exam; 1+ bilateral lower extremity edema. -Patient has multiple cardiopulmonary risk factors and is particularly vulnerable to decompensation. -Defer to primary medical and cardiology/pulmonology teams for ongoing management of CHF, COPD, pulmonary hypertension, and oxygen requirements, including diuresis and bronchodilator therapy (DuoNebs, furosemide already gi faisal). \-- Hematologic issues: -Anemia has worsened (Hgb 9.3 ? 8.2). -Platelets are elevated and rising (256 ? 595), consistent with thrombocytosis; etiology not specified (possibly reactive). -Recommend continued monitoring of CBC; further workup and transfusion decisions per primary team. \-- Glycemic control / wound and infection healing: -Insulin-dependent diabetes; recommend maintaining blood glucose <200 mg/dL to promote infection control and wound healing. -Continue current insulin regimen with adjustments as needed per primary team. \-- Pain management: -Variable pain scores 510/10, mainly low back versus more generalized. -Does not have focal spinal tenderness on exam. -Defer to primary team for optimization of pain management (morphine currently listed among medications). \-- Liver / cirrhosis: -CT abdomen/pelvis showed nodular liver capsule morphology concerning for ci rrhosis, with clinical impression of liver cirrhosis and contribution to immunocompromised status. -Further hepatology-directed management and staging of liver disease per primary team. \-- Follow-up and disposition: -Continue inpatient ceftriaxone while MRI lumbar spine is obtained and pain is evaluated. -If MRI negative for osteomyelitis and patient clinically improved, she may be discharged without antibiotics, with outpatient urology follow-up for nephrostomy tube and stone management. -If MRI confirms osteomyelitis, extend antibiotic course to a full 6 weeks, adjusting regimen to culture data and renal/hepatic function. Isolation Precautions: standard Assessment and plan was discussed with the patient as written above (per transcript). Plan is subject to change pending incorporation of new incoming information/diagnostics. Updates may be added as an addendum to this note. Thank you for the consult. ID will continue to follow. Please contact Infectious Disease for any questions or concerns. Ashley Wade M.D. Electronically signed by: Ashley Wade MD, 03/09/2025 History: The patients chart and medications were reviewed in detail and the patient was seen and examined (per transcript). History obtained from: not explicitly stated in transcript (appears to be from patient and chart review). Killian is an 79 y.o. female with a past medical history of COPD on chronic 2 L oxygen, CHF, insulin-dependent diabetes, hypertension, severe pulmonary hypertension, Non-Hodgkins lymphoma in remission since 1987, lung cancer status post right upper lobectomy in 2016, prior pulmonary embolism, chronic kidney disease, and liver cirrhosis. She presented with worsening shortness of breath for 3 days, requiring an increase in supplemental oxygen to 34 L without impr ovement. She also reports similar intermittent episodes of shortness of breath over the past year that sometimes resolve spontaneously. She denies fever. She has orthopnea when lying flat and 1+ bilateral lower extremity edema. She was admitted (since 02/18 per transcript) for CHF exacerbation with possible coexisting COPD exacerbation and possible viral pneumonia (influenza A/B and COVID-19 negative), with a low BNP and old echocardiogram showing EF 55% with severe pulmonary arterial hypertension. Workup revealed CLAUDIA on CKD and evidence of urosepsis. CT abdomen/pelvis showed moderate left hydronephrosis with a 5 mm obstructing proximal left ureteral stone, air in the left collecting system consistent with pyelonephritis. She developed left flank pain and was diagnosed with left-sided pyelonephritis and obstructive uropathy. A left nephrostomy tube was placed per urology. Subsequent imaging (nephrogram and renal ultrasound) showed successful nephrostomy placement and resolution of hydronephrosis. Initial blood cultures grew barboza-sensitive Citrobacter koseri. Repeat blood cultures obtained since 02/20 have remained negative for 5 days. Initial urine culture showed no growth to date; repeat urine culture showed >100,000 yeast. She has been treated with vancomycin and ceftriaxone initially, then transitioned to levofloxacin, and levofloxacin plus metronidazole (Flagyl) since 03/03. She continues to report variable pain (510/10), mainly in the lower back versus more generalized, but has no spinal tenderness on exam. CT abdomen/pelvis demonstrated endplate irregularity and degenerative disc disease at L5S1, raising some concern for possible spinal infection, though overall suspicion is low. Diarrhea is present and is suspected to be related to antibiotic therapy. She lives at home with family. She has a past history of smoking but no current tobacco use. She does not drink alcohol and denies other drug use. She is allergic to sulfa medications. Review of Systems: A complete 10-system review of systems was not fully documented in the transcript. Based on the transcript, the following were reported: -Constitutional: Denies fever (no additional constitutional symptoms documented). -HEENT: Not discussed in transcript. -Respiratory: Positive for shortness of breath and orthopnea. -Cardiovascular: Positive for lower extremity edema (1+ bilateral). Chest pain and palpitations not discussed. -Gastrointestinal: Positive for diarrhea (felt likely related to antibiotics). Nausea, vomiting, and abdominal pain not discussed. -Genitourinary: History of left flank pain associated with pyelonephritis and obstructing ureteral stone. Dysuria, frequency, or hematuria not discussed. -Musculoskeletal: Positive for variable pain 510/10, mainly lower back versus more generalized. -Skin: Not discussed. -Neurological: No focal deficits or syncope discussed; otherwise not detailed. -Psychiatric: Not discussed. All other systems: Not discussed in transcript beyond what is outlined above. Past Medical History: As documented in transcript: -COPD on chronic 2 L oxygen -Congestive heart failure (CHF) -Insulin-dependent diabetes mellitus -Hypertension -Severe pulmonary hypertension -Non-Hodgkins lymphoma in remission (since 1987) -Lung cancer, status post right upper lobectomy (2016) -Chronic kidney disease -Acute kidney injury (during this admission, improved) -History of pulmonary embolism -Liver cirrhosis (suggested by imaging, referenced as cirrhosis in transcript) -Urosepsis -Left-sided pyelonephritis -Obstructing proximal left ureteral stone with hydronephrosis -Citrobacter koseri bacteremia (barboza-sensitive) -Diarrhea likely antibiotic-associated Past Surgical History: From transcript: -Right upper lobectomy (2015) -Tonsillectomy (Left nephrostomy tube placement is a procedure performed during this hospitalization and is described under History and Lines.) Home Medications: (Names only; doses/routes/frequencies not provided in transcript unless specified.) -Insulin (type and dosing not specified) -Atorvastatin -Pantoprazole -Empagliflozin (transcribed as pagliflozin) -Levothyroxine -Albuterol -Ipratropium -Furosemide -Morphine Exact dosages, routes, and frequencies were not provided in the transcript. Allergies: -Sulfa (sulfonamide) medications Family History: -Family medical history: Not provided in transcript. -Lives at home with family (no further details). Social History: -Living situation: Lives at home with family. -Tobacco: History of smoking; no current tobacco use. -Alcohol: No alcohol use. -Illicit drugs: No other drug use reported. -Other social determinants of health: Not discussed in transcript. Objective: Vital Signs on Arrival (per transcript): -Temp: 98.1 F -Pulse: 63 bpm -BP: 103/60 mmHg -SpO?: 96% on 2 L/min nasal cannula -Respiratory rate: Not clearly documented in transcript Most Recent Vital Signs: -Most recent distinct set not provided beyond the values above in the transcript. Physical Exam: General: NAD Neck: Supple. No masses. HEENT: PERRL. Normal lids and conjunctiva. Moist mucous membranes. Oropharynx without lesions, exudates or excessive erythema. Normal appearance of the external aspects of the nose and ears. Heart: Regular rhythm, normal rate. No murmur. 1+ bilateral lower extremity edema. Lungs: Normal respiratory effort. Mildly reduced breath sounds with crackles bilaterally. No wheezes noted. Abdomen: Soft. Non-tender. Non-distended. No masses or abdominal hernia documented. Msk: No digital cyanosis. Normal strength and tone in all 4 limbs. No spinal tenderness over the L5S1 region. Skin: Warm and dry, no rashes documented. Neuro: Alert. No facial droop or slurred speech. Extra-ocular movements intact. Sensation intact to soft touch in all 4 limbs (no deficits reported). Psych: Appropriate mood. Full affect. Oriented to person, place, time, and situation (per default; no contradictions in transcript). Lines: -Left nephrostomy tube in place for obstructing left ureteral stone (functio ernestine, with resolution of hydronephrosis on follow-up imaging). -Other lines/catheters: Not specified in transcript. Diagnostic Studies: Available diagnostic studies were reviewed as described in the transcript. Significant results are summarized below and in the Assessment and Plan above. Laboratory Data (selected): (Exact dates not provided; values as reported in transcript.) -On/near admission: -WBC: 9.7 K/L -Hemoglobin: 9.3 g/dL -Platelets: 256 K/L -Sodium: 136 mmol/L -BUN: 38 mg/dL -Creatinine: 1.38 mg/dL -Most recent: -WBC: 10.3 K/L -Hemoglobin: 8.2 g/dL -Platelets: 595 K/L (noted thrombocytosis, rising trend) -Sodium: 137 mmol/L -BUN: 26 mg/dL -Creatinine: 0.90 mg/dL -BNP: described as low (exact value not provided). Microbiology: -Blood cultures (initial): -Growth of Citrobacter koseri, barboza-sensitive. -Repeat blood cultures (since 02/20): -Negative x5 days. -Urine culture (initial): -No growth to date. -Repeat urine culture: ->100,000 yeast (species not specified). Respiratory/viral testing: -Influenza A: negative -Influenza B: negative -COVID-19: negative Pertinent Imaging: -Chest X-ray (on admission): -Mild cardiomegaly with bilateral pulmonary vascular congestion. -CT Abdomen/Pelvis (initial, on admission): -Moderate left hydronephrosis. -5 mm obstructing stone in the proximal left ureter. -Air within the left collecting system consistent with left-sided pyelo nephritis. -Tiny bilateral pleural effusions. -Diffuse colonic distension with air-fluid levels, possibly representing ileus or diarrheal state. -Soft tissue density in the bladder, lateralized toward the left, indeterminate. -Nodular liver capsule morphology concerning for cirrhosis (correlate clinically). -Endplate irregularity and degenerative disc disease at L5S1, with some concern for infection; MRI lumbar spine with and without contrast suggested for further evaluation. -Left Nephrostomy Tube Placement (interventional radiology): -Left nephrostomy tube placed for obstructing left renal/ureteral stone and hydronephrosis (date during this hospitalization). -Nephrogram (postnephrostomy): -Demonstrated successful left nephrostomy tube placement. -Renal Ultrasound (after nephrostomy placement): -No hydronephrosis. -Normal sonographic appearance of both kidneys following nephrostomy tube placement. -Follow-up CT Abdomen/Pelvis (postnephrostomy): -Left nephrostomy tube appears positioned in the upper to mid calyx. -Moderate left hydronephrosis secondary to a proximal left ureteral calculus measuring approximately 12 mm (per transcript wording). -Other findings as above, including tiny pleural effusions, colonic distension, bladder soft tissue density, nodular liver contour, and L5S1 degenerative disc disease with possible concern for infection. No additional diagnostic studies were described in the transcript. Plan discussed with: Patient ASHLEY WADE MD Mar 08, 2025 22:00
[2025-03-09] VITALS (12 sets, daily range): BP systolic 133–156; BP diastolic 42–67; PULSE 75–83; RESP 16–22; TEMP 97.5–98; O2SAT 94–100
[2025-03-09 08:03] LABS: Hematocrit 25.2 % (36.0-46.0); Hemoglobin 8.1 g/dL (12.2-16.2); Mean Corpuscular Hemoglobin 27.4 pg (28.0-32.0); Mean Corpuscular Volume 85.0 fL (80.0-100.0); Nucleated Red Blood Cells % 0.0 %
[2025-03-09 08:43] LABS: Anion Gap 9 (5-15); Carbon Dioxide 25 mmol/L (20-31); Chloride 105 mmol/L (98-107); Potassium 4.1 mmol/L (3.5-5.1); Sodium 139 mmol/L (136-145)
[2025-03-09 08:44] LABS: Calcium 8.8 mg/dL (8.7-10.4)
[2025-03-09 08:49] LABS: BUN/Creatinine Ratio 25.3 (10.0-20.0); Blood Urea Nitrogen 21 mg/dL (9-23); Glucose 147 mg/dL (74-106)
[2025-03-09] MEDS ORDERED: FLUCONAZOLE 100 MG TAB PO SCH (10:00)
--- NOTE | 2025-03-09 11:19 | DVHPNRES ---
Progress Note Date Seen: Mar 09, 2025 Resident Creating Document: FINESSE VERMA RESIDENT Medical Necessity Reason Pt with a Central, PICC or Fol: No Subjective Review of Systems Brenda Daily is an 79-year-old female with past medical history of COPD on 2 L oxygen at home, CHF, insulin-dependent type 2 diabetes mellitus, hypertension, pulmonary artery hypertension, non-Hodgkin lymphoma in remission since 1987, lung cancer s/p right upper lobe resection in 2016 presented to the ED with the chief complaint of worsening shortness of breath for the last 3 days along with chills. The patient mentioned she tried to up titrate her oxygen at home, but that did not improve her shortness of breath. She mentioned she also had tightness in the chest along with a dry cough and lower extremity edema. She mentions having similar episodes of shortness of breath 3-4 times in the last 1 year. She denied any fever. Past medical history: COPD on 2 L oxygen at home, CHF, insulin-dependent type 2 diabetes mellitus, hypertension, pulmonary artery hypertension, non-Hodgkin lymphoma in remission since 1987, lung cancer s/p right upper lobe resection Past surgical history: right upper lobectomy in 2016, tonsillectomy Social & Personal history: Lives at home with family, she denies any smoking, alcohol and drugs Allergies: sulfa antibiotics Patient seen and examined at bedside. Patient is alert and oriented to time, place person and responding to all questions. Eyes: No Pain, No Vision change, No Conjunctivae inflammation, No Eyelid inflammation, No Redness ENT: No Ear pain, No Ear discharge, No Nose pain, No Nose discharge, No Nose congestion, No Mouth pain, No Mouth swelling, No Throat pain, No Throat swelling Cardiovascular: No Chest Pain, No Palpitations, Orthopnea, No Paroxysmal No Dyspnea, Edema, No Lt Headedness Respiratory: Cough, Dry, Shortness of breath, No SOB with exertion, No Wheezing, No Hemoptysis, No Pleuritic Pain, No Sputum Gastrointestinal: No Nausea, No Vomiting, No Abdominal Pain, No Diarrhea, No Constipation, No Melena, No Hematochezia Genitourinary: No Dysuria, No Frequency, No Incontinence, No Hematuria, No Retention 02/20/25- the patient was seen at bedside today. The patient complained of intense pain in the left flank radiating to the left groin area and mentioned of her history of kidney stones. Her white count had increased to 19.9 today and urinalysis was positive for UTI. Lactic acid was 1.5. She was started on meropenem and fluconazole for acute complicated cystitis. CT abdomen pelvis showed Moderate left-sided hydronephrosis with a 5 mm obstructing stone in the proximal left ureter. Urology consult was placed. Her potassium today was 3, which was repleted. We also ordered for blood culture and urine culture. We also started her on morphine 2 mg q.12 p.r.n. for severe pain and Garvin 5q4 p.r.n.. EKG was done which was normal. A consult for Dr. Ogden was also placed as he is her PCP. Bedside pocus was done which showed a dilated IVC. 02/21/25- The patient was seen at bedside today. White count today was 34.8. Lactic acid was 1.3. Patient looked tachypneic. Blood culture showed Gram- negative rods. The patient was started on vancomycin per pharmacy. IR placed left nephrostomy tube without any complications. 02/22/25- The patient was seen at bedside today. White count today was 27.2. Patient is breathing comfortably on 2L oxygen by nasal canula. Patient complained of intense pain in her back as she has severe degenerative disc disease, for which she was given 1 dose of morphine 2 mg and started on dilaudid 1mg q4 prn. Left nephrostomy tube is in place with minimal drainage and no discharge or redness around the site. Creatinine improved from 2.19 to 2.02 today. Patient started on gabapentin 400 mg t.i.d. for neuropathy. She was started on MiraLax 17 g p.o. b.i.d. for constipation. 02/23/25- The patient seen at bedside today. She complained of pain in her lower abdomen. She was given 1 time dose of IV mannitol and started on Flomax 0.4 mg PO HS. Order to strain all urine was placed. Patient was started on Senokot q.h.s. and MiraLax p.r.n. for constipation. Repeat blood cultures were ordered. IV antibiotics were changed to IV ceftriaxone 1 g daily. Physical therapy evaluation was requested for the patient. Urology was consulted and they recommended outpatient follow-up in 3-4 weeks once patient is stable for discharge. 02/24/25- Patient still complains of intermittent flank pain presumably from nephrostomy tube site with a renal stone. Patient continued to take IV Dilaudid. Patient is with a poor ambulatory status. Her leukocytosis has significantly improved. 02/25/25- Patient still complains of intermittent flank pain. Physical therapy recommended placement in SNF for the patient, which she refused. We will continue to try working with physical therapy to try and get her out of bed into a chair. For pain medication was changed to tramadol 100 mg p.o. q.6 hours Dilaudid 1 mg IV q.6 hours. 02/26/25- patient was seen at bedside today. She continues to complain of abdominal pain. White count today was 12.6. Urine analysis and urine culture was ordered. KUB and x-ray of lumbar spine were ordered. Dr Ogden, who is her PCP and is also following up regularly, continued ceftriaxone and started her on levofloxacin and vancomycin per pharmacy. Patient was encouraged to continue working with physical therapy and try to get out of bed into a chair today. 02/27/25- the patient was seen at bedside today. Repeat CT abdomen/pelvis was done today, which was unremarkable. White count today was 16.6. Lactic acid today was 0.7. An Infectious Disease consult was requested, as the white count is trending up again. Patient was encouraged to work with physical therapy. A detailed discussion was held with the patient and family, and our recommendation of sending the patient was SNF on discharge was discussed and they agreed with the same. 02/28/25- the patient was seen at bedside today. The patient started having rosalee bleeding from the nephrostomy tube last night, Lovenox was stopped. The patient was also having rosalee hematuria from the urethra. Her hemoglobin this morning was 9.1 and repeat in the evening was 8.7. Repeat IR consult was placed for evaluation of the nephrostomy tube. Repeat CT abdomen/pelvis was ordered. 03/01/25- the patient was seen at bedside today. CT abdomen/pelvis was ordered for the patient yesterday to evaluate for bleeding from the nephrostomy tube and urethra, but the patient refused CT yesterday and this morning. The patient's family requested for transfer to [facility], a hospice social worker request for facilitating the lateral transfer per the family request was placed. The patient and family were explained at length about the evaluation and the need for the CT today and they demonstrated understanding of the same. Renal ultrasound was done which showed echogenic debris in the dependent portion of the bladder measuring 4.6 x 2.7 by 9.7 cm. KUB showed left-sided nephrostomy tube in place and nonobstructive bowel gas pattern. Urology was consulted and they recommended IR evaluation for possible replacement of nephrostomy tube and [place] if patient is unable to void. 03/02/25- was seen and evaluated at bedside. The patient complained of multiple episodes of diarrhea, for which he was started on Imodium 2 mg p.o. q.6 p.r.n. for diarrhea. Discussion held with her regarding IR evaluation and if Nephrostomy tube intact and hematuria improve, anticipate to DC home. Patient however, adamant that she want to transfer to [facility], where her urologist there. CM already consulted for lateral transfer per patient request. No answer from [facility] yet. 03/03/25- patient was seen and evaluated at bedside today. [facility] mentioned and no longer accepting lateral transfers. This was communicated to the patient and she mentioned that her network coordinator at that hospital we will send paperwork to facilitate the transfer. Bedside bladder scan was done which revealed postvoid urine volume of 41 mL. Bedside pocus was done, showed more than 50% compressibility of IVC with size of 1.9 cm. 500 cc bolus of NS was given. Nephrology was consulted for up trending creatinine. The patient was started on IV Flagyl. All updates were shared with the patient, her son and daughter and all their questions and concerns were addressed. 03/04/25- patient was seen and evaluated at bedside today. CT abdomen/pelvis done today revealed that the left nephrostomy tube is in place and moderate left hydroureteronephrosis. There was collection of dark yellow urine in the nephrostomy bag, which could be due to dehydration. Patient was given a 250 cc bolus of NS 250ml. The catheter was inserted for strict I&Os and urine studies. Hydrochlorothiazide dose was reduced to 12.5 mg p.o. b.i.d. 03/05/25- patient was seen at bedside today. FENA was calculated to be 0.3%, prerenal cause of the CLAUDIA. The patient had fever spikes of 101.8 and 100.4 overnight, she was given 500 cc bolus of NS will be continued on levofloxacin 250 mg IV daily and Flagyl. Nephrology evaluated the patient and started her on low-dose of dobutamine. 03/06/25- patient was seen at bedside today. Her hemoglobin today was 6.9, so she was given 1 transfusion of PRBCs, repeat H and H showed hemoglobin of 7.9 in the evening. 03/07/25- the patient was seen at bedside today. No new complaints. Hemoglobin is stable at 7.8. Pending repeat urine culture report. No fever spikes. 03/08/25- patient was seen at bedside today. No new complaints. Hemoglobin is 8.2. Creatinine level is back to normal today. Recent urinalysis showed high burden of yeast, so she was started on fluconazole 200 mg p.o. daily. She was encouraged to participate with physical therapy. Possible discharge tomorrow if patient is clinically stable. 03/09/25- patient was seen at bedside today. New complaints. All her clinicals have been faxed to [facility]. Dr Kenroy Wade evaluated the patient yesterday discontinued the levofloxacin, all and Flagyl, and started her on ceftriaxone 2 g IV daily. Lumbar spine MRI was also ordered to rule out possible osteomyelitis. Flexeril 5 mg b.i.d. was added. Objective vital signs Vital Sign Date Time Temp Pulse Resp B/P (MAP) Pulse Ox O2 Delivery O2 Flow Rate FiO2 03/09/25 09:47 78 17 133/50 03/09/25 09:22 100 03/09/25 09:16 Nasal Cannula 2.0 03/09/25 09:16 28 03/09/25 09:00 97.9 97.9 Total Intake and Output 03/08/25 03/08/25 03/09/25 15:00 23:00 07:00 Intake Total 50 ml 680 ml 400 ml Output Total 600 ml 350 ml Balance 50 ml 80 ml 50 ml medications Current Medications Medications Dose Ordered Sig/Layo Route Start Time Stop Time Status Last Admin Dose Admin Morphine Sulfate 2 mg Q30M PRN IV 02/18/25 19:45 Cancel Acetaminophen 650 mg Q6HP PRN PO 02/18/25 19:45 03/09/25 01:56 650 MG Levothyroxine Sodium 75 mcg QAM@0600 PO 02/19/25 06:00 03/09/25 06:02 75 MCG Pantoprazole Sodium 40 mg DAILY@0600 PO 02/19/25 06:00 03/09/25 06:02 40 MG Atorvastatin Calcium 40 mg HS PO 02/18/25 22:00 03/08/25 21:32 40 MG Patient Own Medication 1 DAILY PO 02/19/25 10:00 03/05/25 10:00 1 Gabapentin 400 mg BID PO 02/22/25 22:00 03/09/25 09:46 400 MG Tamsulosin HCl 0.4 mg QPM PO 02/23/25 18:00 03/08/25 18:40 0.4 MG Vancomycin HCl 250 ml @ 166.667 mls/hr Q24H IV 02/27/25 13:00 UNV Duloxetine HCl 60 mg DAILY PO 03/01/25 10:00 03/09/25 09:46 60 MG Loperamide HCl 2 mg DAILY PRN PO 03/03/25 19:30 03/07/25 22:16 2 MG Insulin Glargine 15 units HS SC 03/04/25 22:00 03/08/25 21:33 15 UNITS Diagnostic Test (Pha) 1 strip ACHS 03/04/25 17:00 03/09/25 06:02 1 STRIP Insulin Human Regular AC SC 03/04/25 17:00 03/09/25 06:03 2 UNITS Dextrose 50 ml UD PRN IV 03/04/25 16:00 Hydromorphone HCl 1 mg Q4HP PRN IV 03/04/25 17:30 03/09/25 09:47 1 MG Saccharomyces Boulardii 250 mg BID PO 03/06/25 10:00 03/09/25 09:46 250 MG Albuterol 2.5 mg Q12HR NEB 03/07/25 22:00 03/09/25 09:16 2.5 MG Ipratropium [place] 0.5 mg Q12HR NEB 03/07/25 22:00 03/09/25 09:16 0.5 MG Fluconazole 200 mg DAILY PO 03/09/25 10:00 Cancel Levofloxacin/ Dextrose 100 ml @ 100 mls/hr DAILY IV 03/09/25 10:00 Cancel Ceftriaxone Sodium/Dextrose 50 ml @ 50 mls/hr DAILY IV 03/09/25 10:00 03/09/25 09:45 50 MLS/HR Examination General Appearance: Cooperative. Well developed. Well nourished. Left nephrostomy tube in place with no discharge or erythema, with dark yellow urine. She is currently on 2 L oxygen via nasal cannula. Head Exam: Normal inspection Neck Exam: Normal inspection. Non-tender. Normal alignment Pulmonary/Respiratory: Chest non-tender. mildly reduced breath sounds bilaterally Cardiovascular/Chest: Regular rate and rhythm. No murmurs. No JVD. Peripheral Pulses: 2+ Radial (R). 2+ Radial (L). 2+ Pedal (R). 2+ Pedal (L) Abdominal Exam: Normal bowel sounds. Soft. normal abdomen, no visible veins, tenderness in left flank, No hepatospenomegaly. No masses Lower extremities: 1+ bilateral lower extremity pitting edema Neuro/Mental Status: A&O x4. Coherent. Thoughts/Psych: Normal thought pattern. Appropriate mood and affect. Good judgement and insight Skin Exam: Normal inspection. Normal color. Warm. Dry laboratory and microbiology Laboratory Tests 03/09/25 06:12 Test 03/09/25 06:12 Range/Units Serum Glucose 147 H 74-106 mg/dL Microbiology Date/Time Source Procedure Growth Status 03/06/25 17:15 Urine - [place] Urine Culture - Preliminary Resulted 02/23/25 13:34 Blood Blood Culture - Final NO GROWTH AFTER 5 DAYS OF INCUBATION. Complete 02/21/25 09:30 Nose MRSA Screen - Final Complete Labs and/or images reviewed: Labs reviewed by me, Image(s) reviewed by me Problem List/Assessment/Plan Problem List/Assessment/Plan # Acute on chronic hypoxic respiratory failure # Acute on chronic HFpEF # Possible COPD exacerbation with possible viral pneumonia # History of PE -Chest xray - Cardiomegaly and Pulmonary vascular congestion -old Echo 01/04- EF >55%, severe PAH -BNP 152.10 -covid, influenza negative -albuterol and ipratropium mednebs every 6 hours # Acute complicated cystitis # Acute left hydronephrosis s/p left nephrostomy tube placement # Acute left pyelonephritis # Hematuria, resolved # left obstructive ureteral stone -UA positive for UTI, UA ordered on 02/26/2025, repeat urine culture > [id number] CFU, mixed aleksandar -abdomen CT pelvis showed a 5 mm obstructive stone in the left ureter with moderate left hydronephrosis -urology consult-left nephrostomy tube placement, outpatient follow-up in 3-4 weeks -blood culture Gram-negative rods 02/20/25, repeat blood culture on 02/23/25- no growth after 5 days -strain all urine -Flomax 0.4 mg q.p.m. p.o. -infectious diseases on board- started ceftriaxone 2gm IV daily on 03/09/25 -bleeding from nephrostomy tube and urethra,now resolved -Renal US- echogenic debris in the dependent portion of the bladder measuring 4.6 x 2.7 by 9.7 cm -CT abdomen left nephrostomy tube in place # CLAUDIA on CKD, likely due to VMN, now resolved -avoid nephrotoxic agents -monitor BMP -urine studies revealed FeNa 0.3%- prerenal cause of CLAUDIA -nephrology on board # Uncontrolled type 2 diabetes mellitus with hyperglycemia -HbA1c is 8 -Moderate insulin sliding scale a.c. HS -lantus 15 units qam # Chronic back pain, multilevel degenerative disc disease # Rule out vertebral osteomyelitis - gabapentin 400 mg p.o. t.i.d. - physical therapy on board - duloxetine 60 mg daily, flexeril 5mg bid po - ordered lumbar spine MRI # Chronic hypochromic normocytic anemia s/p 1 prbc -monitor H&H -stool occult blood ordered -transfuse if hemoglobin less than 7 -hemoglobin today 8.1 # Mild transmnitis # Hypothyroidism - Continue on levothyroxine 75 mcg # GERD - Continue on protonix 40 mg daily po # Hypokalemia -repleted # Acute diarrhea, likely viral -Florastor 250 mg p.o. b.i.d. PUD prophylaxis: Protonix 40 mg DVT prophylaxis: lovenox 110mg q12 hr sc, discontinued due to hematuria Goals of care discussed with the patient for over 18 minutes, no intubation Plan discussed with Dr. Mckeon Plan discussed with: Other Dietary Evaluation Review Comments: Nutrition Recommendation: 1) Glucerna 240ml BID 2) Monitor PO intake, lab values, weight trend, and I/O Expected Outcomes/Goals: Intake to meet >75% estimated needs FU 3-5 days Visit Coding STANDARD RES Billing Provider: MARIBEL MCKEON MD Date of Service if different f: Mar 09, 2025 Common Visit Codes: [id number] INP/OBS CARE(HIGH) FINESSE VERMA RESIDENT Mar 09, 2025 11:19
--- NOTE | 2025-03-09 16:34 | DVH ---
EXAM: XY CHEST XRAY 1 VIEW HISTORY: f/u rt pleural effusion TECHNIQUE: 1 view of the chest COMPARISON: XY CHEST XRAY 1 VIEW on DOS: 03/05/25 FINDINGS/IMPRESSION: LUNGS: Peripheral interstitial edema with central pulmonary vascular congestion. Small right-sided pleural effusion. MEDIASTINUM: Unremarkable. BONES: No acute osseous abnormality. OTHER: None.
[2025-03-09] MEDS: CYCLOBENZAPRINE HCL 10 MG TAB PO SCH (17:37)
[2025-03-09] MEDS: ENOXAPARIN SOD 40 MG/0.4 ML SYRINGE SC ONE (17:37)
[2025-03-09] MEDS: HYDROmorphone HCL 2 MG/ML VL/or syr IV ONE (21:56)
--- NOTE | 2025-03-09 23:02 | DVHPN2 ---
Consult Progress Note Objective vital signs Vital Sign Date Time Temp Pulse Resp B/P (MAP) Pulse Ox O2 Delivery O2 Flow Rate FiO2 03/09/25 21:56 83 18 135/61 03/09/25 21:00 97.8 96 97.8 03/09/25 18:57 Nasal Cannula 3.0 03/09/25 18:57 32 Total Intake and Output 03/08/25 03/08/25 03/09/25 15:00 23:00 07:00 Intake Total 50 ml 680 ml 400 ml Output Total 600 ml 350 ml Balance 50 ml 80 ml 50 ml medications Current Medications Medications Dose Ordered Sig/Layo Route Start Time Stop Time Status Last Admin Dose Admin Morphine Sulfate 2 mg Q30M PRN IV 02/18/25 19:45 Cancel Acetaminophen 650 mg Q6HP PRN PO 02/18/25 19:45 03/09/25 01:56 650 MG Levothyroxine Sodium 75 mcg QAM@0600 PO 02/19/25 06:00 03/09/25 06:02 75 MCG Pantoprazole Sodium 40 mg DAILY@0600 PO 02/19/25 06:00 03/09/25 06:02 40 MG Atorvastatin Calcium 40 mg HS PO 02/18/25 22:00 03/09/25 22:16 40 MG Patient Own Medication 1 DAILY PO 02/19/25 10:00 03/05/25 10:00 1 Gabapentin 400 mg BID PO 02/22/25 22:00 03/09/25 22:16 400 MG Tamsulosin HCl 0.4 mg QPM PO 02/23/25 18:00 03/09/25 17:37 0.4 MG Vancomycin HCl 250 ml @ 166.667 mls/hr Q24H IV 02/27/25 13:00 UNV Duloxetine HCl 60 mg DAILY PO 03/01/25 10:00 03/09/25 09:46 60 MG Loperamide HCl 2 mg DAILY PRN PO 03/03/25 19:30 03/07/25 22:16 2 MG Insulin Glargine 15 units HS SC 03/04/25 22:00 03/09/25 22:27 15 UNITS Diagnostic Test (Pha) 1 strip ACHS 03/04/25 17:00 03/09/25 22:19 1 STRIP Insulin Human Regular AC SC 03/04/25 17:00 03/09/25 17:38 2 UNITS Dextrose 50 ml UD PRN IV 03/04/25 16:00 Saccharomyces Boulardii 250 mg BID PO 03/06/25 10:00 03/09/25 22:16 250 MG Albuterol 2.5 mg Q12HR NEB 03/07/25 22:00 03/09/25 09:16 2.5 MG Ipratropium [place] 0.5 mg Q12HR NEB 03/07/25 22:00 03/09/25 09:16 0.5 MG Fluconazole 200 mg DAILY PO 03/09/25 10:00 Cancel Levofloxacin/ Dextrose 100 ml @ 100 mls/hr DAILY IV 03/09/25 10:00 Cancel Ceftriaxone Sodium/Dextrose 50 ml @ 50 mls/hr DAILY IV 03/09/25 10:00 03/09/25 09:45 50 MLS/HR Enoxaparin Sodium 40 mg DAILY SC 03/10/25 10:00 Ferrous Sulfate 325 mg EOD PO 03/11/25 10:00 Cyclobenzaprine HCl 5 mg BID PO 03/09/25 22:00 03/09/25 17:37 5 MG Acetaminophen/ Hydrocodone Bitart 1 tab Q6HPRN PRN PO 03/09/25 21:15 laboratory and microbiology Laboratory Tests 03/09/25 06:12 Test 03/09/25 06:12 Range/Units Serum Glucose 147 H 74-106 mg/dL Dietary Evaluation Review Comments: Nutrition Recommendation: 1) Glucerna 240ml BID 2) Monitor PO intake, lab values, weight trend, and I/O Expected Outcomes/Goals: Intake to meet >75% estimated needs FU 3-5 days ASHLEY HAMM MD Mar 09, 2025 23:02
[2025-03-10] VITALS (12 sets, daily range): BP systolic 121–148; BP diastolic 47–77; PULSE 72–82; RESP 16–18; TEMP 97.4–97.9; O2SAT 86–100
[2025-03-10] MEDS: HYDROcodone-ACET 5/325MG TAB PO PRN (05:29)
[2025-03-10 07:13] LABS: Hematocrit 26.4 % (36.0-46.0); Hemoglobin 8.7 g/dL (12.2-16.2); Mean Corpuscular Hemoglobin 28.1 pg (28.0-32.0); Mean Corpuscular Volume 85.1 fL (80.0-100.0); Nucleated Red Blood Cells % 0.1 %
[2025-03-10 07:19] LABS: Anion Gap 10 (5-15); Calcium 8.9 mg/dL (8.7-10.4); Carbon Dioxide 24 mmol/L (20-31); Chloride 106 mmol/L (98-107); Potassium 4.0 mmol/L (3.5-5.1); Sodium 140 mmol/L (136-145)
[2025-03-10 07:25] LABS: BUN/Creatinine Ratio 21.3 (10.0-20.0); Blood Urea Nitrogen 16 mg/dL (9-23)
[2025-03-10 07:27] LABS: Glucose 126 mg/dL (74-106)
[2025-03-10] MEDS: ENOXAPARIN SOD 40 MG/0.4 ML SYRINGE SC SCH (10:19)
--- NOTE | 2025-03-10 10:22 | DVHPN2 ---
Progress Note - Dictate Date Seen: Mar 10, 2025 Medical Necessity Reason Pt with a Central, PICC or Fol: No Subjective PT WITH SEVERE FLANK PAIN AND SOB OBSTRUCTIVE RENAL CALCULUS HYDRONEPHROSIS UTI S/P NEPHROSTOMY RENAL COLIC HEMATURIA LEUKOCYTOSIS PMH ORGANIC HD HF HTN DIABETES VASCULOPATHY NEPHROPATHY PAH NON HODGKIN LYMPHOMA LUNG CA S/P RIGHT UPPER LOBECTOMY vital signs Vital Sign Date Time Temp Pulse Resp B/P (MAP) Pulse Ox O2 Delivery O2 Flow Rate FiO2 03/10/25 06:07 77 16 100 03/10/25 06:01 Nasal Cannula* 2 28 03/10/25 05:00 97.7 128/47 (74) 97.7 Total Intake and Output 03/09/25 03/09/25 03/10/25 15:00 23:00 07:00 Intake Total 450 ml 250 ml Output Total 600 ml 770 ml Balance -150 ml -520 ml medications Current Medications Medications Dose Ordered Sig/Layo Route Start Time Stop Time Status Last Admin Dose Admin Morphine Sulfate 2 mg Q30M PRN IV 02/18/25 19:45 Cancel Acetaminophen 650 mg Q6HP PRN PO 02/18/25 19:45 03/09/25 01:56 650 MG Levothyroxine Sodium 75 mcg QAM@0600 PO 02/19/25 06:00 03/10/25 05:28 75 MCG Pantoprazole Sodium 40 mg DAILY@0600 PO 02/19/25 06:00 03/10/25 05:28 40 MG Atorvastatin Calcium 40 mg HS PO 02/18/25 22:00 03/09/25 22:16 40 MG Patient Own Medication 1 DAILY PO 02/19/25 10:00 03/05/25 10:00 1 Gabapentin 400 mg BID PO 02/22/25 22:00 03/09/25 22:16 400 MG Tamsulosin HCl 0.4 mg QPM PO 02/23/25 18:00 03/09/25 17:37 0.4 MG Vancomycin HCl 250 ml @ 166.667 mls/hr Q24H IV 02/27/25 13:00 UNV Duloxetine HCl 60 mg DAILY PO 03/01/25 10:00 03/09/25 09:46 60 MG Loperamide HCl 2 mg DAILY PRN PO 03/03/25 19:30 03/10/25 05:30 2 MG Insulin Glargine 15 units HS SC 03/04/25 22:00 03/09/25 22:27 15 UNITS Diagnostic Test (Pha) 1 strip ACHS 03/04/25 17:00 03/10/25 05:38 1 STRIP Insulin Human Regular AC SC 03/04/25 17:00 03/10/25 05:41 2 UNITS Dextrose 50 ml UD PRN IV 03/04/25 16:00 Saccharomyces Boulardii 250 mg BID PO 03/06/25 10:00 03/09/25 22:16 250 MG Albuterol 2.5 mg Q12HR NEB 03/07/25 22:00 03/10/25 06:01 2.5 MG Ipratropium [place] 0.5 mg Q12HR NEB 03/07/25 22:00 03/10/25 06:01 0.5 MG Fluconazole 200 mg DAILY PO 03/09/25 10:00 Cancel Levofloxacin/ Dextrose 100 ml @ 100 mls/hr DAILY IV 03/09/25 10:00 Cancel Ceftriaxone Sodium/Dextrose 50 ml @ 50 mls/hr DAILY IV 03/09/25 10:00 03/09/25 09:45 50 MLS/HR Enoxaparin Sodium 40 mg DAILY SC 03/10/25 10:00 Ferrous Sulfate 325 mg EOD PO 03/11/25 10:00 Cyclobenzaprine HCl 5 mg BID PO 03/09/25 22:00 03/09/25 17:37 5 MG Acetaminophen/ Hydrocodone Bitart 1 tab Q6HPRN PRN PO 03/09/25 21:15 03/10/25 05:29 1 TAB laboratory and microbiology Laboratory Tests 03/10/25 04:53 Test 03/10/25 04:53 Range/Units Serum Glucose 126 H 74-106 mg/dL Problem List SEVERE FLANK PAIN AND SOB OBSTRUCTIVE RENAL CALCULUS HYDRONEPHROSIS UTI S/P NEPHROSTOMY RENAL COLIC HEMATURIA LEUKOCYTOSIS ACUTE RENAL INSUFF PMH ORGANIC HD HF HTN DIABETES VASCULOPATHY NEPHROPATHY PAH NON HODGKIN LYMPHOMA LUNG CA S/P RIGHT UPPER LOBECTOMY Assessment/Plan NEPHROSTOMY CARE IV ABC ECHO EF >55% ANISH SEVERE TR SEVERE PAH LEUKOCYTOSIS RESOLVED RENAL INSUFF RESOLVED PT STILL WITH SEVERE FLANK AND SPINE PAIN CT OF ABD PELVIS UA CHANGE ABX SINCE INCREASE IN WBC STARTED LEVAQUIN VANCOMYCIN CT OF ABD PELVIS UNREMARKABLE LEUKOCYTOSIS RESOLVED STILL WITH SEVERE ANEMIA CHECK RETIC IRON STUDIES IRON REPLACEMENT EPOGEN PT IS MALINGERING NEEDS TO BE OFF PAIN THERAPY AND REQUIRES,REHAB RENAL FUNCTION NOW BASELINE H/H STABLE UA NEGATIVE MAY DC TO REHAB COURSE OF ACTION BY UROLOGY? PT WITH PERSISTENT PYURIA CONSIDER CHANGE IN UROSTOMY REVIEWED LABS: WBC, MCV, AND MCH ARE NORMAL Dietary Evaluation Review Comments: Nutrition Recommendation: 1) Glucerna 240ml BID 2) Monitor PO intake, lab values, weight trend, and I/O Expected Outcomes/Goals: Intake to meet >75% estimated needs FU 3-5 days Plan discussed with: Patient, Son GLADYS BENSON MD Mar 10, 2025 10:22
--- NOTE | 2025-03-10 13:31 | DVHPNRES ---
Progress Note Date Seen: Mar 10, 2025 Resident Creating Document: ANGUS OSPINA RESIDENT Medical Necessity Reason Pt with a Central, PICC or Fol: No Subjective Review of Systems Brenda Daily is an 79-year-old female with past medical history of COPD on 2 L oxygen at home, CHF, insulin-dependent type 2 diabetes mellitus, hypertension, pulmonary artery hypertension, non-Hodgkin lymphoma in remission since 1987, lung cancer s/p right upper lobe resection in 2016 presented to the ED with the chief complaint of worsening shortness of breath for the last 3 days along with chills. The patient mentioned she tried to up titrate her oxygen at home, but that did not improve her shortness of breath. She mentioned she also had tightness in the chest along with a dry cough and lower extremity edema. She mentions having similar episodes of shortness of breath 3-4 times in the last 1 year. She denied any fever. Past medical history: COPD on 2 L oxygen at home, CHF, insulin-dependent type 2 diabetes mellitus, hypertension, pulmonary artery hypertension, non-Hodgkin lymphoma in remission since 1987, lung cancer s/p right upper lobe resection Past surgical history: right upper lobectomy in 2016, tonsillectomy Social & Personal history: Lives at home with family, she denies any smoking, alcohol and drugs Allergies: sulfa antibiotics Patient seen and examined at bedside. Patient is alert and oriented to time, place person and responding to all questions. Eyes: No Pain, No Vision change, No Conjunctivae inflammation, No Eyelid inflammation, No Redness ENT: No Ear pain, No Ear discharge, No Nose pain, No Nose discharge, No Nose congestion, No Mouth pain, No Mouth swelling, No Throat pain, No Throat swelling Cardiovascular: No Chest Pain, No Palpitations, Orthopnea, No Paroxysmal No Dyspnea, Edema, No Lt Headedness Respiratory: Cough, Dry, Shortness of breath, No SOB with exertion, No Wheezing, No Hemoptysis, No Pleuritic Pain, No Sputum Gastrointestinal: No Nausea, No Vomiting, No Abdominal Pain, No Diarrhea, No Constipation, No Melena, No Hematochezia Genitourinary: No Dysuria, No Frequency, No Incontinence, No Hematuria, No Retention 02/20/25- the patient was seen at bedside today. The patient complained of intense pain in the left flank radiating to the left groin area and mentioned of her history of kidney stones. Her white count had increased to 19.9 today and urinalysis was positive for UTI. Lactic acid was 1.5. She was started on meropenem and fluconazole for acute complicated cystitis. CT abdomen pelvis showed Moderate left-sided hydronephrosis with a 5 mm obstructing stone in the proximal left ureter. Urology consult was placed. Her potassium today was 3, which was repleted. We also ordered for blood culture and urine culture. We also started her on morphine 2 mg q.12 p.r.n. for severe pain and [place] 5q4 p.r.n.. EKG was done which was normal. A consult for Dr. Ogden was also placed as he is her PCP. Bedside pocus was done which showed a dilated IVC. 02/21/25- The patient was seen at bedside today. White count today was 34.8. Lactic acid was 1.3. Patient looked tachypneic. Blood culture showed Gram- negative rods. The patient was started on vancomycin per pharmacy. IR placed left nephrostomy tube without any complications. 02/22/25- The patient was seen at bedside today. White count today was 27.2. Patient is breathing comfortably on 2L oxygen by nasal canula. Patient complained of intense pain in her back as she has severe degenerative disc disease, for which she was given 1 dose of morphine 2 mg and started on dilaudid 1mg q4 prn. Left nephrostomy tube is in place with minimal drainage and no discharge or redness around the site. Creatinine improved from 2.19 to 2.02 today. Patient started on gabapentin 400 mg t.i.d. for neuropathy. She was started on MiraLax 17 g p.o. b.i.d. for constipation. 02/23/25- The patient seen at bedside today. She complained of pain in her lower abdomen. She was given 1 time dose of IV mannitol and started on Flomax 0.4 mg PO HS. Order to strain all urine was placed. Patient was started on Senokot q.h.s. and MiraLax p.r.n. for constipation. Repeat blood cultures were ordered. IV antibiotics were changed to IV ceftriaxone 1 g daily. Physical therapy evaluation was requested for the patient. Urology was consulted and they recommended outpatient follow-up in 3-4 weeks once patient is stable for discharge. 02/24/25- Patient still complains of intermittent flank pain presumably from nephrostomy tube site with a renal stone. Patient continued to take IV Dilaudid. Patient is with a poor ambulatory status. Her leukocytosis has significantly improved. 02/25/25- Patient still complains of intermittent flank pain. Physical therapy recommended placement in SNF for the patient, which she refused. We will continue to try working with physical therapy to try and get her out of bed into a chair. For pain medication was changed to tramadol 100 mg p.o. q.6 hours Dilaudid 1 mg IV q.6 hours. 02/26/25- patient was seen at bedside today. She continues to complain of abdominal pain. White count today was 12.6. Urine analysis and urine culture was ordered. KUB and x-ray of lumbar spine were ordered. Dr Ogden, who is her PCP and is also following up regularly, continued ceftriaxone and started her on levofloxacin and vancomycin per pharmacy. Patient was encouraged to continue working with physical therapy and try to get out of bed into a chair today. 02/27/25- the patient was seen at bedside today. Repeat CT abdomen/pelvis was done today, which was unremarkable. White count today was 16.6. Lactic acid today was 0.7. An Infectious Disease consult was requested, as the white count is trending up again. Patient was encouraged to work with physical therapy. A detailed discussion was held with the patient and family, and our recommendation of sending the patient was SNF on discharge was discussed and they agreed with the same. 02/28/25- the patient was seen at bedside today. The patient started having rosalee bleeding from the nephrostomy tube last night, Lovenox was stopped. The patient was also having rosalee hematuria from the urethra. Her hemoglobin this morning was 9.1 and repeat in the evening was 8.7. Repeat IR consult was placed for evaluation of the nephrostomy tube. Repeat CT abdomen/pelvis was ordered. 03/01/25- the patient was seen at bedside today. CT abdomen/pelvis was ordered for the patient yesterday to evaluate for bleeding from the nephrostomy tube and urethra, but the patient refused CT yesterday and this morning. The patient's family requested for transfer to [facility], a social welfare clerk request for facilitating the lateral transfer per the family request was placed. The patient and family were explained at length about the evaluation and the need for the CT today and they demonstrated understanding of the same. Renal ultrasound was done which showed echogenic debris in the dependent portion of the bladder measuring 4.6 x 2.7 by 9.7 cm. KUB showed left-sided nephrostomy tube in place and nonobstructive bowel gas pattern. Urology was consulted and they recommended IR evaluation for possible replacement of nephrostomy tube and [place] if patient is unable to void. 03/02/25- was seen and evaluated at bedside. The patient complained of multiple episodes of diarrhea, for which he was started on Imodium 2 mg p.o. q.6 p.r.n. for diarrhea. Discussion held with her regarding IR evaluation and if Nephrostomy tube intact and hematuria improve, anticipate to DC home. Patient however, adamant that she want to transfer to [facility], where her urologist there. CM already consulted for lateral transfer per patient request. No answer from [facility] yet. 03/03/25- patient was seen and evaluated at bedside today. [facility] mentioned and no longer accepting lateral transfers. This was communicated to the patient and she mentioned that her chocolate production machine operator at that hospital we will send paperwork to facilitate the transfer. Bedside bladder scan was done which revealed postvoid urine volume of 41 mL. Bedside pocus was done, showed more than 50% compressibility of IVC with size of 1.9 cm. 500 cc bolus of NS was given. Nephrology was consulted for up trending creatinine. The patient was started on IV Flagyl. All updates were shared with the patient, her son and daughter and all their questions and concerns were addressed. 03/04/25- patient was seen and evaluated at bedside today. CT abdomen/pelvis done today revealed that the left nephrostomy tube is in place and moderate left hydroureteronephrosis. There was collection of dark yellow urine in the nephrostomy bag, which could be due to dehydration. Patient was given a 250 cc bolus of NS 250ml. The catheter was inserted for strict I&Os and urine studies. Hydrochlorothiazide dose was reduced to 12.5 mg p.o. b.i.d. 03/05/25- patient was seen at bedside today. FENA was calculated to be 0.3%, prerenal cause of the CLAUDIA. The patient had fever spikes of 101.8 and 100.4 overnight, she was given 500 cc bolus of NS will be continued on levofloxacin 250 mg IV daily and Flagyl. Nephrology evaluated the patient and started her on low-dose of dobutamine. 03/06/25- patient was seen at bedside today. Her hemoglobin today was 6.9, so she was given 1 transfusion of PRBCs, repeat H and H showed hemoglobin of 7.9 in the evening. 03/07/25- the patient was seen at bedside today. No new complaints. Hemoglobin is stable at 7.8. Pending repeat urine culture report. No fever spikes. 03/08/25- patient was seen at bedside today. No new complaints. Hemoglobin is 8.2. Creatinine level is back to normal today. Recent urinalysis showed high burden of yeast, so she was started on fluconazole 200 mg p.o. daily. She was encouraged to participate with physical therapy. Possible discharge tomorrow if patient is clinically stable. 03/09/25- patient was seen at bedside today. New complaints. All her clinicals have been faxed to [facility]. Dr Kenroy Wade evaluated the patient yesterday discontinued the levofloxacin, all and Flagyl, and started her on ceftriaxone 2 g IV daily. Lumbar spine MRI was also ordered to rule out possible osteomyelitis. Flexeril 5 mg b.i.d. was added. 03/10/2025: Patient seen at bedside. patient complaining of 10/10 back pain, has nausea but denies any vomiting. Patient states that she is claustrophobic and has refused lumbar spine MRI. All her clinicals have been faxed to [facility] Objective vital signs Vital Sign Date Time Temp Pulse Resp B/P (MAP) Pulse Ox O2 Delivery O2 Flow Rate FiO2 03/10/25 11:28 98.7 03/10/25 09:00 80 18 148/63 (91) 98 03/10/25 08:30 Nasal Cannula* 2 28 Total Intake and Output 03/09/25 03/09/25 03/10/25 15:00 23:00 07:00 Intake Total 450 ml 250 ml Output Total 600 ml 770 ml Balance -150 ml -520 ml medications Current Medications Medications Dose Ordered Sig/Layo Route Start Time Stop Time Status Last Admin Dose Admin Morphine Sulfate 2 mg Q30M PRN IV 02/18/25 19:45 Cancel Acetaminophen 650 mg Q6HP PRN PO 02/18/25 19:45 03/10/25 10:20 650 MG Levothyroxine Sodium 75 mcg QAM@0600 PO 02/19/25 06:00 03/10/25 05:28 75 MCG Pantoprazole Sodium 40 mg DAILY@0600 PO 02/19/25 06:00 03/10/25 05:28 40 MG Atorvastatin Calcium 40 mg HS PO 02/18/25 22:00 03/09/25 22:16 40 MG Patient Own Medication 1 DAILY PO 02/19/25 10:00 03/10/25 10:21 1 Gabapentin 400 mg BID PO 02/22/25 22:00 03/10/25 10:19 400 MG Tamsulosin HCl 0.4 mg QPM PO 02/23/25 18:00 03/09/25 17:37 0.4 MG Vancomycin HCl 250 ml @ 166.667 mls/hr Q24H IV 02/27/25 13:00 UNV Duloxetine HCl 60 mg DAILY PO 03/01/25 10:00 03/10/25 10:19 60 MG Loperamide HCl 2 mg DAILY PRN PO 03/03/25 19:30 03/10/25 05:30 2 MG Insulin Glargine 15 units HS SC 03/04/25 22:00 03/09/25 22:27 15 UNITS Diagnostic Test (Pha) 1 strip ACHS 03/04/25 17:00 03/10/25 12:38 1 STRIP Insulin Human Regular AC SC 03/04/25 17:00 03/10/25 11:30 2 UNITS Dextrose 50 ml UD PRN IV 03/04/25 16:00 Saccharomyces Boulardii 250 mg BID PO 03/06/25 10:00 03/10/25 10:20 250 MG Albuterol 2.5 mg Q12HR NEB 03/07/25 22:00 03/10/25 06:01 2.5 MG Ipratropium [place] 0.5 mg Q12HR NEB 03/07/25 22:00 03/10/25 06:01 0.5 MG Fluconazole 200 mg DAILY PO 03/09/25 10:00 Cancel Levofloxacin/ Dextrose 100 ml @ 100 mls/hr DAILY IV 03/09/25 10:00 Cancel Ceftriaxone Sodium/Dextrose 50 ml @ 50 mls/hr DAILY IV 03/09/25 10:00 03/10/25 10:21 50 MLS/HR Enoxaparin Sodium 40 mg DAILY SC 03/10/25 10:00 03/10/25 10:19 40 MG Ferrous Sulfate 325 mg EOD PO 03/11/25 10:00 Cyclobenzaprine HCl 5 mg BID PO 03/09/25 22:00 03/10/25 10:19 5 MG Acetaminophen/ Hydrocodone Bitart 1 tab Q6HPRN PRN PO 03/09/25 21:15 03/10/25 12:43 1 TAB Examination General Appearance: Cooperative. Well developed. Well nourished. Left nephrostomy tube in place with no discharge or erythema, with dark yellow urine. She is currently on 2 L oxygen via nasal cannula. Head Exam: Normal inspection Neck Exam: Normal inspection. Non-tender. Normal alignment Pulmonary/Respiratory: Chest non-tender. mildly reduced breath sounds bilaterally Cardiovascular/Chest: Regular rate and rhythm. No murmurs. No JVD. Peripheral Pulses: 2+ Radial (R). 2+ Radial (L). 2+ Pedal (R). 2+ Pedal (L) Abdominal Exam: Normal bowel sounds. Soft. normal abdomen, no visible veins, tenderness in left flank, No hepatospenomegaly. No masses Lower extremities: 1+ bilateral lower extremity pitting edema Neuro/Mental Status: A&O x4. Coherent. Thoughts/Psych: Normal thought pattern. Appropriate mood and affect. Good judgement and insight Skin Exam: Normal inspection. Normal color. Warm. Dry laboratory and microbiology Laboratory Tests 03/10/25 04:53 Test 03/10/25 04:53 Range/Units Serum Glucose 126 H 74-106 mg/dL Microbiology Date/Time Source Procedure Growth Status 03/06/25 17:15 Urine - [place] Urine Culture - Final Yeast, not Liseth albicans Complete 02/23/25 13:34 Blood Blood Culture - Final NO GROWTH AFTER 5 DAYS OF INCUBATION. Complete 02/21/25 09:30 Nose MRSA Screen - Final Complete Problem List/Assessment/Plan Problem List/Assessment/Plan # Acute on chronic hypoxic respiratory failure # Acute on chronic HFpEF # Possible COPD exacerbation with possible viral pneumonia # History of PE -Chest xray - Cardiomegaly and Pulmonary vascular congestion -old Echo 01/04- EF >55%, severe PAH -BNP 152.10 -covid, influenza negative -albuterol and ipratropium mednebs every 6 hours # Acute complicated cystitis # Acute left hydronephrosis s/p left nephrostomy tube placement # Acute left pyelonephritis # Hematuria, resolved # left obstructive ureteral stone -UA positive for UTI, UA ordered on 02/26/2025, repeat urine culture > 08337 CFU, mixed aleksandar -abdomen CT pelvis showed a 5 mm obstructive stone in the left ureter with moderate left hydronephrosis -urology consult-left nephrostomy tube placement, outpatient follow-up in 3-4 weeks -blood culture Gram-negative rods 02/20/25, repeat blood culture on 02/23/25- no growth after 5 days -strain all urine -Flomax 0.4 mg q.p.m. p.o. -infectious diseases on board- started ceftriaxone 2gm IV daily on 03/09/25 -bleeding from nephrostomy tube and urethra,now resolved -Renal US- echogenic debris in the dependent portion of the bladder measuring 4.6 x 2.7 by 9.7 cm -CT abdomen left nephrostomy tube in place # CLAUDIA on CKD, likely due to VMN, now resolved -avoid nephrotoxic agents -monitor BMP -urine studies revealed FeNa 0.3%- prerenal cause of CLAUDIA -nephrology on board # Uncontrolled type 2 diabetes mellitus with hyperglycemia -HbA1c is 8 -Moderate insulin sliding scale a.c. HS -lantus 15 units qam # Chronic back pain, multilevel degenerative disc disease # Rule out vertebral osteomyelitis - gabapentin 400 mg p.o. t.i.d. - physical therapy on board - duloxetine 60 mg daily, flexeril 5mg bid po - ordered lumbar spine MRI # Chronic hypochromic normocytic anemia s/p 1 prbc -monitor H&H -stool occult blood ordered -transfuse if hemoglobin less than 7 -hemoglobin today 8.1 # Mild transmnitis # Hypothyroidism - Continue on levothyroxine 75 mcg # GERD - Continue on protonix 40 mg daily po # Hypokalemia -repleted # Acute diarrhea, likely viral -Florastor 250 mg p.o. b.i.d. PUD prophylaxis: Protonix 40 mg DVT prophylaxis: lovenox 110mg q12 hr sc, discontinued due to hematuria Goals of care discussed with the patient for over 18 minutes, no intubation Plan discussed with Dr. Mckeon Plan discussed with: Patient Dietary Evaluation Review Comments: Nutrition Recommendation: 1) Glucerna 240ml BID 2) Monitor PO intake, lab values, weight trend, and I/O Expected Outcomes/Goals: Intake to meet >75% estimated needs FU 3-5 days Visit Coding STANDARD RES Billing Provider: MARIBEL MCKEON MD Date of Service if different f: Mar 10, 2025 Common Visit Codes: [id number] INP/OBS CARE(HIGH) ANGUS OSPINA RESIDENT Mar 10, 2025 13:31
[2025-03-11] VITALS (15 sets, daily range): BP systolic 122–154; BP diastolic 50–69; PULSE 74–87; RESP 16–18; TEMP 97.6–98.5; O2SAT 95–100
[2025-03-11 06:01] LABS: Hematocrit 25.6 % (36.0-46.0); Hemoglobin 8.4 g/dL (12.2-16.2); Mean Corpuscular Hemoglobin 28.0 pg (28.0-32.0); Mean Corpuscular Volume 85.1 fL (80.0-100.0); Nucleated Red Blood Cells % 0.0 %
[2025-03-11 06:10] LABS: Anion Gap 9 (5-15); Carbon Dioxide 26 mmol/L (20-31); Chloride 106 mmol/L (98-107); Potassium 4.2 mmol/L (3.5-5.1); Sodium 141 mmol/L (136-145)
[2025-03-11 06:12] LABS: Calcium 8.8 mg/dL (8.7-10.4)
[2025-03-11 06:16] LABS: BUN/Creatinine Ratio 21.5 (10.0-20.0); Blood Urea Nitrogen 14 mg/dL (9-23)
[2025-03-11 06:17] LABS: Glucose 118 mg/dL (74-106)
[2025-03-11] MEDS: FERROUS SULFATE 325mg EC TAB PO SCH (11:18)
[2025-03-11] MEDS: HYDROmorphone HCL 2 MG/ML VL/or syr IV ONE (13:16)
--- NOTE | 2025-03-11 15:21 | DVHPNRES ---
Progress Note Date Seen: Mar 11, 2025 Resident Creating Document: FINESSE VERMA RESIDENT Medical Necessity Reason Pt with a Central, PICC or Fol: No Subjective Review of Systems Brenda Daily is an 79-year-old female with past medical history of COPD on 2 L oxygen at home, CHF, insulin-dependent type 2 diabetes mellitus, hypertension, pulmonary artery hypertension, non-Hodgkin lymphoma in remission since 1987, lung cancer s/p right upper lobe resection in 2016 presented to the ED with the chief complaint of worsening shortness of breath for the last 3 days along with chills. The patient mentioned she tried to up titrate her oxygen at home, but that did not improve her shortness of breath. She mentioned she also had tightness in the chest along with a dry cough and lower extremity edema. She mentions having similar episodes of shortness of breath 3-4 times in the last 1 year. She denied any fever. Past medical history: COPD on 2 L oxygen at home, CHF, insulin-dependent type 2 diabetes mellitus, hypertension, pulmonary artery hypertension, non-Hodgkin lymphoma in remission since 1987, lung cancer s/p right upper lobe resection Past surgical history: right upper lobectomy in 2016, tonsillectomy Social & Personal history: Lives at home with family, she denies any smoking, alcohol and drugs Allergies: sulfa antibiotics Patient seen and examined at bedside. Patient is alert and oriented to time, place person and responding to all questions. Eyes: No Pain, No Vision change, No Conjunctivae inflammation, No Eyelid inflammation, No Redness ENT: No Ear pain, No Ear discharge, No Nose pain, No Nose discharge, No Nose congestion, No Mouth pain, No Mouth swelling, No Throat pain, No Throat swelling Cardiovascular: No Chest Pain, No Palpitations, Orthopnea, No Paroxysmal No Dyspnea, Edema, No Lt Headedness Respiratory: Cough, Dry, Shortness of breath, No SOB with exertion, No Wheezing, No Hemoptysis, No Pleuritic Pain, No Sputum Gastrointestinal: No Nausea, No Vomiting, No Abdominal Pain, No Diarrhea, No Constipation, No Melena, No Hematochezia Genitourinary: No Dysuria, No Frequency, No Incontinence, No Hematuria, No Retention 02/20/25- the patient was seen at bedside today. The patient complained of intense pain in the left flank radiating to the left groin area and mentioned of her history of kidney stones. Her white count had increased to 19.9 today and urinalysis was positive for UTI. Lactic acid was 1.5. She was started on meropenem and fluconazole for acute complicated cystitis. CT abdomen pelvis showed Moderate left-sided hydronephrosis with a 5 mm obstructing stone in the proximal left ureter. Urology consult was placed. Her potassium today was 3, which was repleted. We also ordered for blood culture and urine culture. We also started her on morphine 2 mg q.12 p.r.n. for severe pain and [place] 5q4 p.r.n.. EKG was done which was normal. A consult for Dr. Ogden was also placed as he is her PCP. Bedside pocus was done which showed a dilated IVC. 02/21/25- The patient was seen at bedside today. White count today was 34.8. Lactic acid was 1.3. Patient looked tachypneic. Blood culture showed Gram- negative rods. The patient was started on vancomycin per pharmacy. IR placed left nephrostomy tube without any complications. 02/22/25- The patient was seen at bedside today. White count today was 27.2. Patient is breathing comfortably on 2L oxygen by nasal canula. Patient complained of intense pain in her back as she has severe degenerative disc disease, for which she was given 1 dose of morphine 2 mg and started on dilaudid 1mg q4 prn. Left nephrostomy tube is in place with minimal drainage and no discharge or redness around the site. Creatinine improved from 2.19 to 2.02 today. Patient started on gabapentin 400 mg t.i.d. for neuropathy. She was started on MiraLax 17 g p.o. b.i.d. for constipation. 02/23/25- The patient seen at bedside today. She complained of pain in her lower abdomen. She was given 1 time dose of IV mannitol and started on Flomax 0.4 mg PO HS. Order to strain all urine was placed. Patient was started on Senokot q.h.s. and MiraLax p.r.n. for constipation. Repeat blood cultures were ordered. IV antibiotics were changed to IV ceftriaxone 1 g daily. Physical therapy evaluation was requested for the patient. Urology was consulted and they recommended outpatient follow-up in 3-4 weeks once patient is stable for discharge. 02/24/25- Patient still complains of intermittent flank pain presumably from nephrostomy tube site with a renal stone. Patient continued to take IV Dilaudid. Patient is with a poor ambulatory status. Her leukocytosis has significantly improved. 02/25/25- Patient still complains of intermittent flank pain. Physical therapy recommended placement in SNF for the patient, which she refused. We will continue to try working with physical therapy to try and get her out of bed into a chair. For pain medication was changed to tramadol 100 mg p.o. q.6 hours Dilaudid 1 mg IV q.6 hours. 02/26/25- patient was seen at bedside today. She continues to complain of abdominal pain. White count today was 12.6. Urine analysis and urine culture was ordered. KUB and x-ray of lumbar spine were ordered. Dr Ogden, who is her PCP and is also following up regularly, continued ceftriaxone and started her on levofloxacin and vancomycin per pharmacy. Patient was encouraged to continue working with physical therapy and try to get out of bed into a chair today. 02/27/25- the patient was seen at bedside today. Repeat CT abdomen/pelvis was done today, which was unremarkable. White count today was 16.6. Lactic acid today was 0.7. An Infectious Disease consult was requested, as the white count is trending up again. Patient was encouraged to work with physical therapy. A detailed discussion was held with the patient and family, and our recommendation of sending the patient was SNF on discharge was discussed and they agreed with the same. 02/28/25- the patient was seen at bedside today. The patient started having rosalee bleeding from the nephrostomy tube last night, Lovenox was stopped. The patient was also having rosalee hematuria from the urethra. Her hemoglobin this morning was 9.1 and repeat in the evening was 8.7. Repeat IR consult was placed for evaluation of the nephrostomy tube. Repeat CT abdomen/pelvis was ordered. 03/01/25- the patient was seen at bedside today. CT abdomen/pelvis was ordered for the patient yesterday to evaluate for bleeding from the nephrostomy tube and urethra, but the patient refused CT yesterday and this morning. The patient's family requested for transfer to [facility], a social welfare research worker request for facilitating the lateral transfer per the family request was placed. The patient and family were explained at length about the evaluation and the need for the CT today and they demonstrated understanding of the same. Renal ultrasound was done which showed echogenic debris in the dependent portion of the bladder measuring 4.6 x 2.7 by 9.7 cm. KUB showed left-sided nephrostomy tube in place and nonobstructive bowel gas pattern. Urology was consulted and they recommended IR evaluation for possible replacement of nephrostomy tube and [place] if patient is unable to void. 03/02/25- was seen and evaluated at bedside. The patient complained of multiple episodes of diarrhea, for which he was started on Imodium 2 mg p.o. q.6 p.r.n. for diarrhea. Discussion held with her regarding IR evaluation and if Nephrostomy tube intact and hematuria improve, anticipate to DC home. Patient however, adamant that she want to transfer to [facility], where her urologist there. CM already consulted for lateral transfer per patient request. No answer from [facility] yet. 03/03/25- patient was seen and evaluated at bedside today. [facility] mentioned and no longer accepting lateral transfers. This was communicated to the patient and she mentioned that her hockey scout at that hospital we will send paperwork to facilitate the transfer. Bedside bladder scan was done which revealed postvoid urine volume of 41 mL. Bedside pocus was done, showed more than 50% compressibility of IVC with size of 1.9 cm. 500 cc bolus of NS was given. Nephrology was consulted for up trending creatinine. The patient was started on IV Flagyl. All updates were shared with the patient, her son and daughter and all their questions and concerns were addressed. 03/04/25- patient was seen and evaluated at bedside today. CT abdomen/pelvis done today revealed that the left nephrostomy tube is in place and moderate left hydroureteronephrosis. There was collection of dark yellow urine in the nephrostomy bag, which could be due to dehydration. Patient was given a 250 cc bolus of NS 250ml. The catheter was inserted for strict I&Os and urine studies. Hydrochlorothiazide dose was reduced to 12.5 mg p.o. b.i.d. 03/05/25- patient was seen at bedside today. FENA was calculated to be 0.3%, prerenal cause of the CLAUDIA. The patient had fever spikes of 101.8 and 100.4 overnight, she was given 500 cc bolus of NS will be continued on levofloxacin 250 mg IV daily and Flagyl. Nephrology evaluated the patient and started her on low-dose of dobutamine. 03/06/25- patient was seen at bedside today. Her hemoglobin today was 6.9, so she was given 1 transfusion of PRBCs, repeat H and H showed hemoglobin of 7.9 in the evening. 03/07/25- the patient was seen at bedside today. No new complaints. Hemoglobin is stable at 7.8. Pending repeat urine culture report. No fever spikes. 03/08/25- patient was seen at bedside today. No new complaints. Hemoglobin is 8.2. Creatinine level is back to normal today. Recent urinalysis showed high burden of yeast, so she was started on fluconazole 200 mg p.o. daily. She was encouraged to participate with physical therapy. Possible discharge tomorrow if patient is clinically stable. 03/09/25- patient was seen at bedside today. New complaints. All her clinicals have been faxed to [facility]. Dr Kenroy Wade evaluated the patient yesterday discontinued the levofloxacin, all and Flagyl, and started her on ceftriaxone 2 g IV daily. Lumbar spine MRI was also ordered to rule out possible osteomyelitis. Flexeril 5 mg b.i.d. was added. 03/10/2025: Patient seen at bedside. patient complaining of 10/10 back pain, has nausea but denies any vomiting. Patient states that she is claustrophobic and has refused lumbar spine MRI. All her clinicals have been faxed to [facility]. 03/11/25- Patient was seen at bedside today. She complained of intense back pain, for which he was given 0.5 mg Dilaudid one dose. professional services consultant consult to arrange home health for physical therapy was placed. Objective vital signs Vital Sign Date Time Temp Pulse Resp B/P (MAP) Pulse Ox O2 Delivery O2 Flow Rate FiO2 03/11/25 13:16 87 20 145/57 03/11/25 13:09 98.4 97 98.4 03/11/25 09:43 Nasal Cannula* 2 28 Total Intake and Output 03/10/25 03/10/25 03/11/25 15:00 23:00 07:00 Intake Total 250 ml 600 ml Output Total 500 ml 250 ml Balance -250 ml 350 ml medications Current Medications Medications Dose Ordered Sig/Layo Route Start Time Stop Time Status Last Admin Dose Admin Morphine Sulfate 2 mg Q30M PRN IV 02/18/25 19:45 Cancel Acetaminophen 650 mg Q6HP PRN PO 02/18/25 19:45 03/11/25 03:07 650 MG Levothyroxine Sodium 75 mcg QAM@0600 PO 02/19/25 06:00 03/11/25 05:18 75 MCG Pantoprazole Sodium 40 mg DAILY@0600 PO 02/19/25 06:00 03/11/25 05:17 40 MG Atorvastatin Calcium 40 mg HS PO 02/18/25 22:00 03/10/25 20:37 40 MG Patient Own Medication 1 DAILY PO 02/19/25 10:00 03/11/25 10:00 1 Gabapentin 400 mg BID PO 02/22/25 22:00 03/11/25 11:18 400 MG Tamsulosin HCl 0.4 mg QPM PO 02/23/25 18:00 03/10/25 17:57 0.4 MG Vancomycin HCl 250 ml @ 166.667 mls/hr Q24H IV 02/27/25 13:00 UNV Duloxetine HCl 60 mg DAILY PO 03/01/25 10:00 03/11/25 11:20 60 MG Loperamide HCl 2 mg DAILY PRN PO 03/03/25 19:30 03/10/25 05:30 2 MG Insulin Glargine 15 units HS SC 03/04/25 22:00 03/10/25 20:42 15 UNITS Diagnostic Test (Pha) 1 strip ACHS 03/04/25 17:00 03/11/25 06:42 1 STRIP Insulin Human Regular AC SC 03/04/25 17:00 03/10/25 11:30 2 UNITS Dextrose 50 ml UD PRN IV 03/04/25 16:00 Saccharomyces Boulardii 250 mg BID PO 03/06/25 10:00 03/11/25 10:00 250 MG Albuterol 2.5 mg Q12HR NEB 03/07/25 22:00 03/11/25 09:42 2.5 MG Ipratropium [place] 0.5 mg Q12HR NEB 03/07/25 22:00 03/11/25 09:42 0.5 MG Fluconazole 200 mg DAILY PO 03/09/25 10:00 Cancel Levofloxacin/ Dextrose 100 ml @ 100 mls/hr DAILY IV 03/09/25 10:00 Cancel Ceftriaxone Sodium/Dextrose 50 ml @ 50 mls/hr DAILY IV 03/09/25 10:00 03/11/25 10:00 50 MLS/HR Enoxaparin Sodium 40 mg DAILY SC 03/10/25 10:00 03/11/25 11:17 40 MG Ferrous Sulfate 325 mg EOD PO 03/11/25 10:00 03/11/25 11:18 325 MG Cyclobenzaprine HCl 5 mg BID PO 03/09/25 22:00 03/10/25 20:38 5 MG Acetaminophen/ Hydrocodone Bitart 1 tab Q6HPRN PRN PO 03/09/25 21:15 03/11/25 14:35 1 TAB Tramadol HCl 50 mg Q6HP PRN PO 03/10/25 17:15 03/11/25 11:19 50 MG Examination General Appearance: Cooperative. Well developed. Well nourished. Left nephrostomy tube in place with no discharge or erythema, with dark yellow urine. She is currently on 2 L oxygen via nasal cannula. Head Exam: Normal inspection Neck Exam: Normal inspection. Non-tender. Normal alignment Pulmonary/Respiratory: Chest non-tender. mildly reduced breath sounds bilaterally Cardiovascular/Chest: Regular rate and rhythm. No murmurs. No JVD. Peripheral Pulses: 2+ Radial (R). 2+ Radial (L). 2+ Pedal (R). 2+ Pedal (L) Abdominal Exam: Normal bowel sounds. Soft. normal abdomen, no visible veins, tenderness in left flank, No hepatospenomegaly. No masses Lower extremities: 1+ bilateral lower extremity pitting edema Neuro/Mental Status: A&O x4. Coherent. Thoughts/Psych: Normal thought pattern. Appropriate mood and affect. Good judgement and insight Skin Exam: Normal inspection. Normal color. Warm. Dry laboratory and microbiology Laboratory Tests 03/11/25 05:26 Test 03/11/25 05:26 Range/Units Serum Glucose 118 H 74-106 mg/dL Microbiology Date/Time Source Procedure Growth Status 03/06/25 17:15 Urine - [place] Urine Culture - Final Yeast, not Liseth albicans Complete 02/23/25 13:34 Blood Blood Culture - Final NO GROWTH AFTER 5 DAYS OF INCUBATION. Complete 02/21/25 09:30 Nose MRSA Screen - Final Complete Labs and/or images reviewed: Labs reviewed by me, Image(s) reviewed by me Problem List/Assessment/Plan Problem List/Assessment/Plan # Acute on chronic hypoxic respiratory failure # Acute on chronic HFpEF # Possible COPD exacerbation with possible viral pneumonia # History of PE -Chest xray - Cardiomegaly and Pulmonary vascular congestion -old Echo 01/04- EF >55%, severe PAH -BNP 152.10 -covid, influenza negative -albuterol and ipratropium mednebs every 6 hours # Acute complicated cystitis # Acute left hydronephrosis s/p left nephrostomy tube placement # Acute left pyelonephritis # Hematuria, resolved # left obstructive ureteral stone -UA positive for UTI, UA ordered on 02/26/2025, repeat urine culture > 33797 CFU, mixed aleksandar -abdomen CT pelvis showed a 5 mm obstructive stone in the left ureter with moderate left hydronephrosis -urology consult-left nephrostomy tube placement, outpatient follow-up in 3-4 weeks -blood culture Gram-negative rods 02/20/25, repeat blood culture on 02/23/25- no growth after 5 days -strain all urine -Flomax 0.4 mg q.p.m. p.o. -infectious diseases on board- started ceftriaxone 2gm IV daily on 03/09/25 -bleeding from nephrostomy tube and urethra,now resolved -Renal US- echogenic debris in the dependent portion of the bladder measuring 4.6 x 2.7 by 9.7 cm -CT abdomen left nephrostomy tube in place # CLAUDIA on CKD, likely due to VMN, now resolved -avoid nephrotoxic agents -monitor BMP -urine studies revealed FeNa 0.3%- prerenal cause of CLAUDIA -nephrology on board # Uncontrolled type 2 diabetes mellitus with hyperglycemia -HbA1c is 8 -Moderate insulin sliding scale a.c. HS -lantus 15 units qam # Chronic back pain, multilevel degenerative disc disease # Rule out vertebral osteomyelitis - gabapentin 400 mg p.o. t.i.d. - physical therapy on board - duloxetine 60 mg daily, flexeril 5mg bid po - ordered lumbar spine MRI- patient refused due to claustrophobiia # Chronic hypochromic normocytic anemia s/p 1 prbc -monitor H&H -stool occult blood ordered -transfuse if hemoglobin less than 7 -hemoglobin today 8.1 # Mild transmnitis # Hypothyroidism - Continue on levothyroxine 75 mcg # GERD - Continue on protonix 40 mg daily po # Hypokalemia -repleted # Acute diarrhea, likely viral -Florastor 250 mg p.o. b.i.d. PUD prophylaxis: Protonix 40 mg DVT prophylaxis: lovenox 40mg daily sc Goals of care discussed with the patient for over 18 minutes, no intubation Plan discussed with Dr. Mckeon Plan discussed with: Patient Dietary Evaluation Review Comments: Nutrition Recommendation: 1) Glucerna 240ml BID 2) Monitor PO intake, lab values, weight trend, and I/O Expected Outcomes/Goals: Intake to meet >75% estimated needs FU 3-5 days Visit Coding STANDARD RES Billing Provider: MARILYN PHILLIP MD Date of Service if different f: Mar 11, 2025 Common Visit Codes: [id number] INP/OBS CARE(HIGH) FINESSE VERMA RESIDENT Mar 11, 2025 15:21
--- NOTE | 2025-03-11 16:54 | DVHPN2 ---
Progress Note - Dictate Date Seen: Mar 11, 2025 Medical Necessity Reason Pt with a Central, PICC or Fol: No Subjective PT WITH SEVERE FLANK PAIN AND SOB OBSTRUCTIVE RENAL CALCULUS HYDRONEPHROSIS UTI S/P NEPHROSTOMY RENAL COLIC HEMATURIA LEUKOCYTOSIS PMH ORGANIC HD HF HTN DIABETES VASCULOPATHY NEPHROPATHY PAH NON HODGKIN LYMPHOMA LUNG CA S/P RIGHT UPPER LOBECTOMY vital signs Vital Sign Date Time Temp Pulse Resp B/P (MAP) Pulse Ox O2 Delivery O2 Flow Rate FiO2 03/11/25 13:16 87 20 145/57 03/11/25 13:09 98.4 97 98.4 03/11/25 09:43 Nasal Cannula* 2 28 Total Intake and Output 03/10/25 03/10/25 03/11/25 15:00 23:00 07:00 Intake Total 250 ml 600 ml Output Total 500 ml 250 ml Balance -250 ml 350 ml medications Current Medications Medications Dose Ordered Sig/Layo Route Start Time Stop Time Status Last Admin Dose Admin Morphine Sulfate 2 mg Q30M PRN IV 02/18/25 19:45 Cancel Acetaminophen 650 mg Q6HP PRN PO 02/18/25 19:45 03/11/25 03:07 650 MG Levothyroxine Sodium 75 mcg QAM@0600 PO 02/19/25 06:00 03/11/25 05:18 75 MCG Pantoprazole Sodium 40 mg DAILY@0600 PO 02/19/25 06:00 03/11/25 05:17 40 MG Atorvastatin Calcium 40 mg HS PO 02/18/25 22:00 03/10/25 20:37 40 MG Patient Own Medication 1 DAILY PO 02/19/25 10:00 03/11/25 10:00 1 Gabapentin 400 mg BID PO 02/22/25 22:00 03/11/25 11:18 400 MG Tamsulosin HCl 0.4 mg QPM PO 02/23/25 18:00 03/10/25 17:57 0.4 MG Vancomycin HCl 250 ml @ 166.667 mls/hr Q24H IV 02/27/25 13:00 UNV Duloxetine HCl 60 mg DAILY PO 03/01/25 10:00 03/11/25 11:20 60 MG Loperamide HCl 2 mg DAILY PRN PO 03/03/25 19:30 03/10/25 05:30 2 MG Insulin Glargine 15 units HS SC 03/04/25 22:00 03/10/25 20:42 15 UNITS Diagnostic Test (Pha) 1 strip ACHS 03/04/25 17:00 03/11/25 06:42 1 STRIP Insulin Human Regular AC SC 03/04/25 17:00 03/10/25 11:30 2 UNITS Dextrose 50 ml UD PRN IV 03/04/25 16:00 Saccharomyces Boulardii 250 mg BID PO 03/06/25 10:00 03/11/25 10:00 250 MG Albuterol 2.5 mg Q12HR NEB 03/07/25 22:00 03/11/25 09:42 2.5 MG Ipratropium [place] 0.5 mg Q12HR NEB 03/07/25 22:00 03/11/25 09:42 0.5 MG Fluconazole 200 mg DAILY PO 03/09/25 10:00 Cancel Levofloxacin/ Dextrose 100 ml @ 100 mls/hr DAILY IV 03/09/25 10:00 Cancel Ceftriaxone Sodium/Dextrose 50 ml @ 50 mls/hr DAILY IV 03/09/25 10:00 03/11/25 10:00 50 MLS/HR Enoxaparin Sodium 40 mg DAILY SC 03/10/25 10:00 03/11/25 11:17 40 MG Ferrous Sulfate 325 mg EOD PO 03/11/25 10:00 03/11/25 11:18 325 MG Cyclobenzaprine HCl 5 mg BID PO 03/09/25 22:00 03/10/25 20:38 5 MG Acetaminophen/ Hydrocodone Bitart 1 tab Q6HPRN PRN PO 03/09/25 21:15 03/11/25 14:35 1 TAB Tramadol HCl 50 mg Q6HP PRN PO 03/10/25 17:15 03/11/25 11:19 50 MG laboratory and microbiology Laboratory Tests 03/11/25 05:26 Test 03/11/25 05:26 Range/Units Serum Glucose 118 H 74-106 mg/dL Problem List SEVERE FLANK PAIN AND SOB OBSTRUCTIVE RENAL CALCULUS HYDRONEPHROSIS UTI S/P NEPHROSTOMY RENAL COLIC HEMATURIA LEUKOCYTOSIS ACUTE RENAL INSUFF PMH ORGANIC HD HF HTN DIABETES VASCULOPATHY NEPHROPATHY PAH NON HODGKIN LYMPHOMA LUNG CA S/P RIGHT UPPER LOBECTOMY Assessment/Plan NEPHROSTOMY CARE IV ABC ECHO EF >55% ANISH SEVERE TR SEVERE PAH LEUKOCYTOSIS RESOLVED RENAL INSUFF RESOLVED PT STILL WITH SEVERE FLANK AND SPINE PAIN CT OF ABD PELVIS UA CHANGE ABX SINCE INCREASE IN WBC STARTED LEVAQUIN VANCOMYCIN CT OF ABD PELVIS UNREMARKABLE LEUKOCYTOSIS RESOLVED STILL WITH SEVERE ANEMIA CHECK RETIC IRON STUDIES IRON REPLACEMENT EPOGEN PT IS MALINGERING NEEDS TO BE OFF PAIN THERAPY AND REQUIRES,REHAB RENAL FUNCTION NOW BASELINE H/H STABLE UA NEGATIVE MAY DC TO REHAB COURSE OF ACTION BY UROLOGY? PT WITH PERSISTENT PYURIA CONSIDER CHANGE IN UROSTOMY REVIEWED LABS: WBC, MCV, AND MCH ARE NORMAL Dietary Evaluation Review Comments: Nutrition Recommendation: 1) Glucerna 240ml BID 2) Monitor PO intake, lab values, weight trend, and I/O Expected Outcomes/Goals: Intake to meet >75% estimated needs FU 3-5 days Plan discussed with: Patient GLADYS BENSON MD Mar 11, 2025 16:54
--- NOTE | 2025-03-11 23:23 | DVHPN2 ---
Consult Progress Note Objective vital signs Vital Sign Date Time Temp Pulse Resp B/P (MAP) Pulse Ox O2 Delivery O2 Flow Rate FiO2 03/11/25 22:18 85 16 100 03/11/25 22:17 Nasal Cannula 2.0 03/11/25 22:17 28 03/11/25 21:00 97.6 154/69 (97) 97.6 Total Intake and Output 03/10/25 03/10/25 03/11/25 15:00 23:00 07:00 Intake Total 250 ml 600 ml Output Total 500 ml 250 ml Balance -250 ml 350 ml medications Current Medications Medications Dose Ordered Sig/[place] Route Start Time Stop Time Status Last Admin Dose Admin Morphine Sulfate 2 mg Q30M PRN IV 02/18/25 19:45 Cancel Acetaminophen 650 mg Q6HP PRN PO 02/18/25 19:45 03/11/25 21:55 650 MG Levothyroxine Sodium 75 mcg QAM@0600 PO 02/19/25 06:00 03/11/25 05:18 75 MCG Pantoprazole Sodium 40 mg DAILY@0600 PO 02/19/25 06:00 03/11/25 05:17 40 MG Atorvastatin Calcium 40 mg HS PO 02/18/25 22:00 03/11/25 21:39 40 MG Patient Own Medication 1 DAILY PO 02/19/25 10:00 03/11/25 10:00 1 Gabapentin 400 mg BID PO 02/22/25 22:00 03/11/25 21:37 400 MG Tamsulosin HCl 0.4 mg QPM PO 02/23/25 18:00 03/11/25 19:51 0.4 MG Vancomycin HCl 250 ml @ 166.667 mls/hr Q24H IV 02/27/25 13:00 UNV Duloxetine HCl 60 mg DAILY PO 03/01/25 10:00 03/11/25 11:20 60 MG Loperamide HCl 2 mg DAILY PRN PO 03/03/25 19:30 03/10/25 05:30 2 MG Insulin Glargine 15 units HS SC 03/04/25 22:00 03/11/25 21:47 15 UNITS Diagnostic Test (Pha) 1 strip ACHS 03/04/25 17:00 03/11/25 17:51 1 STRIP Insulin Human Regular AC SC 03/04/25 17:00 03/10/25 11:30 2 UNITS Dextrose 50 ml UD PRN IV 03/04/25 16:00 Saccharomyces Boulardii 250 mg BID PO 03/06/25 10:00 03/11/25 21:55 250 MG Albuterol 2.5 mg Q12HR NEB 03/07/25 22:00 03/11/25 22:16 2.5 MG Ipratropium [place] 0.5 mg Q12HR NEB 03/07/25 22:00 03/11/25 22:16 0.5 MG Fluconazole 200 mg DAILY PO 03/09/25 10:00 Cancel Levofloxacin/ Dextrose 100 ml @ 100 mls/hr DAILY IV 03/09/25 10:00 Cancel Ceftriaxone Sodium/Dextrose 50 ml @ 50 mls/hr DAILY IV 03/09/25 10:00 03/11/25 10:00 50 MLS/HR Enoxaparin Sodium 40 mg DAILY SC 03/10/25 10:00 03/11/25 11:17 40 MG Ferrous Sulfate 325 mg EOD PO 03/11/25 10:00 03/11/25 11:18 325 MG Cyclobenzaprine HCl 5 mg BID PO 03/09/25 22:00 03/10/25 20:38 5 MG Acetaminophen/ Hydrocodone Bitart 1 tab Q6HPRN PRN PO 03/09/25 21:15 03/11/25 20:08 1 TAB Tramadol HCl 50 mg Q6HP PRN PO 03/10/25 17:15 03/11/25 17:45 50 MG laboratory and microbiology Laboratory Tests 03/11/25 05:26 Test 03/11/25 05:26 Range/Units Serum Glucose 118 H 74-106 mg/dL Dietary Evaluation Review Comments: Nutrition Recommendation: 1) Glucerna 240ml BID 2) Monitor PO intake, lab values, weight trend, and I/O Expected Outcomes/Goals: Intake to meet >75% estimated needs FU 3-5 days ASHLEY HAMM MD Mar 11, 2025 23:23
[2025-03-12] VITALS (7 sets, daily range): BP systolic 148–164; BP diastolic 58–82; PULSE 76–87; RESP 16–18; TEMP 98–98.2; O2SAT 96–99
[2025-03-12] MEDS ORDERED: SALINE 0.65 % NASAL SPRAY 45ML BOTTLE EACHNOSTRI ONE (01:30)
[2025-03-12] MEDS: SALINE 0.65 % NASAL SPRAY 45ML BOTTLE EACHNOSTRI SCH (06:00)
[2025-03-12 07:38] LABS: Hematocrit 27.0 % (36.0-46.0)
[2025-03-12 07:41] LABS: Hemoglobin 8.8 g/dL (12.2-16.2)
[2025-03-12 07:45] LABS: Chloride 106 mmol/L (98-107); Potassium 4.6 mmol/L (3.5-5.1); Sodium 140 mmol/L (136-145)
[2025-03-12 07:46] LABS: Calcium 8.8 mg/dL (8.7-10.4)
[2025-03-12 07:47] LABS: Anion Gap 6 (5-15); Carbon Dioxide 28 mmol/L (20-31)
[2025-03-12 07:52] LABS: Glucose 86 mg/dL (74-106)
[2025-03-12 07:59] LABS: BUN/Creatinine Ratio 18.8 (10.0-20.0); Blood Urea Nitrogen 12 mg/dL (9-23)
--- NOTE | 2025-03-12 17:40 | DVHDSRES ---
Discharge Summary Date of Admission Resident Creating Document: FINESSE VERMA RESIDENT Feb 18, 2025 at 19:40 Date of Discharge: Mar 12, 2025 Admitting Diagnosis Acute on chronic hypoxic respiratory failure Labs/Diagnostic Data: Laboratory Results Test 03/12/25 10:43 03/12/25 06:03 03/11/25 05:26 03/08/25 06:30 POC Glucose 110 mg/dl (70-106) Hemoglobin 8.8 g/dL (12.2-16.2) Hematocrit 27.0 % (36.0-46.0) Sodium Level 140 mmol/L (136-145) Potassium Level 4.6 mmol/L (3.5-5.1) Chloride Level 106 mmol/L (98-107) Carbon Dioxide Level 28 mmol/L (20-31) Anion Gap 6 (5-15) Blood Urea Nitrogen 12 mg/dL (9-23) Creatinine 0.64 mg/dL (0.550-1.02) Glomerular Filtration Rate Calc 89 mL/min (>90) BUN/Creatinine Ratio 18.8 (10.0-20.0) Serum Glucose 86 mg/dL (74-106) Calcium Level 8.8 mg/dL (8.7-10.4) White Blood Count 7.8 10^3/uL (4.4-10.8) Red Blood Count 3.01 10^6/uL (4.0-5.20) Mean Corpuscular Volume 85.1 fL (80.0-100.0) Mean Corpuscular Hemoglobin 28.0 pg (28.0-32.0) Mean Corpuscular Hemoglobin Concent 32.9 g/dL (32.0-36.0) Red Cell Distribution Width 20.3 % (11.8-14.3) Platelet Count 547 10^3/uL (140-450) Mean Platelet Volume 6.3 fL (6.9-10.8) Neutrophils (%) (Auto) 73.8 % (37.0-80.0) Lymphocytes (%) (Auto) 12.5 % (10.0-50.0) Monocytes (%) (Auto) 9.2 % (0.0-12.0) Eosinophils (%) (Auto) 3.9 % (0.0-7.0) Basophils (%) (Auto) 0.6 % (0.0-2.0) Neutrophils # (Auto) 5.7 10 ^3/uL (1.6-8.6) Lymphocytes # (Auto) 1.0 10 ^3/uL (0.4-5.4) Monocytes # (Auto) 0.7 10 ^3/uL (0-1.3) Eosinophils # (Auto) 0.3 10 ^3/uL (0-0.8) Basophils # (Auto) 0.1 10 ^3/uL (0-0.2) Nucleated Red Blood Cells 0.0 % Urine Color Yellow (Yellow) Urine Clarity Ex.turbid (Clear) Urine pH 5.5 (5.0-9.0) Urine Specific Kite 1.014 (1.001-1.035) Urine Protein 1+ (Negative) Urine Ketones Trace (Negative) Urine Blood 3+ /uL (Negative) Urine Nitrite Negative (Negative) Urine Bilirubin Negative (Negative) Urine Urobilinogen Normal mg/dL (Negative) Urine Leukocyte Esterase 3+ /uL (Negative) Urine RBC 35 /hpf (0 - 4) Urine WBC Clumps Present /hpf (None Seen) Urine Microscopic WBC 401 /HPF (0-5) Urine Squamous Epithelial Cells Few /hpf (<5) Urine Bacteria Few /hpf (None Seen) Urine Yeast (Budding) Loaded /hpf (None Seen) Urine Glucose 3+ mg/dL (Normal) Test 03/07/25 05:23 03/06/25 04:56 03/04/25 15:49 03/04/25 06:02 Reticulocyte Count (auto) 3.29 % (0.5-1.5) Creatine Kinase 33 U/L (34-145) Urine Creatinine 68.58 mg/dL (30.0-125.0) Urine Protein/Creatinine Ratio 1.61 Urine Sodium 21 mmol/L (40-220) Urine Total Protein 110.3 mg/dL (1-14) Phosphorus Level 5.0 mg/dL (2.4-5.1) Magnesium Level 1.7 mg/dL (1.6-2.6) Total Bilirubin 0.3 mg/dL (0.2-1.0) Direct Bilirubin 0.1 mg/dL (<0.3) Aspartate Amino Transferase (AST) 16 U/L (13-40) Alanine Aminotransferase (ALT) 14 U/L (7-40) Alkaline Phosphatase 107 U/L (46-116) Total Protein 5.7 g/dL (5.7-8.2) Albumin 3.1 g/dL (3.2-4.8) Vitamin D 25-Hydroxy 31.6 ng/mL (30.0-100) Parathyroid Hormone (Intact) 42.7 pg/mL (18.4-80.1) Test 03/03/25 06:09 03/01/25 12:55 02/28/25 05:15 02/27/25 09:13 Iron Level 10 ug/dL (50-170) Total Iron Binding Capacity 214 ug/dL (250-425) Percent Iron Saturation 4.7 % (15-50) Random Vancomycin Level 13.4 ug/mL (5-10) Vancomycin Level Trough 29.8 ug/mL (5-10) Prothrombin Time 11.5 sec (9.3-11.8) Prothrombin Time INR 1.09 (0.9-1.15) Activated Partial Thromboplast Time 33.8 SEC (24.5-34.5) Lactic Acid Level 0.7 mmol/L (0.4-2.0) Test 02/25/25 05:30 02/21/25 16:43 02/20/25 06:32 02/19/25 04:03 Differential Total Cells Counted 100.0 (100) Neutrophils % (Manual) 59 (37.0-80.0) Band Neutrophils % (Manual) 9 Lymphocytes % (Manual) 15 (10.0-50.0) Monocytes % (Manual) 15 (0-12) Eosinophils % (Manual) 2 (0-7) Basophils % (Manual) 0 (0.0-2.0) Metamyelocytes % (manual) 0 Myelocytes % (Manual) 0 Promyelocytes % (Manual) 0 Blast Cells % (Manual) 0 Reactive Lymphocytes 0 Platelet Estimate Adequate Large Platelets Few Anisocytosis (manual) Slight Beta HCG, Quantitative 2.0 mIU/mL (1.5-4.2) Giant Platelets Few Hemoglobin A1c 8.0 % A1C (<5.7) B-Type Natriuretic Peptide 152.10 pg/mL (0-100) Triglycerides Level 123 mg/dL (< 150) Cholesterol Level 131 mg/dL (< 200) LDL Cholesterol 69 mg/dL (< 100) HDL Cholesterol 37 mg/dL (40-59) Thyroid Stimulating Hormone (TSH) 0.69 uIU/mL (0.55-4.78) Test 02/19/25 03:20 02/18/25 14:52 Influenza Type A Antigen Negative (Negative) Influenza Type B Antigen Negative (Negative) SARS-CoV-2 Antigen (Rapid) Negative (NEGATIVE) Troponin I High Sensitivity 10 ng/L (</=34) Other Laboratory Tests 03/12/25 06:03 03/11/25 05:26 Brief Hx & Hospital Course: Brenda Daily is an 79-year-old female with past medical history of COPD on 2 L oxygen at home, CHF, insulin-dependent type 2 diabetes mellitus, hypertension, pulmonary artery hypertension, non-Hodgkin lymphoma in remission since 1987, lung cancer s/p right upper lobe resection in 2015 presented to the ED with the chief complaint of worsening shortness of breath for the last 3 days along with chills. The patient mentioned she tried to up titrate her oxygen at home, but that did not improve her shortness of breath. She mentioned she also had tightness in the chest along with a dry cough and lower extremity edema. She mentions having similar episodes of shortness of breath 3-4 times in the last 1 year. She denied any fever. Brief hospital course: On 02/20/2025 the patient complained of intense pain in the left flank radiating to the left groin and had a white count of 19.9, urinalysis was positive for UTI, CT abdomen pelvis showed moderate left-sided hydronephrosis with a 5 mm obstructing stone in the proximal left ureter. Urology was consulted and left nephrostomy tube was placed by IR on 02/21/2025 without any complications. Her lower back pain due to degenerative disc disease was managed with both IV and oral pain medications. First Blood culture showed Gram-negative rods, repeat was negative. On patient started having rosalee bleeding from nephrostomy tube and rosalee hematuria from the urethra, Lovenox was stopped. Renal ultrasound showed echogenic debris in the dependent portion of the bladder measuring 4.6 x 2.7 x 9.7 cm. KUB showed left nephrostomy tube in place a nonobstructive bowel gas pattern. Patient requested for lateral transfer to [facility], which was not accepted. Repeat CT abdomen/pelvis on 03/04/2025 revealed left nephrostomy tube in place with moderate left hydroureteronephrosis. Kidney function was constantly monitored, IV fluids given as required. Neurology and urology on board. Hemoglobin dropped to 6.9 on 03/06/2025 and she was given 1 transfusion of PRBCs, post which hemoglobin remained stable. The patient continuously refused to work with physical therapy. Infectious diseases specialist requested for lumbar spine MRI to rule out vertebral osteomyelitis, but the patient refused due to claustrophobia. She was on 2 L of oxygen by nasal cannula, which is her baseline. On evaluation today, all vitals were stable and labs within range and patient was discharged home in a stable condition. She was requested to follow up with Urology within 1 week and with PCP within 1 week. Past medical history: COPD on 2 L oxygen at home, CHF, insulin-dependent type 2 diabetes mellitus, hypertension, pulmonary artery hypertension, non-Hodgkin lymphoma in remission since 1987, lung cancer s/p right upper lobe resection Past surgical history: right upper lobectomy in 2016, tonsillectomy Social & Personal history: Lives at home with family, she denies any smoking, alcohol and drugs Allergies: sulfa antibiotics General Appearance: Cooperative. Well developed. Well nourished. Left nephrostomy tube in place with no discharge or erythema, with pale yellow urine. She is currently on 2 L oxygen via nasal cannula. Head Exam: Normal inspection Neck Exam: Normal inspection. Non-tender. Normal alignment Pulmonary/Respiratory: Chest non-tender. mildly reduced breath sounds bilaterally Cardiovascular/Chest: Regular rate and rhythm. No murmurs. No JVD. Peripheral Pulses: 2+ Radial (R). 2+ Radial (L). 2+ Pedal (R). 2+ Pedal (L) Abdominal Exam: Normal bowel sounds. Soft. normal abdomen, no visible veins, mild tenderness in left flank, No hepatospenomegaly. No masses Lower extremities: 1+ bilateral lower extremity pitting edema Neuro/Mental Status: A&O x4. Coherent. Thoughts/Psych: Normal thought pattern. Appropriate mood and affect. Good judgement and insight Skin Exam: Normal inspection. Normal color. Warm. Dry Operations or Procedures 1.PROCEDURE(s): CXRP - CHEST PORTABLE REASON: evelina garcia ORDER NUMBER(s): [id number], ACCESSION NUMBER(s): [id number] CHEST RADIOGRAPH Indication: cp, sob Technique: Single frontal view of the chest was obtained Comparison: XY CHEST PORTABLE on DOS: 09/27/24 FINDINGS: Lines and Tubes: None Lungs: Findings suggest pulmonary vascular congestion.. Pleura: No effusion. No pneumothorax. Cardiomediastinal contours: Marginal cardiomegaly. Bones: No acute osseous abnormality. IMPRESSION: 1. Marginal cardiomegaly with bilateral pulmonary vascular congestion. Correlate with the clinical setting. 2.PROCEDURE(s): CXR1 - CHEST XRAY 1 VIEW REASON: SOB ORDER NUMBER(s): [id number], ACCESSION NUMBER(s): [id number] EXAM: XY CHEST XRAY 1 VIEW Indication: SOB Technique: Single frontal view of the chest was obtained Comparison: XY CHEST PORTABLE on DOS: 02/18/25, XY CHEST PORTABLE on DOS: 09/27/24, XY CHEST TWO VIEWS ROUTINE on DOS: 07/30/24, XY CHEST TWO VIEWS ROUTINE on DOS: 07/04/24 FINDINGS: Lines and Tubes: None Lungs: Pulmonary vascular congestion. Pleura: No effusion. No pneumothorax. Cardiomediastinal contours: Cardiomegaly. Bones: No acute osseous abnormality. IMPRESSION: Cardiomegaly. Pulmonary vascular congestion. 3.PROCEDURE(s): ABPL - CT AB PEL WO CON-NO ORAL OR IV REASON: Pyelonephritis ORDER NUMBER(s): [id number], ACCESSION NUMBER(s): [id number] Exam: CT CT AB PEL WO CON-NO ORAL OR IV History: Pyelonephritis Comparison Study: CT CT AB PEL WO CON-NO ORAL OR IV on DOS: 09/26/24 TECHNIQUE: Multidetector CT of the abdomen was performed from lung bases to pubic symphysis. Imaging was performed without IV contrast. Axial, coronal and sagittal multiplanar reformats were obtained from the axial data set by the technologist. Radiation Dose Information: CT Dose: CTDI volume is 23.43 mGy. Dose-length product is 1195.69 mGy*cm FINDINGS: Evaluation of solid organs is limited due to lack of intravenous contrast use. Findings: Lung Bases: Mild increase interstitial markings noted at the lung bases. Liver: The liver is normal in size. No focal lesions. Gallbladder and Biliary Tree: Unremarkable Spleen: Unremarkable Pancreas: The pancreas is grossly normal in appearance. Adrenal Glands: Unremarkable Kidneys: There is a 5 mm obstructing stone present within in the proximal left ureter causing moderate left hydronephrosis. Bladder: Grossly unremarkable for degree of distention. Bowel: The stomach is grossly normal in appearance. Small bowel and colon are normal in caliber and distribution. The appendix is not visualized; however, no secondary findings of acute appendicitis identified. Ascites: Absent Lymphadenopathy: No mesenteric, retroperitoneal or periportal lymphadenopathy. Abdominal Wall and Mesentery: Unremarkable. Vasculature: The visualized abdominal aorta is normal in size and caliber. Evaluation of abdominal and pelvic vessels is limited due to lack of intravenous contrast. Pelvic Organs: Unremarkable Musculoskeletal: No aggressive focal bony lesions, acute fractures or dislocation. Soft tissues: Unremarkable IMPRESSION: 1. Moderate left-sided hydronephrosis with a 5 mm obstructing stone in the proximal left ureter. Air is present within the left collecting system, findings consistent with pyelonephritis 2. Radiation optimization: All CT scans at this facility use at least one of these dose optimization techniques: automated exposure control? mA and/or kV adjustment per patient size (includes targeted exams where dose is matched to clinical indication)? or iterative reconstruction. 4.PROCEDURE(s): CXR1 - CHEST XRAY 1 VIEW REASON: sob ORDER NUMBER(s): [id number], ACCESSION NUMBER(s): [id number] CHEST RADIOGRAPH Indication: sob Technique: Single frontal view of the chest was obtained Comparison: XY CHEST XRAY 1 VIEW on DOS: 02/19/25, XY CHEST PORTABLE on DOS: 02/18/25, XY CHEST PORTABLE on DOS: 09/27/24 FINDINGS: The cardiac silhouette is enlarged. The lungs demonstrate perihilar airspace opacities. The pulmonary vasculature is prominent. Small right pleural effusion. There is no pneumothorax. IMPRESSION: As above 5.PROCEDURE(s): PERNEPH - PERCUTANEOUS NEPHROSTOMY REASON: NEPHROTUBE ORDER NUMBER(s): [id number], ACCESSION NUMBER(s): [id number] DATE: 02/2025 PROCEDURE: Left NEPHROSTOMY TUBE PLACEMENT HISTORY: NEPHROTUBE OPERATORS: Dr. Elroy Mccain DOCUMENTATION: Informed consent was obtained and a procedural time out was performed. SEDATION: Moderate sedation was utilized during the procedure. The patient received benzodiazepines and opioids, the dosing of which was documented in the patients permanent medical record. Pre-sedation history and evaluation revealed no contraindications to sedation. The patients level of consciousness and physiologic status was monitored continuously by the physician and nursing staff throughout the procedure. Total intra-service moderate sedation time was 30 minutes. FLUORO TIME: 0.2 minutes TECHNIQUE: The skin over the patient's back was sterilely prepped, draped, and infiltrated with 1% lidocaine. An Accustick needle was advanced into the midpole of the left renal collecting system a wire was coiled within it. Owing serial exchange an 8.5 [place] nephrostomy tube was placed. Port was tested for function. IMPRESSION: 1. SUCCESSFUL left NEPHROSTOMY TUBE PLACEMENT. 6.PROCEDURE(s): ABPLIV - CT AB PEL WITH IV CON ONLY REASON: SEVERE PAIN FOLLOWING NEPHROSTOMY ORDER NUMBER(s): [id number], ACCESSION NUMBER(s): [id number] CLINICAL HISTORY: SEVERE PAIN FOLLOWING NEPHROSTOMY TECHNIQUE: CT of the abdomen and pelvis was performed with IV contrast. This exam was performed according to our departmental dose optimization program. Up-to-date CT equipment and radiation dose reduction techniques are utilized as appropriate. CTDI 27 DLP 1400 64 COMPARISON: CT CT AB PEL WO CON-NO ORAL OR IV on DOS: 02/20/25, CT CT AB PEL WO CON-NO ORAL OR IV on DOS: 09/26/24 FINDINGS: Abdomen/Pelvis: The spleen, pancreas, adrenal glands, gallbladder, liver, right kidney, and bladder are unremarkable. The uterus is absent. There has been interval placement of a left nephrostomy tube. The tip appears within the left renal pelvis. There is no concerning fluid collection along its tract. Previous hydronephrosis appears resolved. The abdominal aorta is normal in course and caliber. There are mild aortic atherosclerotic calcifications. There is no free intraperitoneal air or fluid. There is no enlarged abdominal or pelvic lymph node. There is no bowel wall thickening or dilatation. The appendix is normal. There is mild body wall edema. Other: The imaged lower thorax demonstrates a miniscule right pleural effusion. There is mild interstitial edema. No acute osseous abnormality is evident. IMPRESSION: Interval placement of left nephrostomy tube. No hydronephrosis. No fluid collection along its tract. Hysterectomy. Mild interstitial edema. Miniscule right pleural effusion. 7.PROCEDURE(s): KIDUS - KIDNEY REASON: bleeding from nephrostomy tube ORDER NUMBER(s): [id number], ACCESSION NUMBER(s): [id number] INDICATION: bleeding from nephrostomy tube TECHNIQUE: Multiple real-time sonographic images of the kidneys and bladder were obtained. COMPARISON: None FINDINGS: The right kidney measures 11.48 cm in length, which is normal in size. There is normal echogenicity of the right kidney. No hydronephrosis. The left kidney measures 11.93 cm in length, which is normal in size. There is normal echogenicity of the left kidney. No hydronephrosis. Nephrostomy tube is visualized. No large intraluminal masses are seen in the bladder. Prior to voiding the bladder volume measures volume 5 prevoid bladder residual is 596.45 mL cc. Bladder wall measures 1.93 mm. There is echogenic debris in the dependent portion of the bladder measuring 4.6 x 2.7 by 9.7 cm No postvoid bladder residual study received. IMPRESSION: 1. Normal sonographic appearance of the kidneys. No hydronephrosis. 2. Right kidney measures 11.48 cm in length. Left kidney measures 11.93 cm in length. 3. Bladder volume is 596.45mL. No postvoid bladder volume given. 8.PROCEDURE(s): KUB - KUB ABDOMEN SINGLE VIEW REASON: nephrostomy bleed ORDER NUMBER(s): [id number], ACCESSION NUMBER(s): [id number] Date: 03/01/2025 02:25 PM Examination: XY KUB ABDOMEN SINGLE VIEW History: nephrostomy bleed Comparison: None TECHNIQUE: Frontal views of the abdomen was obtained. FINDINGS: Bowel gas pattern is unremarkable. Left-sided nephrostomy tube visualized. The lung bases are unremarkable. No acute osseous abnormality identified. IMPRESSION: 1. Left-sided nephrostomy tube in place. 2. Nonobstructive bowel gas pattern. 9.PROCEDURE(s): ABPL - CT AB PEL WO CON-NO ORAL OR IV REASON: Evaluate Nephro Tube Placement ORDER NUMBER(s): [id number], ACCESSION NUMBER(s): [id number] Indication: Evaluate Nephro Tube Placement Technique: CT axial images of the abdomen and pelvis are obtained without contrast. Coronal and sagittal reformats were obtained. Radiation Dose Information: CTDI volume is 25.34 mGy. Dose-length product is 1253.62 mGy*cm Comparison: 02/27/2025 FINDINGS: There is limited interpretation of the abdomen and pelvis without administration of intravenous contrast. Lung bases demonstrate bibasilar atelectasis. Tiny bilateral pleural effusions. Adrenal glands, spleen unremarkable in shape. Pancreatic parenchymal fatty infiltration / atrophy. Liver capsule nodular morphology. No CT evidence for cholelithiasis. Right kidney demonstrates no hydronephrosis, nephrolithiasis. The left kidney demonstrates moderate left hydroureteronephrosis secondary to proximal left ureteral hyperdensity/ calculus 12 mm. There is a left nephrostomy tube which appears to be positioned within a mid to upper pole calyx. Stomach is partially distended. Small bowel loops are normal in caliber. Moderate volume stool in the colon. Postsurgical changes in the region of the hepatic flexure of the colon. Air-fluid level in the large bowel diffusely. Abdominal aortic atherosclerotic disease. Periaortic/retroperitoneal lymph nodes measuring up to 8 mm. Bladder partially distended. Hyperdensity along the dependent bladder. No free pelvic fluid. No inguinal lymphadenopathy. No acute osseous abnormality. Moderate to advanced lumbar degenerative disc disease most pronounced at L5-S1. Endplate irregularity changes at L5-S1. IMPRESSION: Limited evaluation without contrast. Left nephrostomy tube appears to be positioned within a mid to upper pole calyx. There is moderate left hydroureteronephrosis secondary to a proximal left ureteral hyperdensity/ calculus measuring 12 mm. Recommend urology consultation for further evaluation, management. Tiny bilateral pleural effusions. Diffuse colonic distention with air-fluid level may represent ileus, diarrheal state. Soft tissue edema/ anasarca. Hyperdensity in the dependent bladder lateralized towards the left, indeterminate. Recommend urology consultation to further evaluate. Liver capsule nodular morphology may represent sequela of cirrhosis. Correlate clinically. Endplate irregularity changes at L5-S1 which may represent sequela of degenerative disc disease. If there is concern for infection recommend obtaining MRI lumbar spine with and without contrast. Other findings as described. PROCEDURE(s): CXR1 - CHEST XRAY 1 VIEW REASON: SOB ORDER NUMBER(s): [id number], ACCESSION NUMBER(s): [id number] CHEST RADIOGRAPH Indication: SOB Technique: Single frontal view of the chest was obtained COMPARISON: XY CHEST XRAY 1 VIEW on DOS: 02/20/25, XY CHEST XRAY 1 VIEW on DOS: 02/19/25, XY CHEST PORTABLE on DOS: 02/18/25, XY CHEST PORTABLE on DOS: 09/27/24, XY CHEST TWO VIEWS ROUTINE on DOS: 07/30/24 FINDINGS: Lines and Tubes: None Lungs: Moderate Interval progression in Diffuse increased prominence of the pulmonary vasculature. Small right pleural effusion has slightly increased. Pleura: No effusion. No pneumothorax. Cardiomediastinal contours: Unremarkable Bones: Unremarkable IMPRESSION: 1. Moderate interval progression in diffuse increased prominence of the pulmonary vasculature and right pleural effusion. 11.PROCEDURE(s): CXR1 - CHEST XRAY 1 VIEW REASON: f/u rt pleural effusion ORDER NUMBER(s): [id number], ACCESSION NUMBER(s): [id number] EXAM: XY CHEST XRAY 1 VIEW HISTORY: f/u rt pleural effusion TECHNIQUE: 1 view of the chest COMPARISON: XY CHEST XRAY 1 VIEW on DOS: 03/05/25 FINDINGS/IMPRESSION: LUNGS: Peripheral interstitial edema with central pulmonary vascular congestion. Small right-sided pleural effusion. MEDIASTINUM: Unremarkable. BONES: No acute osseous abnormality. OTHER: None. Condition at Discharge: Fair Final Diagnosis/Problems List Acute on chronic hypoxic respiratory failure Acute on chronic HFpEF Possible COPD exacerbation with possible viral pneumonia Acute complicated cystitis Acute left hydronephrosis s/p left nephrostomy tube placement Acute left pyelonephritis Hematuria, resolved Left obstructive ureteral stone CLAUDIA on CKD, likely due to VMN, now resolved Uncontrolled type 2 diabetes mellitus with hyperglycemia Chronic back pain, multilevel degenerative disc disease Possible vertebral osteomyelitis Chronic hypochromic normocytic anemia s/p 1 prbc Mild transmnitis Hypothyroidism GERD Hypokalemia Acute diarrhea, likely viral Pulomary artery hypertension History of PE History of non lodgkin lymphoma History of lung cancer s/p right upper lobectomy Discharge Disposition: Home Discharge Instruct/Medications Diet: Consistent carbohydrate, Cardiac 2g Na,low cholest, Renal Diet comment: Renal, CCHO Activity: No Restrictions, As Tolerated Follow Up/Referral: Follow-up with PCP in 1-2 weeks Follow up with Urology in 1 week Medications: as per EMR Scheduled Acetaminophen (Tylenol), 325 MG PO PRN, (Reported) Albuterol Sulfate (Albuterol Sulfate Hfa), 90 MCG IN PRN, (Reported) Apixaban Base (Eliquis), 5 MG PO BID, (Reported) Apixaban Base (Eliquis), 5 MG PO BID, (Reported) B-Complex Vitamins (Vitamin B Complex), 1 OR DAILY, (Reported) Budesonide-Formoterol Fumarate (Budesonide/Formoterol Fum 160-4.5 Mcg/Act), 2 AER IN BID, (Reported) Cetirizine Hcl (Zyrtec Allergy), 10 MG PO HS, (Reported) Dicyclomine Hcl (Dicyclomine Hcl), 20 MG PO TID, (Reported) Duloxetine Hcl (Cymbalta), 1 CAP PO BID, (Reported) Empagliflozin (Jardiance), 25 MG PO DAILY, (Reported) Esomeprazole Magnesium (Esomeprazole Magnesium), 40 MG PO DAILY, (Reported) Fenofibrate (Fenofibrate), 1 TAB PO DAILY, (Reported) Guaifenesin (Mucinex Maximum Strength), 1,200 MG PO 4-5X PER WEEK, (Reported) Hctz (Hydrochlorothiazide), 12.5 MG PO DAILY, (Reported) Insulin Glargine (Lantus), 10 UNIT SC QAM, (Reported) Insulin Glargine (Lantus), 5 UNIT SC QPM, (Reported) Levothyroxine Sodium (Synthroid), 1 TAB PO DAILY, (Reported) Losartan Potassium (Losartan Potassium), 25 MG PO DAILY, (Reported) Metronidazole (Metronidazole), 500 MG PO TID Pioglitazone Hydrochloride (Pioglitazone Hcl), 15 MG PO BID, (Reported) Potassium Chloride (Klor-Con M10), 1 TAB PO DAILY, (Reported) Pregabalin (Lyrica), 3 CAP PO BID, (Reported) Rosuvastatin Calcium (Crestor), 1 TAB PO DAILY, (Reported) Tadalafil (Adcirca), 20 MG PO BID, (Reported) Vancomycin Hcl (Vancomycin Po), 250 MG PO QID Scheduled PRN Furosemide (Furosemide), 40 MG PO DAILYP PRN for EDEMA, (Reported) Tramadol Hcl (Tramadol Hcl), 50 MG PO DAILY PRN for PAIN SCALE 7 THRU 10, (Reported) Zolpidem Tartrate (Zolpidem Tartrate), 1 TAB PO HSPRN PRN for FOR INSOMNIA, (Reported) Discharge Statement: "Patient was advised to return to the ER or call 911 if any headaches, dizziness, shortness of breath, chest pain, abdominal pain, bleeding, fevers, or worsening of medical condition. Patient was counseled about treatment plan, medications, possible side effects, patientverbalized understanding. All questions were answered to the best of my ability. This discharge took greater then 30 minutes in planning, reviewing documentation, counseling the patient, and discussing with other team members." ASSESSMENT ASSESSMENT Assessment Acute on chronic hypoxic respiratory failure Acute on chronic HFpEF Possible COPD exacerbation with possible viral pneumonia History of PE Acute complicated cystitis Acute left hydronephrosis s/p left nephrostomy tube placement Acute left pyelonephritis Hematuria, resolved Left obstructive ureteral stone CLAUDIA on CKD, likely due to VMN, now resolved Uncontrolled type 2 diabetes mellitus with hyperglycemia Chronic back pain, multilevel degenerative disc disease 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
== END 2025-03-12 14:17 | disposition home health service (06) | DRG 682 ==
LOC: ER 11:53 → OVERFLOW 19:40 → CENTRAL 02-19 04:34 → TELE-CENTR 02-21 04:39 → CENTRAL 02-25 16:04
PROVIDERS: ADMIT Student in an Organized Health Care Education/Training Program; ATTEND Student in an Organized Health Care Education/Training Program
PROC: 0T9130Z Drainage of Left Kidney with Drainage Device, Percutaneous Approach (ICD-10-PCS; 2025-02-21)
PROC: 30233N1 Transfusion of Nonautologous Red Blood Cells into Peripheral Vein, Percutaneous Approach (ICD-10-PCS; principal; 2025-03-06)
DX: N17.0 Acute kidney failure with tubular necrosis (principal); I50.33 Acute on chronic diastolic (congestive) heart failure; J96.21 Acute and chronic respiratory failure with hypoxia; J12.9 Viral pneumonia, unspecified; R78.81 Bacteremia; I13.0 Hypertensive heart and chronic kidney disease with heart failure and stage 1 through stage 4 chronic kidney disease, or unspecified chronic kidney disease; J44.1 Chronic obstructive pulmonary disease with (acute) exacerbation; I27.21 Secondary pulmonary arterial hypertension; D63.8 Anemia in other chronic diseases classified elsewhere; C85.9A Non-Hodgkin lymphoma, unspecified, in remission; R65.10 Systemic inflammatory response syndrome (SIRS) of non-infectious origin without acute organ dysfunction; N13.6 Pyonephrosis; K74.60 Unspecified cirrhosis of liver; E11.65 Type 2 diabetes mellitus with hyperglycemia; N18.9 Chronic kidney disease, unspecified; E03.9 Hypothyroidism, unspecified; I07.1 Rheumatic tricuspid insufficiency; E66.9 Obesity, unspecified; K21.9 Gastro-esophageal reflux disease without esophagitis; R19.7 Diarrhea, unspecified; Z20.822 Contact with and (suspected) exposure to COVID-19; K59.00 Constipation, unspecified; E87.6 Hypokalemia; M54.50 Low back pain, unspecified; E11.22 Type 2 diabetes mellitus with diabetic chronic kidney disease; G89.29 Other chronic pain; R74.01 Elevation of levels of liver transaminase levels; T36.8X5A Adverse effect of other systemic antibiotics, initial encounter; D75.839 Thrombocytosis, unspecified; Z99.81 Dependence on supplemental oxygen; Z90.710 Acquired absence of both cervix and uterus; Z86.711 Personal history of pulmonary embolism; Z85.118 Personal history of other malignant neoplasm of bronchus and lung; Z90.2 Acquired absence of lung [part of]; Z87.891 Personal history of nicotine dependence; Z88.2 Allergy status to sulfonamides; Z79.899 Other long term (current) drug therapy; Z79.4 Long term (current) use of insulin; Z76.5 Malingerer [conscious simulation]; Z93.6 Other artificial openings of urinary tract status; Y92.89 Other specified places as the place of occurrence of the external cause
CPT/HCPCS: 36415; 36430; 50435; 71045; 74018; 74176; 74177; 74425; 76775; 76942; 80048; 80053; 80061; 80076; 80202; 81001; 82306; 82550; 82565; 82570; 82962; 83036; 83540; 83550; 83605; 83735; 83880; 83970; 84100; 84156; 84300; 84443; 84484; 84702; 85007; 85014; 85018; 85025; 85027; 85045; 85610; 85730; 86850; 86900; 86901; 86920; 87040; 87077; 87081; 87086; 87088; 87186; 87426; 87804; 90656; 93005; 94640; 96374; 96375; 97110; 97163; 97530; 99152; 99291; G0378; J1450; J1756; J1815; J1956; J2185; J2250; J3490